=== PATIENT | female | born 1945 | race Caucasian/White ===

== ENCOUNTER 2018-04-30 13:30 | Outpatient (RCR) | payer MEDICARE, OTHER, SELFPAY ==
--- NOTE | 2018-04-14 14:01 | HP.PTEVAL ---
Patient's Visit Information JAZMINE ZHENG is a 72 year old F referred to Physical Therapy by MATT SHINE with a diagnosis of imbalance. Date of Evaluation: 04/14/18 Physical Therapist: Augustus Springer DPT, [place] - Visit Plan Frequency: 2x /Week Duration: 4-6 Weeks Plan: Neuro[employer] balance test then. 2x/week for 4 weeks for balance of VOR, foam and per results progressing to I HEP. Pt to consider full body ex instruction for overall health and if she would consider senior care I then we can teach her those also. - Subjective Subjective: Has Fibromyalgia. Was under control for 20 years. Got bad anxiety adn depression in 2013 and was hospitalized. Walking has been shuffling for 2 years or so, ruled out Parkinsons 18 months ago. Falls easily and falls out of bed. Has broken acetabulum in 2012. Leaning forward is a problem, causes her to fall. Saw ENT and ruled out vertigo. Spins sometimes, maybe due to medication. Bending over will make her spin and that will last 30 seconds. Turning too quick and lying in bed might also causes it. Is having PT now becasue the physican she saw noticed balance problems. Is not able to ex anymore, walking 2 houses down can be a challenge now. Feels like she has cement shoes. Not sure if has neuropathy, had needle test in legs and did not like it but that was a long time ago. She will not get another one becasue it hurt. Soemtimes gets tremors and jerking movements. Had neurologist in [place] but not since she moved here in 2013. Sleep is OK with Xanax. Not employed, can't stand long enough. Activities include cleaning the house, lives with , others have to shop for her. No regular ex. Spends day watching TV, reading, computer. Can't do yard work because of dizzyness with bending. - Pain legs Pain Intensity (Out of 10): 0 Pain Intensity Range: 0, 7 Comment: bending - Objective Walks slowly and hesitantly with neuropathic gait pattern lacking FW weoght shift. Sti to stadn without UE I. Steps are reciprocal with one rail. sensation LE WNL to gross light touch. Coordination inv/ev and reciprocal is poor in feet. strength in LE 4-/5, LE AROM WFL except DF at 0 degrees with knees straight showing tight gastroc. VOR is slow and poor. - B hallpike lesia. - Balance Scores Functional Gait Assessment Score: 19 % Disability: 36.6700 CATSIB Score (Max score 120 seconds): 85 - Goals Goal 1:: FGA to to diminish fall risk. Goal Time Frame: 4-6 Weeks Goal 2:: I ambulation with 50% improved subjective balance without AD Goal Time Frame: 4-6 Weeks Goal 3:: I approp HEP to minimize future problems Goal Time Frame: 4-6 Weeks Goal 4:: Do yard work without hesitation. Goal Time Frame: 4-6 Weeks - Rehabilitation Potential Physical Therapy Diagnosis: imbalance and gait. Rehabilitation Potential: Fair - Anticipated Interventions Patient/Client Instruction: Educate patient on: Condition, Plan of Care For the Purpose of:: To improve ability of physical actions for home/community/work/leisure, To improve balance, To improve safety Therapeutic Exercise to Include: Strength training, Balance training, Gait and locomotor training For the Purpose of:: To improve ability of physical actions for home/community/work/leisure, To improve gait and locomotor functions, To improve safety with gait Thank you for the opportunity to evaluate your patient. For Medicare and Medicare HMO plans, please review the plan of care and approve it. It will need to be FAXED BACK to us at [phone] for Medicare purposes. Please let me know if there are questions or concerns regarding this plan of care. Physician Signature: Date:
--- NOTE | 2018-04-20 13:16 | HP.PTCOM ---
PT Communication Note 04/20/[address] MATT SHINE , Sincerely, Augustus Springer, DPT, [place] Contact Information
--- NOTE | 2018-04-20 13:19 | HP.PTCOM_ITS ---
PT Communication Note 04/20/[address] MATT SHINE , Thank you for the referral of Roxana to [facility] for balance assessment. I have enclosed a copy of the results for your review. In summation, she scored well on the Limits of Stability Test. She score low on the left adn forward excursion on the Limits of Stability Test. She score low on the visual and vestibular portions of the Sensory Organization Test. With these results in mind, I plan to see her 2x/week for 4 weeks to work on these deficits and her strength and progress to an independent home program. Please contact me if you have questions. Thank you for this referral. Sincerely, Augustus Springer DPT, OC Contact Information
--- NOTE | 2018-05-11 12:32 | HP.PTDCNRP_ITS ---
HP - Discharge Summary (1) - Patient Information JAZMINE ZHENG was seen in my office for initial evaluation on 04/14/18. The following Plan of Care was established for this patient: Initial Frequency: 2x /Week Initial Duration: 4-6 Weeks - Anticipated Interventions Patient/Client Instruction: Educate patient on: Condition, Plan of Care For the Purpose of:: To improve ability of physical actions for home/community/ work/leisure, To improve balance, To improve safety Therapeutic Exercise to Include: Strength training, Balance training, Gait and locomotor training For the Purpose of:: To improve ability of physical actions for home/community/ work/leisure, To improve gait and locomotor functions, To improve safety with gait This patient was last seen in our office 04/30/18. Pertinent comments regarding their Physical therapy will appear below: Pt seen for 4 visits for balance testing and ex. Has called to cancel all visits at this time. Will discontinue her from my care at her request. At this point I will be discontinuing this patient from physical therapy. I would be happy to see this patient again in the future if found appropriate by the physician. Thank you! Augustus Springer, DPT, [place]
== END 2018-04-30 19:00 | disposition home or self-care (01) ==
LOC: PT 13:30
PROVIDERS: Family Provider Internal Medicine; PCP Internal Medicine
DX: R26.89 Other abnormalities of gait and mobility (principal)
CPT/HCPCS: 97110; 97162; 97750

== ENCOUNTER → 2018-07-16 11:52 | Outpatient (CLI) | payer MEDICARE, OTHER, SELFPAY | PROVIDERS: Family Provider Internal Medicine; PCP Internal Medicine; Referring Provider Nurse Practitioner Adult Health; Visit Provider Nurse Practitioner Adult Health | DX: R82.998 Other abnormal findings in urine (principal) | CPT/HCPCS: 87086; 87088; 87186 ==

== ENCOUNTER → 2018-08-26 11:51 | Outpatient (CLI) | payer MEDICARE, OTHER, SELFPAY ==
--- NOTE | 2018-08-26 11:56 | BI_ITS ---
MAMMOGRAPHY - BILATERAL SCREENING REASON FOR EXAM: Female, 73 years old. Routine annual screening examination. PERTINENT HISTORY: Non-contributory. TECHNIQUE: Digital bilateral breast gaby (3D mammographic acquisition) in the CC and MLO projections. 2-D mediolateral oblique (MLO) and craniocaudad (CC) views of both breasts were obtained. CAD: Full Field Digital Mammography with Computer Added Detection was performed. COMPARISON: Comparison is made with prior study dated April 17, 2017 and January 29, 2016. FINDINGS: Breast Composition: There are scattered areas of fibroglandular density. There are no dominant masses or suspicious calcifications. No other significant abnormalities are identified. There has been no significant change since the prior study. BI/SCREENING MAMM (CAD), BILAT IMPRESSION: Stable bilateral screening mammogram. Yearly follow-up mammogram recommended. (A) ASSESSMENT CATEGORY: BIRADS Category 1: Negative. A letter regarding these results will be sent to the patient by the facility within 30 days. Approximately 10% of breast cancers are not detected by mammography. A normal mammogram should not delay biopsy of a clinically suspicious abnormality. [id number] Electronically Signed: Junaid Casillas MD at 13:00 EST Tel [phone], Service support ,
--- OUTSIDE RECORDS SUMMARY | 2018-10-12 15:20 | XMS RPT_ITS | Continuity of Care Document ---
:1945 Author Organization [facility] Address [address] [place] [address] [address] [place] [address] Phone Care Team Providers Name Role Phone Rain Mccormick DO Unavailable Obie Almanza MD Unavailable Dr. Jeffrey Vasquez Unavailable Robbie White Unavailable BRUCE Ibanez Unavailable Unavailable JESIKA Huber Unavailable Unavailable Unavailable Unavailable Problems Name Dates Details Annual Medicare Phyiscal WITHOUT abnormal findings (Renamed from Encounter for general adult medical examination without abnormal findings) (Z00.00, V70.9) Status: Active Annual Medicare Phyiscal WITHOUT abnormal findings (Renamed from Encounter for general adult medical examination without abnormal findings) (Z00.00, V70.9) Status: Active Anxiety (F41.9, 300.00) Comments: ady galeana for axn adn counseling Status: Active BMI 30.0-30.9,adult (Z68.30, V85.30) Status: Active BMI 32.0-32.9,adult (Z68.32, V85.32) Status: Active Body mass index 31.0-31.9, adult (Z68.31, V85.31) Status: Active Cataract (H26.9, 366.9) Comments: pt doesnt know which eye Status: Active Current nonsmoker (Renamed from Current non-smoker) (Z78.9, V49.89) Status: Active Deliveries (Parity) Comments: 3 Status: Active Diabetes mellitus type II, controlled (E11.9, 250.00) Comments: much better than was. Status: Active Dizzy (R42, 780.4) Comments: improving with time at lower dose of medicaion that was weaning and started with decreasing gabapentin str -- Status: Active Dysthymic (F34.1, 300.4) Comments: stalbe Status: Active Elevated LFTs (Renamed from Elevated liver function tests) (R94.5, 790.6) Comments: stable Status: Active Elevated rheumatoid factor (R76.8, 795.79) Comments: olya- said RA -- went to [facility] for second opinion agreed with dx but no need for immunosuppressants Status: Active Encounter for screening for malignant neoplasm of colon (Renamed from Special screening for malignant neoplasms, colon) (Z12.11, V76.51) Status: Active Encounter for screening mammogram for breast cancer (Renamed from Encounter for screening mammogram for malignant neoplasm of breast) (Z12.31, V76.12) Status: Active Fibromyalgia (M79.7, 729.1) Comments: going to try otc non THC productson iveth pen didnt tolerate cymblata -- but tired on gabapentin Status: Active Fibromyalgia (Renamed from Diffuse myofascial pain syndrome) (M79.7, 729.1) Comments: stable Status: Active Hypercholesteremia (Renamed from Hypercholesterolemia) (E78.00, 272.0) Comments: stopped her statin bc didnt tolerate them -- couldnt even std up with wt on legs Status: Active Medication side effect (T88.7XXA, 995.20) Comments: weaning off gabapentin Status: Active Movement disorder (G25.9, 333.90) Status: Active 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 Harry both derm and opthal Status: Active Pneumococcal vaccination given (Z23, V06.6) Status: Active Postmenopausal (Renamed from Postmenopausal status) (Z78.0, V49.81) Status: Active Pregnancies () Comments: 3 Status: Active 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 without 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, unspecified retirement insulin use status (E11.65, 250.02) Comments: HAIC improved -- but still needs improvement-- will do more diet nad lifestyle chg befroe med change Status: Active Vitamin B 12 deficiency (E53.8, 266.2) Comments: weekly x2 and then monthly or take otc daily pill Status: Active Vitamin D deficiency (E55.9, 268.9) Status: Active Medications Name Dates Details ACCU-CHEK IRMA (Device) uad Device Device three times daily for 0 days Quantity: 1 {Each} Refills: 0 Ordered:25-Sep-2015 Anyi Hawthorne MD Start : 25-Sep-2015 Active Comments:E11.9 ACCU-CHEK SOFTCLIX LANCETS (Miscellaneous) 1 (one) Misc Misc bid for 0 days Quantity: 2 {Box} Refills: 5 Ordered:22-Sep-2015 Anyi Hawthorne MD Start : 22-Sep-2015 Active Comments:DX: E11.9 Alendronate Sodium 70 MG Oral Tablet 1 (one) Tablet once a week for 0 days Quantity: 4 {Tablet} Refills: 11 Ordered:03-Sep-2017 Kevin Mccormick DO, DO, Kathleen Start : 03-Sep-2017 Active Drisdol 26189 UNIT Oral Capsule 1 (one) Capsule Capsule qweek for 0 days Quantity: 4 {Capsule} Refills: 4 Ordered:28-Jan-2017 Valencia Ibanez LPN Start : 28-Jan-2017 Active Gabapentin 400 MG Oral Capsule 1 Capsule qid for 90 days Quantity: 120 {Capsule} Refills: 0 Ordered:25-Mar-2018 Kevin Mccormick DO, DO, Kathleen Start : 25-Mar-2018 Active Comments:1200 mg qd Januvia 100 MG Oral Tablet 1 (one) Tablet Tablet qd for 0 days Quantity: 30 {Tablet} Refills: 6 Ordered:13-Jan-2018 Kevin Mccormick DO, DO, Kathleen Start : 13-Jan-2018 Active Lexapro 10 MG Oral Tablet 1 Tablet qd for 0 days Quantity: 30 {Tablet} Refills: 6 Ordered:03-Sep-2017 Kevin Mccormick DO, DO, Kathleen Start : 03-Sep-2017 Active MetFORMIN HCl 1000 MG Oral Tablet 1 (one) Tablet bid for 0 days Quantity: 180 {Tablet} Refills: 3 Ordered:26-Feb-2018 Kevin Mccormick DO, DO, Kathleen Start : 26-Feb-2018 Active Metoprolol Succinate ER 25 MG Oral Tablet Extended Release 24 Hour 1 Tablet ER 24HR qd for 0 days Quantity: 90 {Tablet} Refills: 3 Ordered:03-Jun-2018 Kevin Mccormick DO, DO, Kathleen Start : 03-Jun-2018 Active Nystatin Powder apply Powder Powder under breast 3-5 times a day for 0 days Quantity: 1 {Bottle} Refills: 2 Ordered:08-May-2017 Valencia Ibanez LPN Start : 08-May-2017 Active Xanax XR 1 MG Oral Tablet Extended Release 24 Hour 1 Tablet ER 24HR qhs for 0 days Quantity: 30 {Tablet} Refills: 0 Ordered:01-May-2016 Kevin Mccormick DO, DO, Kathleen Start : 01-May-2016 Active Comments:thirty ATORVASTATIN CALCIUM, 10MG (Oral Tablet) 1/2 Tablet at night for 0 days Quantity: 30 {Tablet} Refills: 5 Ordered:26-Dec-2015 Anyi Hawthorne MD Start : 26-Dec-2015 End : 26-Dec-2015 Inactive Comments:myalgia DESONIDE, 0.05% (External Cream) apply sparingly Cream Cream bid for 5-7 days for 0 days Quantity: 15 {Gram} Refills: 0 Ordered:26-Dec-2015 JESIKA Huber Start : 21-Aug-2015 End : 26-Dec-2015 Inactive DIFLUCAN, 150MG (Oral Tablet) 1 (one) Tablet qd for 0 days Quantity: 1 {Tablet} Refills: 0 Ordered:22-Sep-2015 JESIKA Huber Start : 21-Aug-2015 End : 22-Sep-2015 Inactive DOXYCYCLINE HYCLATE, 50MG (Oral Capsule) 1 (one) Capsule bid for 0 days Quantity: 60 {Capsule} Refills: 0 Ordered:15-Mar-2016 Valencia Ibanez LPN Start : 26-Dec-2015 End : 15-Mar-2016 Inactive DOXYCYCLINE MONOHYDRATE, 100MG (Oral Capsule) 1 (one) Capsule bid for 7 days Quantity: 14 {Capsule} Refills: 0 Ordered:21-Aug-2015 Kevin Mccormick DO, DO, Kathleen Start : 21-Aug-2015 End : 28-Aug-2015 Inactive ERGOCALCIFEROL, 25143VQYZ (Oral Capsule) 1 (one) Capsule q weekly for 0 days Quantity: 12 {Capsule} Refills: 3 Ordered:15-Mar-2016 Valencia Ibanez LPN Start : 26-Dec-2015 End : 15-Mar-2016 Inactive Gabapentin 100 MG Oral Capsule 1 (one) Capsule qam for 90 days Quantity: 90 {Capsule} Refills: 0 Ordered:03-Sep-2017 Raisa Nova Start : 03-Sep-2017 End : 02-Dec-2017 Inactive KLONOPIN, 0.5MG (Oral Tablet) 1 Tablet bid for 0 days Quantity: 120 {Tablet} Refills: 5 Ordered:15-Mar-2016 Valencia Ibanez LPN Start : 26-Dec-2015 End : 15-Mar-2016 Inactive Comments:one hundred and twenty Onglyza 5 MG Oral Tablet 1 (one) Tablet qd for 30 days Quantity: 30 {Tablet} Refills: 3 Ordered:03-Sep-2017 Kevin Mccormick DO, DO, Kathleen Start : 08-May-2017 End : 03-Sep-2017 Inactive Pravachol 40 MG Oral Tablet 1 (one) Tablet qd for 0 days Quantity: 90 {Tablet} Refills: 3 Ordered:01-Aug-2017 Anyi Hawthorne MD Start : 01-Aug-2017 End : 01-Aug-2017 Inactive Comments:myalgia ACCU-CHEK SMARTVIEW (In Vitro Strip) 1 (one) Strip bid as directed for 0 days Quantity: 60 {Strip} Refills: 5 Ordered:06-Nov-2015 Kelli Oro Start : 22-Sep-2015 End : 06-Nov-2015 Discontinued Comments:DX: E11.9NPI: [id number] DULoxetine HCl 20 MG Oral Capsule Delayed Release Particles 1 (one) Capsule qam for 90 days Quantity: 90 {Capsule} Refills: 1 Ordered:25-Mar-2018 Kevin Mccormick DO, DO, Kathleen Start : 25-Mar-2018 End : 25-Mar-2018 Discontinued Comments:heart racing Plaquenil 200 MG Oral Tablet 1 (one) Tablet bid for 0 days Quantity: 60 {Tablet} Refills: 3 Ordered:19-Dec-2017 Kevin Mccormick DO, DO, Kathleen Start : 19-Dec-2017 End : 19-Dec-2017 Discontinued Comments:per valgabike TRAMADOL HCL, 50MG (Oral Tablet) 1 Tablet q 6-8 hours prn for 0 days Quantity: 120 {Tablet} Refills: 5 Ordered:03-Jul-2015 Jessica Cobos LPN Start : 29-Jun-2015 End : 03-Jul-2015 Discontinued Comments:one hundred and twenty Allergies and Adverse Reactions Name Dates Details No Known Allergies (Allergy) Onset: 06-Apr-2015 Status: Active Past Medical History Name Dates Details Encounter for Medicare annual wellness exam (Z00.00, V70.0) Status: Inactive as of 08-May-2015 Fracture of bone of left shoulder, sequela (S42.92XS, 905.2) Comments: surgery 03-29 ORIF plate/screws. update 09-22-15 patient is going back in for more surgery 10-04-15 for manipulation of the left shoulder again @ [facility] Status: Inactive as of 26-Dec-2015 History of candidiasis (Z86.19, V12.09) Status: Inactive as of 22-Sep-2015 Left arm swelling (M79.89, 729.81) Status: Inactive as of 26-Dec-2015 Rash of face (R21, 782.1) Comments: etiology ??-- doubt roscea based on distrib but it gets pustlues -- or lil contact ?-- Status: Inactive as of 22-Sep-2015 Yeast dermatitis (B37.2, 112.3) Status: Resolved as of 01-Aug-2017 Procedures Procedure Dates Details Appendectomy Completed Delivery Completed Comments: 3 Hysterectomy; Total Completed Left Shoulder repair Completed Comments: due to fracture March 2015 ORIF/plate/screws Tonsillectomy Completed Date Value Details 21-Apr-2018 PT Communication Result: Comments: See Note; NOTES: [facility] [place] [facility] [place] [address] Fax REHABILITATION SERVICES PROGRPAULETTE S NOTE MR#: [id number] Acct: [id number] Name: JAZMINE LOCO Rep #: [id number] : 1945 72 From: GERARDO Horner DPT, CSCS Referring Dr.: Status: REG RCR Insurance: MEDICARE PART A B [employer] [place] PT Communication Note 04/20/[address] MATT SHINE , Thank you for the referral of Jazmine to [facility] for balance assessment. I have enclosed a copy of the results for your review. In summation, she scored well on the Limits of Stability Test. She score low on the left adn forward excursion on the Limits of Stability Test. She score low on the visual and vestibular portio ns of the Sensory Organization Test. With these results in mind, I plan to see her 2x/week for 4 weeks to work on these deficits and her strength and progress to an independent home program. Please con tact me if you have questions. Thank you for this referral. Sincerely, Augustus Springer DPT, LEAH Contact Information 04/21/18 0914 <Electronically signed by Augustus Springer DPT, GERARDO, CSCS> Date GERARDO Horner DPT, CSCS Cosigner Signature (if applicable): Date CC: Rain Mccormick DO; OUT OF TOWN DOCTOR Signed For Medicare only, by signing this I certify the plan of care. Physicians Signature Date 15-Apr-2018 Inital Evaluation (1) - PT Result: Comments: See Note; NOTES: [facility] [address] [place] [address] Fax REHABILITATION SERVICES INITIAL EVALUATION MR#: [id number] Acct: [id number] Name: JAZMINE LOCO Rep #: [id number] : 1945 72 From: Augustus Springer DPT, OCS, CSCS Referring DrNoman: Status: REG RCR Insurance: MEDICARE PART A B [facility] Patient's Visit Information JAZMINE LOCO is a 72 year old F referred to Physical Therapy by MATT SHINE with a diagnosis of imbalance. Date of Evaluation: 04/14/18 Physical Thera pist: Augustus Springer DPT, OC - Visit Plan Frequency: 2x /Week Duration: 4-6 Weeks Plan: Neurocom balance test then. 2x/week for 4 weeks for balance of VOR, foam and per results progressing to I HEP. Pt to consider full body ex instruction for overall health and if she would consider oil heaterman I then we can teach her those also. - Subjective Subjective: Has Fibromyalgia. Was under control for 20 years . Got bad anxiety adn depression in 2013 and was hospitalized. Walking has been shuffling for 2 years or so, ruled out Parkinsons 18 months ago. Falls easily and falls out of bed. Has broken acetabulum in 2012. Leaning forward is a problem, causes her to fall. Saw ENT and ruled out vertigo. Spins sometimes, maybe due to medication. Bending over will make her spin and that will last 30 seconds. Turning too quick and lying in bed might also causes it. Is having PT now becasue the physican she saw noticed balance problems. Is not able to ex anymore, walking 2 houses down can be a challenge now. Feels l cathi she has cement shoes. Not sure if has neuropathy, had needle test in legs and did not like it but that was a long time ago. She will not get another one becasue it hurt. Soemtimes gets tremors and j erking movements. Had neurologist in [place] but not since she moved here in 2013. Sleep is OK with Xanax. Not employed, can't stand long enough. Activities include cleaning the house, lives with , others have to shop for her. No regular ex. Spends day watching TV, reading, computer. Can't do yard work because of dizzyness with bending. - Pain legs Pain Intensity (Out of 10): 0 Pain Intensit y Range: 0, 7 Comment: bending - Objective Walks slowly and hesitantly with neuropathic gait pattern lacking FW weoght shift. Sti to stadn without UE I. Steps are reciprocal with one rail. sensation LE WNL to gross light touch. Coordination inv/ev and reciprocal is poor in feet. strength in LE 4-/5, LE AROM WFL except DF at 0 degrees with knees straight showing tight gastroc. VOR is slow and poor. - B hallpike lesia. - Balance Scores Functional Gait Assessment Score: 19 % Disability: 36.6700 CATSIB Score (Max score 120 seconds): 85 - Goals Goal 1:: FGA to to diminish fall risk. Goal Time Fram e: 4-6 Weeks Goal 2:: I ambulation with 50% improved subjective balance without AD Goal Time Frame: 4-6 Weeks Goal 3:: I approp HEP to minimize future problems Goal Time Frame: 4-6 Weeks Goal 4:: Do alia d work without hesitation. Goal Time Frame: 4-6 Weeks - Rehabilitation Potential Physical Therapy Diagnosis: imbalance and gait. Rehabilitation Potential: Fair - Anticipated Interventions Patient/Clie nt Instruction: Educate patient on: Condition, Plan of Care For the Purpose of:: To improve ability of physical actions for home/community/work/leisure, To improve balance, To improve safety Therapeutic Exercise to Include: Strength training, Balance training, Gait and locomotor training For the Purpose of:: To improve ability of physical actions for home/community/work/leisure, To improve gait and lo comotor functions, To improve safety with gait Thank you for the opportunity to evaluate your patient. For Medicare and Medicare HMO plans, please review the plan of care and approve it. It will ne ed to be FAXED BACK to us at [phone] for Medicare purposes. Please let me know if there are questions or concerns regarding this plan of care. Physician Signature: Date: <Electronically signed by Augustus Springer DPT, OCS, CSCS> 04/15/18 0722 CC: Rain Mccormick DO; OUT OF TOWN DOCTOR EBG S igned For Medicare only, by signing this I certify the plan of care. Physicians Signature Date 17-Apr-2017 SCREENING MAMM (CAD), BILAT Result: Comments: See Note; NOTES: [facility] Imaging Services [address] [place] [address] SCREENING MAMM (CAD), BILAT MR#: [id number] Acct: [id number] Name: JAZMINE LOCO Rep #: [id number] : 1945 F 71 From: Junaid Casillas MD PCP: Rain Mccormick DO Status: [facility] Study: SCREENING MAMM (CAD), BILAT Date of Exam: 04/17/17 Exam# [id number] Ordering Dr: Rain Mccormick DO MAMMOGRAPHY - BILATERAL SCREENING REASON FOR EXAM: Female, 71 years old. Routine annual screening examination. PERTINENT HISTORY: Non-contributory. TECHNIQUE: Digital bilateral breast gaby (3D mammographic acquisition) in the CC and MLO projections. 2-D mediolateral oblique (MLO) and craniocaudad (CC) views of both breasts were obtained. CAD: Full Field Digital Mammography with Computer Added Detection was performed. COMPARISON: Comparison is made with prior study dated January 29, 2016 and November 18, 2011. FINDINGS: Breast Composition: The breasts are hetero geneously dense, which may obscure small masses. There are no dominant masses or suspicious calcifications. No other significant abnormalities are identified. There has been no significant change sinc e the prior study. HPBI/SCREENING MAMM (CAD), BILAT IMPRESSION: Stable bilateral screening mammogram. Yearly follow-up mammogram recommended. (A) ASSESSMENT CATEGORY: BIRADS Category 1: Negative. A letter regarding these results will be sent to the patient by the facility within 30 days. Approximately 10% o f breast cancers are not detected by mammography. A normal mammogram should not delay biopsy of a clinically suspicious abnormality. [id number] Electronically Signed: Junaid Casillas MD at 15:15 EDT Tel [phone], Service support , CC: Rain Mccormick DO Geological Manager: Signed 30-Jan-2017 Liver Result: Comments: See Note; NOTES: [facility] Imaging Services [address] [place] [address] Verdana 4d Liver MR#: [id number] Acct: [id number] Name: JAZMINE LOCO Rep #: [id number] DO B: 1945 F 71 From: Junaid Casillas MD PCP: Rain Mccormick DO Status: REG CLI Study: Liver Date of Exam: 01/30/17 Exam# [id number] Ordering Dr: Rain Mccormick DO STUDY: ABDOMINAL ULTRASOUND - RIGHT UPPER QUADRANT REASON FOR VISIT: Female, 71 years old. Elevated liver function tests. TECHNIQUE: Ultrasound evaluation of the right upper quadrant was performed with real-time and static trivedi -scale imaging. TECHNICAL QUALITY: Adequate. COMPARISON: None. FINDINGS: Liver: The liver measures 16.3 cm. There is increased echogenicity consistent with fatty infiltration. The bile ducts are within normal limits. There is hepatic color flow. The direction of portal flow is hepatopetal. There is no demonstrated mass lesion. Gallbladder: Normal distended gall bladder. The gallbladder wall measures 1.8 mm. There is a negative sonographic Barron's sign. There is no pericholecystic fluid. There are no gallstones. Common Bile Duct (C.B.D.): The common bile duct measures 5.0 mm. Pancreas: Normal size of the head, body and tail of the pancreas. There is normal echogenicity of the pancreas. There is no demonstrated pancreatic mass or cyst. Right Kidney: Normal size of the right kidney. The right kidney measures 10.8 cm x 4.0 cm x 4.6 cm. Normal renal cortex. The right cortex measures 1.5 cm. There is no demonstrated renal mass or cyst. There is no right hydr onephrosis. US/Liver IMPRESSION: Fatty infiltration of the liver. Electronically Signed: Junaid Casillas MD at 15:05 EDT Tel [phone], Service support , CC: Rain Mccormick DO Geological Manager: Signed 11-Apr-2016 Dexa Bone Density Study (HP) Result: Comments: See Note; NOTES: [facility] Imaging Services [address] [place] [address] Verdana 4d Dexa Bone Density Study (HP) MR#: [id number] Acct: [id number] Name : JAZMINE LOCO Rep #: [id number] : 1945 F 70 From: Junaid Casillas MD PCP: Rain Mccormick DO Status: REG CLI Study: Dexa Bone Density Study (HP) Date of Exam: 04/11/16 Exam# [id number] Ordering Dr: Rain Mccormick DO STUDY: DUAL ENERGY X-RAY ABSORPTIOMETRY / DXA REASON FOR EXAM: Female, 70 years old. The patient is postmenopausal. Loss of height. TECHNIQUE: Bone Mineral Den sity (BMD) measurements of lumbar spine and bilateral hips were obtained. COMPARISON: None. FINDINGS: Lumbar Spine (L1-L4): g/cm2 (1.354) / T-score (1.6) / Z- score (3.2) Findings are suggestive of normal bone density with a low fracture risk. Left Femur Total: g/cm2 (0.915) / T-score (-0.7) / Z-score (0.7) Left Femoral Neck: g/cm2 (0.806) / T-score (-1.7 ) / Z-score (0.0) Right Femur Total: g/cm2 (0.948) / T-score (-0.5) / Z-score (0.9) Right Femoral Neck: g/cm2 (0.778) / T-score (-1.9) / Z-score (-0.2) HPBD/Dexa Bone Density Study (HP) IMPRESSION: The patient is considered osteopenic at the level of the femoral neck as outlined below according to World Onel Organization (WHO) criteria with a moderate fracture risk. Reference Information: The T-score is the number of standard deviations above or below the standard which is normal for young ad ults at their peak bone mineral density. The World Health Organization (WHO) interprets the T-scores as follows: Above -1 Normal bone density Between -1 and -2.5 Osteopenia Equal to / or below -2. 5 Osteoporosis As a practical clinical guideline, osteopenia may be graded as follows: Mild -1 through -1.5 Moderate -1.6 through -2.0 Severe -2.1 through -2.4 The Z-score is the number of standa rd deviations above or below age-matched controls. A Z-score of less than -1.5 would be considered abnormal. References: 1. NIH Osteoporosis and Related Bone Diseases http://www.osteo.org 2. Tape Fastener Machine Operator [facility] Society for Clinical Densitometry http://www.iscd.org 3. National Osteoporosis Foundation http://www.nof.org Electronically Signed: Junaid Casillas MD at 11:29 EDT Tel [phone], Service support [phone], CC: Rain Mccormick DO Geological Manager: Signed 29-Jan-2016 Bilat Scrn Digital AND CAD Result: Comments: See Note; NOTES: [facility] Imaging Services [address] [place] [address] Verdana 4d Bilat Scrn Digital AND CAD MR#: [id number] Acct: [id number] Name: JAZMINE LOCO Rep #: [id number] : 1945 F 70 From: Junaid Casillas MD PCP: Anyi Hawthorne MD Status: REG CLI Study: Bilat Scrn Digital AND CAD Date of Exam: 01/29/16 Exam[facility] [id number] [facility] Anyi Hawthorne MD MAMMOGRAPHY - BILATERAL SCREENING REASON FOR EXAM: Female, 70 years old. Routine annual screening examination. PERTINENT HISTORY: Non-contributory. TECHNIQUE: Digital bilateral breast tomosynthesis (3-D mammographic acquisition) in the CC and MLO projections. Synthesized 2-D images (C-View reconstruction from tomosynthesis acquisition) providing bilateral breast C C and MLO views. Mediolateral oblique (MLO) and craniocaudad (CC) views of both breasts were obtained. CAD: Full Field Digital Mammography with Computer Added Detection was performed. COMPARISON: Co mparison is made with prior outside examinations dated November 18, 2011. FINDINGS: Breast Composition: The breasts are heterogeneously dense, which may obscure sma ll masses. There are no dominant masses or suspicious calcifications. No other significant abnormalities are identified. There has been no significant change since the prior study. IMPRESSION: Stable bilateral screening mammogram. Yearly follow-up mammogram recommended. (A) ASSESSMENT CATEGORY: BIRADS Category 1: Ne gative. A letter regarding these results will be sent to the patient by the facility within 30 days. Approximately 10% of breast cancers are not detected by mammography. A normal mammogram should no t delay biopsy of a clinically suspicious abnormality. [id number] Electronically Signed: Junaid Casillas MD at 12:42 EDT Tel [phone], Service support [phone], CC: Anyi Hawthorne MD Geological Manager: Signed 03-Oct-2015 12 Lead Electrocardiogram Result: Comments: See Note; NOTES: [facility] Cardiovascular Services [address] [place] [address] 12 Lead EKG 10/02/15 1623 MR#: [id number] Acct: [id number] Name: JAZMINE DUKES Rep #: [id number] : 1945 70 From: Rodolfo Roberto MD Attending Dr: Martín De León DO Status: REG CLI Ordering Dr: Martín De León DO Date: 10/02/15 Location: [facility] Sex: F C Admitted: Test Reason : PRE OP Blood Pressure : / mmHG Vent. Rate : 056 BPM Atrial Rate : 056 BPM P-R Int : 142 ms QRS Dur : 086 ms QT Int : 452 ms P-R-T Axes : 026 027 036 degrees QTc Int : 436 ms Sinus bradycardia Otherwise normal ECG Confirmed by RODOLFO ROBERTO MD ([id number]), acquisition editor MAIRA KEMP ([id number]) on 10/03/2015 8:43:11 AM Referred By: TAN Confirmed By:RODOLFO ROBERTO MD 10/03/15 084 3 Date Rodolfo Roberto MD CC: Anyi Hawthorne MD Date Dictated: 10/02/151622 Date Transcribed: 10/02/151622 Geological Manager: Signed Family History Unknown Family Member Name Dates Details Father Comments: Ty[e II diabetes, HTN Status: Active First Degree Relatives Comments: Paternal CVA and Type 2 Diabetes Maternal CVA Status: Active Mother Comments: high cholesterol, dementia Status: Active Social History Name Dates Details Alcohol Use Comments: rarely Status: Active Current Work/Study Status: Unemployed not looking for work. Status: Active Exercise History: Does not exercise. Status: Active Living Situation Comments: lives with spouse Status: Active No Caffeine Use Status: Active No Drug Use Status: Active Tobacco Use: Never smoker. Status: Active Smoking Status Name Dates Details Never smoker Vital Signs Date Test Result Details :07 Pulse 64 /min Comments: Pattern: Regular Respiration Rate 18 /min Comments: Pattern: Unlabored O2 SAT 97 % Comments: Room air BP Systolic 122 mm[Hg] Comments: Patient Position: Sitting; Cuff Location: Left Arm; Cuff Size: Large BP Diastolic 70 mm[Hg] Comments: Patient Position: Sitting; Cuff Location: Left Arm; Cuff Size: Large Weight 176.5 lb Height 63 in Body Mass Index Calculated 31.27 kg/m2 Body Surface Area Calculated 1.83 m2 :18 Pulse 59 /min Comments: Pattern: Regular Respiration Rate 18 /min Comments: Pattern: Unlabored O2 SAT 97 % Comments: Room air BP Systolic 118 mm[Hg] Comments: Patient Position: Sitting; Cuff Location: Left Arm; Cuff Size: Large BP Diastolic 60 mm[Hg] Comments: Patient Position: Sitting; Cuff Location: Left Arm; Cuff Size: Large Weight 176.375 lb Height 63 in Body Mass Index Calculated 31.24 kg/m2 Body Surface Area Calculated 1.83 m2 :43 Pulse 67 /min Comments: Pattern: Regular Respiration Rate 18 /min Comments: Pattern: Unlabored O2 SAT 98 % Comments: Room air BP Systolic 122 mm[Hg] Comments: Patient Position: Sitting; Cuff Location: Left Arm; Cuff Size: Large BP Diastolic 74 mm[Hg] Comments: Patient Position: Sitting; Cuff Location: Left Arm; Cuff Size: Large Weight 172.375 lb Height 63 in Body Mass Index Calculated 30.53 kg/m2 Body Surface Area Calculated 1.82 m2 :02 Pulse 63 /min Comments: Pattern: Regular Respiration Rate 18 /min Comments: Pattern: Unlabored O2 SAT 97 % Comments: Room air BP Systolic 100 mm[Hg] Comments: Patient Position: Sitting; Cuff Location: Left Arm; Cuff Size: Large BP Diastolic 60 mm[Hg] Comments: Patient Position: Sitting; Cuff Location: Left Arm; Cuff Size: Large Weight 177.25 lb Height 63 in Body Mass Index Calculated 31.4 kg/m2 Body Surface Area Calculated 1.84 m2 90-Qqx-[id number]:42 Comments: hearing wnlDrNoman Harry and had a glaucom test done Pulse 53 /min Comments: Pattern: Regular Respiration Rate 18 /min Comments: Pattern: Unlabored O2 SAT 97 % Comments: Room air BP Systolic 120 mm[Hg] Comments: Patient Position: Sitting; Cuff Location: Left Arm; Cuff Size: Standard BP Diastolic 78 mm[Hg] Comments: Patient Position: Sitting; Cuff Location: Left Arm; Cuff Size: Standard Weight 175.375 lb Height 63 in Body Mass Index Calculated 31.07 kg/m2 Body Surface Area Calculated 1.83 m2 26-Kbc-486115:02 Pulse 73 /min Comments: Pattern: Regular Respiration Rate 16 /min Comments: Pattern: Unlabored O2 SAT 96 % Comments: Room air BP Systolic 118 mm[Hg] Comments: Patient Position: Sitting; Cuff Location: Left Arm; Cuff Size: Large BP Diastolic 62 mm[Hg] Comments: Patient Position: Sitting; Cuff Location: Left Arm; Cuff Size: Large Weight 181 lb Height 63 in Body Mass Index Calculated 32.06 kg/m2 Body Surface Area Calculated 1.85 m2 86-Obv-175477:05 Pulse 67 /min Comments: Pattern: Regular Respiration Rate 18 /min Comments: Pattern: Unlabored O2 SAT 98 % Comments: Room air BP Systolic 128 mm[Hg] Comments: Patient Position: Sitting; Cuff Location: Left Arm; Cuff Size: Large BP Diastolic 80 mm[Hg] Comments: Patient Position: Sitting; Cuff Location: Left Arm; Cuff Size: Large Weight 177.25 lb Height 63 in Body Mass Index Calculated 31.4 kg/m2 Body Surface Area Calculated 1.84 m2 :52 Comments: hearing JnakirAbad and had a glaucoma test done Pulse 55 /min Comments: Pattern: Regular Respiration Rate 18 /min Comments: Pattern: Unlabored O2 SAT 97 % Comments: Room air BP Systolic 122 mm[Hg] Comments: Patient Position: Sitting; Cuff Location: Left Arm; Cuff Size: Large BP Diastolic 80 mm[Hg] Comments: Patient Position: Sitting; Cuff Location: Left Arm; Cuff Size: Large Weight 177.25 lb Height 63 in Body Mass Index Calculated 31.4 kg/m2 Body Surface Area Calculated 1.84 m2 :19 Pulse 59 /min Comments: Pattern: Regular Respiration Rate 18 /min Comments: Pattern: Unlabored O2 SAT 96 % Comments: Room air BP Systolic 122 mm[Hg] Comments: Patient Position: Sitting; Cuff Location: Left Arm; Cuff Size: Large BP Diastolic 64 mm[Hg] Comments: Patient Position: Sitting; Cuff Location: Left Arm; Cuff Size: Large Weight 178.25 lb Height 63 in Body Mass Index Calculated 31.58 kg/m2 Body Surface Area Calculated 1.84 m2 :14 Temperature 97.9 f Comments: Method: Temporal Pulse 74 /min Comments: Pattern: Regular Respiration Rate 20 /min Comments: Pattern: Unlabored O2 SAT 98 % Comments: Room air BP Systolic 120 mm[Hg] Comments: Patient Position: Sitting; Cuff Location: Left Arm; Cuff Size: Standard BP Diastolic 80 mm[Hg] Comments: Patient Position: Sitting; Cuff Location: Left Arm; Cuff Size: Standard Weight 178 lb Height 63 in Body Mass Index Calculated 31.53 kg/m2 Body Surface Area Calculated 1.84 m2 :56 Temperature 97.6 f Comments: Method: Temporal Pulse 74 /min Comments: Pattern: Regular Respiration Rate 20 /min Comments: Pattern: Unlabored O2 SAT 96 % Comments: Room air BP Systolic 122 mm[Hg] Comments: Patient Position: Sitting; Cuff Location: Left Arm; Cuff Size: Standard BP Diastolic 78 mm[Hg] Comments: Patient Position: Sitting; Cuff Location: Left Arm; Cuff Size: Standard Weight 183 lb Height 63 in Body Mass Index Calculated 32.42 kg/m2 Body Surface Area Calculated 1.86 m2 :17 Pulse 88 /min Comments: Pattern: Regular Respiration Rate 20 /min Comments: Pattern: Unlabored O2 SAT 98 % Comments: Room air BP Systolic 120 mm[Hg] Comments: Patient Position: Sitting; Cuff Location: Left Arm; Cuff Size: Large BP Diastolic 78 mm[Hg] Comments: Patient Position: Sitting; Cuff Location: Left Arm; Cuff Size: Large Weight 184 lb Height 63 in Body Mass Index Calculated 32.59 kg/m2 Body Surface Area Calculated 1.87 m2 :34 Temperature 97.6 f Comments: Method: Temporal Pulse 60 /min Comments: Pattern: Regular Respiration Rate 18 /min Comments: Pattern: Unlabored O2 SAT 98 % Comments: Room air BP Systolic 118 mm[Hg] Comments: Patient Position: Sitting; Cuff Location: Left Arm; Cuff Size: Standard BP Diastolic 68 mm[Hg] Comments: Patient Position: Sitting; Cuff Location: Left Arm; Cuff Size: Standard Weight 170 lb Height 63 in Body Mass Index Calculated 30.11 kg/m2 Body Surface Area Calculated 1.8 m2 :25 Temperature 97.6 f Comments: Method: Temporal Pulse 80 /min Comments: Pattern: Regular Respiration Rate 18 /min Comments: Pattern: Unlabored O2 SAT 95 % Comments: Room air BP Systolic 120 mm[Hg] Comments: Patient Position: Sitting; Cuff Location: Left Arm; Cuff Size: Standard BP Diastolic 62 mm[Hg] Comments: Patient Position: Sitting; Cuff Location: Left Arm; Cuff Size: Standard Weight 175.025 lb Height 63 in Body Mass Index Calculated 31 kg/m2 Body Surface Area Calculated 1.83 m2 Results Date Description Value Details :27 VITAMIN B-12 (CYANOCOBALAMIN) Comments: PATIENT NOT FASTINGPERFORMED BY: [facility]CoSt. [facility] HospitalIaxahq9495 [facility] [id number] (49075) Vitamin B12 368 pg/mL (Normal) Range: 232-1245 77-Xwn-778294:02 HgA1C , Office (88409) HgA1C , Office 6.8 % (Normal) Range: 4.6 - 7.1 89-Tvl-019851:02 Blood Glucose , Office (70139) Blood Glucose , Office 225 (Normal) 1-Eae-936472:09 METABOLIC PANEL, Comments: PATIENT WAS FASTINGPERFORMED BY: [employer] [id number] BY: LabLivestageSt. Joseph's Wayne HospitalRtlvlq2965 [facility] [id number] COMPREHENSIVE (66923) ALT (SGPT) 51 [iU]/L (Abnormal) Range: 0-32 AST (SGOT) 39 [iU]/L (Normal) Range: 0-40 Alkaline Phosphatase 54 [iU]/L (Normal) Range: 39-117 Bilirubin, Total 0.5 mg/dL (Normal) Range: 0.0-1.2 A/G Ratio 1.6 (Normal) Range: 1.2-2.2 Globulin, Total 2.7 g/dL (Normal) Range: 1.5-4.5 Albumin 4.4 g/dL (Normal) Range: 3.5-4.8 Protein, Total 7.1 g/dL (Normal) Range: 6.0-8.5 Calcium 9.9 mg/dL (Normal) Range: 8.7-10.3 Carbon Dioxide, Total 25 mmol/L (Normal) Range: 20-29 Comments: Please note reference interval change Chloride 103 mmol/L (Normal) Range: 96-106 Potassium 4.6 mmol/L (Normal) Range: 3.5-5.2 Sodium 142 mmol/L (Normal) Range: 134-144 BUN/Creatinine Ratio 16 (Normal) Range: 12-28 eGFR If Africn Am 54 mL/min/1.73 (Abnormal) eGFR If NonAfricn Am 47 mL/min/1.73 (Abnormal) Creatinine 1.18 mg/dL (Abnormal) Range: 0.57-1.00 BUN 19 mg/dL (Normal) Range: 8-27 Glucose 141 mg/dL (Abnormal) Range: 65-99 5-Jnp-285895:09 CBC W/AUTO DIFF WBC Comments: PATIENT WAS FASTINGPERFORMED BY: Nagual [employer] [id number] BY: LabLivestageSt. Joseph[facility] HospitalNwocys5951 [facility] [id number] (44715) Immature Grans (Abs) 0.0 {x10E3/uL} (Normal) Range: 0.0-0.1 Immature Granulocytes 0 % (Normal) Baso (Absolute) 0.0 {x10E3/uL} (Normal) Range: 0.0-0.2 Eos (Absolute) 0.3 {x10E3/uL} (Normal) Range: 0.0-0.4 Monocytes(Absolute) 0.3 {x10E3/uL} (Normal) Range: 0.1-0.9 Lymphs (Absolute) 2.1 {x10E3/uL} (Normal) Range: 0.7-3.1 Neutrophils (Absolute) 4.7 {x10E3/uL} (Normal) Range: 1.4-7.0 Basos 0 % (Normal) Eos 3 % (Normal) Monocytes 5 % (Normal) Lymphs 28 % (Normal) Neutrophils 64 % (Normal) Platelets 227 {x10E3/uL} (Normal) Range: 150-379 RDW 13.8 % (Normal) Range: 12.3-15.4 MCHC 33.0 g/dL (Normal) Range: 31.5-35.7 MCH 28.3 pg (Normal) Range: 26.6-33.0 MCV 86 fL (Normal) Range: 79-97 Hematocrit 44.2 % (Normal) Range: 34.0-46.6 Hemoglobin 14.6 g/dL (Normal) Range: 11.1-15.9 RBC 5.15 {x10E6/uL} (Normal) Range: 3.77-5.28 WBC 7.4 {x10E3/uL} (Normal) Range: 3.4-10.8 9-Atp-949858:09 CALCIFIDIOL (73606) VIT D Comments: PATIENT WAS FASTINGPERFORMED BY: BN [facility] Lgotknlxqc4671 [facility] [id number] BY: CB [facility] Zmaeed2414 [facility] [id number] 25 Vitamin D, 25-Hydroxy 20.1 ng/mL (Abnormal) Range: 30.0-100.0 Comments: Vitamin D deficiency has been defined by the [place] of[place] and an Endocrine Society practice guideline as alevel of serum 25-OH vitamin D less than 20 ng/mL (1,2).The Endocrine Society went on to further define vitamin Dinsufficiency as a level between 21 and 29 ng/mL (2).1. IOM ([place] of Medicine). 2010. Dietary reference intakes for calcium and D. [place]: The National Academies Press.2. Nola MF, Young BROOKS, Chrissie AVILA, et al. Evaluation, treatment, and prevention of vitamin D deficiency: an Endocrine Society clinical practice guideline. JCEM. 2010; 96(7):1911-30. 9-Ahl-712888:09 LIPOPROTEIN, BLD, BY NMR Comments: PATIENT WAS FASTINGPERFORMED BY: BN [facility] Cqdkrjcjdv1751 [facility] [id number] BY: CB [facility] Xiofyj6236 [facility] [id number] (87389) LP-IR Score 72 (Abnormal) Comments: INSULIN RESISTANCE MARKER <--Insulin Sensitive Insulin Resistant--> Percentile in Reference PopulationInsulin Resistance ScoreLP-IR Score Low 25th 50th 75th High <27 27 45 63 >63LP-IR Score is inaccurate if patient is non-fasting. .The LP-IR score is a laboratory developed i [facility] that has beenassociated with insulin resistance and diabetes risk and should beused as one component of a physician's clinical assessment. TheLP-IR score listed above has not been cleared by the [place] Food andDrug Administration. LDL Size 20.6 nm (Normal) Comments: INTERPRETATIVE INFORMATION PARTICLE CONCENTRATION AND SIZE <--Lower CVD Risk Highe r CVD Risk--> LDL AND HDL PARTICLES Percentile in Reference Population HDL-P (total) High 75th 50th 25th Low >34.9 34.9 30.5 26.7 <26.7 . Small LDL-P Low 25th 50th 75th High <117 117 527 839 >839 . LDL Size <-Large (Pattern A)-> <-Small (Pattern B)-> 23.0 20.6 20.5 19.0 Small LDL-P and LDL Size are associated with CVD risk, but not afterLDL-P is taken into account. .These assays were developed and their performance characteristicsdetermined by [employer]. These assays have not been cleared by [place] Food and Drug Administration. The clinical utility of theselaboratory values have not been fully established. Small LDL-P 1398 nmol/L (Abnormal) HDL-P (Total) 28.2 umol/L (Abnormal) Cholesterol, Total 260 mg/dL (Abnormal) Range: 100-199 Triglycerides 218 mg/dL (Abnormal) Range: 0-149 HDL-C 45 mg/dL (Normal) LDL-C 171 mg/dL (Abnormal) Range: 0-99 Comments: . Optimal < 100 Above optimal 100 - 129 Borderline 1 30 - 159 High 160 - 189 Very high > 189 .LDL-C is inaccurate if patient is non-fasting. LDL-P 2383 nmol/L (Abnormal) Comments: Low < 1000 Moderate 1000 - 1299 Borderline-High 1300 - 1599 High 1600 - 2000 Very High > 2000 :15 HgA1C , Office (83549) HgA1C , Office 6.7 % (Normal) Range: 4.6 - 7.1 :15 Blood Glucose , Office (63831) Blood Glucose , Office 180 (Normal) :46 HgA1C , Office (14125) HgA1C , Office 7.0 % (Normal) Range: 4.6 - 7.1 :46 Blood Glucose , Office (69846) Blood Glucose , Office 169 (Normal) :48 CBC W/Diff, Automated Comments: [facility] [address] [place], [address] Absolute Lymph 2.34 {X10_3/ul} (Normal) Range: 0.83-4.51 Absolute Neut 4.0 {X10_3/uL} (Normal) Range: 2.0-7.7 IM GRAN % 0.100 % (Normal) Range: 0.0-0.9 Comments: IG% - Immature Granulocytes (promyelocytes, myelocytes andmetamyelocytes) > 1% indicates that a LEFT SHIFT is Present. BASO% 0.4 % (Normal) Range: 0-1 EO% 2.1 % (Normal) Range: 0-5 MONO% 6.4 % (Normal) Range: 0-10 LY% 33.4 % (Normal) Range: 19-41 NEUT% 57.6 % (Normal) Range: 47-70 MPV 10.4 fL (Normal) Range: 6.2-12.0 PLT 235 K/mm3 (Normal) Range: 150-450 RDW SD 41.6 fL (Normal) Range: 35.1-43.9 RDW CV 13.2 % (Normal) Range: 11.6-14.6 MCHC 32.9 {g/gl} (Normal) Range: 32-36 MCH 28.6 pg (Normal) Range: 27.0-32.0 MCV 86.9 fL (Normal) Range: 81-99 HCT 43.1 % (Normal) Range: 37-47 HGB 14.2 g/dL (Normal) Range: 12.0-15.0 RBC 4.96 {M/mm3} (Normal) Range: 4.2-5.4 WBC 7.0 K/mm3 (Normal) Range: 4.4-11.0 :48 CCP IgG Antibodies Comments: [facility] (refer to report for specific site)refer to report for address and phone number ANTI-CCP [id number] 18 {units} (Normal) Range: 0-19 Comments: Negative <20 Weak positive 20 - 39 Moderate positive 40 - 59 Strong positive >59Performed at: - [facility] [id number] Director: Waqar Matamoros MD, Phone: [phone] :48 Comprehensive Metabolic Profil Comments: [facility] [address] [place], [place], [address] GAP 7 (Normal) Range: 5-15 CO2 27.0 mmol/L (Normal) Range: 21.0-32.0 CL 106 mmol/L (Normal) Range: 98-107 K 4.4 mmol/L (Normal) Range: 3.5-5.1 NA 140 mmol/L (Normal) Range: 136-145 T BILI 0.50 mg/dL (Normal) Range: 0.20-1.00 ALT 86 U/L (Abnormal) Range: 12-78 ALK P 63 U/L (Normal) Range: 45-117 AST 52 U/L (Abnormal) Range: 15-37 CA 9.1 mg/dL (Normal) Range: 8.5-10.1 A/G 1.2 {RATIO} (Normal) Range: 0.9-2.4 GLOB 3.3 g/dL (Normal) Range: 2.2-4.2 ALB 3.9 g/dL (Normal) Range: 3.4-5.0 Comments: Please note revised Albumin AND Globulin reference rangeeffective 2017. T PROT 7.2 g/dL (Normal) Range: 6.4-8.2 BUN/CRE 17.9 {RATIO} (Normal) Range: 10-20 EST GFR - AA 59 mL/min (Abnormal) Comments: GFR Calc EST GFR 49 mL/min (Abnormal) Comments: Non- GFR Calc CREAT,SERUM 1.17 mg/dL (Abnormal) Range: 0.55-1.02 Comments: The validity of the calculated GFR AND GFRAA in patients over70 years has not been determined. Clinical correlation isessential. BUN 21 mg/dL (Abnormal) Range: 7-18 GLU 164 mg/dL (Abnormal) Range: 70-110 Comments: Fasting Glucose result greater than or equal to 126 mg/dLsuggests DIABETES MELLITUS per A.D.A. criteria. :48 CRP Comments: [facility] [address] [place], [place], [id number] C-REACTIVE PROT < 2.90 mg/L (Normal) Range: 0.0-3.0 Comments: C-Reactive Protein (CRP) provides useful information for thediagnosis, therapy and monitoring of inflammatory processesand associated diseases. For the evaluation of Relative Riskfor Cardiovascular Dise ase, a High Sensitivity CRP (HSCRP)should be ordered. :48 Erythrocyte Sed Rate Comments: [facility] [address] [place], [place], [id number] SED RATE 8 mm/h (Normal) Range: 0-30 40-Lsc-085359:48 Rheumatoid Factor Comments: [facility] [address] [place], [id number] RHEUMATOID FAC 19.0 {IU/mL} (Abnormal) 54-Kqt-199568:48 Sjogren's Antibodies A/B Comments: [facility] (refer to report for specific site)refer to report for address and phone number Anti-SS-B < 0.2 {AI} (Normal) Range: 0.0-0.9 Comments: Performed at: [address] [id number] Director: Jeffrey Hancock PhD, Phone: [phone] Anti-SS-A < 0.2 {AI} (Normal) Range: 0.0-0.9 74-Njz-779812:11 TSH (19767) Comments: PATIENT WAS FASTINGPERFORMED BY: [address] [id number] TSH 1.920 {uIU/mL} (Normal) Range: 0.450-4.500 53-Kik-426586:11 METABOLIC PANEL, COMPREHENSIVE Comments: PATIENT WAS FASTINGPERFORMED BY: [address] [id number] (17891) ALT (SGPT) 33 [iU]/L (Abnormal) Range: 0-32 AST (SGOT) 32 [iU]/L (Normal) Range: 0-40 Alkaline Phosphatase, S 67 [iU]/L (Normal) Range: 39-117 Bilirubin, Total 0.4 mg/dL (Normal) Range: 0.0-1.2 A/G Ratio 1.6 (Normal) Range: 1.2-2.2 Globulin, Total 2.5 g/dL (Normal) Range: 1.5-4.5 Albumin, Serum 4.1 g/dL (Normal) Range: 3.5-4.8 Protein, Total, Serum 6.6 g/dL (Normal) Range: 6.0-8.5 Calcium, Serum 9.2 mg/dL (Normal) Range: 8.7-10.3 Carbon Dioxide, Total 24 mmol/L (Normal) Range: 18-29 Chloride, Serum 102 mmol/L (Normal) Range: 96-106 Potassium, Serum 4.5 mmol/L (Normal) Range: 3.5-5.2 Sodium, Serum 142 mmol/L (Normal) Range: 134-144 BUN/Creatinine Ratio 14 (Normal) Range: 12-28 eGFR If Africn Am 58 mL/min/1.73 (Abnormal) eGFR If NonAfricn Am 50 mL/min/1.73 (Abnormal) Creatinine, Serum 1.11 mg/dL (Abnormal) Range: 0.57-1.00 BUN 15 mg/dL (Normal) Range: 8-27 Glucose, Serum 160 mg/dL (Abnormal) Range: 65-99 74-Vst-812313:11 CBC W/AUTO DIFF WBC (35130) Comments: PATIENT WAS FASTINGPERFORMED BY: [facility]CoSt[facility] HospitalIxhbwu9699 [facility] [id number] Immature Grans (Abs) 0.0 {x10E3/uL} (Normal) Range: 0.0-0.1 Immature Granulocytes 0 % (Normal) Baso (Absolute) 0.0 {x10E3/uL} (Normal) Range: 0.0-0.2 Eos (Absolute) 0.1 {x10E3/uL} (Normal) Range: 0.0-0.4 Monocytes(Absolute) 0.4 {x10E3/uL} (Normal) Range: 0.1-0.9 Lymphs (Absolute) 1.9 {x10E3/uL} (Normal) Range: 0.7-3.1 Neutrophils (Absolute) 3.2 {x10E3/uL} (Normal) Range: 1.4-7.0 Basos 0 % (Normal) Eos 3 % (Normal) Monocytes 7 % (Normal) Lymphs 34 % (Normal) Neutrophils 56 % (Normal) Platelets 208 {x10E3/uL} (Normal) Range: 150-379 RDW 13.5 % (Normal) Range: 12.3-15.4 MCHC 33.2 g/dL (Normal) Range: 31.5-35.7 MCH 29.1 pg (Normal) Range: 26.6-33.0 MCV 88 fL (Normal) Range: 79-97 Hematocrit 41.6 % (Normal) Range: 34.0-46.6 Hemoglobin 13.8 g/dL (Normal) Range: 11.1-15.9 Comments: Please note reference interval change RBC 4.75 {x10E6/uL} (Normal) Range: 3.77-5.28 WBC 5.6 {x10E3/uL} (Normal) Range: 3.4-10.8 04-Jby-263884:11 CALCIFIDIOL (32937) VIT D 25 Comments: PATIENT WAS FASTINGPERFORMED BY: [facility] SoundsSt. Joseph's Wayne HospitalMapozd7382 [facility] [id number] Vitamin D, 25-Hydroxy 30.7 ng/mL (Normal) Range: 30.0-100.0 Comments: Vitamin D deficiency has been defined by the [place] ofOhio[facility], Cancer Centercine and an Endocrine Society practice guideline as alevel of serum 25-OH vitamin D less than 20 ng/mL (1,2).The Endocrine Society went on to further define vitamin Dinsufficiency as a level between 21 and 29 ng/mL (2).1. IOM ([place] of Medicine). 2010. Dietary reference intakes for calcium and D. [place]: The National Academies Press.2. Nola MF, Young [place], Chrissie AVILA, et al. Evaluation, treatment, and prevention of vitamin D deficiency: an Endocrine Society clinical practice guideline. JCEM. 2010; 96(7):1911-30. 35-Ynf-375569:11 LIPID PANEL (93256) Comments: PATIENT WAS FASTINGPERFORMED BY: [facility] SoundsSt. Joseph's Wayne HospitalOhdmnq9109 [facility] [id number] LDL/HDL Ratio 2.5 {ratio_units} (Normal) Range: 0.0-3.2 Comments: LDL/HDL Ratio Men Women 1/2 Avg.Risk 1.0 1.5 Av g.Risk 3.6 3.2 2X Avg.Risk 6.2 5.0 3X Avg.Risk 8.0 6.1 LDL Cholesterol Calc 108 mg/dL (Abnormal) Range: 0-99 VLDL Cholesterol James 44 mg/dL (Abnormal) Range: 5-40 HDL Cholesterol 43 mg/dL (Normal) Triglycerides 220 mg/dL (Abnormal) Range: 0-149 Cholesterol, Total 195 mg/dL (Normal) Range: 100-199 69-Gil-732555:02 HgA1C , Office (05345) HgA1C , Office 6.2 % (Normal) Range: 4.6 - 7.1 89-Vol-891630:02 Blood Glucose , Office (89606) Blood Glucose , Office 203 (Normal) AFP, Serum, Tumor Marker 2.3 ng/mL (Normal) Comments: PATIENT NOT FASTINGPERFORMED BY: [employer] Vxoavx8059 [facility] [id number] 6:06 Range: 0.0-8.3 Comments: [place] ECLIA methodology Written Authorization WAR (Normal) Comments: PATIENT NOT FASTINGPERFORMED BY: [employer] Ivbvfr2514 [facility] [id number] 6:06 Comments: Written Authorization Received.Authorization received from JESIKA HUBER LPN [id number] by Mala Apple 26-Qxf-717995:06 HEPATIC FUNCTION PANEL Comments: PATIENT NOT FASTINGPERFORMED BY: [employer] Mdnjph8853 [facility] [id number] (31422) ALT (SGPT) 100 [iU]/L (Abnormal) Range: 0-32 AST (SGOT) 64 [iU]/L (Abnormal) Range: 0-40 Alkaline Phosphatase, S 67 [iU]/L (Normal) Range: 39-117 Bilirubin, Direct 0.14 mg/dL (Normal) Range: 0.00-0.40 Bilirubin, Total 0.5 mg/dL (Normal) Range: 0.0-1.2 Albumin, Serum 4.3 g/dL (Normal) Range: 3.6-4.8 Protein, Total, Serum 6.8 g/dL (Normal) Range: 6.0-8.5 74-Wzh-983357:06 HEPATITIS PANEL (20659) Comments: PATIENT NOT FASTINGPERFORMED BY: [employer] Rgbfvh2284 [facility] [id number] Hep C Virus Ab <0.1 {s/co_ratio} (Normal) Range: 0.0-0.9 Comments: Negative: < 0.8 Indeterminate: 0.8 - 0.9 Positive: > 0.9 . The CDC recommends that a positive HCV antibody result be followed up with a HCV Nucleic Acid Amplification test (073062). Hep B Core Ab, IgM Negative (Normal) HBsAg Screen Negative (Normal) Hep A Ab, IgM Negative (Normal) 42-Wmg-124345:06 TRANSFERRIN (38818) Comments: PATIENT NOT FASTINGPERFORMED BY: [place] [id number] [facility] [id number] Transferrin 316 mg/dL (Normal) Range: 200-370 20-Kxx-735402:06 ANTIMITOCHONDRIAL ANTIBODY Comments: PATIENT NOT FASTINGPERFORMED BY: PatiencePhilip Ville 9051970 [facility] [id number] (86873) Mitochondrial (M2) Antibody <20.0 {Units} (Normal) Range: 0.0-20.0 Comments: Negative 0.0 - 20.0 Equivocal 20.1 - 24.9 Positive >24.9 . Mitochondrial (M2) Antibodies are found in 90-96% of patients with primary biliary cirrhosis. 20-Doy-169594:06 GGT (GAMMA GLUTAMYLTRANSFERASE) Comments: PATIENT NOT FASTINGPERFORMED BY: PatiencePhilip Ville [id number] [facility] [id number] (89685) GGT 14 [iU]/L (Normal) Range: 0-60 19-Ugq-544449:06 FERRITIN (87707) Comments: PATIENT NOT FASTINGPERFORMED BY: [facility]6370 [facility] [id number] Ferritin, Serum 110 ng/mL (Normal) Range: 15-150 91-Zqv-360859:06 CMV IGM ANTBDY (67905) Comments: PATIENT NOT FASTINGPERFORMED BY: Sonya V[place] [id number] [facility] [id number] Cytomegalovirus (CMV) Ab, IgM 40.9 AU/mL (Abnormal) Range: 0.0-29.9 Comments: Negative <30.0 Equivocal 30.0 - 34.9 Positive >34.9 A positive result is generally indicative of acute infection, reactivation or persistent IgM production. 77-Kpi-460963:06 CERULOPLASMIN (25401) Comments: PATIENT NOT FASTINGPERFORMED BY: [facility] Fzcrhk7702 [address] RoadDublin [place] [id number] Ceruloplasmin 28.9 mg/dL (Normal) Range: 19.0-39.0 58-Sox-290178:06 ASM (ANTI SMOOTH MUSCLE Comments: PATIENT NOT FASTINGPERFORMED BY: CB [facility] Vvxcjm8992 [address] RoadDublin [place] [id number] ANTIBODY) (02992) Actin (Smooth Muscle) Antibody 12 {Units} (Normal) Range: 0-19 Comments: Negative 0 - 19 Weak positive 20 - 30 Moderate to strong positive >30 . Actin Antibodies are found in 52-85% of patients with autoimmune hepatitis or chronic active hepatitis and in 22% of patients with primary biliary cirrhosis. 61-Qer-245587:06 ANTI-LIVER/KIDNEY MICROSOMAL Comments: PATIENT NOT FASTINGPERFORMED BY: CB [facility] Fmeeca8950 [address] RoadDublin [place] [id number] ANTIBODY (43797) Thyroid Peroxidase (TPO) Ab 27 {IU/mL} (Normal) Range: 0-34 18-Lfy-762703:06 CAROLYN (ANTINUCLEAR ANTIBODY) Comments: PATIENT NOT FASTINGPERFORMED BY: [facility] Mhlweu4268 [address] RoadDublin [place] [id number] (68141) CAROLYN Direct Negative (Normal) 5-Urw-091263:06 CALCIFEDIOL (53517) Comments: PATIENT WAS FASTINGPERFORMED BY: CB [facility] Obkhzy5535 [address] RoadDublin [place] [id number] Vitamin D, 25-Hydroxy 36.6 ng/mL (Normal) Range: 30.0-100.0 Comments: Vitamin D deficiency has been defined by the [place] of[place]icine and an Endocrine Society practice guideline as alevel of serum 25-OH vitamin D less than 20 ng/mL (1,2).The Endocrine Society went on to further define vitamin Dinsufficiency as a level between 21 and 29 ng/mL (2).1. IOM ([place] of Medicine). 2010. Dietary reference intakes for calcium and D. [place]: The National Academies Press.2. Nola MF, Young [place], Chrissie AVILA, et al. Evaluation, treatment, and prevention of vitamin D deficiency: an Endocrine Society clinical practice guideline. JCEM. 2010; 96(7):1911-30. :06 TSH (00632) Comments: PATIENT WAS FASTINGPERFORMED BY: [facility]6370 [facility] [id number] TSH 2.160 {uIU/mL} (Normal) Range: 0.450-4.500 :06 Lipid Panel (43825) Comments: PATIENT WAS FASTINGPERFORMED BY: [facility]6370 [facility] [id number] LDL/HDL Ratio 2.5 {ratio_units} (Normal) Range: 0.0-3.2 Comments: LDL/HDL Ratio Men Women 1/2 Avg.Risk 1.0 1.5 Av g.Risk 3.6 3.2 2X Avg.Risk 6.2 5.0 3X Avg.Risk 8.0 6.1 LDL Cholesterol Calc 119 mg/dL (Abnormal) Range: 0-99 VLDL Cholesterol James 50 mg/dL (Abnormal) Range: 5-40 HDL Cholesterol 47 mg/dL (Normal) Triglycerides 252 mg/dL (Abnormal) Range: 0-149 Cholesterol, Total 216 mg/dL (Abnormal) Range: 100-199 :06 CBC (Auto) (20889) Comments: PATIENT WAS FASTINGPERFORMED BY: [facility]6370 [facility] [id number] Platelets 246 {x10E3/uL} (Normal) Range: 150-379 RDW 13.6 % (Normal) Range: 12.3-15.4 MCHC 32.9 g/dL (Normal) Range: 31.5-35.7 MCH 28.7 pg (Normal) Range: 26.6-33.0 MCV 87 fL (Normal) Range: 79-97 Hematocrit 45.6 % (Normal) Range: 34.0-46.6 Hemoglobin 15.0 g/dL (Normal) Range: 11.1-15.9 RBC 5.23 {x10E6/uL} (Normal) Range: 3.77-5.28 WBC 6.4 {x10E3/uL} (Normal) Range: 3.4-10.8 0-Ptk-322365:06 Metabolic Panel, Comprehensive Comments: PATIENT WAS FASTINGPERFORMED BY: Nagual SoundsSt. Joseph's Wayne HospitalVrkemv3610 [facility] [id number] (55429) ALT (SGPT) 74 [iU]/L (Abnormal) Range: 0-32 AST (SGOT) 57 [iU]/L (Abnormal) Range: 0-40 Alkaline Phosphatase, S 64 [iU]/L (Normal) Range: 39-117 Bilirubin, Total 0.5 mg/dL (Normal) Range: 0.0-1.2 A/G Ratio 1.7 (Normal) Range: 1.2-2.2 Globulin, Total 2.6 g/dL (Normal) Range: 1.5-4.5 Albumin, Serum 4.5 g/dL (Normal) Range: 3.6-4.8 Protein, Total, Serum 7.1 g/dL (Normal) Range: 6.0-8.5 Calcium, Serum 9.6 mg/dL (Normal) Range: 8.7-10.3 Carbon Dioxide, Total 23 mmol/L (Normal) Range: 18-29 Chloride, Serum 101 mmol/L (Normal) Range: 96-106 Potassium, Serum 4.7 mmol/L (Normal) Range: 3.5-5.2 Sodium, Serum 142 mmol/L (Normal) Range: 134-144 BUN/Creatinine Ratio 13 (Normal) Range: 12-28 eGFR If Africn Am 55 mL/min/1.73 (Abnormal) eGFR If NonAfricn Am 48 mL/min/1.73 (Abnormal) Creatinine, Serum 1.17 mg/dL (Abnormal) Range: 0.57-1.00 BUN 15 mg/dL (Normal) Range: 8-27 Glucose, Serum 174 mg/dL (Abnormal) Range: 65-99 9-Hfd-887561:06 HGB A1C (19453) Comments: PATIENT WAS FASTINGPERFORMED BY: [facility]6370 [facility] [id number] Hemoglobin A1c 7.5 % (Abnormal) Range: 4.8-5.6 Comments: . Pre-diabetes: 5.7 - 6.4 Diabetes: >6.4 Glycemic control for adults with diabetes: <7.0 02-Pve-31789:29 Fecal Occult Blood , Office (61121) Fecal Occult Blood , Office (Inhouse) negative (Normal) :37 Microscopic Examination Comments: PATIENT NOT FASTINGPERFORMED BY: Nagual Sounds Wopspd1090 [facility] [id number] Bacteria Moderate (Abnormal) Mucus Threads Present (Normal) Epithelial Cells (non renal) 0-10 {/hpf} (Normal) Range: 0 - 10 RBC 3-10 {/hpf} (Abnormal) Range: 0 - 2 WBC >30 {/hpf} (Abnormal) Range: 0 - 5 :37 TSH (34414) Comments: PATIENT NOT FASTINGPERFORMED BY: [employer] Vdldve3835 [facility] [id number] TSH 2.250 {uIU/mL} (Normal) Range: 0.450-4.500 :37 URINALYSIS, W/ MICRO (68471) Comments: PATIENT NOT FASTINGPERFORMED BY: Nagual Sounds [employer] [facility] [id number] Microscopic Examination See below: (Normal) Comments: Microscopic was indicated and was performed. Nitrite, Urine Positive (Abnormal) Urobilinogen,Semi-Qn 0.2 mg/dL (Normal) Range: 0.2-1.0 Bilirubin Negative (Normal) Occult Blood Negative (Normal) Ketones Negative (Normal) Glucose Negative (Normal) Protein Negative (Normal) WBC Esterase 3+ (Abnormal) Appearance Clear (Normal) Urine-Color Yellow (Normal) pH 5.5 (Normal) Range: 5.0-7.5 Specific [place] 1.015 (Normal) Range: 1.005-1.030 :37 MICROALBUMIN: CREATININE RATIO Comments: PATIENT NOT FASTINGPERFORMED BY: [facility]Select [facility] Hospital6370 [facility] [id number] (89815) AND (28196) Microalb/Creat Ratio 18.5 {mg/g_creat} (Normal) Range: 0.0-30.0 Microalbumin, Urine 18.3 ug/mL (Normal) Creatinine, Urine 99.0 mg/dL (Normal) :37 METABOLIC PANEL, COMPREHENSIVE Comments: PATIENT NOT FASTINGPERFORMED BY: LabCoSt. Joseph's Wayne HospitalOjmifm6658 [facility] [id number] (94335) ALT (SGPT) 26 [iU]/L (Normal) Range: 0-32 AST (SGOT) 21 [iU]/L (Normal) Range: 0-40 Alkaline Phosphatase, S 66 [iU]/L (Normal) Range: 39-117 Bilirubin, Total 0.6 mg/dL (Normal) Range: 0.0-1.2 A/G Ratio 2.0 (Normal) Range: 1.1-2.5 Globulin, Total 2.2 g/dL (Normal) Range: 1.5-4.5 Albumin, Serum 4.3 g/dL (Normal) Range: 3.6-4.8 Protein, Total, Serum 6.5 g/dL (Normal) Range: 6.0-8.5 Calcium, Serum 9.5 mg/dL (Normal) Range: 8.7-10.3 Carbon Dioxide, Total 22 mmol/L (Normal) Range: 18-29 Chloride, Serum 102 mmol/L (Normal) Range: 97-108 Potassium, Serum 4.6 mmol/L (Normal) Range: 3.5-5.2 Sodium, Serum 142 mmol/L (Normal) Range: 134-144 BUN/Creatinine Ratio 15 (Normal) Range: 11-26 eGFR If Africn Am 65 mL/min/1.73 (Normal) eGFR If NonAfricn Am 56 mL/min/1.73 (Abnormal) Creatinine, Serum 1.03 mg/dL (Abnormal) Range: 0.57-1.00 BUN 15 mg/dL (Normal) Range: 8-27 Glucose, Serum 145 mg/dL (Abnormal) Range: 65-99 81-Qps-956942:37 LIPID PANEL (86481) Comments: PATIENT NOT FASTINGPERFORMED BY: LabCoSt. Joseph's Wayne HospitalKtqfpl3419 [facility] [id number] LDL/HDL Ratio 2.9 {ratio_units} (Normal) Range: 0.0-3.2 Comments: LDL/HDL Ratio Men Women 1/2 Avg.Risk 1.0 1.5 Av g.Risk 3.6 3.2 2X Avg.Risk 6.2 5.0 3X Avg.Risk 8.0 6.1 LDL Cholesterol Calc 129 mg/dL (Abnormal) Range: 0-99 VLDL Cholesterol James 30 mg/dL (Normal) Range: 5-40 HDL Cholesterol 45 mg/dL (Normal) Comments: According to ATP-III Guidelines, HDL-C >59 mg/dL is considered anegative risk factor for CHD. Triglycerides 150 mg/dL (Abnormal) Range: 0-149 Cholesterol, Total 204 mg/dL (Abnormal) Range: 100-199 84-Jab-800703:37 CBC W/AUTO DIFF WBC Comments: PATIENT NOT FASTINGPERFORMED BY: [facility] Ucceue1282 [facility] [id number] Information: [id number], [id number] (58926) Immature Grans (Abs) 0.0 {x10E3/uL} (Normal) Range: 0.0-0.1 Immature Granulocytes 0 % (Normal) Baso (Absolute) 0.0 {x10E3/uL} (Normal) Range: 0.0-0.2 Eos (Absolute) 0.2 {x10E3/uL} (Normal) Range: 0.0-0.4 Monocytes(Absolute) 0.4 {x10E3/uL} (Normal) Range: 0.1-0.9 Lymphs (Absolute) 2.3 {x10E3/uL} (Normal) Range: 0.7-3.1 Neutrophils (Absolute) 3.0 {x10E3/uL} (Normal) Range: 1.4-7.0 Basos 0 % (Normal) Eos 4 % (Normal) Monocytes 7 % (Normal) Lymphs 38 % (Normal) Neutrophils 51 % (Normal) Platelets 202 {x10E3/uL} (Normal) Range: 150-379 RDW 14.4 % (Normal) Range: 12.3-15.4 MCHC 33.0 g/dL (Normal) Range: 31.5-35.7 MCH 27.6 pg (Normal) Range: 26.6-33.0 MCV 84 fL (Normal) Range: 79-97 Hematocrit 41.2 % (Normal) Range: 34.0-46.6 Hemoglobin 13.6 g/dL (Normal) Range: 11.1-15.9 RBC 4.92 {x10E6/uL} (Normal) Range: 3.77-5.28 WBC 5.9 {x10E3/uL} (Normal) Range: 3.4-10.8 :37 CALCIFIDIOL (37549) VIT D 25 Comments: PATIENT NOT FASTINGPERFORMED BY: [facility] Hospital6370 [facility] [id number] Vitamin D, 25-Hydroxy 26.8 ng/mL (Abnormal) Range: 30.0-100.0 Comments: Vitamin D deficiency has been defined by the [place] ofOhiohealth Arthur G.H. Bing, Md, Cancer Centercine and an Endocrine Society practice guideline as alevel of serum 25-OH vitamin D less than 20 ng/mL (1,2).The Endocrine Society went on to further define vitamin Dinsufficiency as a level between 21 and 29 ng/mL (2).1. IOM ([place] of Medicine). 2010. Dietary reference intakes for calcium and D. [place]: The National Academies Press.2. Nola MF, Young BROOKS, Chrissie AVILA, et al. Evaluation, treatment, and prevention of vitamin D deficiency: an Endocrine Society clinical practice guideline. JCEM. 2010; 96(7):1911-30. 43-Nbe-088183:17 HgA1C , Office (90335) HgA1C , Office 6.3 % (Normal) Range: 4.6 - 7.1 :13 METABOLIC PANEL, Comments: PATIENT WAS FASTINGPERFORMED BY: PatiencePemiscot Memorial Health SystemsJufsyj7037 [facility] [id number] Information: [id number]; [address] COMPREHENSIVE (94159) ALT (SGPT) 33 [iU]/L (Abnormal) Range: 0-32 AST (SGOT) 25 [iU]/L (Normal) Range: 0-40 Alkaline Phosphatase, S 60 [iU]/L (Normal) Range: 39-117 Bilirubin, Total 0.5 mg/dL (Normal) Range: 0.0-1.2 A/G Ratio 1.8 (Normal) Range: 1.1-2.5 Globulin, Total 2.4 g/dL (Normal) Range: 1.5-4.5 Albumin, Serum 4.4 g/dL (Normal) Range: 3.6-4.8 Protein, Total, Serum 6.8 g/dL (Normal) Range: 6.0-8.5 Calcium, Serum 9.6 mg/dL (Normal) Range: 8.7-10.3 Carbon Dioxide, Total 22 mmol/L (Normal) Range: 18-29 Chloride, Serum 103 mmol/L (Normal) Range: 97-108 Potassium, Serum 4.5 mmol/L (Normal) Range: 3.5-5.2 Sodium, Serum 141 mmol/L (Normal) Range: 134-144 BUN/Creatinine Ratio 17 (Normal) Range: 11-26 eGFR If Africn Am 60 mL/min/1.73 (Normal) eGFR If NonAfricn Am 52 mL/min/1.73 (Abnormal) Creatinine, Serum 1.10 mg/dL (Abnormal) Range: 0.57-1.00 BUN 19 mg/dL (Normal) Range: 8-27 Glucose, Serum 139 mg/dL (Abnormal) Range: 65-99 26-Kbu-616476:13 LIPID PANEL (50096) Comments: PATIENT WAS FASTINGPERFORMED BY: LabCoSt. Joseph's Wayne HospitalFklwdy4633 [facility] [id number] LDL/HDL Ratio 3.4 {ratio_units} (Abnormal) Range: 0.0-3.2 Comments: LDL/HDL Ratio Men Women 1/2 Avg.Risk 1.0 1.5 Av g.Risk 3.6 3.2 2X Avg.Risk 6.2 5.0 3X Avg.Risk 8.0 6.1 LDL Cholesterol Calc 151 mg/dL (Abnormal) Range: 0-99 VLDL Cholesterol James 30 mg/dL (Normal) Range: 5-40 HDL Cholesterol 44 mg/dL (Normal) Comments: According to ATP-III Guidelines, HDL-C >59 mg/dL is considered anegative risk factor for CHD. Triglycerides 150 mg/dL (Abnormal) Range: 0-149 Cholesterol, Total 225 mg/dL (Abnormal) Range: 100-199 3-Ice-193639:58 HgA1C , Office (51435) HgA1C , Office 8.1 % (Abnormal) Range: 4.6 - 7.1 7-Mnn-746367:00 CBC W/Diff, Automated Comments: [facility] [address] [place], [address] Absolute Lymph 1.98 {X10_3/ul} (Normal) Range: 0.83-4.51 Absolute Neut 2.2 {X10_3/uL} (Normal) Range: 2.0-7.7 IM GRAN % 0.200 % (Normal) Range: 0.0-0.9 Comments: IG% - Immature Granulocytes (promyelocytes, myelocytes andmetamyelocytes) > 1% indicates that a LEFT SHIFT is Present. BASO% 0.4 % (Normal) Range: 0-1 EO% 3.4 % (Normal) Range: 0-5 MONO% 7.5 % (Normal) Range: 0-10 LY% 42.4 % (Abnormal) Range: 19-41 NEUT% 46.1 % (Abnormal) Range: 47-70 MPV 9.7 fL (Normal) Range: 6.2-12.0 PLT 228 K/mm3 (Normal) Range: 150-450 RDW SD 41.6 fL (Normal) Range: 35.1-43.9 RDW CV 13.2 % (Normal) Range: 11.6-14.6 MCHC 32.2 {g/gl} (Normal) Range: 32-36 MCH 27.9 pg (Normal) Range: 27.0-32.0 MCV 86.6 fL (Normal) Range: 81-99 HCT 39.4 % (Normal) Range: 37-47 HGB 12.7 g/dL (Normal) Range: 12.0-15.0 RBC 4.55 {M/mm3} (Normal) Range: 4.2-5.4 WBC 4.7 K/mm3 (Normal) Range: 4.4-11.0 0-Xqw-172681:00 Comprehensive Metabolic Profil Comments: [facility] [address] [place], [place], [address] GAP 9 (Normal) Range: 5-15 CO2 24.0 mmol/L (Normal) Range: 21.0-32.0 CL 105 mmol/L (Normal) Range: 98-107 K 4.2 mmol/L (Normal) Range: 3.5-5.1 NA 138 mmol/L (Normal) Range: 136-145 T BILI 0.40 mg/dL (Normal) Range: 0.20-1.00 ALT 32 U/L (Normal) Range: 12-78 ALK P 80 U/L (Normal) Range: 50-136 AST 16 U/L (Normal) Range: 15-37 CA 8.7 mg/dL (Normal) Range: 8.5-10.1 A/G 1.1 {RATIO} (Normal) Range: 0.9-2.4 GLOB 3.5 g/dL (Normal) Range: 2.3-3.5 ALB 3.8 g/dL (Normal) Range: 3.4-5.0 T PROT 7.3 g/dL (Normal) Range: 6.4-8.2 BUN/CRE 13.7 {RATIO} (Normal) Range: 10-20 EST GFR - AA 59 mL/min (Abnormal) Comments: GFR Calc EST GFR 49 mL/min (Abnormal) Comments: Non- GFR Calc CREAT,SERUM 1.17 mg/dL (Normal) Range: 0.55-1.20 Comments: The validity of the calculated GFR AND GFRAA in patients over70 years has not been determined. Clinical correlation isessential. BUN 16 mg/dL (Normal) Range: 7-18 GLU 219 mg/dL (Abnormal) Range: 70-110 Comments: Glucose result greater than or equal to 200 mg/dLsuggests DIABETES MELLITUS per A.D.A. criteria. 0-Gkq-960946:00 Vitamin D,25 Hydroxy Comments: [facility] [address] [place], [address] Vitamin D 25-OH 37.7 ng/mL (Normal) Comments: Vitamin D 25(OH) Status Range Deficiency <20 ng/mL (50nmol/L) Insuffciency 20 - 30 ng/mL (50 - 75 nmol/L) Sufficiency 30 - 100 ng/mL (75 - 250 nmol/L) Toxicity >100 ng/mL (>250 nmol/L) 16-Aug-20159:36 LIPID PANEL (99682) Comments: PATIENT WAS FASTINGPERFORMED BY: [facility] Lywtgo8277 [facility]Research [facility] [id number] Information: [id number]; ov 09-05-15 LDL/HDL Ratio 3.1 {ratio_units} (Normal) Range: 0.0-3.2 Comments: LDL/HDL Ratio Men Women 1/2 Avg.Risk 1.0 1.5 Av g.Risk 3.6 3.2 2X Avg.Risk 6.2 5.0 3X Avg.Risk 8.0 6.1 LDL Cholesterol Calc 157 mg/dL (Abnormal) Range: 0-99 VLDL Cholesterol James 52 mg/dL (Abnormal) Range: 5-40 HDL Cholesterol 51 mg/dL (Normal) Comments: According to ATP-III Guidelines, HDL-C >59 mg/dL is considered anegative risk factor for CHD. Triglycerides 261 mg/dL (Abnormal) Range: 0-149 Cholesterol, Total 260 mg/dL (Abnormal) Range: 100-199 :36 HEPATIC FUNCTION PANEL (10745) Comments: PATIENT WAS FASTINGPERFORMED BY: [facility] [id number] ALT (SGPT) 19 [iU]/L (Normal) Range: 0-32 AST (SGOT) 19 [iU]/L (Normal) Range: 0-40 Alkaline Phosphatase, S 72 [iU]/L (Normal) Range: 39-117 Bilirubin, Direct 0.09 mg/dL (Normal) Range: 0.00-0.40 Bilirubin, Total 0.3 mg/dL (Normal) Range: 0.0-1.2 Albumin, Serum 4.4 g/dL (Normal) Range: 3.6-4.8 Protein, Total, Serum 7.0 g/dL (Normal) Range: 6.0-8.5 :34 TSH (59809) Comments: PATIENT WAS FASTINGPERFORMED BY: [facility]EC[facility] [id number] TSH 1.550 {uIU/mL} (Normal) Range: 0.450-4.500 :34 CALCIFIDIOL (81911) VIT D 25 Comments: PATIENT WAS FASTINGPERFORMED BY: [facility]EC[facility] [id number] Vitamin D, 25-Hydroxy 14.2 ng/mL (Abnormal) Range: 30.0-100.0 Comments: Vitamin D deficiency has been defined by the [place] ofMedicine and an Endocrine Society practice guideline as alevel of serum 25-OH vitamin D less than 20 ng/mL (1,2).The Endocrine Society went on to further define vitamin Dinsufficiency as a level between 21 and 29 ng/mL (2).1. IOM ([place] of Medicine). 2010. Dietary reference intakes for calcium and D. [place]: The National Academies Press.2. Nola MF, Young BROOKS, Chrissie AVILA, et al. Evaluation, treatment, and prevention of vitamin D deficiency: an Endocrine Society clinical practice guideline. JCEM. 2010; 96(7):1911-30. 58-Rpo-43810:34 METABOLIC PANEL, Comments: PATIENT WAS FASTINGPERFORMED BY: LabCoSt. [facility] HospitalBdwmvp1773 [facility] [id number] Information: [id number], [id number] COMPREHENSIVE (49627) ALT (SGPT) 12 [iU]/L (Normal) Range: 0-32 AST (SGOT) 18 [iU]/L (Normal) Range: 0-40 Alkaline Phosphatase, S 76 [iU]/L (Normal) Range: 39-117 Bilirubin, Total 0.5 mg/dL (Normal) Range: 0.0-1.2 A/G Ratio 2.0 (Normal) Range: 1.1-2.5 Globulin, Total 2.3 g/dL (Normal) Range: 1.5-4.5 Albumin, Serum 4.6 g/dL (Normal) Range: 3.6-4.8 Protein, Total, Serum 6.9 g/dL (Normal) Range: 6.0-8.5 Calcium, Serum 9.7 mg/dL (Normal) Range: 8.7-10.3 Carbon Dioxide, Total 22 mmol/L (Normal) Range: 18-29 Chloride, Serum 102 mmol/L (Normal) Range: 97-108 Potassium, Serum 4.4 mmol/L (Normal) Range: 3.5-5.2 Sodium, Serum 144 mmol/L (Normal) Range: 134-144 BUN/Creatinine Ratio 16 (Normal) Range: 11-26 eGFR If Africn Am 76 mL/min/1.73 (Normal) eGFR If NonAfricn Am 65 mL/min/1.73 (Normal) Creatinine, Serum 0.91 mg/dL (Normal) Range: 0.57-1.00 BUN 15 mg/dL (Normal) Range: 8-27 Glucose, Serum 141 mg/dL (Abnormal) Range: 65-99 57-Jro-24784:34 LIPID PANEL (84340) Comments: PATIENT WAS FASTINGPERFORMED BY: [facility] Fjkofs[address] [place] [id number]; fu 8-24 will review then LDL/HDL Ratio 3.8 {ratio_units} (Abnormal) Range: 0.0-3.2 Comments: LDL/HDL Ratio Men Women 1/2 Avg.Risk 1.0 1.5 Av g.Risk 3.6 3.2 2X Avg.Risk 6.2 5.0 3X Avg.Risk 8.0 6.1 LDL Cholesterol Calc 156 mg/dL (Abnormal) Range: 0-99 VLDL Cholesterol James 65 mg/dL (Abnormal) Range: 5-40 HDL Cholesterol 41 mg/dL (Normal) Comments: According to ATP-III Guidelines, HDL-C >59 mg/dL is considered anegative risk factor for CHD. Triglycerides 323 mg/dL (Abnormal) Range: 0-149 Cholesterol, Total 262 mg/dL (Abnormal) Range: 100-199 10-Iim-329364:36 HgA1C , Office (62178) HgA1C , Office 6.3 % (Normal) Range: 4.6 - 7.1 84-Ibu-350324:36 Blood Glucose , Office (25179) Blood Glucose , Office 170 (Normal) Plan of Care Name Dates Details Instructions Paresthesia : Reviewed Lab Indication: Paresthesia 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 without 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, unspecified oil heaterman insulin use status : Reviewed Lab Indication: 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 without 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, unspecified retirement insulin use status Hypercholesteremia (Renamed from Hypercholesterolemia) : Cholesterol mgmt Indication: Hypercholesteremia (Renamed from Hypercholesterolemia) 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 without 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, unspecified oil heaterman insulin use status : *Diabetes Education Indication: 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 without 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, unspecified oil heaterman insulin use status 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 without 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, unspecified oil heaterman insulin use status : Follow up in 3 months Indication: 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 without 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, unspecified retirement insulin use status 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 without 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, unspecified oil heaterman insulin use status : Follow up in 3 months Indication: 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 without 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, unspecified retirement insulin use status Hypercholesteremia (Renamed from Hypercholesterolemia) : Cholesterol mgmt Indication: Hypercholesteremia (Renamed from Hypercholesterolemia) 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 without 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, unspecified oil heaterman insulin use status : Follow up in 3 months Indication: 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 without 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, unspecified retirement insulin use status Anxiety : Continue Current Prescription(s) Indication: Anxiety 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 without 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, unspecified oil heaterman insulin use status : *Diabetes Education Indication: 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 without 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, unspecified oil heaterman insulin use status Hypercholesteremia (Renamed from Hypercholesterolemia) : Cholesterol mgmt Indication: Hypercholesteremia (Renamed from Hypercholesterolemia) Diabetes mellitus type II, controlled : Follow up in 3 months Indication: Diabetes mellitus type II, controlled Diabetes mellitus type II, controlled : Diet, Exercise, and Wt loss Indication: Diabetes mellitus type II, controlled Diabetes mellitus type II, controlled : *Diabetes Education Indication: Diabetes mellitus type II, controlled Encounter for screening for malignant neoplasm of colon (Renamed from Special screening for malignant neoplasms, colon) : *Colon Cancer Screening Indication: Encounter for screening for malignant neoplasm of colon (Renamed from Special screening for malignant neoplasms, colon) Annual Medicare Phyiscal WITHOUT abnormal findings (Renamed from Encounter for general adult medical examination without abnormal findings) : fall reduction handout Indication: Annual Medicare Phyiscal WITHOUT abnormal findings (Renamed from Encounter for general adult medical examination without abnormal findings) Annual Medicare Phyiscal WITHOUT abnormal findings (Renamed from Encounter for general adult medical examination without abnormal findings) : elderly packet given Indication: Annual Medicare Phyiscal WITHOUT abnormal findings (Renamed from Encounter for general adult medical examination without abnormal findings) Annual Medicare Phyiscal WITHOUT abnormal findings (Renamed from Encounter for general adult medical examination without abnormal findings) : advance planning information Indication: Annual Medicare Phyiscal WITHOUT abnormal findings (Renamed from Encounter for general adult medical examination without abnormal findings) Annual Medicare Phyiscal WITHOUT abnormal findings (Renamed from Encounter for general adult medical examination without abnormal findings) : *Weight Loss Discussion Indication: Annual Medicare Phyiscal WITHOUT abnormal findings (Renamed from Encounter for general adult medical examination without abnormal findings) Annual Medicare Phyiscal WITHOUT abnormal findings (Renamed from Encounter for general adult medical examination without abnormal findings) : Self breast exam Indication: Annual Medicare Phyiscal WITHOUT abnormal findings (Renamed from Encounter for general adult medical examination without abnormal findings) 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 without 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, unspecified retirement insulin use status : Follow up in 3 months Indication: 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 without 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, unspecified oil heaterman insulin use status Hypercholesteremia (Renamed from Hypercholesterolemia) : Cholesterol mgmt Indication: Hypercholesteremia (Renamed from Hypercholesterolemia) 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 without 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, unspecified retirement insulin use status : Diet, Exercise, and Wt loss Indication: 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 without 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, unspecified retirement insulin use status 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 without 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, unspecified oil heaterman insulin use status : *Diabetes Education Indication: 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 without 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, unspecified oil heaterman insulin use status 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 without 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, unspecified oil heaterman insulin use status : Reviewed Lab Indication: 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 without 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, unspecified oil heaterman insulin use status Vitamin D deficiency : Reviewed Lab Indication: Vitamin D deficiency Osteopenia : Reviewed Diagnostic Tests Indication: Osteopenia Annual Medicare Phyiscal WITHOUT abnormal findings (Renamed from Encounter for general adult medical examination without abnormal findings) : fall reduction handout Indication: Annual Medicare Phyiscal WITHOUT abnormal findings (Renamed from Encounter for general adult medical examination without abnormal findings) Annual Medicare Phyiscal WITHOUT abnormal findings (Renamed from Encounter for general adult medical examination without abnormal findings) : elderly packet given Indication: Annual Medicare Phyiscal WITHOUT abnormal findings (Renamed from Encounter for general adult medical examination without abnormal findings) Annual Medicare Phyiscal WITHOUT abnormal findings (Renamed from Encounter for general adult medical examination without abnormal findings) : advance planning information Indication: Annual Medicare Phyiscal WITHOUT abnormal findings (Renamed from Encounter for general adult medical examination without abnormal findings) Annual Medicare Phyiscal WITHOUT abnormal findings (Renamed from Encounter for general adult medical examination without abnormal findings) : *Weight Loss Discussion Indication: Annual Medicare Phyiscal WITHOUT abnormal findings (Renamed from Encounter for general adult medical examination without abnormal findings) Encounter for screening for malignant neoplasm of colon (Renamed from Special screening for malignant neoplasms, colon) : *Colon Cancer Screening Indication: Encounter for screening for malignant neoplasm of colon (Renamed from Special screening for malignant neoplasms, colon) Diabetes mellitus type II, controlled : Follow up march 12trh for medicare physical and do hai Indication: Diabetes mellitus type II, controlled Diabetes mellitus type II, controlled : Follow up in 3 months-from march 29 to [facility] Indication: Diabetes mellitus type II, controlled Hypercholesteremia (Renamed from Hypercholesterolemia) : Cholesterol mgmt Indication: Hypercholesteremia (Renamed from Hypercholesterolemia) Dysthymic : Reviewed [employer] Letter- [facility] Indication: Dysthymic Diabetes mellitus type II, controlled : Eprescribed prescriptions (G8553) Indication: Diabetes mellitus type II, controlled Diabetes mellitus type II, controlled : Diabetes and Exercise: Preventing Low Blood Sugar: blood sugar Indication: Diabetes mellitus type II, controlled Planned Observations RHEUMATOID FACTOR-QUANT ([id number])Indication: Elevated rheumatoid factor On: 6-Ptb-372962:16 Request Vitamin B-12 (cyanocobalamin) ([id number])Indication: Vitamin B 12 deficiency On: :13 Request LIPOPROTEIN, BLD, BY NMR ([id number])Indication: Hypercholesteremia (Renamed from Hypercholesterolemia) On: :12 Request CBC WITH MANUAL DIFF ([id number])Indication: Diabetes mellitus type II, controlled On: 0-Hcq-369289:12 Request MICROALBUMIN: CREATININE RATIO ([id number]) AND ([id number])Indication: Diabetes mellitus type II, controlled On: 7-Gld-537787:12 Request URINALYSIS ([id number])Indication: Diabetes mellitus type II, controlled On: 1-Bej-684966:12 Request HGB A1C ([id number])Indication: Diabetes mellitus type II, controlled On: 5-Pdn-383477:12 Request Metabolic Panel, Comprehensive ([id number])Indication: Elevated LFTs (Renamed from Elevated liver function tests) On: 9-Uhy-393114:12 Request URINALYSIS, W/ MICRO ([id number])Indication: 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 without 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, unspecified retirement insulin use status On: 1-Bpz-151995:04 Request MICROALBUMIN: CREATININE RATIO ([id number]) AND ([id number])Indication: 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 without 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, unspecified retirement insulin use status On: 1-Bla-665509:04 Request LIPID PANEL ([id number])Indication: Hypercholesteremia (Renamed from Hypercholesterolemia) On: 9-Zhr-335271:03 Request URINALYSIS, W/ MICRO ([id number])Indication: Diabetes mellitus type II, controlled On: 36-Auj-766394:23 Request MICROALBUMIN: CREATININE RATIO ([id number]) AND ([id number])Indication: Diabetes mellitus type II, controlled On: 33-Nia-747597:23 Request MICROALBUMIN: CREATININE RATIO ([id number]) AND ([id number])Indication: Hypercholesteremia (Renamed from Hypercholesterolemia) On: 41-Wdw-332021:33 Request URINALYSIS ([id number])Indication: Hypercholesteremia (Renamed from Hypercholesterolemia) On: 76-Pzp-299022:33 Request CALCIFIDIOL ([id number]) VIT D 25Indication: Vitamin D deficiency On: 70-Lfl-45509:46 Request LIPID PANEL ([id number])Indication: Hypercholesteremia (Renamed from Hypercholesterolemia) On: 26-Ylt-867227:24 Request FECAL OCCULT- Tubes sent home ([id number])Indication: Encounter for screening for malignant neoplasm of colon (Renamed from Special screening for malignant neoplasms, colon) On: 23-Ani-028354:16 Request CALCIFIDIOL ([id number]) VIT D 25Indication: Fibromyalgia (Renamed from Diffuse myofascial pain syndrome) On: 7-Bjb-611061:33 Request Planned Encounters Medical; 3 Month FU - On: 01-Jul-2018 10:45 [facility] Rain Mccormick DO, DO, Kathleen Planned Procedures B 12 Injection, 1000 mcg On: 08-Apr-2018 Intent ([id number])By: Rain Mccormick DO Comments: [id number] CCLEFT DLTDIMASBRUCE DO, Kathleen B 12 Injection, 1000 mcg On: 30-Mar-2018 Intent ([id number])By: Tom Reddy Comments: Vitamin b12 1000mcg injection lot:[id number]:11/2018L DELT IMpt tolerated well MLMAN JUSTINN EMGBy: Rain Mccormick DO Anny On: 25-Mar-2018 Intent Rain MCQUEEN Nerve ConductionBy: Anny MCUQEEN, On: 25-Mar-2018 Intent Rain Daniels DO ELECTROCARDIOGRAM, COMPLETE (ECG) On: 19-Dec-2017 Intent ([id number])By: Rain Mccormick DO Comments: sinus altagracia no acute chg Rain Mccormick DO Flu Vaccine (Quadrivalent) On: 08-May-2017 Intent [id number]: Rain Mccormick DO Comments: Lot:[id number]:03/02/18Amt:0.5mlRoute:IMSite: L DltdGiven By: SUDARSHAN Disla signed Rain Mccormick DO SCREENING DIGITAL TOMOSYNTHESIS OF On: 01-Apr-2017 Intent BREAST ([id number])By: Rain Mccormick DO, DO, Rain [id number] BE[facility]IOR[facility] COUNSELING On: 01-Apr-2017 Intent FOR OBESITY, 15 MINUTES ([id number])By: Rain Mccormick DO, DO, Kathleen ELECTROCARDIOGRAM, COMPLETE (ECG) On: 28-Jan-2017 Intent ([id number])By: Rain Mccormick DO Comments: siinus altagracia no acute chg Rain Mccormick DO Ultrasound - LiverBy: Anny MCQUEEN, On: 28-Jan-2017 Intent Rainluis a Mccormick DO, Rain Flu Vaccine (Quadrivalent) On: 15-Jul-2016 Intent [id number]: Rain Mccormick DO Comments: Lot:[id number]:03/14/17Dose:0.5mLRoute:IMSite:L DltdGiven By:JUAN PABLO signed Rain Mccormick DO PNEUM VAC ADLT/IMUMNOSPR, On: 27-Mar-2016 Intent SBC/INTRM ([id number])By: Anny MCQUEEN, Comments: lot: [id number]: 06/26/17site/route: L del/IMamt: 0.5mLVIS signed when applicableChelsea, STAFF RADIOGRAPHER Rainbrayan Mccormick DO, Rain DEXA SCAN AXIAL SKELETON On: 27-Mar-2016 Intent ([id number])By: Rain Mccormick DO, DO, Rain MAMMOGRAM, SCREENING, BOTH BREAST On: 26-Dec-2015 Intent ([id number])By: Anyi Hawthorne MD Flu Vaccine (Quadrivalent) On: 28-Jun-2015 Intent [id number]: Anyi Hawthorne MD Comments: Lot:[id number]:03/14/16Dose:0.5mLRoute:IMSite:L DltdGiven By:JUAN PABLO signed DEXA SCAN AXIAL SKELETON On: 06-Apr-2015 Intent ([id number])By: Anyi Hawthorne MD Comments: postmenapausal Venous Doppler - UpperBy: Marine On: 06-Apr-2015 Intent Anyi KELLEY Comments: left arm MAMMOGRAM, SCREENING, BOTH BREAST On: 06-Apr-2015 Intent ([id number])By: Anyi Hawthorne MD Planned Medications Vitamin B-12 1000 MCG/ML Injection Solution Ordered: 30-Mar-2018 Pending Tom Reddy Vitamin B-12 1000 MCG/ML Injection Solution Ordered: 08-Apr-2018 Pending Rain Mccormick DO, DO, Kathleen Instructions Name Dates Details 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 without 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, unspecified retirement insulin use status : How to access health information online Indication: 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 without 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, unspecified retirement insulin use status 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 without 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, unspecified oil heaterman insulin use status : How to access health information online - Detail Indication: 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 without 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, unspecified retirement insulin use status 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 without 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, unspecified retirement insulin use status : Patient Instructions Indication: 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 without 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, unspecified retirement insulin use status 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 without 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, unspecified retirement insulin use status : How to access health information online Indication: 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 without 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, unspecified retirement insulin use status 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 without 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, unspecified retirement insulin use status : How to access health information online - Detail Indication: 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 without 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, unspecified oil heaterman insulin use status 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 without 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, unspecified oil heaterman insulin use status : Patient Instructions Indication: 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 without 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, unspecified oil heaterman insulin use status BMI 30.0-30.9,adult : How to access health information online Indication: BMI 30.0-30.9,adult BMI 30.0-30.9,adult : How to access health information online - Detail Indication: BMI 30.0-30.9,adult BMI 30.0-30.9,adult : Patient Instructions Indication: BMI 30.0-30.9,adult Current nonsmoker (Renamed from Current non-smoker) : How to access health information online Indication: Current nonsmoker (Renamed from Current non-smoker) Current nonsmoker (Renamed from Current non-smoker) : How to access health information online - Detail Indication: Current nonsmoker (Renamed from Current non-smoker) Current nonsmoker (Renamed from Current non-smoker) : Patient Instructions Indication: Current nonsmoker (Renamed from Current non-smoker) 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 without 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, unspecified oil heaterman insulin use status : obesity counseling Indication: 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 without 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, unspecified oil heaterman insulin use status Current nonsmoker (Renamed from Current non-smoker) : How to access health information online Indication: Current nonsmoker (Renamed from Current non-smoker) Current nonsmoker (Renamed from Current non-smoker) : How to access health information online - Detail Indication: Current nonsmoker (Renamed from Current non-smoker) Current nonsmoker (Renamed from Current non-smoker) : Patient Instructions Indication: Current nonsmoker (Renamed from Current non-smoker) BMI 32.0-32.9,adult : How to access health information online Indication: BMI 32.0-32.9,adult BMI 32.0-32.9,adult : How to access health information online - Detail Indication: BMI 32.0-32.9,adult BMI 32.0-32.9,adult : Patient Instructions Indication: BMI 32.0-32.9,adult Vitamin D deficiency : Patient Instructions Indication: Vitamin D deficiency Annual Medicare Phyiscal WITHOUT abnormal findings (Renamed from Encounter for general adult medical examination without abnormal findings) : Patient Instructions Indication: Annual Medicare Phyiscal WITHOUT abnormal findings (Renamed from Encounter for general adult medical examination without abnormal findings) Diabetes mellitus type II, controlled : How to access health information online Indication: Diabetes mellitus type II, controlled Diabetes mellitus type II, controlled : How to access health information online - Detail Indication: Diabetes mellitus type II, controlled Diabetes mellitus type II, controlled : Patient Instructions Indication: Diabetes mellitus type II, controlled Diabetes mellitus type II, controlled : How to access health information online Indication: Diabetes mellitus type II, controlled Diabetes mellitus type II, controlled : How to access health information online - Detail Indication: Diabetes mellitus type II, controlled Diabetes mellitus type II, controlled : Patient Instructions Indication: Diabetes mellitus type II, controlled Diabetes mellitus type II, controlled : How to access health information online Indication: Diabetes mellitus type II, controlled Diabetes mellitus type II, controlled : How to access health information online - Detail Indication: Diabetes mellitus type II, controlled Diabetes mellitus type II, controlled : Patient Instructions Indication: Diabetes mellitus type II, controlled Rash of face : Patient Instructions Indication: Rash of face Vitamin D deficiency : How to access health information online Indication: Vitamin D deficiency Vitamin D deficiency : How to access health information online - Detail Indication: Vitamin D deficiency Vitamin D deficiency : Patient Instructions Indication: Vitamin D deficiency Palpitation : How to access health information online - Detail Indication: Palpitation Palpitation : Patient Instructions Indication: Palpitation Encounters Lab Order On: 17-Jun-2018 14:10 Encounter Diagnosis: Elevated LFTs (Renamed from Elevated liver function tests), Diabetes mellitus type II, controlled, Hypercholesteremia (Renamed from Hypercholesterolemia), Vitamin B 12 deficiency, Elevated rheumatoid factor End: 17-Jun-2018 14:16 [facility] Office Visit On: 08-Apr-2018 11:52 Encounter Reason: Injections - The medication the patient is here to receive is vitamin B12 IM.Encounter Diagnosis: Vitamin B 12 deficiency End: 08-Apr-2018 12:14 [facility] Office Visit On: 30-Mar-2018 14:06 Encounter Reason: Injections - The medication the patient is here to receive is vitamin B12 IM.Encounter Diagnosis: Vitamin B 12 deficiency End: 30-Mar-2018 14:27 [facility] Office Visit On: 25-Mar-2018 11:01 Encounter Reason: Follow up tests - Date: (03/16/18 labs)., [ADDITIONAL REASON] Follow up for chronic medical issues - The patient does not feel well, has decre End: 25-Mar-2018 11:52 ased energy level and is sleeping well. Patient has been compliant with instructions. Current medication use: no side effects and compliant with dosing regimen. Patient sleeps 9 hours per night. Nutriti on: balanced diet and no supplemental vitamins & iron. The medical issues the patient is following up for include All identified problems below, blood sugar issues, high blood pressure and high cholesterol. Encounter Diagnosis: 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 without 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, unspecified retirement insulin use status, BMI 30.0-30.9,adult, Current nonsmoker (Renamed from Current non-smoker), Hypercholesteremia (Renamed from Hypercholesterolemia), Vitamin D deficiency, Fibromyalgia, Elevated LFTs (Renamed from Elevated liver function tests), Medication side effect, Anxiety, Paresthesia, Dizzy [facility] Office Visit On: 19-Dec-2017 9:13 Encounter Reason: Follow up for chronic medical issues - The patient does not feel well, has decreased energy level and is sleeping well. Patient has been compliant with instructions. Current medication use: no side effe End: 19-Dec-2017 12:58 cts and compliant with dosing regimen. Patient sleeps 7 hours per night. Nutrition: balanced diet and supplemental vitamins. The medical issues the patient is following up for include All identified pro blems below, blood sugar issues, depression, high blood pressure and high cholesterol.Encounter Diagnosis: Body mass index 31.0-31.9, adult, Fibromyalgia, Vitamin D deficiency, Hypercholesteremia (Renamed from Hypercholesterolemia), Anxiety, 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 without 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, unspecified retirement insulin use status, Elevated rheumatoid factor [facility] Office Visit On: 03-Sep-2017 10:35 Encounter Reason: Follow up tests - Date: (08/26/17 labs)., [ADDITIONAL REASON] Follow up for chronic medical issues - The patient feels well with minor complai End: 04-Sep-2017 15:19 nts, has decreased energy level and is sleeping well. Patient has been compliant with instructions. Current medication use: no side effects and compliant with dosing regimen. Patient sleeps 7 hours per night. Nutrition: balanced diet and no supplemental vitamins & iron. The medical issues the patient is following up for include All identified problems below, blood sugar issues, fibromyalgia, high blood pressure and high cholesterol. Encounter Diagnosis: Current nonsmoker (Renamed from Current non-smoker), BMI 30.0- 30.9,adult, Anxiety, Fibromyalgia, Hypercholesteremia (Renamed from Hypercholesterolemia), Vitamin D deficiency, 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 without 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, unspecified retirement insulin use status, Elevated rheumatoid factor, Osteopenia [facility] Office Visit On: 08-May-2017 11:58 Encounter Reason: Follow up for chronic medical issues - The patient does not feel well, has decreased energy level and is sleeping poorly. Patient has been compliant with instructions. Current medication use: no side ef End: 08-May-2017 16:12 fects and compliant with dosing regimen. Patient sleeps 6 hours per night. Nutrition: balanced diet and supplemental vitamins. The medical issues the patient is following up for include All identified p roblems below, blood sugar issues, depression, high blood pressure and high cholesterol.Encounter Diagnosis: Diabetes mellitus type II, controlled, Body mass index 31.0-31.9, adult, Current nonsmoker (Renamed from Current non-smoker), Vitamin D deficiency, Hypercholesteremia (Renamed from Hypercholesterolemia), Fibromyalgia, Anxiety, Myoclonus, Movement disorder, Yeast dermatitis, Need for prophylactic vaccination (Renamed from Need for immunization against influenza) [facility] Office Visit On: 01-Apr-2017 11:27 Encounter Reason: Annual Medicare Exam - The patient had reviewed and updated the family history, medication/s, past medical history and social history. Yes the patient did have a mini mental status exam done today. The End: 01-Apr-2017 14:14 activities of daily living the patient needs help with are none. The patient has driven in past 6 months, put area rugs through house and put handrails in bathroom, but the patient has not had fecal inc ontinence, had urinary incontinence, missed or ran out of medications to soon, fallen in the past 6 months, gotten lost or has a medalert necklace or bracelet. The patient has completed the following pr eventative measures: PAP smear (3 yrs and a hyster) and mammography (1 yr). The patient does have durable power of compliance attorney and living will. The patient has noticed staying at home rather than doing karin ething new or going out and lack of energy. Other providers contributing to the patient's care are other:.Encounter Diagnosis: Body mass index 31.0-31.9, adult, Current nonsmoker (Renamed from Current non-smoker), Annual Medicare Phyiscal WITHOUT abnormal findings (Renamed from Encounter for general adult medical examination without abnormal findings), 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 without 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, unspecified oil heaterman insulin use status, Encounter for screening for malignant neoplasm of colon (Renamed from Special screening for malignant neoplasms, colon), Encounter for screening mammogram for breast cancer (Renamed from Encounter for screening mammogram f or malignant neoplasm of breast) [facility] Office Visit On: 28-Jan-2017 11:01 Encounter Reason: Follow up tests - Date: (01/14/17 labs)., [ADDITIONAL REASON] Follow up for chronic medical issues - The patient feels well with minor complai End: 28-Jan-2017 13:57 nts, has decreased energy level and is sleeping well. Patient has been compliant with instructions. Current medication use: no side effects and compliant with dosing regimen. Patient sleeps 7 hours per night. Nutrition: balanced diet and supplemental vitamins. The medical issues the patient is following up for include All identified problems below, blood sugar issues, fibromyalgia, high blood pressure and high cholesterol. Encounter Diagnosis: Current nonsmoker (Renamed from Current non-smoker), BMI 32.0-32.9,adult, Vitamin D deficiency, Hypercholesteremia (Renamed from Hypercholesterolemia), Fibromyalgia, Dysthymic, Elevated LFTs (Renamed from Elevated liver function tests), 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 without 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, unspecified retirement insulin use status [facility] Phone Encounter On: 07-Jan-2017 12:30 Encounter Diagnosis: Diabetes mellitus type II, controlled, Hypercholesteremia (Renamed from Hypercholesterolemia), Vitamin D deficiency End: 07-Jan-2017 12:34 [facility] Office Visit On: 15-Jul-2016 13:01 Encounter Reason: Injections - The medication the patient is here to receive is other (flu).Encounter Diagnosis: Need for prophylactic vaccination (Renamed from Need for immunization against influenza) End: 15-Jul-2016 14:54 [facility] Office Visit On: 01-May-2016 11:50 Encounter Reason: Follow up tests - Date: (04/11/16 dexa scan).Encounter Diagnosis: Vitamin D deficiency, Current nonsmoker (Renamed from Current non-smoker), Osteopenia, Fibromyalgia, Anxiety End: 01-May-2016 12:42 [facility] Office Visit On: 05-Apr-2016 7:27 Encounter Diagnosis: Encounter for screening for malignant neoplasm of colon (Renamed from Special screening for malignant neoplasms, colon) End: 05-Apr-2016 7:30 [facility] Office Visit On: 03-Apr-2016 9:45 Encounter Diagnosis: Vitamin D deficiency End: 03-Apr-2016 9:47 [facility] Phone Encounter On: 02-Apr-2016 10:22 Encounter Diagnosis: Hypercholesteremia (Renamed from Hypercholesterolemia) End: 02-Apr-2016 10:25 [facility] Office Visit On: 27-Mar-2016 9:48 Encounter Reason: Annual Medicare Exam - The patient had reviewed and updated the family history, medication/s, past medical history and social history. Yes the patient did have a mini mental status exam done today. The End: 27-Mar-2016 10:46 activities of daily living the patient needs help with are dressing and housework. The patient has missed or ran out of medications to soon, driven in past 6 months, fallen in the past 6 months, put are a rugs through house and put handrails in bathroom, but the patient has not had fecal incontinence, had urinary incontinence, gotten lost or has a medalert necklace or bracelet. The patient has complete d the following preventative measures: PAP smear (2 yrs), mammography (2016) and colonoscopy (5 yrs). The patient does have durable power of compliance attorney and living will. The patient has noticed dropping ac tivities and interests, feeling something bad will happen, staying at home rather than doing something new or going out, having problems with memory than others, feeling worthless and feeling situation is hopeless. Other providers contributing to the patient's care are other:.Encounter Diagnosis: Annual Medicare Phyiscal WITHOUT abnormal findings (Renamed from Encounter for general adult medical examination without abnormal findings), Encounter for screening mammogram for breast cancer (Renamed from Encounter for screening mammogram for malignant neoplasm of breast), Postmenopausal (Renamed from Postmenopausal status), Encounter for screening for malignant neoplasm of colon (Renamed from Special screening for malignant neoplasms, colon), Current nonsmoker (Renamed from Current non- smoker), Body mass index 31.0-31.9, adult, Pneumococcal vaccination given [facility] Office Visit On: 15-Mar-2016 9:44 Encounter Reason: Follow up for chronic medical issues - The patient feels well with minor complaints, has decreased energy level and is sleeping well. Patient has been compliant with instructions. Current medication use End: 15-Mar-2016 10:45 : no side effects and compliant with dosing regimen. Patient sleeps 7 hours per night. Nutrition: balanced diet and no supplemental vitamins & iron. The medical issues the patient is following up fo r include All identified problems below, blood sugar issues, high blood pressure and high cholesterol.Encounter Diagnosis: Diabetes mellitus type II, controlled, Hypercholesteremia (Renamed from Hypercholesterolemia), Anxiety, Fibromyalgia (Renamed from Diffuse myofascial pain syndrome), Vitamin D deficiency, Dysthymic, Cataract, Periorificial dermatitis [facility] Office Visit On: 26-Dec-2015 11:14 Encounter Reason: Follow up for chronic medical issues - The patient feels well with minor complaints and has decreased energy level. Patient has been compliant with instructions. Current medication use: experiencing zachariah End: 26-Dec-2015 12:16 e effects (atorvastatin caused myalgia ). Patient sleeps 7 hours per night. Impact of disease: emotional impact-mild. Nutrition: balanced diet and supplemental vitamins. The medical issues the patient i s following up for include blood sugar issues, cardiac issues, depression, fibromyalgia, high cholesterol and other (vitamin d def. ).Encounter Diagnosis: Diabetes mellitus type II, controlled, Current nonsmoker (Renamed from Current non-smoker), Periorificial dermatitis, Dysthymic, Palpitation, Vitamin D deficiency, Fibromyalgia (Renamed from Diffuse myofascial pain syndrome), Elevated rheumatoid factor, Obesity (BMI 30-39.9), Hypercholesteremia (Renamed from Hypercholesterolemia), Anxiety, Myoclonus, Encounter for screening mammogram for breast cancer (Renamed from Encounter for screening mammogram for malignant neoplasm of breast) [facility] Historical Summary On: 25-Sep-2015 16:34 Encounter Diagnosis: Diabetes mellitus type II, controlled End: 25-Sep-2015 16:36 [facility] Refill Request On: 22-Sep-2015 15:28 Encounter Diagnosis: Diabetes mellitus type II, controlled End: 22-Sep-2015 15:32 [facility] Office Visit On: 22-Sep-2015 11:56 Encounter Reason: Follow up for chronic medical issues - The patient feels well with minor complaints and has decreased energy level. Patient has been compliant with instructions. Current medication use: no side effects, End: 22-Sep-2015 12:37 compliant with dosing regimen and considered effective by patient. Patient sleeps 7 hours per night. Impact of disease: emotional impact-moderate. Nutrition: balanced diet and supplemental vitamins. Th e medical issues the patient is following up for include blood sugar issues, cardiac issues, depression (major anxiety ), fibromyalgia, high blood pressure, high cholesterol and other (obesity, myoclonas ).Encounter Diagnosis: Diabetes mellitus type II, controlled, Current nonsmoker (Renamed from Current non- smoker), Palpitation, Left arm swelling, Obesity (BMI 30-39.9), Dysthymic, Myoclonus, Hypercholesteremia (Renamed from Hypercholesterolemia), Vitamin D deficiency, Fracture of bone of left shoulder, sequela, Elevated rheumatoid factor, Fibromyalgia (Renamed from Diffuse myofascial pain syndrome), Anxiety [facility] Office Visit On: 21-Aug-2015 13:07 Encounter Reason: Rash - The last clinic visit was 2 month(s) ago. No changes in management were made at the last visit. Symptoms include skin bumps, pain, pruritus and skin redness. There is no known event that preceded End: 21-Aug-2015 13:49 symptom onset. The symptoms occur constantly. The patient describes this as mild. Note for Rash: b/l eyes ans some down onto faceEncounter Diagnosis: Rash of face, History of candidiasis [facility] Office Visit On: 28-Jun-2015 15:35 Encounter Reason: Injections - The medication the patient is here to receive is other (flushot).Encounter Diagnosis: Need for prophylactic vaccination (Renamed from Need for immunization against influenza) End: 28-Jun-2015 18:05 [facility] Office Visit On: 08-May-2015 13:34 Encounter Reason: Follow up, Diagnostic Procedure Results - Diagnostic tests include other (labs ). Date: (04-26-15). Current symptoms include joint pains.Encounter Diagnosis: Vitamin D deficiency, Fracture of bone of left shoulder, sequela, End: 08-May-2015 14:09 Diabetes, Type II, controlled (250.00), Depression/Anxiety (300.4), Fibromyalgia (Renamed from Diffuse myofascial pain syndrome), Left arm swelling, Palpitation, Myoclonus, Elevated rheumatoid factor, Obesity (BMI 30-39.9), Hypercholesteremia (Renamed from Hypercholesterolemia) [facility] Office Visit On: 06-Apr-2015 12:25 Encounter Reason: Transition into care - The patient is transitioning into care from another physician and a summary of care was reviewed ., [ADDITIONAL REASON] new patient female physical - Last seen between 1-3 months ago. General health: End: 06-Apr-2015 13:48 feels well with minor complaints, has decreased energy level and is sleeping well (with xanax ). The patient's appetite is normal. Nutrition: normal/adequate. Exercises 0 days per week. Sleeps on averag e 7 hours per night. Normal bowel and bladder habits. Safety measures include appropriate use of safety belts and home smoke detectors. Current emotional problems include anxiety, depression and nervous ness. screening, colonoscopy (2006), screening, mammography (2013) and screening, Pap smear (Total hysterectomy ). 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
--- OUTSIDE RECORDS SUMMARY | 2018-10-12 15:21 | XMS RPT_ITS | Continuity of Care Document ---
:1945 Author Organization [facility] Address [address] [place] [address] [address] [place] [address] Phone Care Team Providers Name Role Phone Rain Mccormick DO Unavailable Obie Almanza MD Unavailable Dr. Jeffrey Vasquez Unavailable Robbie White Unavailable Davian Kaminski MD Unavailable BRUCE Ibanez Unavailable Unavailable Unavailable Unavailable Problems Name Dates Details Annual Medicare Phyiscal WITHOUT abnormal findings (Renamed from Encounter for general adult medical examination without abnormal findings) (Z00.00, V70.9) Status: Active Annual Medicare Phyiscal WITHOUT abnormal findings (Renamed from Encounter for general adult medical examination without abnormal findings) (Z00.00, V70.9) Status: Active Anxiety (F41.9, 300.00) Comments: francess kervin for axn adn counseling Status: Active BMI [...] Comments: olya- said RA -- went to [facility] for second opinion agreed with dx but no need for immunosuppressants--- she will go to [facility] or [facility] Status: Active Encounter for screening for malignant [...] Active 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 Harry both derm and opthal Status: Active Pneumococcal vaccination given (Z23, V06.6) Status: Active Postmenopausal (Renamed from Postmenopausal status) (Z78.0, V49.81) Status: Active Pregnancies () Comments: 3 Status: Active 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 without 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, unspecified longterm insulin use status (E11.65, 250.02) Comments: [facility] up -- but still needs improvement-- will do more diet nad lifestyle chg befroe med change- take her metfomrin compliantly and try harder with diet -- she refused more meds Status: Active Unsteady gait (R26.81, 781.2) Comments: h/o of balsnce testing adn did physical tehreapy but never finished sessions -- refused to use can recommended-- and doesnt want to return -- i offered to send her back with order Status: Active Urinary incontinence in female (R32, 788.30) Status: Active Vitamin B 12 deficiency (E53.8, 266.2) Comments: weekly x2 and then monthly or take otc daily pilllast level 10-18 normal Status: Active Vitamin D deficiency (E55.9, 268.9) [...] DO, Kathleen Start : 03-Sep-2017 Active Drisdol 79689 UNIT Oral Capsule 1 (one) Capsule Capsule qweek for 0 days Quantity: 4 {Capsule} Refills: 4 Ordered:28-Jan-2017 Valencia Ibanez LPN Start : 28-Jan-2017 Active Januvia 100 MG Oral Tablet 1 (one) [...] : 21-Aug-2015 End : 28-Aug-2015 Inactive ERGOCALCIFEROL, [id number] (Oral Capsule) 1 (one) Capsule q weekly for 0 days Quantity: 12 {Capsule} Refills: 3 Ordered:15-Mar-2016 Valencia Ibanez LPN Start : 26-Dec-2015 End : 15-Mar-2016 Inactive Gabapentin 100 MG Oral Capsule 1 (one) Capsule qam for 90 days Quantity: 90 {Capsule} Refills: 0 Ordered:03-Sep-2017 Raisa Nova Start : 03-Sep-2017 End : 02-Dec-2017 Inactive Gabapentin 400 MG Oral Capsule 1 Capsule qid for 90 days Quantity: 120 {Capsule} Refills: 0 Ordered:25-Mar-2018 Kevin Mccormick DO, DO, Kathleen Start : 25-Mar-2018 End : 23-Jun-2018 Inactive Comments:1200 mg qd KLONOPIN, 0.5MG (Oral Tablet) 1 Tablet bid [...] 22-Sep-2015 End : 06-Nov-2015 Discontinued Comments:DX: E11.9NPI: [id number] DULoxetine HCl 20 MG Oral Capsule Delayed [...] : 19-Dec-2017 End : 19-Dec-2017 Discontinued Comments:per vallenke TRAMADOL HCL, 50MG (Oral Tablet) 1 Tablet [...] manipulation of the left shoulder again @ [facility] Status: Inactive as of 26-Dec-2015 History [...] PT Communication Result: Comments: See Note; NOTES: [facility] Physical Therapy [facility] [facility] [place] [address] Fax REHABILITATION SERVICES SUZE [employer] NOTE MR#: [id number] Acct: [id number] Name: JAZMINE LOCO Rep #: [id number] : 1945 72 From: Augustus Springer DPT, OCS, CSCS Referring : Status: REG RCR Insurance: MEDICARE PART A B [employer] [place] PT Communication Note 04/20/[address] MATT SHINE , Thank you for the referral of Jazmine to [facility] for balance assessment. I have enclosed a [...] for this referral. Sincerely, Augustus Springer DPT, OC Contact Information 04/21/18 0914 <Electronically signed by Augustus Springer DPT, OCS, CSCS> Date Augustus Springer DPT, OCS, CSCS Cosigner Signature (if applicable): Date CC: Rain Mccormick DO; OUT OF TOWN DOCTOR Signed For Medicare only, by signing this I certify the plan of care. Physicians Signature Date 15-Apr-2018 Inital Evaluation (1) - PT Result: Comments: See Note; NOTES: [facility] Physical Therapy [facility] [address] [place] [address]. [address] [place] [address] Fax REHABILITATION SERVICES INITIAL EVALUATION MR#: [id number] Acct: [id number] Name: JAZMINE LOCO Rep #: [id number] : 1945 72 From: Augustus Springer DPT, GERARDO, CSCS Referring DrNoman: Status: REG RCR Insurance: MEDICARE PART A B [facility] Patient's Visit Information JAZMINE LOCO is a [...] overall health and if she would consider longterm I then we can teach her those [...] and j erking movements. Had neurologist in [place] but not since she moved here in [...] to be FAXED BACK to us at [phone] for Medicare purposes. Please let me know [...] (CAD), BILAT Result: Comments: See Note; NOTES: [facility] Imaging Services [address] [place] [address] SCREENING MAMM (CAD), BILAT MR#: [id number] Acct: [id number] Name: JAZMINE LOCO Rep #: [id number] : 1945 F 71 From: Junaid Casillas MD PCP: Rain Mccormick DO Status: REG CLI Study: SCREENING MAMM (CAD), BILAT Date of Exam: 04/17/17 Exam# [id number] Ordering Dr: Rain Mccormick DO MAMMOGRAPHY - [...] delay biopsy of a clinically suspicious abnormality. [id number] Electronically Signed: Junaid Casillas MD at 15:15 EDT Tel [phone], Service support , CC: Rain Mccormick DO Ehs Engineer: Signed 30-Jan-2017 Liver Result: Comments: See Note; NOTES: [facility] Imaging Services [address] [place] [address] Ivy 4d Liver MR#: [id number] Acct: [id number] Name: JAZMINE LOCO Rep #: [id number] DO B: 1945 F 71 From: Junaid Casillas MD PCP: Rain Mccormick DO Status: REG CLI Study: Liver Date of Exam: 01/30/17 Exam# [id number] Ordering Dr: Rain Mccormick DO STUDY: ABDOMINAL [...] Junaid Casillas MD at 15:05 EDT Tel [phone], Service support , CC: Rain Mccormick DO Ehs Engineer: Signed 11-Apr-2016 Dexa Bone Density Study (HP) Result: Comments: See Note; NOTES: [facility] Imaging Services [address] [place] [address] Verdana 4d Dexa Bone Density Study (HP) MR#: [id number] Acct: [id number] Name : JAZMINE LOCO Rep #: [id number] : 1945 F 70 From: Junaid Casillas MD PCP: Rain Mccormick DO Status: REG CLI Study: Dexa Bone Density Study (HP) Date of Exam: 04/11/16 Exam# [id number] Ordering Dr: Rain Mccormick DO STUDY: DUAL [...] Osteoporosis and Related Bone Diseases http://www.osteo.org 2. Mandarin Speaking Nanny ional Society for Clinical Densitometry http://www.iscd.org 3. National Osteoporosis Foundation http://www.nof.org Electronically Signed: Junaid Casillas MD at 11:29 EDT Tel [phone], Service support [phone], CC: Rain Mccormick DO Ehs Engineer: Signed 29-Jan-2016 Bilat Scrn Digital AND CAD Result: Comments: See Note; NOTES: [facility] Imaging Services [address] [place] [address] Verdana 4d Bilat Scrn Digital AND CAD MR#: [id number] Acct: [id number] Name: JAZMINE LOCO Rep #: [id number] : 1945 F 70 From: Junaid Casillas MD PCP: Anyi Hawthorne MD Status: REG CLI Study: Bilat Scrn Digital AND CAD Date of Exam: 01/29/16 Exam# [id number] Swathi ann Dr: Anyi Hawthorne MD MAMMOGRAPHY - BILATERAL [...] delay biopsy of a clinically suspicious abnormality. [id number] Electronically Signed: Junaid Casillas MD at 12:42 EDT Tel [phone], Service support [phone], CC: Anyi Hawthorne MD Ehs Engineer: Signed 03-Oct-2015 12 Lead Electrocardiogram Result: Comments: See Note; NOTES: [facility] Cardiovascular Services [address] [place] [address] 12 Lead EKG 10/02/15 1623 MR#: [id number] Acct: [id number] Name: JAZMINE DUKES Rep #: [id number] : 1945 70 From: Rodolfo Roberto MD Attending Dr: Martín De León DO Status: REG CLI Ordering Dr: Martín De León DO Date: 10/02/15 Location: [facility] Sex: F C Admitted: Test Reason : PRE OP Blood Pressure : / mmHG Vent. Rate : 056 BPM Atrial Rate : 056 BPM P-R Int : 142 ms QRS Dur : 086 ms QT Int : 452 ms P-R-T Axes : 026 027 036 degrees QTc Int : 436 ms Sinus bradycardia Otherwise normal ECG Confirmed by MIKKI KELLEY, RODOLFO ([id number]), multimedia editor MAIRA KEMP ([id number]) on 10/03/2015 8:43:11 AM Referred By: TAN Confirmed By:RODOLFO ROBERTO MD 10/03/15 084 3 Date Rodolfo Roberto MD CC: Anyi Hawthorne MD Date Dictated: 10/02/151622 Date Transcribed: 10/02/151622 Ehs Engineer: Signed Family History Unknown Family Member Name [...] smoker Vital Signs Date Test Result Details 99-Tww-873588:44 Temperature 98.4 f Comments: Method: Temporal Pulse 57 /min Comments: Pattern: Regular Respiration Rate 18 /min Comments: Pattern: Unlabored O2 SAT 96 % Comments: Room air BP Systolic 132 mm[Hg] Comments: Patient Position: Sitting; Cuff Location: Left Arm; Cuff Size: Standard BP Diastolic 80 mm[Hg] Comments: Patient Position: Sitting; Cuff Location: Left Arm; Cuff Size: Standard Weight 176.5 lb Height 63 in Body Mass Index Calculated 31.27 kg/m2 Body Surface Area Calculated 1.83 m2 :07 Pulse 64 /min Comments: Pattern: Regular [...] kg/m2 Body Surface Area Calculated 1.84 m2 30-Nyd-641568:42 Comments: hearing wnlDr. Harry and had a glaucom test done [...] kg/m2 Body Surface Area Calculated 1.83 m2 40-Wso-257460:02 Pulse 73 /min Comments: Pattern: Regular Respiration [...] kg/m2 Body Surface Area Calculated 1.85 m2 05-Ick-996081:05 Pulse 67 /min Comments: Pattern: Regular Respiration [...] Area Calculated 1.84 m2 :52 Comments: hearing Geo and had a glaucoma test done Pulse [...] kg/m2 Body Surface Area Calculated 1.8 m2 79-Dqd-419037:25 Temperature 97.6 f Comments: Method: Temporal Pulse [...] 1.83 m2 Results Date Description Value Details 7-Fvo-328711:11 Microscopic Examination Comments: PATIENT WAS FASTINGPERFORMED BY: [employer] [id number] BY: CPO [facility] [id number] Bacteria Many (Abnormal) Mucus Threads Present (Normal) Cast Type Hyaline casts (Normal) Casts Present {/lpf} (Abnormal) Epithelial Cells (non renal) 0-10 {/hpf} (Normal) Range: 0 - 10 RBC 0-2 {/hpf} (Normal) Range: 0 - 2 WBC >30 {/hpf} (Abnormal) Range: 0 - 5 Comments: Clumps of leukocytes present. 8-Hyq-095887:11 RHEUMATOID FACTOR-QUANT Comments: PATIENT WAS FASTINGPERFORMED BY: [employer] [address] [id number] BY: Mor.sl Vzkvvw9345 [facility] [id number] (53374) RA Latex Turbid. 23.9 {IU/mL} (Abnormal) Range: 0.0-13.9 7-Bhx-616727:11 Vitamin B-12 (cyanocobalamin) Comments: PATIENT WAS FASTINGPERFORMED BY: [employer] [id number] BY: Mor[employer]sl [employer] [facility] [id number] (36987) Vitamin B12 553 pg/mL (Normal) Range: 232-1245 0-Pqm-366750:11 LIPOPROTEIN, BLD, BY NMR Comments: PATIENT WAS FASTINGPERFORMED BY: BN [facility] Idjphsaarn0140 [facility] [id number] BY: CB [facility] Zjdpdf4922 [place] [id number] (42764) LP-IR Score 74 (Abnormal) Comments: INSULIN RESISTANCE MARKER <--Insulin Sensitive Insulin Resistant--> Percentile in Reference PopulationInsulin Resistance ScoreLP-IR Score Low 25th 50th 75th High <27 27 45 63 >63LP-IR Score is inaccurate if patient is non-fasting. .The LP-IR score is a laboratory developed i [facility] that has beenassociated with insulin resistance and diabetes risk and should beused as one component of a physician's clinical assessment. TheLP-IR score listed above has not been cleared by the US Food andDrug Administration. LDL Size 20.8 nm (Normal) Comments: INTERPRETATIVE INFORMATION PARTICLE CONCENTRATION [...] were developed and their performance characteristicsdetermined by [employer]. These assays have not been cleared by [place] Food and Drug Administration. The clinical utility of theselaboratory values have not been fully established. Small LDL-P 885 nmol/L (Abnormal) HDL-P (Total) 26.9 umol/L (Abnormal) Cholesterol, Total 247 mg/dL (Abnormal) Range: 100-199 Triglycerides 172 mg/dL (Abnormal) Range: 0-149 HDL-C 44 mg/dL (Normal) LDL-C 169 mg/dL (Abnormal) Range: 0-99 Comments: . Optimal < 100 Above optimal 100 - 129 Borderline 1 30 - 159 High 160 - 189 Very high > 189 .LDL-C is inaccurate if patient is non-fasting. LDL-P 2168 nmol/L (Abnormal) Comments: Low < 1000 Moderate 1000 - 1299 Borderline-High 1300 - 1599 High 1600 - 2000 Very High > 2000 0-Wyc-824504:11 CBC WITH MANUAL DIFF Comments: PATIENT WAS FASTINGPERFORMED BY: BN [facility] Kmsrplnjab4728 [facility] [id number] BY: CB [facility] Zzzkhj6577 [facility] [id number] (55018) Immature Grans (Abs) 0.0 {x10E3/uL} (Normal) Range: 0.0-0.1 Immature Granulocytes 0 % (Normal) Baso (Absolute) 0.0 {x10E3/uL} (Normal) Range: 0.0-0.2 Eos (Absolute) 0.2 {x10E3/uL} (Normal) Range: 0.0-0.4 Monocytes(Absolute) 0.5 {x10E3/uL} (Normal) Range: 0.1-0.9 Lymphs (Absolute) 2.6 {x10E3/uL} (Normal) Range: 0.7-3.1 Neutrophils (Absolute) 3.6 {x10E3/uL} (Normal) Range: 1.4-7.0 Basos 0 % (Normal) Eos 4 % (Normal) Monocytes 7 % (Normal) Lymphs 38 % (Normal) Neutrophils 51 % (Normal) Platelets 213 {x10E3/uL} (Normal) Range: 150-379 RDW 14.1 % (Normal) Range: 12.3-15.4 MCHC 33.9 g/dL (Normal) Range: 31.5-35.7 MCH 29.4 pg (Normal) Range: 26.6-33.0 MCV 87 fL (Normal) Range: 79-97 Hematocrit 42.5 % (Normal) Range: 34.0-46.6 Hemoglobin 14.4 g/dL (Normal) Range: 11.1-15.9 RBC 4.90 {x10E6/uL} (Normal) Range: 3.77-5.28 WBC 6.9 {x10E3/uL} (Normal) Range: 3.4-10.8 8-Nqe-724089:11 MICROALBUMIN: CREATININE Comments: PATIENT WAS FASTINGPERFORMED BY: [employer] [id number] BY: Mor.sl[address] [id number] RATIO (86357) AND (52784) Alb/Creat Ratio 20.8 {mg/g_creat} (Normal) Range: 0.0-30.0 Comments: Normal: 0.0 - 30.0 Albuminuria: 31.0 - 300.0 Clinical albuminuria: >300.0 Albumin, Urine 26.0 ug/mL (Normal) Creatinine, Urine 125.2 mg/dL (Normal) 8-Jwg-314887:11 URINALYSIS (75113) Comments: PATIENT WAS FASTINGPERFORMED BY: [employer] [id number] BY: [facility] HospitalCashBet[address] [id number] Microscopic Examination See below: (Normal) Comments: Microscopic was indicated and was performed. Nitrite, Urine Positive (Abnormal) Urobilinogen,Semi-Qn 0.2 mg/dL (Normal) Range: 0.2-1.0 Bilirubin Negative (Normal) Occult Blood Trace (Abnormal) Ketones Negative (Normal) Glucose 1+ (Abnormal) Protein Negative (Normal) WBC Esterase 3+ (Abnormal) Appearance Cloudy (Abnormal) Urine-Color Yellow (Normal) pH 5.5 (Normal) Range: 5.0-7.5 Specific [place] 1.020 (Normal) Range: 1.005-1.030 7-Lrv-916153:11 HGB A1C (87521) Comments: PATIENT WAS FASTINGPERFORMED BY: [place]In[place] 877537 [facility] [id number] BY: GlobeInVirtua [facility]. [facility])Yyybvt0743 [facility] [id number] Hemoglobin A1c 7.3 % (Abnormal) Range: 4.8-5.6 Comments: . Prediabetes: 5.7 - 6.4 Diabetes: >6.4 Glycemic control for adults with diabetes: <7.0 6-Wqh-557103:11 Metabolic Panel, Comments: PATIENT WAS FASTINGPERFORMED BY: [facility] Imhyztiobi7427 [facility] [id number] BY: GlobeInVirtua Mt[facility] ([facility])Cpusxr2550 [facility] [id number] Comprehensive (80213) ALT (SGPT) 47 [iU]/L (Abnormal) Range: 0-32 AST (SGOT) 27 [iU]/L (Normal) Range: 0-40 Alkaline Phosphatase 60 [iU]/L (Normal) Range: 39-117 Bilirubin, Total 0.5 mg/dL (Normal) Range: 0.0-1.2 A/G Ratio 1.7 (Normal) Range: 1.2-2.2 Globulin, Total 2.5 g/dL (Normal) Range: 1.5-4.5 Albumin 4.2 g/dL (Normal) Range: 3.5-4.8 Protein, Total 6.7 g/dL (Normal) Range: 6.0-8.5 Calcium 9.6 mg/dL (Normal) Range: 8.7-10.3 Carbon Dioxide, Total 23 mmol/L (Normal) Range: 20-29 Chloride 103 mmol/L (Normal) Range: 96-106 Potassium 4.5 mmol/L (Normal) Range: 3.5-5.2 Sodium 142 mmol/L (Normal) Range: 134-144 BUN/Creatinine Ratio 12 (Normal) Range: 12-28 eGFR If Africn Am 55 mL/min/1.73 (Abnormal) eGFR If NonAfricn Am 48 mL/min/1.73 (Abnormal) Creatinine 1.16 mg/dL (Abnormal) Range: 0.57-1.00 BUN 14 mg/dL (Normal) Range: 8-27 Glucose 206 mg/dL (Abnormal) Range: 65-99 95-Gyi-696909:27 VITAMIN B-12 (CYANOCOBALAMIN) Comments: PATIENT NOT FASTINGPERFORMED BY: GlobeInK[place] 8126170 [facility] [id number] (20568) Vitamin B12 368 pg/mL (Normal) Range: 232-1245 64-Gzr-336277:02 HgA1C , Office (69743) HgA1C , Office 6.8 % (Normal) Range: 4.6 - 7.1 76-Ipa-959078:02 Blood Glucose , Office (33232) Blood Glucose , Office 225 (Normal) :09 METABOLIC PANEL, Comments: PATIENT WAS FASTINGPERFORMED BY: [address] [id number] BY: [facility] HospitalCashBetVirtua Mt. [facility] ([facility])Wmsolq5910 [facility] [id number] COMPREHENSIVE (79962) ALT (SGPT) 51 [iU]/L (Abnormal) Range: 0-32 [...] 8-27 Glucose 141 mg/dL (Abnormal) Range: 65-99 :09 CBC W/AUTO DIFF WBC Comments: PATIENT WAS FASTINGPERFORMED BY: BN [facility] Vqavxjjkon2155 [facility] [id number] BY: CB [facility] Dhfwzf8317 [facility] [id number] (42693) Immature Grans (Abs) 0.0 {x10E3/uL} (Normal) Range: [...] 3.77-5.28 WBC 7.4 {x10E3/uL} (Normal) Range: 3.4-10.8 2-Xns-069695:09 CALCIFIDIOL (19411) VIT D Comments: PATIENT WAS FASTINGPERFORMED BY: [employer] [id number] BY: [facility]6370 [facility] [id number] 25 Vitamin D, 25-Hydroxy 20.1 ng/mL (Abnormal) Range: 30.0-100.0 Comments: Vitamin D deficiency has been defined by the [place] ofMedicine and an Endocrine Society practice guideline as alevel of serum 25-OH vitamin D less than 20 ng/mL (1,2).The Endocrine Society went on to further define vitamin Dinsufficiency as a level between 21 and 29 ng/mL (2).1. IOM ([place] of Medicine). 2010. Dietary reference intakes for calcium and D. [place]: The National Academies Press.2. Nola MF, Young BROOKS, Chrissie AVILA, et al. Evaluation, treatment, and prevention of vitamin D deficiency: an Endocrine Society clinical practice guideline. JCEM. 2010; 96(7):1911-30. 3-Ogi-630538:09 LIPOPROTEIN, BLD, BY NMR Comments: PATIENT WAS FASTINGPERFORMED BY: [employer] [id number] BY: [facility]6370 [facility] [id number] (12668) LP-IR Score 72 (Abnormal) Comments: INSULIN RESISTANCE MARKER <--Insulin Sensitive Insulin Resistant--> Percentile in Reference PopulationInsulin Resistance ScoreLP-IR Score Low 25th 50th 75th High <27 27 45 63 >63LP-IR Score is inaccurate if patient is non-fasting. .The LP-IR score is a laboratory developed i [facility] that has beenassociated with insulin resistance and [...] were developed and their performance characteristicsdetermined by [employer]. These assays have not been cleared by [...] High > 2000 :15 HgA1C , Office (45992) HgA1C , Office 6.7 % (Normal) Range: 4.6 - 7.1 :15 Blood Glucose , Office (99743) Blood Glucose , Office 180 (Normal) :46 HgA1C , Office (49538) HgA1C , Office 7.0 % (Normal) Range: 4.6 - 7.1 :46 Blood Glucose , Office (30241) Blood Glucose , Office 169 (Normal) :48 CBC W/Diff, Automated Comments: [facility] [address] [place], [address] Absolute Lymph 2.34 {X10_3/ul} (Normal) Range: 0.83-4.51 [...] report for address and phone number ANTI-CCP 179286 18 {units} (Normal) Range: 0-19 Comments: Negative <20 Weak positive 20 - 39 Moderate positive 40 - 59 Strong positive >59Performed at: - [facility] Cihruouqsw8507 [place], [place] [address]Zdz Director: Waqar Matamoros MD, Phone: [phone] 74-Icf-473815:48 Comprehensive Metabolic Profil Comments: [facility] [address]fed[address] [place], [address] GAP 7 (Normal) Range: 5-15 CO2 27.0 [...] MELLITUS per A.D.A. criteria. :48 CRP Comments: [facility] [address] [place], [place], [id number] C-REACTIVE PROT < 2.90 mg/L (Normal) Range: 0.0-3.0 Comments: C-Reactive Protein (CRP) provides useful information for thediagnosis, therapy and monitoring of inflammatory processesand associated diseases. For the evaluation of Relative Riskfor Cardiovascular Dise ase, a High Sensitivity CRP (HSCRP)should be ordered. :48 Erythrocyte Sed Rate Comments: [facility] [address] [place], [place], [id number] SED RATE 8 mm/h (Normal) Range: 0-30 :48 Rheumatoid Factor Comments: [facility] [address] [place], [place], [id number] RHEUMATOID FAC 19.0 {IU/mL} (Abnormal) :48 Sjogren's Antibodies A/B Comments: [facility] (refer to report for specific site)refer to report for address and phone number Anti-SS-B < 0.2 {AI} (Normal) Range: 0.0-0.9 Comments: Performed at: [address] [id number] Director: Jeffrey Hancock PhD, Phone: [phone] Anti-SS-A < 0.2 {AI} (Normal) Range: 0.0-0.9 91-Vtl-213480:11 TSH (64340) Comments: PATIENT WAS FASTINGPERFORMED BY: [address] [id number] TSH 1.920 {uIU/mL} (Normal) Range: 0.450-4.500 56-San-980256:11 METABOLIC PANEL, COMPREHENSIVE Comments: PATIENT WAS FASTINGPERFORMED BY: [address] [id number] (08711) ALT (SGPT) 33 [iU]/L (Abnormal) Range: 0-32 [...] Glucose, Serum 160 mg/dL (Abnormal) Range: 65-99 33-Rdr-453044:11 CBC W/AUTO DIFF WBC (62859) Comments: PATIENT WAS FASTINGPERFORMED BY: [facility] HospitalCoVirtua [facility])Gojlcp9475 [facility] [id number] Immature Grans (Abs) 0.0 {x10E3/uL} (Normal) Range: [...] 3.77-5.28 WBC 5.6 {x10E3/uL} (Normal) Range: 3.4-10.8 57-Bvr-734000:11 CALCIFIDIOL (12952) VIT D 25 Comments: PATIENT WAS FASTINGPERFORMED BY: [employer] [place] [id number] Vitamin D, 25-Hydroxy 30.7 ng/mL (Normal) Range: 30.0-100.0 Comments: Vitamin D deficiency has been defined by the [place] of[place]icine and an Endocrine Society practice guideline as alevel of serum 25-OH vitamin D less than 20 ng/mL (1,2).The Endocrine Society went on to further define vitamin Dinsufficiency as a level between 21 and 29 ng/mL (2).1. IOM ([place] of Medicine). 2010. Dietary reference intakes for calcium and D. [place]: The National Academies Press.2. Nola MF, Young [place], Chrissie AVILA, et al. Evaluation, treatment, and prevention of vitamin D deficiency: an Endocrine Society clinical practice guideline. JCEM. 2010; 96(7):1911-30. 69-Ccf-628894:11 LIPID PANEL (64639) Comments: PATIENT WAS FASTINGPERFORMED BY: [facility] [id number] LDL/HDL Ratio 2.5 {ratio_units} (Normal) Range: 0.0-3.2 Comments: LDL/HDL Ratio Men Women 1/2 Avg.Risk 1.0 1.5 Av g.Risk 3.6 3.2 2X Avg.Risk 6.2 5.0 3X Avg.Risk 8.0 6.1 LDL Cholesterol Calc 108 mg/dL (Abnormal) Range: 0-99 VLDL Cholesterol James 44 mg/dL (Abnormal) Range: 5-40 HDL Cholesterol 43 mg/dL (Normal) Triglycerides 220 mg/dL (Abnormal) Range: 0-149 Cholesterol, Total 195 mg/dL (Normal) Range: 100-199 91-Pdn-458112:02 HgA1C , Office (87553) HgA1C , Office 6.2 % (Normal) Range: 4.6 - 7.1 15-Jha-419267:02 Blood Glucose , Office (50279) Blood Glucose , Office 203 (Normal) AFP, Serum, Tumor Marker 2.3 ng/mL (Normal) Comments: PATIENT NOT FASTINGPERFORMED BY: [facility]Bevzlc5026 [facility] [id number] 6:06 Range: 0.0-8.3 Comments: Delonte ECLIA methodology Written Authorization WAR (Normal) Comments: PATIENT NOT FASTINGPERFORMED BY: [employer] Ismefl7268 [facility] [id number] 6:06 Comments: Written Authorization Received.Authorization received from JESIKA HUBER LPN [id number] by Mala Apple 81-Lid-124931:06 HEPATIC FUNCTION PANEL Comments: PATIENT NOT FASTINGPERFORMED BY: [facility]Jgkdpr3646 [facility] [id number] (67934) ALT (SGPT) 100 [iU]/L (Abnormal) Range: 0-32 AST (SGOT) 64 [iU]/L (Abnormal) Range: 0-40 Alkaline Phosphatase, S 67 [iU]/L (Normal) Range: 39-117 Bilirubin, Direct 0.14 mg/dL (Normal) Range: 0.00-0.40 Bilirubin, Total 0.5 mg/dL (Normal) Range: 0.0-1.2 Albumin, Serum 4.3 g/dL (Normal) Range: 3.6-4.8 Protein, Total, Serum 6.8 g/dL (Normal) Range: 6.0-8.5 81-Qpg-828426:06 HEPATITIS PANEL (49189) Comments: PATIENT NOT FASTINGPERFORMED BY: [employer] Qihpnl1692 [facility] [id number] Hep C Virus Ab <0.1 {s/co_ratio} (Normal) Range: 0.0-0.9 Comments: Negative: < 0.8 Indeterminate: 0.8 - 0.9 Positive: > 0.9 . The CDC recommends that a positive HCV antibody result be followed up with a HCV Nucleic Acid Amplification test (657219). Hep B Core Ab, IgM Negative (Normal) HBsAg Screen Negative (Normal) Hep A Ab, IgM Negative (Normal) 88-Dtm-705839:06 TRANSFERRIN (12610) Comments: PATIENT NOT FASTINGPERFORMED BY: [employer] Zlyvqz1897 [facility] [id number] Transferrin 316 mg/dL (Normal) Range: 200-370 94-Gfz-054868:06 ANTIMITOCHONDRIAL ANTIBODY Comments: PATIENT NOT FASTINGPERFORMED BY: [employer] Bcwlub9823 [facility] [id number] (21940) Mitochondrial (M2) Antibody <20.0 {Units} (Normal) Range: 0.0-20.0 Comments: Negative 0.0 - 20.0 Equivocal 20.1 - 24.9 Positive >24.9 . Mitochondrial (M2) Antibodies are found in 90-96% of patients with primary biliary cirrhosis. 83-Ubs-408023:06 GGT (GAMMA GLUTAMYLTRANSFERASE) Comments: PATIENT NOT FASTINGPERFORMED BY: [employer] Mfijib6333 [facility] [id number] (00449) GGT 14 [iU]/L (Normal) Range: 0-60 80-Lfl-430814:06 FERRITIN (12278) Comments: PATIENT NOT FASTINGPERFORMED BY: [facility]Dsldso7689 [facility] [id number] Ferritin, Serum 110 ng/mL (Normal) Range: 15-150 05-Yio-719040:06 CMV IGM ANTBDY (01985) Comments: PATIENT NOT FASTINGPERFORMED BY: [employer] Vtmdif5197 [facility]Former[facility] [id number] Cytomegalovirus (CMV) Ab, IgM 40.9 AU/mL (Abnormal) Range: 0.0-29.9 Comments: Negative <30.0 Equivocal 30.0 - 34.9 Positive >34.9 A positive result is generally indicative of acute infection, reactivation or persistent IgM production. 86-Efr-725425:06 CERULOPLASMIN (04150) Comments: PATIENT NOT FASTINGPERFORMED BY: [employer] Fvkrdq3705 [facility]Nov[facility] [id number] Ceruloplasmin 28.9 mg/dL (Normal) Range: 19.0-39.0 29-Rcf-478936:06 ASM (ANTI SMOOTH MUSCLE Comments: PATIENT NOT FASTINGPERFORMED BY: [employer] [facility]Former[facility] [id number] ANTIBODY) (18626) Actin (Smooth Muscle) Antibody 12 {Units} (Normal) Range: 0-19 Comments: Negative 0 - 19 Weak positive 20 - 30 Moderate to strong positive >30 . Actin Antibodies are found in 52-85% of patients with autoimmune hepatitis or chronic active hepatitis and in 22% of patients with primary biliary cirrhosis. 61-Bfh-530348:06 ANTI-LIVER/KIDNEY MICROSOMAL Comments: PATIENT NOT FASTINGPERFORMED BY: [employer] Plqkxp9116 [facility]ClearMomentumNov[facility] [id number] ANTIBODY (67341) Thyroid Peroxidase (TPO) Ab 27 {IU/mL} (Normal) Range: 0-34 42-Orb-449480:06 CAROLYN (ANTINUCLEAR ANTIBODY) Comments: PATIENT NOT FASTINGPERFORMED BY: [employer] Nysxiu6760 [facility] [id number] (13312) CAROLYN Direct Negative (Normal) 7-Poj-256946:06 CALCIFEDIOL (76447) Comments: PATIENT WAS FASTINGPERFORMED BY: Mor.sl Wlgdns9394 [facility] [id number] Vitamin D, 25-Hydroxy 36.6 ng/mL (Normal) Range: 30.0-100.0 Comments: Vitamin D deficiency has been defined by the [place] of[place]icine and an Endocrine Society practice guideline as alevel of serum 25-OH vitamin D less than 20 ng/mL (1,2).The Endocrine Society went on to further define vitamin Dinsufficiency as a level between 21 and 29 ng/mL (2).1. IOM ([place] of Medicine). 2010. Dietary reference intakes for calcium and D. [place]: The National Academies Press.2. Nola MF, Young BROOKS, Chrissie AVILA, et al. Evaluation, treatment, and prevention of vitamin D deficiency: an Endocrine Society clinical practice guideline. JCEM. 2010; 96(7):1911-30. 7-Kjb-628201:06 TSH (24050) Comments: PATIENT WAS FASTINGPERFORMED BY: [facility]uttleNov[facility] [id number] TSH 2.160 {uIU/mL} (Normal) Range: 0.450-4.500 8-Fwu-073593:06 Lipid Panel (24675) Comments: PATIENT WAS FASTINGPERFORMED BY: [employer]70 [facility].comNov[facility] [id number] LDL/HDL Ratio 2.5 {ratio_units} (Normal) Range: 0.0-3.2 Comments: LDL/HDL Ratio Men Women 1/2 Avg.Risk 1.0 1.5 Av g.Risk 3.6 3.2 2X Avg.Risk 6.2 5.0 3X Avg.Risk 8.0 6.1 LDL Cholesterol Calc 119 mg/dL (Abnormal) Range: 0-99 VLDL Cholesterol James 50 mg/dL (Abnormal) Range: 5-40 HDL Cholesterol 47 mg/dL (Normal) Triglycerides 252 mg/dL (Abnormal) Range: 0-149 Cholesterol, Total 216 mg/dL (Abnormal) Range: 100-199 1-Gih-729642:06 CBC (Auto) (60421) Comments: PATIENT WAS FASTINGPERFORMED BY: [employer]70 [facility]in [facility] [id number] Platelets 246 {x10E3/uL} (Normal) Range: 150-379 RDW 13.6 % (Normal) Range: 12.3-15.4 MCHC 32.9 g/dL (Normal) Range: 31.5-35.7 MCH 28.7 pg (Normal) Range: 26.6-33.0 MCV 87 fL (Normal) Range: 79-97 Hematocrit 45.6 % (Normal) Range: 34.0-46.6 Hemoglobin 15.0 g/dL (Normal) Range: 11.1-15.9 RBC 5.23 {x10E6/uL} (Normal) Range: 3.77-5.28 WBC 6.4 {x10E3/uL} (Normal) Range: 3.4-10.8 1-Dzu-455620:06 Metabolic Panel, Comprehensive Comments: PATIENT WAS FASTINGPERFORMED BY: LabCoVirtua [facility] ([facility])Lthqed2185 [facility] [id number] (40826) ALT (SGPT) 74 [iU]/L (Abnormal) Range: 0-32 [...] Glucose, Serum 174 mg/dL (Abnormal) Range: 65-99 5-Nng-838744:06 HGB A1C (41014) Comments: PATIENT WAS FASTINGPERFORMED BY: [facility]6370 [facility] [id number] Hemoglobin A1c 7.5 % (Abnormal) Range: 4.8-5.6 Comments: . Pre-diabetes: 5.7 - 6.4 Diabetes: >6.4 Glycemic control for adults with diabetes: <7.0 :29 Fecal Occult Blood , Office (09350) Fecal Occult Blood , Office (Inhouse) negative (Normal) 47-Cww-146148:37 Microscopic Examination Comments: PATIENT NOT FASTINGPERFORMED BY: [facility]6370 [facility] [id number] Bacteria Moderate (Abnormal) Mucus Threads Present (Normal) Epithelial Cells (non renal) 0-10 {/hpf} (Normal) Range: 0 - 10 RBC 3-10 {/hpf} (Abnormal) Range: 0 - 2 WBC >30 {/hpf} (Abnormal) Range: 0 - 5 :37 TSH (50568) Comments: PATIENT NOT FASTINGPERFORMED BY: [facility]6370 [facility] [id number] TSH 2.250 {uIU/mL} (Normal) Range: 0.450-4.500 :37 URINALYSIS, W/ MICRO (58803) Comments: PATIENT NOT FASTINGPERFORMED BY: [facility] [place] [address] [id number] Microscopic Examination See below: (Normal) Comments: Microscopic was indicated and was performed. Nitrite, Urine Positive (Abnormal) Urobilinogen,Semi-Qn 0.2 mg/dL (Normal) Range: 0.2-1.0 Bilirubin Negative (Normal) Occult Blood Negative (Normal) Ketones Negative (Normal) Glucose Negative (Normal) Protein Negative (Normal) WBC Esterase 3+ (Abnormal) Appearance Clear (Normal) Urine-Color Yellow (Normal) pH 5.5 (Normal) Range: 5.0-7.5 Specific [place] 1.015 (Normal) Range: 1.005-1.030 94-Ffc-099511:37 MICROALBUMIN: CREATININE RATIO Comments: PATIENT NOT FASTINGPERFORMED BY: [facility]6370 [facility] [id number] (19519) AND (14966) Microalb/Creat Ratio 18.5 {mg/g_creat} (Normal) Range: 0.0-30.0 Microalbumin, Urine 18.3 ug/mL (Normal) Creatinine, Urine 99.0 mg/dL (Normal) :37 METABOLIC PANEL, COMPREHENSIVE Comments: PATIENT NOT FASTINGPERFORMED BY: [facility]6370 [facility] [id number] (93928) ALT (SGPT) 26 [iU]/L (Normal) Range: 0-32 [...] Glucose, Serum 145 mg/dL (Abnormal) Range: 65-99 69-Tmu-738949:37 LIPID PANEL (33941) Comments: PATIENT NOT FASTINGPERFORMED BY: [facility]6370 [facility] [id number] LDL/HDL Ratio 2.9 {ratio_units} (Normal) Range: 0.0-3.2 [...] Cholesterol, Total 204 mg/dL (Abnormal) Range: 100-199 :37 CBC W/AUTO DIFF WBC Comments: PATIENT NOT FASTINGPERFORMED BY: [facility])Yybtcw1964 [facility] [id number] Information: [id number] (56857) Immature Grans (Abs) 0.0 {x10E3/uL} (Normal) Range: [...] 5.9 {x10E3/uL} (Normal) Range: 3.4-10.8 :37 CALCIFIDIOL (51419) VIT D 25 Comments: PATIENT NOT FASTINGPERFORMED BY: [facility] Kzuyft3597 [facility] [id number] Vitamin D, 25-Hydroxy 26.8 ng/mL (Abnormal) Range: 30.0-100.0 Comments: Vitamin D deficiency has been defined by the [place] of[place]icine and an Endocrine Society practice guideline as alevel of serum 25-OH vitamin D less than 20 ng/mL (1,2).The Endocrine Society went on to further define vitamin Dinsufficiency as a level between 21 and 29 ng/mL (2).1. IOM ([place] of [place]). 2010. Dietary reference intakes for calcium and D. [place]: The National Academies Press.2. Nola MF, Young [place], Chrissie AVILA, et al. Evaluation, treatment, and prevention of vitamin D deficiency: an Endocrine Society clinical practice guideline. JCEM. 2010; 96(7):1911-30. 30-Bmf-409955:17 HgA1C , Office (15343) HgA1C , Office 6.3 % (Normal) Range: 4.6 - 7.1 21-Fyk-444636:13 METABOLIC PANEL, Comments: PATIENT WAS FASTINGPERFORMED BY: [facility] Oufgim6083 [facility] [id number] Information: [id number]; apt. 4-12 COMPREHENSIVE (01202) ALT (SGPT) 33 [iU]/L (Abnormal) Range: 0-32 [...] Glucose, Serum 139 mg/dL (Abnormal) Range: 65-99 58-Hzu-751489:13 LIPID PANEL (46984) Comments: PATIENT WAS FASTINGPERFORMED BY: [facility]6370 [facility] [id number] LDL/HDL Ratio 3.4 {ratio_units} (Abnormal) Range: 0.0-3.2 [...] Cholesterol, Total 225 mg/dL (Abnormal) Range: 100-199 4-Dvj-169749:58 HgA1C , Office (30414) HgA1C , Office 8.1 % (Abnormal) Range: 4.6 - 7.1 2-Nzw-031191:00 CBC W/Diff, Automated Comments: [facility] Athrlbgedu[address] [place], [place], [id number] Absolute Lymph 1.98 {X10_3/ul} (Normal) Range: 0.83-4.51 [...] 4.2-5.4 WBC 4.7 K/mm3 (Normal) Range: 4.4-11.0 8-Hau-214969:00 Comprehensive Metabolic Profil Comments: [facility] [address] [place], [id number] GAP 9 (Normal) Range: 5-15 CO2 24.0 [...] 200 mg/dLsuggests DIABETES MELLITUS per A.D.A. criteria. 7-Otn-560399:00 Vitamin D,25 Hydroxy Comments: [facility] [address] [place], [id number] Vitamin D 25-OH 37.7 ng/mL (Normal) Comments: Vitamin D 25(OH) Status Range Deficiency <20 ng/mL (50nmol/L) Insuffciency 20 - 30 ng/mL (50 - 75 nmol/L) Sufficiency 30 - 100 ng/mL (75 - 250 nmol/L) Toxicity >100 ng/mL (>250 nmol/L) :36 LIPID PANEL (69357) Comments: PATIENT WAS FASTINGPERFORMED BY: [employer]70 [facility] [id number] Information: [id number]; ov 09-05-15 LDL/HDL Ratio 3.1 {ratio_units} (Normal) [...] (Abnormal) Range: 100-199 :36 HEPATIC FUNCTION PANEL (15285) Comments: PATIENT WAS FASTINGPERFORMED BY: [employer]6370 [facility] [id number] ALT (SGPT) 19 [iU]/L (Normal) Range: 0-32 AST (SGOT) 19 [iU]/L (Normal) Range: 0-40 Alkaline Phosphatase, S 72 [iU]/L (Normal) Range: 39-117 Bilirubin, Direct 0.09 mg/dL (Normal) Range: 0.00-0.40 Bilirubin, Total 0.3 mg/dL (Normal) Range: 0.0-1.2 Albumin, Serum 4.4 g/dL (Normal) Range: 3.6-4.8 Protein, Total, Serum 7.0 g/dL (Normal) Range: 6.0-8.5 :34 TSH (93708) Comments: PATIENT WAS FASTINGPERFORMED BY: [employer]70 [facility] [id number] TSH 1.550 {uIU/mL} (Normal) Range: 0.450-4.500 :34 CALCIFIDIOL (92772) VIT D 25 Comments: PATIENT WAS FASTINGPERFORMED BY: [facility] Nlkhto6344 [facility] [id number] Vitamin D, 25-Hydroxy 14.2 ng/mL (Abnormal) Range: 30.0-100.0 Comments: Vitamin D deficiency has been defined by the [place] of[place] and an Endocrine Society practice guideline as alevel of serum 25-OH vitamin D less than 20 ng/mL (1,2).The Endocrine Society went on to further define vitamin Dinsufficiency as a level between 21 and 29 ng/mL (2).1. IOM ([place] of [place]). 2010. Dietary reference intakes for calcium and D. [place]: The National Academies Press.2. Nola MF, Young [place], Chrissie AVILA, et al. Evaluation, treatment, and prevention of vitamin D deficiency: an Endocrine Society clinical practice guideline. JCEM. 2010; 96(7):1911-30. :34 METABOLIC PANEL, Comments: PATIENT WAS FASTINGPERFORMED BY: [facility]Liwcwu5534 [facility] [id number] Information: [id number] COMPREHENSIVE (36144) ALT (SGPT) 12 [iU]/L (Normal) Range: 0-32 [...] Glucose, Serum 141 mg/dL (Abnormal) Range: 65-99 :34 LIPID PANEL (12684) Comments: PATIENT WAS FASTINGPERFORMED BY: [facility] Uvlwmy4547 [facility] [id number]; fu 8-24 will review then LDL/HDL Ratio [...] Cholesterol, Total 262 mg/dL (Abnormal) Range: 100-199 28-Lje-036999:36 HgA1C , Office (13140) HgA1C , Office 6.3 % (Normal) Range: 4.6 - 7.1 :36 Blood Glucose , Office (55329) Blood Glucose , Office 170 (Normal) Plan of Care Name Dates Details Instructions 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 without 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, unspecified longterm insulin use status : Follow up in 3 months Indication: 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 without 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, unspecified longterm insulin use status 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 without 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, unspecified longterm insulin use status : Continue Current Prescription(s) Indication: 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 without 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, 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 without 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, 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 : Diet, Exercise, and Wt loss Indication: 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 without 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, unspecified longterm insulin use status 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 without 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, unspecified longterm insulin use status : *Diabetes Education Indication: 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 without 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, 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 Paresthesia : Reviewed Lab Indication: Paresthesia Paresthesia : Reviewed Lab Indication: Paresthesia 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 without 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, 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 : Reviewed Lab Indication: 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 without 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, 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 Hypercholesteremia (Renamed from Hypercholesterolemia) : Cholesterol mgmt Indication: Hypercholesteremia (Renamed from Hypercholesterolemia) 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 without 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, 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 : *Diabetes Education Indication: 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 without 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, 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 without 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, 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 : Follow up in 3 months Indication: 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 without 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, 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 without 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, unspecified longterm insulin use status : Follow up in 3 months Indication: 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 without 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, 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 Hypercholesteremia (Renamed from Hypercholesterolemia) : Cholesterol mgmt Indication: Hypercholesteremia (Renamed from Hypercholesterolemia) 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 without 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, unspecified longterm insulin use status : Follow up in 3 months Indication: 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 without 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, 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 Anxiety : Continue Current Prescription(s) Indication: Anxiety 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 without 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, 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 : *Diabetes Education Indication: 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 without 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, 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 Hypercholesteremia (Renamed from Hypercholesterolemia) [...] 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 without 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, 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 : Follow up in 3 months Indication: 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 without 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, unspecified longterm insulin use status Hypercholesteremia (Renamed from Hypercholesterolemia) : Cholesterol mgmt Indication: Hypercholesteremia (Renamed from Hypercholesterolemia) 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 without 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, unspecified longterm insulin use status : Diet, Exercise, and Wt loss Indication: 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 without 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, unspecified longterm insulin use status 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 without 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, 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 : *Diabetes Education Indication: 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 without 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, 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 without 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, 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 : Reviewed Lab Indication: 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 without 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, unspecified longterm insulin use status Vitamin D deficiency : [...] march 12trh for medicare physical and do haic Indication: Diabetes mellitus type II, controlled Diabetes mellitus type II, controlled : Follow up in 3 months-from march 29 to 3months for [facility] Indication: Diabetes mellitus type II, controlled Hypercholesteremia (Renamed from Hypercholesterolemia) : Cholesterol mgmt Indication: Hypercholesteremia (Renamed from Hypercholesterolemia) Dysthymic : Reviewed 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 Indication: Dysthymic Diabetes mellitus type II, controlled : Eprescribed prescriptions (G8553) Indication: Diabetes mellitus type II, controlled Diabetes mellitus type II, controlled : Diabetes and Exercise: Preventing Low Blood Sugar: blood sugar Indication: Diabetes mellitus type II, controlled Planned Observations CCP ANTIBODY (34356)Indication: Elevated rheumatoid factor On: 38-Bex-356409:15 Request URINALYSIS, W/ MICRO (03713)Indication: 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 without 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, unspecified longterm insulin use status On: 0-Nmz-855494:04 Request MICROALBUMIN: CREATININE RATIO (11471) AND (22967)Indication: 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 without 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, unspecified longterm insulin use status On: 7-Lsn-580523:04 Request LIPID PANEL (52194)Indication: Hypercholesteremia (Renamed from Hypercholesterolemia) On: 4-Gyb-886990:03 Request URINALYSIS, W/ MICRO (86332)Indication: Diabetes mellitus type II, controlled On: 18-Gkm-192514:23 Request MICROALBUMIN: CREATININE RATIO (56312) AND (19587)Indication: Diabetes mellitus type II, controlled On: 51-Hvl-866232:23 Request MICROALBUMIN: CREATININE RATIO (97788) AND (45733)Indication: Hypercholesteremia (Renamed from Hypercholesterolemia) On: 19-Nuf-968295:33 Request URINALYSIS (23240)Indication: Hypercholesteremia (Renamed from Hypercholesterolemia) On: 10-Qyf-183323:33 Request CALCIFIDIOL (52213) VIT D 25Indication: Vitamin D deficiency On: 16-Igd-78170:46 Request LIPID PANEL (95700)Indication: Hypercholesteremia (Renamed from Hypercholesterolemia) On: 52-Joj-044101:24 Request FECAL OCCULT- Tubes sent home (47494)Indication: Encounter for screening for malignant neoplasm of colon (Renamed from Special screening for malignant neoplasms, colon) On: 88-Bge-131049:16 Request CALCIFIDIOL (39887) VIT D 25Indication: Fibromyalgia (Renamed from Diffuse myofascial pain syndrome) On: 4-Aiw-582171:33 Request Planned Encounters Medical; 3 Month FU - On: 07-Oct-2018 10:45 [facility] Rain Mccormick DO, DO, Kathleen Planned Procedures EMGBy: Rain Mccormick DO On: 01-Jul-2018 Intent Rain MCQUEEN Comments: lower extremities Nerve ConductionBy: Anny MCQUEEN, On: 01-Jul-2018 Intent Rain Daniels DO Comments: lower extremities B 12 Injection, 1000 mcg On: 08-Apr-2018 Intent (J3420)By: Rain Mccormick DO Comments: [id number] CCLOSBALDOT BRUCE DOMINGUEZ DO, Kathleen B 12 Injection, 1000 mcg On: 30-Mar-2018 Intent (J3420)By: Tom Reddy Comments: Vitamin b12 1000mcg injection lot:[id number]:11/2018L DELT IMpt tolerated well MERCYONG,HEADING PINNER EMGBy: Anny DO, Rain Anny On: 25-Mar-2018 Intent DORain Nerve ConductionBy: Anny DO, On: 25-Mar-2018 Intent Rain Anny DO, Rain ELECTROCARDIOGRAM, COMPLETE (ECG) On: 19-Dec-2017 Intent (67303)By: Rain Mccormick DO Comments: sinus altagracia no acute chg Anny DO, Rain Flu Vaccine (Quadrivalent) On: 08-May-2017 Intent 21673Qd: Anny DO, Rain Comments: Lot:[id number]:03/02/18Amt:0.5mlRoute:IMSite: L DltdGiven By: SUDARSHAN Disla signed Anny DO, Rain SCREENING DIGITAL TOMOSYNTHESIS OF On: 01-Apr-2017 Intent BREAST (07727)By: Anny DO, Rain Anny DO, Rain NGBH-KG-PGDO BEHAVIORAL COUNSELING On: 01-Apr-2017 Intent FOR OBESITY, 15 MINUTES (G0447)By: Anny MCQUEEN, Rain Anny DO, Rain ELECTROCARDIOGRAM, COMPLETE (ECG) On: 28-Jan-2017 Intent (37880)By: Rain Mccormick DO Comments: siinus altagracia no acute chg Anny DO, Rain Ultrasound - LiverBy: Anny DO, On: 28-Jan-2017 Intent Rain Anny DO, Rain Flu Vaccine (Quadrivalent) On: 15-Jul-2016 Intent 95754Yi: Anny DO Rain Comments: Lot:[id number]:03/14/17Dose:0.5mLRoute:IMSite:L DltdGiven By:JUAN PABLO signed Anny DO, Rain PNEUM VAC ADLT/IMUMNOSPR, On: 27-Mar-2016 Intent SBC/INTRM (97107)By: Anny MCQUEEN, Comments: lot: [id number]: 06/26/17site/route: L del/IMamt: 0.5mLVIS signed when applicableChelsea, OUTSIDE SALES CONSULTANT Rain Anny DO, Rain DEXA SCAN AXIAL SKELETON On: 27-Mar-2016 Intent (11173)By: Rain Mccormick DO, DO, Kathleen MAMMOGRAM, SCREENING, BOTH BREAST On: 26-Dec-2015 Intent (70211)By: Anyi Hawthorne MD Flu Vaccine (Quadrivalent) On: 28-Jun-2015 Intent 43304Od: Anyi Hawthorne MD Comments: Lot:[id number]:03/14/16Dose:0.5mLRoute:IMSite:L DltdGiven By:JUAN PABLO signed DEXA SCAN AXIAL SKELETON On: 06-Apr-2015 Intent (35372)By: Anyi Hawthorne MD Comments: postmenapausal Venous Doppler - UpperBy: Marine On: 06-Apr-2015 Intent Anyi KELLEY Comments: left arm MAMMOGRAM, SCREENING, BOTH [facility] On: 06-Apr-2015 Intent ([id number])By: Anyi Hawthorne MD Planned Medications Vitamin B-12 1000 MCG/ML Injection Solution Ordered: 30-Mar-2018 Pending Tom Reddy Vitamin B-12 1000 MCG/ML Injection Solution Ordered: 08-Apr-2018 Pending Rain Mccormick DO, DO, Kathleen Instructions Name Dates Details 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 without 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, 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 : How to access health information online Indication: 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 without 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, 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 without 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, 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 : How to access health information online - Detail Indication: 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 without 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, unspecified longterm insulin use status 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 without 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, 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 : Patient Instructions Indication: 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 without 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, unspecified longterm insulin use status 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 without 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, 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 : How to access health information online Indication: 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 without 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, unspecified longterm insulin use status 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 without 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, unspecified longterm insulin use status : How to access health information online - Detail Indication: 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 without 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, unspecified longterm insulin use status 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 without 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, 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 : Patient Instructions Indication: 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 without 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, unspecified longterm insulin use status BMI 30.0-30.9,adult : How [...] 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 without 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, unspecified longterm insulin use status : obesity counseling Indication: 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 without 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 Patient has been compliant with instructions. Current medication use: experiencing side effects (dizzy daily). Patient sleeps 6 hours per night. Impact of disease: emotional impac t-severe. Nutrition: balanced diet. The medical issues the patient is following up for include blood sugar issues, fibromyalgia, high blood pressure, high cholesterol and other (anxiety).Encounter Diagnosis: Elevated rheumatoid factor, Vitamin B 12 deficiency, 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 without 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, unspecified longterm insulin use status, Paresthesia, Vitamin D deficiency, Fibromyalgia, Noncompliance, Urinary incontinence in female, Unsteady gait [facility] Lab Order On: 17-Jun-2018 14:10 Encounter Diagnosis: [...] 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 without 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, unspecified longterm insulin use status, BMI 30.0-30.9,adult, Current nonsmoker [...] 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 without 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, 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 The patient has noticed [...] 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 without 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, unspecified longterm insulin use status, Encounter for screening for [...] 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 without 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, unspecified longterm insulin use status [facility] Phone [...] The patient does have durable power of attorney general and living will. The patient has noticed [...]
--- OUTSIDE RECORDS SUMMARY | 2018-10-12 15:21 | XMS RPT_ITS | Continuity of Care Document ---
:1945 Author Organization [facility] Address [address] [place] [address] [address] [place] [address] Phone Care Team Providers Name Role Phone Rain Mccormick DO Unavailable Cami KELLEY, Obie Centeno Unavailable Dr. 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[facility].-- but accroding to [facility] she doesnt Status: Active Need for prophylactic [...] Active Pregnancies () Comments: 3 Status: Active Rheumatoid arthritis (M06.9, 714.0) Status: Active 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 without 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, 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 (E11.65, 250.02) Comments: [facility] up -- but still needs improvement-- will [...] DO, Kathleen Start : 03-Sep-2017 Active Drisdol 02196 UNIT Oral Capsule 1 (one) Capsule Capsule [...] : 21-Aug-2015 End : 28-Aug-2015 Inactive ERGOCALCIFEROL, [id number] (Oral Capsule) 1 (one) Capsule q weekly [...] 22-Sep-2015 End : 06-Nov-2015 Discontinued Comments:DX: E11.9NPI: [id number] DULoxetine HCl 20 MG Oral Capsule Delayed [...] : 19-Dec-2017 End : 19-Dec-2017 Discontinued Comments:per valnestor TRAMADOL HCL, 50MG (Oral Tablet) 1 Tablet [...] manipulation of the left shoulder again @ [place] [facility] Status: Inactive as of 26-Dec-2015 History [...] PT Communication Result: Comments: See Note; NOTES: [facility] [address] [place] [address]. [address] [place], [place] [id number] Fax REHABILITATION SERVICES PROGRES S NOTE MR#: [id number] Acct: [id number] Name: JAZMINE LOCO Rep #: [id number] : 1945 72 From: Augustus Springer DPT, OCS, CSCS Referring DrNoman: Status: REG RCR Insurance: MEDICARE PART A B [facility] PT Communication Note 04/20/[address] MATT SHINE , Thank you for the referral of Jazmine to [facility] for balance assessment. I have enclosed a [...] by Augustus Springer DPT, GERARDO, CSCS> Date Augustus Springer DPT, GERARDO, CSCS Cosigner Signature (if applicable): Date CC: Rain Mccormick DO; OUT OF TOWN DOCTOR Signed For Medicare only, by signing this I certify the plan of care. Physicians Signature Date 15-Apr-2018 Inital Evaluation (1) - PT Result: Comments: See Note; NOTES: [facility] [address] [place] [address] Fax REHABILITATION SERVICES INITIAL EVALUATION MR#: [id number] Acct: [id number] Name: JAZMINE LOCO Rep #: [id number] : 1945 72 From: Augustus Springer DPT, GERARDO, CSCS Referring : Status: REG RCR Insurance: MEDICARE PART A B [facility] Patient's Visit Information JAZMINE LOOC is a 72 year old F referred to Physical Therapy by MATT SHINE with a diagnosis of imbalance. Date of Evaluation: 04/14/18 Physical Thera pist: Augustus Springer, DPT, OC - Visit Plan Frequency: 2x /Week Duration: 4-6 Weeks Plan: Neurocom balance test then. 2x/week for 4 weeks for balance of VOR, foam and per results progressing to I HEP. Pt to consider full body ex instruction for overall health and if she would consider halfway I then we can teach her those also. - Subjective Subjective: Has Fibromyalgia. Was under control for 20 years . Got bad anxiety adn depression in 2013 and was hospitalized. Walking has been shuffling for 2 years or so, ruled out Parkinsons 18 months ago. Falls easily and falls out of bed. Has broken acetabulum in 2013. Leaning forward is a problem, causes her [...] and j erking movements. Had neurologist in [place] but not since she moved here in [...] to be FAXED BACK to us at [phone] for Medicare purposes. Please let me know [...] (CAD), BILAT Result: Comments: See Note; NOTES: [facility] Imaging Services [address] [place] [address] SCREENING MAMM (CAD), BILAT MR#: [id number] Acct: [id number] Name: JAZMINE LOCO Rep #: [id number] : 1945 F 71 From: Junaid Casillas MD PCP: Rain Mccormick DO Status: REG CLI Study: SCREENING MAMM (CAD), BILAT Date of Exam: 04/17/17 Exam# [id number] Ordering Dr: Rain Mccormick DO MAMMOGRAPHY - [...] delay biopsy of a clinically suspicious abnormality. [id number] Electronically Signed: Junaid Casillas MD at 15:15 EDT Tel [phone], Service support , CC: Rain Mccormick DO Warehouse Laborer: Signed 30-Jan-2017 Liver Result: Comments: See Note; NOTES: [facility] Imaging Services [address] [place] [address] Verdana 4d Liver MR#: [id number] Acct: [id number] Name: JAZMINE LOCO Rep #: [id number] DO B: 1945 F 71 From: Junaid Casillas MD PCP: Rain Mccormick DO Status: REG CLI Study: Liver Date of Exam: 01/30/17 Exam# [id number] Ordering Dr: Rain Mccormick DO STUDY: ABDOMINAL [...] Junaid Casillas MD at 15:05 EDT Tel [phone], Service support , CC: Rain Mccormick DO Warehouse Laborer: Signed 11-Apr-2016 Dexa Bone Density Study (HP) Result: Comments: See Note; NOTES: [facility] Imaging Services [address] [place] [address] Verdana 4d Dexa Bone Density Study (HP) MR#: [id number] Acct: [id number] Name : JAZMINE LOCO Rep #: [id number] : 1945 F 70 From: Junaid Casillas MD PCP: Rain Mccormick DO Status: REG CLI Study: Dexa Bone Density Study (HP) Date of Exam: 04/11/16 Exam# [id number] Ordering Dr: Rain Mccormick DO STUDY: DUAL [...] Osteoporosis and Related Bone Diseases http://www.osteo.org 2. Entry Specialists ational Society for Clinical Densitometry http://www.iscd.org 3. National Osteoporosis Foundation http://www.nof.org Electronically Signed: Junaid Casillas MD at 11:29 EDT Tel [phone], Service support [phone], CC: Rain Mccormick DO Warehouse Laborer: Signed 29-Jan-2016 Bilat Scrn Digital AND CAD Result: Comments: See Note; NOTES: [facility] Imaging Services [address] [place] [address] Verdana 4d Bilat Scrn Digital AND CAD MR#: [id number] Acct: [id number] Name: JAZMINE LOCO Rep #: [id number] : 1945 F 70 From: Junaid Casillas MD PCP: Anyi Hawthorne MD Status: REG CLI Study: Jairon Villatoro Digital AND CAD Date of Exam: 01/29/16 Exam# [id number] Swathi ng Dr: Anyi Hawthorne MD MAMMOGRAPHY - BILATERAL [...] delay biopsy of a clinically suspicious abnormality. [id number] Electronically Signed: Junaid Casillas MD at 12:42 EDT Tel [phone], Service support [phone], CC: Anyi Hawthorne MD Warehouse Laborer: Signed 03-Oct-2015 12 Lead Electrocardiogram Result: Comments: See Note; NOTES: [facility] Cardiovascular Services [address] [place] [address] 12 Lead EKG 10/02/15 1623 MR#: [id number] Acct: [id number] Name: JAZMINE DUKES Rep #: [id number] : 1945 70 From: Rodolfo Roberto MD Attending Dr: Martín De León DO Status: REG CLI Ordering Dr: Martín De León DO Date: 10/02/15 Location: [facility] Sex: F C Admitted: Test Reason : PRE OP Blood Pressure : / mmHG Vent. Rate : 056 BPM Atrial Rate : 056 BPM P-R Int : 142 ms QRS Dur : 086 ms QT Int : 452 ms P-R-T Axes : 026 027 036 degrees QTc Int : 436 ms Sinus bradycardia Otherwise normal ECG Confirmed by MIKKI KELLEY, RODOLFO ([id number]), newspaper or periodical editor MAIRA KEMP ([id number]) on 10/03/2015 8:43:11 AM Referred By: TAN Confirmed By:RODOLFO ROBERTO MD 10/03/15 084 3 Date Rodolfo Roberto MD CC: Anyi Hawthorne MD Date Dictated: 10/02/151622 Date Transcribed: 10/02/15 162 Warehouse Laborer: Signed Family History Unknown Family Member Name [...] smoker Vital Signs Date Test Result Details 18-Zrg-944000:44 Temperature 98.4 f Comments: Method: Temporal Pulse [...] kg/m2 Body Surface Area Calculated 1.84 m2 68-Fzt-728137:42 Comments: hearing wnlDr. Harry and had a [...] kg/m2 Body Surface Area Calculated 1.83 m2 :02 Pulse 73 /min Comments: Pattern: Regular Respiration [...] kg/m2 Body Surface Area Calculated 1.85 m2 68-Iqg-779795:05 Pulse 67 /min Comments: Pattern: Regular Respiration [...] kg/m2 Body Surface Area Calculated 1.8 m2 53-Qmn-657879:25 Temperature 97.6 f Comments: Method: Temporal Pulse [...] 1.83 m2 Results Date Description Value Details 57-Tmb-544899:12 CCP ANTIBODY (75812) Comments: PATIENT NOT FASTINGPERFORMED BY: [employer] [id number] CCP Antibodies IgG/IgA 25 {units} (Abnormal) Range: 0-19 Comments: Negative <20 Weak positive 20 - 39 Moderate positive 40 - 59 Strong positive >59 3-Vum-501368:11 Microscopic Examination Comments: PATIENT WAS FASTINGPERFORMED BY: [employer] [id number] BY: [employer]70 [facility] [id number] Bacteria Many (Abnormal) Mucus Threads Present (Normal) Cast Type Hyaline casts (Normal) Casts Present {/lpf} (Abnormal) Epithelial Cells (non renal) 0-10 {/hpf} (Normal) Range: 0 - 10 RBC 0-2 {/hpf} (Normal) Range: 0 - 2 WBC >30 {/hpf} (Abnormal) Range: 0 - 5 Comments: Clumps of leukocytes present. 8-Esr-162484:11 RHEUMATOID FACTOR-QUANT Comments: PATIENT WAS FASTINGPERFORMED BY: [employer] [id number] BY: Skopeo.frEcu Health North Hospitalin [place] [id number] (20768) RA Latex Turbid. 23.9 {IU/mL} (Abnormal) Range: 0.0-13.9 6-Ysr-452270:11 Vitamin B-12 (cyanocobalamin) Comments: PATIENT WAS FASTINGPERFORMED BY: LabCoAngela [place] [address] [facility] [id number] BY: [facility] Sxrwdi7159 [facility] [id number] (53158) Vitamin B12 553 pg/mL (Normal) Range: 232-1245 2-Wld-519942:11 LIPOPROTEIN, BLD, BY NMR Comments: PATIENT WAS FASTINGPERFORMED BY: [facility] Ftiesvuvbh0942 [facility] [id number] BY: LabCambridge Positioning Systems Whrars0734 [facility] [id number] (50028) LP-IR Score 74 (Abnormal) Comments: INSULIN RESISTANCE MARKER <--Insulin Sensitive Insulin Resistant--> Percentile in Reference PopulationInsulin Resistance ScoreLP-IR Score Low 25th 50th 75th High <27 27 45 63 >63LP-IR Score is inaccurate if patient is non-fasting. .The LP-IR score is a laboratory developed i [facility] that has beenassociated with insulin resistance and [...] were developed and their performance characteristicsdetermined by [employer]. These assays have not been cleared by [...] 1600 - 2000 Very High > 2000 6-Nig-126819:11 CBC WITH MANUAL DIFF Comments: PATIENT WAS FASTINGPERFORMED BY: BN [facility] Stascnilvt4354 [facility] [id number] BY: CB [facility] Yvgndv1362 [facility] [id number] (57025) Immature Grans (Abs) 0.0 {x10E3/uL} (Normal) Range: [...] 3.77-5.28 WBC 6.9 {x10E3/uL} (Normal) Range: 3.4-10.8 9-Kao-730253:11 MICROALBUMIN: CREATININE Comments: PATIENT WAS FASTINGPERFORMED BY: [employer] [address] [id number] BY: [employer] CenterLhomho0866 [facility] [id number] RATIO (57051) AND (35642) Alb/Creat Ratio 20.8 {mg/g_creat} (Normal) Range: 0.0-30.0 Comments: Normal: 0.0 - 30.0 Albuminuria: 31.0 - 300.0 Clinical albuminuria: >300.0 Albumin, Urine 26.0 ug/mL (Normal) Creatinine, Urine 125.2 mg/dL (Normal) 2-Wlq-613550:11 URINALYSIS (82798) Comments: PATIENT WAS FASTINGPERFORMED BY: [employer] [id number] BY: [employer] CenterRxbxzt4522 [facility] [id number] Microscopic Examination See below: (Normal) Comments: Microscopic was indicated and was performed. Nitrite, Urine Positive (Abnormal) Urobilinogen,Semi-Qn 0.2 mg/dL (Normal) Range: 0.2-1.0 Bilirubin Negative (Normal) Occult Blood Trace (Abnormal) Ketones Negative (Normal) Glucose 1+ (Abnormal) Protein Negative (Normal) WBC Esterase 3+ (Abnormal) Appearance Cloudy (Abnormal) Urine-Color Yellow (Normal) pH 5.5 (Normal) Range: 5.0-7.5 Specific Abie 1.020 (Normal) Range: 1.005-1.030 8-Hel-076778:11 HGB A1C (70018) Comments: PATIENT WAS FASTINGPERFORMED BY: [employer] Dopxbaugdj9751 [facility] [id number] BY: [employer] Cymozu9012 [facility] [id number] Hemoglobin A1c 7.3 % (Abnormal) Range: 4.8-5.6 Comments: . Prediabetes: 5.7 - 6.4 Diabetes: >6.4 Glycemic control for adults with diabetes: <7.0 3-Ofo-297278:11 Metabolic Panel, Comments: PATIENT WAS FASTINGPERFORMED BY: [employer] Fjjsbzyalt4520 [facility] [id number] BY: [employer] Bczzig8436 [facility] [id number] Comprehensive (11571) ALT (SGPT) 47 [iU]/L (Abnormal) Range: 0-32 [...] 8-27 Glucose 206 mg/dL (Abnormal) Range: 65-99 12-Dyz-882547:27 VITAMIN B-12 (CYANOCOBALAMIN) Comments: PATIENT NOT FASTINGPERFORMED BY: [employer] [id number] (48941) Vitamin B12 368 pg/mL (Normal) Range: 232-1245 44-Aqw-800687:02 HgA1C , Office (15606) HgA1C , Office 6.8 % (Normal) Range: 4.6 - 7.1 91-Clo-015865:02 Blood Glucose , Office (01088) Blood Glucose , Office 225 (Normal) 3-Ctw-910122:09 METABOLIC PANEL, Comments: PATIENT WAS FASTINGPERFORMED BY: [address] [id number] BY: [facility]6370 [facility] [id number] COMPREHENSIVE (77699) ALT (SGPT) 51 [iU]/L (Abnormal) Range: 0-32 [...] 8-27 Glucose 141 mg/dL (Abnormal) Range: 65-99 9-Oae-620361:09 CBC W/AUTO DIFF WBC Comments: PATIENT WAS FASTINGPERFORMED BY: BN [facility] Zltajngnga4667 [facility] [id number] BY: CB [facility] Jfauzh9722 [facility] [id number] (21332) Immature Grans (Abs) 0.0 {x10E3/uL} (Normal) Range: [...] 3.77-5.28 WBC 7.4 {x10E3/uL} (Normal) Range: 3.4-10.8 3-Zhy-711219:09 CALCIFIDIOL (66409) VIT D Comments: PATIENT WAS FASTINGPERFORMED BY: [employer] [id number] BY: [employer] [facility] [id number] 25 Vitamin D, 25-Hydroxy 20.1 ng/mL (Abnormal) Range: 30.0-100.0 Comments: Vitamin D deficiency has been defined by the [place] ofMedicine and an Endocrine Society practice guideline as alevel of serum 25-OH vitamin D less than 20 ng/mL (1,2).The Endocrine Society went on to further define vitamin Dinsufficiency as a level between 21 and 29 ng/mL (2).1. IOM ([place] of Medicine). 2010. Dietary reference intakes for calcium and D. [place]: The National Academies Press.2. Nola MF, Young NC, Chrissie AVILA, et al. Evaluation, treatment, and prevention of vitamin D deficiency: an Endocrine Society clinical practice guideline. JCEM. 2010; 96(7):1911-30. 1-Lll-206905:09 LIPOPROTEIN, BLD, BY NMR Comments: PATIENT WAS FASTINGPERFORMED BY: [employer] [id number] BY: J[facility] Healthcare GroupNew Bridge Medical CenterVovjny4177 [facility] [id number] (80393) LP-IR Score 72 (Abnormal) Comments: INSULIN RESISTANCE MARKER <--Insulin Sensitive Insulin Resistant--> Percentile in Reference PopulationInsulin Resistance ScoreLP-IR Score Low 25th 50th 75th High <27 27 45 63 >63LP-IR Score is inaccurate if patient is non-fasting. .The LP-IR score is a laboratory developed i [facility] that has beenassociated with insulin resistance and [...] were developed and their performance characteristicsdetermined by [employer]. These assays have not been cleared by [...] High > 2000 :15 HgA1C , Office (71983) HgA1C , Office 6.7 % (Normal) Range: 4.6 - 7.1 :15 Blood Glucose , Office (33764) Blood Glucose , Office 180 (Normal) :46 HgA1C , Office (30257) HgA1C , Office 7.0 % (Normal) Range: 4.6 - 7.1 :46 Blood Glucose , Office (30790) Blood Glucose , Office 169 (Normal) :48 CBC W/Diff, Automated Comments: [facility] [address] [place], [address] Absolute Lymph 2.34 {X10_3/ul} (Normal) Range: 0.83-4.51 [...] report for address and phone number ANTI-CCP 575401 18 {units} (Normal) Range: 0-19 Comments: Negative <20 Weak positive 20 - 39 Moderate positive 40 - 59 Strong positive >59Performed at: - [facility] [id number] Director: Waqar Matamoros MD, Phone: [phone] 56-Gkc-025568:48 Comprehensive Metabolic Profil Comments: [facility] [address] [place], [place], [address] GAP 7 (Normal) Range: 5-15 CO2 27.0 [...] 126 mg/dLsuggests DIABETES MELLITUS per A.D.A. criteria. 22-Paa-748080:48 CRP Comments: [facility] Xqw[address] [place], [place], [address] C-REACTIVE PROT < 2.90 mg/L (Normal) Range: 0.0-3.0 Comments: C-Reactive Protein (CRP) provides useful information for thediagnosis, therapy and monitoring of inflammatory processesand associated diseases. For the evaluation of Relative Riskfor Cardiovascular Dise ase, a High Sensitivity CRP (HSCRP)should be ordered. :48 Erythrocyte Sed Rate Comments: [facility] [address] [place], [place], [address] SED RATE 8 mm/h (Normal) Range: 0-30 :48 Rheumatoid Factor Comments: [facility] Ezwiysvhuv01[address] [place], [place], [address] RHEUMATOID FAC 19.0 {IU/mL} (Abnormal) :48 Sjogren's Antibodies A/B Comments: [facility] (refer to report for specific site)refer to report for address and phone number Anti-SS-B < 0.2 {AI} (Normal) Range: 0.0-0.9 Comments: Performed at: [facility] [employer] [id number] Director: Jeffrey Hancock PhD, Phone: [phone] Anti-SS-A < 0.2 {AI} (Normal) Range: 0.0-0.9 25-Irl-583834:11 TSH (24113) Comments: PATIENT WAS FASTINGPERFORMED BY: [facility] [id number] TSH 1.920 {uIU/mL} (Normal) Range: 0.450-4.500 26-Rko-212256:11 METABOLIC PANEL, COMPREHENSIVE Comments: PATIENT WAS FASTINGPERFORMED BY: [facility] Fndrdy3457 [facility] [id number] (35580) ALT (SGPT) 33 [iU]/L (Abnormal) Range: 0-32 [...] Glucose, Serum 160 mg/dL (Abnormal) Range: 65-99 04-Bek-022165:11 CBC W/AUTO DIFF WBC (13915) Comments: PATIENT WAS FASTINGPERFORMED BY: [facility] Yxcvbj9367 [facility] [id number] Immature Grans (Abs) 0.0 {x10E3/uL} (Normal) Range: [...] 3.77-5.28 WBC 5.6 {x10E3/uL} (Normal) Range: 3.4-10.8 15-Jck-660531:11 CALCIFIDIOL (90404) VIT D 25 Comments: PATIENT WAS FASTINGPERFORMED BY: LabCoNew Bridge Medical CenterCjvtty3820 [facility] [id number] Vitamin D, 25-Hydroxy 30.7 ng/mL (Normal) Range: 30.0-100.0 Comments: Vitamin D deficiency has been defined by the [place] ofMedicine and an Endocrine Society practice guideline as alevel of serum 25-OH vitamin D less than 20 ng/mL (1,2).The Endocrine Society went on to further define vitamin Dinsufficiency as a level between 21 and 29 ng/mL (2).1. IOM ([place] of Medicine). 2010. Dietary reference intakes for calcium and D. [place]: The National Academies Press.2. Nola MF, Young [place], Chrissie AVILA, et al. Evaluation, treatment, and prevention of vitamin D deficiency: an Endocrine Society clinical practice guideline. JCEM. 2010; 96(7):1911-30. 90-Imr-290226:11 LIPID PANEL (50974) Comments: PATIENT WAS FASTINGPERFORMED BY: [facility] Jkgwvm3842 [facility] [id number] LDL/HDL Ratio 2.5 {ratio_units} (Normal) Range: 0.0-3.2 Comments: LDL/HDL Ratio Men Women 1/2 Avg.Risk 1.0 1.5 Av g.Risk 3.6 3.2 2X Avg.Risk 6.2 5.0 3X Avg.Risk 8.0 6.1 LDL Cholesterol Calc 108 mg/dL (Abnormal) Range: 0-99 VLDL Cholesterol James 44 mg/dL (Abnormal) Range: 5-40 HDL Cholesterol 43 mg/dL (Normal) Triglycerides 220 mg/dL (Abnormal) Range: 0-149 Cholesterol, Total 195 mg/dL (Normal) Range: 100-199 35-Gxj-456791:02 HgA1C , Office (20704) HgA1C , Office 6.2 % (Normal) Range: 4.6 - 7.1 68-Urp-483682:02 Blood Glucose , Office (16655) Blood Glucose , Office 203 (Normal) AFP, Serum, Tumor Marker 2.3 ng/mL (Normal) Comments: PATIENT NOT FASTINGPERFORMED BY: [facility] Ggtnix1120 [facility] [id number] 6:06 Range: 0.0-8.3 Comments: Delonte ECLIA methodology Written Authorization WAR (Normal) Comments: PATIENT NOT FASTINGPERFORMED BY: [facility] UnlimitedSsm Re[facility] Bdbntb9520 [facility] [id number] 6:06 Comments: Written Authorization Received.Authorization received from JESIKA HUBER LPN [id number] by Mala Apple 94-Aiy-415975:06 HEPATIC FUNCTION PANEL Comments: PATIENT NOT FASTINGPERFORMED BY: [facility]6370 [facility] [id number] (41730) ALT (SGPT) 100 [iU]/L (Abnormal) Range: 0-32 AST (SGOT) 64 [iU]/L (Abnormal) Range: 0-40 Alkaline Phosphatase, S 67 [iU]/L (Normal) Range: 39-117 Bilirubin, Direct 0.14 mg/dL (Normal) Range: 0.00-0.40 Bilirubin, Total 0.5 mg/dL (Normal) Range: 0.0-1.2 Albumin, Serum 4.3 g/dL (Normal) Range: 3.6-4.8 Protein, Total, Serum 6.8 g/dL (Normal) Range: 6.0-8.5 16-Hks-275484:06 HEPATITIS PANEL (00726) Comments: PATIENT NOT FASTINGPERFORMED BY: [facility]6370 [facility] [id number] Hep C Virus Ab <0.1 {s/co_ratio} (Normal) Range: 0.0-0.9 Comments: Negative: < 0.8 Indeterminate: 0.8 - 0.9 Positive: > 0.9 . The CDC recommends that a positive HCV antibody result be followed up with a HCV Nucleic Acid Amplification test (087700). Hep B Core Ab, IgM Negative (Normal) HBsAg Screen Negative (Normal) Hep A Ab, IgM Negative (Normal) 66-Abk-451952:06 TRANSFERRIN (00496) Comments: PATIENT NOT FASTINGPERFORMED BY: [facility]6370 [facility] [id number] Transferrin 316 mg/dL (Normal) Range: 200-370 49-Bjx-596718:06 ANTIMITOCHONDRIAL ANTIBODY Comments: PATIENT NOT FASTINGPERFORMED BY: [facility]6370 [facility] [id number] (95353) Mitochondrial (M2) Antibody <20.0 {Units} (Normal) Range: 0.0-20.0 Comments: Negative 0.0 - 20.0 Equivocal 20.1 - 24.9 Positive >24.9 . Mitochondrial (M2) Antibodies are found in 90-96% of patients with primary biliary cirrhosis. 68-Uyc-471353:06 GGT (GAMMA GLUTAMYLTRANSFERASE) Comments: PATIENT NOT FASTINGPERFORMED BY: [facility]limitedM[facility]6370 [facility] [id number] (70042) GGT 14 [iU]/L (Normal) Range: 0-60 67-Ckg-900785:06 FERRITIN (21589) Comments: PATIENT NOT FASTINGPERFORMED BY: [facility] UnlimitedThomas [place] 7658570 [facility] [id number] Ferritin, Serum 110 ng/mL (Normal) Range: 15-150 31-Vmb-413569:06 CMV IGM ANTBDY (39326) Comments: PATIENT NOT FASTINGPERFORMED BY: [employer] UnlimitedThomas [place] 7658570 [facility] [id number] Cytomegalovirus (CMV) Ab, IgM 40.9 AU/mL (Abnormal) Range: 0.0-29.9 Comments: Negative <30.0 Equivocal 30.0 - 34.9 Positive >34.9 A positive result is generally indicative of acute infection, reactivation or persistent IgM production. 10-Byz-252933:06 CERULOPLASMIN (50567) Comments: PATIENT NOT FASTINGPERFORMED BY: [employer] Unlimited[place] 7658570 [facility] [id number] Ceruloplasmin 28.9 mg/dL (Normal) Range: 19.0-39.0 :06 ASM (ANTI SMOOTH MUSCLE Comments: PATIENT NOT FASTINGPERFORMED BY: [employer] [id number] ANTIBODY) (13791) Actin (Smooth Muscle) Antibody 12 {Units} (Normal) Range: 0-19 Comments: Negative 0 - 19 Weak positive 20 - 30 Moderate to strong positive >30 . Actin Antibodies are found in 52-85% of patients with autoimmune hepatitis or chronic active hepatitis and in 22% of patients with primary biliary cirrhosis. 79-Ogd-855594:06 ANTI-LIVER/KIDNEY MICROSOMAL Comments: PATIENT NOT FASTINGPERFORMED BY: [facility] GroupNew Bridge Medical CenterAajidz7559 [facility] [facility] [id number] ANTIBODY (47925) Thyroid Peroxidase (TPO) Ab 27 {IU/mL} (Normal) Range: 0-34 53-Kzb-102507:06 CAROLYN (ANTINUCLEAR ANTIBODY) Comments: PATIENT NOT FASTINGPERFORMED BY: [facility] Srkcso6711 [facility] [place] [id number] ([id number]) CAROLYN Direct Negative (Normal) 5-Kmk-990499:06 CALCIFEDIOL (35742) Comments: PATIENT WAS FASTINGPERFORMED BY: [facility] Ivglde6527 [facility] [id number] Vitamin D, 25-Hydroxy 36.6 ng/mL (Normal) Range: 30.0-100.0 Comments: Vitamin D deficiency has been defined by the [place] ofMedicine and an Endocrine Society practice guideline as alevel of serum 25-OH vitamin D less than 20 ng/mL (1,2).The Endocrine Society went on to further define vitamin Dinsufficiency as a level between 21 and 29 ng/mL (2).1. IOM ([place] of Medicine). 2010. Dietary reference intakes for calcium and D. [place]: The National Academies Press.2. Nola MF, Young BROOKS, Chrissie AVILA, et al. Evaluation, treatment, and prevention of vitamin D deficiency: an Endocrine Society clinical practice guideline. JCEM. 2010; 96(7):1911-30. 6-Xhu-157889:06 TSH (55789) Comments: PATIENT WAS FASTINGPERFORMED BY: [facility] Bfgshc6521 [facility] [id number] TSH 2.160 {uIU/mL} (Normal) Range: 0.450-4.500 4-Umg-329929:06 Lipid Panel (72363) Comments: PATIENT WAS FASTINGPERFORMED BY: [facility] Ldlnkk4842 [facility] [id number] LDL/HDL Ratio 2.5 {ratio_units} (Normal) Range: 0.0-3.2 Comments: LDL/HDL Ratio Men Women 1/2 Avg.Risk 1.0 1.5 Av g.Risk 3.6 3.2 2X Avg.Risk 6.2 5.0 3X Avg.Risk 8.0 6.1 LDL Cholesterol Calc 119 mg/dL (Abnormal) Range: 0-99 VLDL Cholesterol James 50 mg/dL (Abnormal) Range: 5-40 HDL Cholesterol 47 mg/dL (Normal) Triglycerides 252 mg/dL (Abnormal) Range: 0-149 Cholesterol, Total 216 mg/dL (Abnormal) Range: 100-199 0-Ilh-069038:06 CBC (Auto) (14911) Comments: PATIENT WAS FASTINGPERFORMED BY: [facility]6370 [facility] [id number] Platelets 246 {x10E3/uL} (Normal) Range: 150-379 RDW 13.6 % (Normal) Range: 12.3-15.4 MCHC 32.9 g/dL (Normal) Range: 31.5-35.7 MCH 28.7 pg (Normal) Range: 26.6-33.0 MCV 87 fL (Normal) Range: 79-97 Hematocrit 45.6 % (Normal) Range: 34.0-46.6 Hemoglobin 15.0 g/dL (Normal) Range: 11.1-15.9 RBC 5.23 {x10E6/uL} (Normal) Range: 3.77-5.28 WBC 6.4 {x10E3/uL} (Normal) Range: 3.4-10.8 7-Diw-889945:06 Metabolic Panel, Comprehensive Comments: PATIENT WAS FASTINGPERFORMED BY: [facility]6370 [facility] [id number] (94567) ALT (SGPT) 74 [iU]/L (Abnormal) Range: 0-32 [...] Glucose, Serum 174 mg/dL (Abnormal) Range: 65-99 7-Axi-201054:06 HGB A1C (76329) Comments: PATIENT WAS FASTINGPERFORMED BY: [facility] [employer] [facility] [id number] Hemoglobin A1c 7.5 % (Abnormal) Range: 4.8-5.6 Comments: . Pre-diabetes: 5.7 - 6.4 Diabetes: >6.4 Glycemic control for adults with diabetes: <7.0 30-Cwx-96024:29 Fecal Occult Blood , Office (68089) Fecal Occult Blood , Office (Inhouse) negative (Normal) 13-Rve-883200:37 Microscopic Examination Comments: PATIENT NOT FASTINGPERFORMED BY: [facility] Qxfqfo3224 [facility] [id number] Bacteria Moderate (Abnormal) Mucus Threads Present (Normal) Epithelial Cells (non renal) 0-10 {/hpf} (Normal) Range: 0 - 10 RBC 3-10 {/hpf} (Abnormal) Range: 0 - 2 WBC >30 {/hpf} (Abnormal) Range: 0 - 5 22-Yzb-659099:37 TSH (78812) Comments: PATIENT NOT FASTINGPERFORMED BY: [facility] Tcsybt8744 [facility] [id number] TSH 2.250 {uIU/mL} (Normal) Range: 0.450-4.500 85-Cww-230266:37 URINALYSIS, W/ MICRO (17947) Comments: PATIENT NOT FASTINGPERFORMED BY: [facility] GroupNew [facility] Medical CenterNbmlan1979 [facility] [id number] Microscopic Examination See below: (Normal) Comments: Microscopic was indicated and was performed. Nitrite, Urine Positive (Abnormal) Urobilinogen,Semi-Qn 0.2 mg/dL (Normal) Range: 0.2-1.0 Bilirubin Negative (Normal) Occult Blood Negative (Normal) Ketones Negative (Normal) Glucose Negative (Normal) Protein Negative (Normal) WBC Esterase 3+ (Abnormal) Appearance Clear (Normal) Urine-Color Yellow (Normal) pH 5.5 (Normal) Range: 5.0-7.5 Specific Abie 1.015 (Normal) Range: 1.005-1.030 :37 MICROALBUMIN: CREATININE RATIO Comments: PATIENT NOT FASTINGPERFORMED BY: [employer] CenterEamvhm3635 [facility] [id number] (11262) AND (22686) Microalb/Creat Ratio 18.5 {mg/g_creat} (Normal) Range: 0.0-30.0 Microalbumin, Urine 18.3 ug/mL (Normal) Creatinine, Urine 99.0 mg/dL (Normal) :37 METABOLIC PANEL, COMPREHENSIVE Comments: PATIENT NOT FASTINGPERFORMED BY: [facility] GroupMimbres Memorial HospitalTkilyz2679 24SymbolsECU [facility] [id number] (72292) ALT (SGPT) 26 [iU]/L (Normal) Range: 0-32 [...] Glucose, Serum 145 mg/dL (Abnormal) Range: 65-99 79-Qri-944500:37 LIPID PANEL (55991) Comments: PATIENT NOT FASTINGPERFORMED BY: [employer] Ojwsxw9838 [facility] [id number] LDL/HDL Ratio 2.9 {ratio_units} (Normal) Range: 0.0-3.2 [...] Cholesterol, Total 204 mg/dL (Abnormal) Range: 100-199 41-Gvn-109837:37 CBC W/AUTO DIFF WBC Comments: PATIENT NOT FASTINGPERFORMED BY: [employer] CenterTwvgin0124 [facility] [id number] Information: [id number], [id number] (67482) Immature Grans (Abs) 0.0 {x10E3/uL} (Normal) Range: [...] 3.77-5.28 WBC 5.9 {x10E3/uL} (Normal) Range: 3.4-10.8 36-Xjg-615170:37 CALCIFIDIOL (37949) VIT D 25 Comments: PATIENT NOT FASTINGPERFORMED BY: LabCoNew Bridge Medical CenterOoqpay6092 [facility] [id number] Vitamin D, 25-Hydroxy 26.8 ng/mL (Abnormal) Range: 30.0-100.0 Comments: Vitamin D deficiency has been defined by the [place] ofMedicine and an Endocrine Society practice guideline as alevel of serum 25-OH vitamin D less than 20 ng/mL (1,2).The Endocrine Society went on to further define vitamin Dinsufficiency as a level between 21 and 29 ng/mL (2).1. IOM ([place] of Medicine). 2010. Dietary reference intakes for calcium and D. [place]: The National Academies Press.2. Nola MF, Young BROOKS, Chrissie AVILA, et al. Evaluation, treatment, and prevention of vitamin D deficiency: an Endocrine Society clinical practice guideline. JCEM. 2010; 96(7):1911-30. 83-Afg-282396:17 HgA1C , Office (44322) HgA1C , Office 6.3 % (Normal) Range: 4.6 - 7.1 02-Uct-120605:13 METABOLIC PANEL, Comments: PATIENT WAS FASTINGPERFORMED BY: SHAHLA LabCoIntellectSpaceWmqbul1144 [facility] [id number] Information: [id number]; [address] COMPREHENSIVE (58288) ALT (SGPT) 33 [iU]/L (Abnormal) Range: 0-32 [...] Glucose, Serum 139 mg/dL (Abnormal) Range: 65-99 87-Bwu-349756:13 LIPID PANEL (18045) Comments: PATIENT WAS FASTINGPERFORMED BY: LabCoTello70 [facility] [id number] LDL/HDL Ratio 3.4 {ratio_units} (Abnormal) Range: 0.0-3.2 [...] Cholesterol, Total 225 mg/dL (Abnormal) Range: 100-199 :58 HgA1C , Office (72079) HgA1C , Office 8.1 % (Abnormal) Range: 4.6 - 7.1 :00 CBC W/Diff, Automated Comments: [facility] [address] [place], [place], [address] Absolute Lymph 1.98 {X10_3/ul} (Normal) Range: 0.83-4.51 [...] 4.2-5.4 WBC 4.7 K/mm3 (Normal) Range: 4.4-11.0 8-Skk-122952:00 Comprehensive Metabolic Profil Comments: [facility] [address] [place], [address] GAP 9 (Normal) Range: 5-15 CO2 24.0 [...] 200 mg/dLsuggests DIABETES MELLITUS per A.D.A. criteria. 8-Npd-583092:00 Vitamin D,25 Hydroxy Comments: [facility] Motvnkahvg0290 LINDA Garcia, [address] Vitamin D 25-OH 37.7 ng/mL (Normal) Comments: Vitamin D 25(OH) Status Range Deficiency <20 ng/mL (50nmol/L) Insuffciency 20 - 30 ng/mL (50 - 75 nmol/L) Sufficiency 30 - 100 ng/mL (75 - 250 nmol/L) Toxicity >100 ng/mL (>250 nmol/L) :36 LIPID PANEL (08837) Comments: PATIENT WAS FASTINGPERFORMED BY: myLINGOECU [facility] Center [id number] Information: [id number]; ov 09-05-15 LDL/HDL Ratio 3.1 {ratio_units} (Normal) [...] (Abnormal) Range: 100-199 :36 HEPATIC FUNCTION PANEL (71246) Comments: PATIENT WAS FASTINGPERFORMED BY: [employer] [facility] [id number] ALT (SGPT) 19 [iU]/L (Normal) Range: 0-32 AST (SGOT) 19 [iU]/L (Normal) Range: 0-40 Alkaline Phosphatase, S 72 [iU]/L (Normal) Range: 39-117 Bilirubin, Direct 0.09 mg/dL (Normal) Range: 0.00-0.40 Bilirubin, Total 0.3 mg/dL (Normal) Range: 0.0-1.2 Albumin, Serum 4.4 g/dL (Normal) Range: 3.6-4.8 Protein, Total, Serum 7.0 g/dL (Normal) Range: 6.0-8.5 :34 TSH (21118) Comments: PATIENT WAS FASTINGPERFORMED BY: [facility] Tcodje2526 [facility] [id number] TSH 1.550 {uIU/mL} (Normal) Range: 0.450-4.500 :34 CALCIFIDIOL (94365) VIT D 25 Comments: PATIENT WAS FASTINGPERFORMED BY: [employer] UnlimitedMcl[facility] Hospital6370 [facility] [id number] Vitamin D, 25-Hydroxy 14.2 ng/mL (Abnormal) Range: 30.0-100.0 Comments: Vitamin D deficiency has been defined by the [place] ofMedicine and an Endocrine Society practice guideline as alevel of serum 25-OH vitamin D less than 20 ng/mL (1,2).The Endocrine Society went on to further define vitamin Dinsufficiency as a level between 21 and 29 ng/mL (2).1. IOM ([place] of Medicine). 2010. Dietary reference intakes for calcium and D. [place]: The National Academies Press.2. Nola MF, Young [place], Chrissie AVILA, et al. Evaluation, treatment, and prevention of vitamin D deficiency: an Endocrine Society clinical practice guideline. JCEM. 2010; 96(7):1911-30. :34 METABOLIC PANEL, Comments: PATIENT WAS FASTINGPERFORMED BY: [facility]6370 [facility] [id number] Information: [id number], [id number] COMPREHENSIVE (89595) ALT (SGPT) 12 [iU]/L (Normal) Range: 0-32 [...] Glucose, Serum 141 mg/dL (Abnormal) Range: 65-99 23-Ako-27415:34 LIPID PANEL (28452) Comments: PATIENT WAS FASTINGPERFORMED BY: LabCoNew Bridge Medical CenterKzecuu6800 [facility] [id number]; fu 8- will review then LDL/HDL Ratio 3.8 {ratio_units} [...] Cholesterol, Total 262 mg/dL (Abnormal) Range: 100-199 81-Vdr-870329:36 HgA1C , Office (98088) HgA1C , Office 6.3 % (Normal) Range: 4.6 - 7.1 00-Jsk-108033:36 Blood Glucose , Office (07861) Blood Glucose , Office 170 (Normal) Plan of Care Name Dates Details Instructions 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 without 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, unspecified halfway insulin use status : Follow up in 3 months Indication: 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 without 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, 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 without 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, unspecified halfway insulin use status : Continue Current Prescription(s) Indication: 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 without 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, unspecified halfway insulin use status 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 without 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, unspecified halfway insulin use status : Diet, Exercise, and Wt loss Indication: 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 without 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, 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 without 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, 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 : *Diabetes Education Indication: 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 without 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, unspecified halfway insulin use status Paresthesia : Reviewed Lab Indication: Paresthesia Paresthesia : Reviewed Lab Indication: Paresthesia 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 without 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, unspecified halfway insulin use status : Reviewed Lab Indication: 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 without 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, unspecified halfway insulin use status Hypercholesteremia (Renamed from Hypercholesterolemia) : Cholesterol mgmt Indication: Hypercholesteremia (Renamed from Hypercholesterolemia) 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 without 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, unspecified halfway insulin use status : *Diabetes Education Indication: 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 without 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, 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 without 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, 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 : Follow up in 3 months Indication: 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 without 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, unspecified halfway insulin use status 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 without 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, unspecified halfway insulin use status : Follow up in 3 months Indication: 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 without 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, unspecified halfway insulin use status Hypercholesteremia (Renamed from Hypercholesterolemia) : Cholesterol mgmt Indication: Hypercholesteremia (Renamed from Hypercholesterolemia) 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 without 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, unspecified halfway insulin use status : Follow up in 3 months Indication: 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 without 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, 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 Anxiety : Continue Current Prescription(s) Indication: Anxiety 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 without 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, unspecified halfway insulin use status : *Diabetes Education Indication: 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 without 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, unspecified halfway insulin use status Hypercholesteremia (Renamed from Hypercholesterolemia) [...] 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 without 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, unspecified halfway insulin use status : Follow up in 3 months Indication: 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 without 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, 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 Hypercholesteremia (Renamed from Hypercholesterolemia) : Cholesterol mgmt Indication: Hypercholesteremia (Renamed from Hypercholesterolemia) 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 without 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, 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 : Diet, Exercise, and Wt loss Indication: 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 without 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, 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 without 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, unspecified halfway insulin use status : *Diabetes Education Indication: 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 without 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, unspecified halfway insulin use status 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 without 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, 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 : Reviewed Lab Indication: 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 without 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, unspecified halfway insulin use status Vitamin D deficiency : [...] 3 months-from march 29 to 3months for [facility] Indication: Diabetes mellitus type II, controlled Hypercholesteremia (Renamed from Hypercholesterolemia) : Cholesterol mgmt Indication: Hypercholesteremia (Renamed from Hypercholesterolemia) Dysthymic : Reviewed Deputy Chief Executive Letter- ccf Indication: Dysthymic Diabetes mellitus type II, controlled : Eprescribed prescriptions (G8553) Indication: Diabetes mellitus type II, controlled Diabetes mellitus type II, controlled : Diabetes and Exercise: Preventing Low Blood Sugar: blood sugar Indication: Diabetes mellitus type II, controlled Planned Observations URINALYSIS, W/ MICRO (46211)Indication: 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 without 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, unspecified halfway insulin use status On: 9-Fjc-372944:04 Request MICROALBUMIN: CREATININE RATIO (21884) AND (90952)Indication: 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 without 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, 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 On: 0-Ala-127391:04 Request LIPID PANEL (54226)Indication: Hypercholesteremia (Renamed from Hypercholesterolemia) On: 7-Mvm-201914:03 Request URINALYSIS, W/ MICRO (51176)Indication: Diabetes mellitus type II, controlled On: 55-Viy-007552:23 Request MICROALBUMIN: CREATININE RATIO (30506) AND (36018)Indication: Diabetes mellitus type II, controlled On: 96-Tkz-654381:23 Request MICROALBUMIN: CREATININE RATIO (20129) AND (00834)Indication: Hypercholesteremia (Renamed from Hypercholesterolemia) On: 44-Pmr-274069:33 Request URINALYSIS (27683)Indication: Hypercholesteremia (Renamed from Hypercholesterolemia) On: 79-Tcq-115493:33 Request CALCIFIDIOL (48962) VIT D 25Indication: Vitamin D deficiency On: 87-Faa-82571:46 Request LIPID PANEL (01760)Indication: Hypercholesteremia (Renamed from Hypercholesterolemia) On: 18-Qjv-481303:24 Request FECAL OCCULT- Tubes sent home (34955)Indication: Encounter for screening for malignant neoplasm of colon (Renamed from Special screening for malignant neoplasms, colon) On: 33-Uzy-399156:16 Request CALCIFIDIOL (02042) VIT D 25Indication: Fibromyalgia (Renamed from Diffuse myofascial pain syndrome) On: 2-Ppj-182917:33 Request Planned Encounters Medical; 3 Month FU - On: 07-Oct-2018 10:45 [facility] Rain Mccormick DO, DO, Kathleen Planned Procedures EMGBy: Rain Mccormick DO On: 01-Jul-2018 Intent Rain MCQUEEN Comments: lower extremities Nerve ConductionBy: Anny MCQUEEN, On: 01-Jul-2018 Intent Rain Daniels DO Comments: lower extremities B 12 Injection, 1000 mcg On: 08-Apr-2018 Intent (J3420)By: Rain Mccormick DO Comments: [id number] CCLEFT DLTDIMABRUCE Kraft Anny DO, Rain B 12 Injection, 1000 mcg On: 30-Mar-2018 Intent (J3420)By: Tom Reddy Comments: Vitamin b12 1000mcg injection lot:[id number]:11/2018L DELT IMpt tolerated well MLONG,GLASS CYLINDER FLANGER EMGBy: Anny Rain MCQUEEN Anny On: 25-Mar-2018 Intent Rain MCQUEEN Nerve ConductionBy: Anny DO, On: 25-Mar-2018 Intent Rain Daniels DO ELECTROCARDIOGRAM, COMPLETE (ECG) On: 19-Dec-2017 Intent (34184)By: Rain Mccormick DO Comments: sinus altagracia no acute chg Rain Mccormick DO Flu Vaccine (Quadrivalent) On: 08-May-2017 Intent 00181Li: Rain Mccormick DO Comments: Lot:[id number]:03/02/18Amt:0.5mlRoute:IMSite: L DltdGiven By: SUDARSHAN Disla signed Rain Mccormick DO SCREENING DIGITAL TOMOSYNTHESIS OF On: 01-Apr-2017 Intent BREAST (17174)By: Rain Mccormick DO, DO, Kathleen PSJH-QG-RQPT BEHAVIORAL COUNSELING On: 01-Apr-2017 Intent FOR OBESITY, 15 MINUTES (G0447)By: Rain Mccormick DO, DO, Kathleen ELECTROCARDIOGRAM, COMPLETE (ECG) On: 28-Jan-2017 Intent (92760)By: Rain Mccormick DO Comments: siinus altagracia no acute chg Rain Mccormick DO Ultrasound - LiverBy: Anny MCQUEEN, On: 28-Jan-2017 Intent Rain Mccormick DORain Flu Vaccine (Quadrivalent) On: 15-Jul-2016 Intent 38782Sa: Rain Mccormick DO Comments: Lot:[id number]:03/14/17Dose:0.5mLRoute:IMSite:L DltdGiven By:JUAN PABLO signed Rain Mccormick DO PNEUM VAC ADLT/IMUMNOSPR, On: 27-Mar-2016 Intent SBC/INTRM (53312)By: Anny MCQUEEN, Comments: lot: [id number]: 06/26/17site/route: L del/IMamt: 0.5mLVIS signed when applicableChelsea, PIN CLEANER Rain Daniels DO DEXA SCAN AXIAL SKELETON On: 27-Mar-2016 Intent (74319)By: Rain Mccormick DO, DO, Kathleen MAMMOGRAM, SCREENING, BOTH BREAST On: 26-Dec-2015 Intent (87659)By: Anyi Hawthorne MD Flu Vaccine (Quadrivalent) On: 28-Jun-2015 Intent 11203Ab: Anyi Hawthorne MD Comments: Lot:[id number]:03/14/16Dose:0.5mLRoute:IMSite:L DltdGiven By:JUAN PABLO signed DEXA SCAN AXIAL SKELETON On: 06-Apr-2015 Intent (55250)By: Anyi Hawthorne MD Comments: postmenapausal Venous Doppler - UpperBy: Marine On: 06-Apr-2015 Intent Anyi KELLEY Comments: left arm MAMMOGRAM, SCREENING, BOTH BREAST On: 06-Apr-2015 Intent (51341)By: Anyi Hawthorne MD Planned Medications Vitamin B-12 1000 MCG/ML Injection Solution Ordered: 30-Mar-2018 Pending Tom Reddy Vitamin B-12 1000 MCG/ML Injection Solution Ordered: 08-Apr-2018 Pending Rain Mccormick DO, DO, Kathleen Instructions Name Dates Details 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 without 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, unspecified halfway insulin use status : How to access health information online Indication: 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 without 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, unspecified halfway insulin use status 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 without 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, 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 : How to access health information online - Detail Indication: 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 without 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, unspecified halfway insulin use status 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 without 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, 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 : Patient Instructions Indication: 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 without 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, unspecified halfway insulin use status 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 without 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, unspecified halfway insulin use status : How to access health information online Indication: 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 without 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, unspecified halfway insulin use status 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 without 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, 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 : How to access health information online - Detail Indication: 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 without 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, unspecified halfway insulin use status 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 without 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, 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 : Patient Instructions Indication: 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 without 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, 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 BMI 30.0-30.9,adult : How [...] 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 without 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, 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 : obesity counseling Indication: 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 without 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, 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 Current nonsmoker (Renamed from [...] Palpitation : Patient Instructions Indication: Palpitation Encounters Phone Encounter On: 03-Jul-2018 13:35 Encounter Diagnosis: Rheumatoid arthritis End: 03-Jul-2018 13:48 [facility] Office Visit On: 01-Jul-2018 11:28 Encounter Reason: [...] 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 without 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, unspecified halfway insulin use status, Paresthesia, Vitamin D deficiency, [...] 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 without 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, unspecified halfway insulin use status, BMI 30.0-30.9,adult, Current nonsmoker [...] 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 without 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, 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 The patient has [...] 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 without 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, unspecified halfway insulin use status, Encounter for screening for [...] 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 without 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, unspecified halfway insulin use status [facility] Phone [...] The patient does have durable power of trial attorney and living will. The patient has [...]
--- OUTSIDE RECORDS SUMMARY | 2018-10-12 15:22 | XMS RPT_ITS ---
:1945 Author Organization OHIP Care Team Providers Name Role Phone MATT SHINE Attending Unavailable FÁTIMAMATT Attending Unavailable FÁTIMAMATT Attending Unavailable FÁTIMA MATT Attending Unavailable Anny DO, Rain Attending Unavailable Anyi Hawthorne MD Referring Unavailable Anny DO, Rain Consulting Unavailable Hal Beyer Attending Unavailable Anny, Rain Primary Care Unavailable Kelly Campos Attending Unavailable Kelly Campos Referring Unavailable Anny, Rain Primary Care Unavailable BOBO SAL Attending Unavailable BOBO SAL Referring Unavailable Anny, Rain Primary Care Unavailable BOBO SAL Consulting Unavailable Kelly Campos Attending Unavailable Kelly Campos Referring Unavailable Anny, Rain Primary Care Unavailable Hadley Cutler Attending Unavailable Hadley Cutler Referring Unavailable Anny, Rain Primary Care Unavailable PROBLEMS PROBLEMS DATE TYPE CONDITION / CODE ATTENDING STATUS SOURCE 08/31/2018 Active Unknown / FÁTIMA Active [facility] UNK(Unknown) M[facility] Repository 07/16/2018 Unknown R82.998 - Other Kelly Campos Active [place] abnormal findings [facility] in urine / Hospital R82.998(ICD-10) Repository 05/12/2018 Unknown R26.89 - Other BOBO SAL Active [place] abnormalities of Community gait and mobility / Hospital R26.89(ICD-10) Repository PROCEDURES PROCEDURES No Procedure Records FoundRESULTS RESULTS Observed: 09/22/2018 Status: F Source: [place] CULTURE, URINE 1:50 PM [facility] REPOSITORY Urine Culture ORGANISM 1: Staphylococcus epidermidis [place] Count 80,000-100,000 ORGANISM 2: Staphylococcus simulans [place] Count 11,000-25,000 Staphylococcus epidermidis: REACTION Benzylpenicillin NF >=0.5 R Cefoxitin *NF - Inducable Clindamycin Resistan - Gentamicin $ <=0.5 S Levofloxacin $ >=8 R Linezolid $$$$ 1 S Nitrofurantoin $ <=16 S Oxacillin NF <=0.25 S Rifampin $$ <=0.5 S Tetracycline NF <=1 S Vancomycin $ 1 S (NF) indicates non-formulary drug at [facility]. Approval by Infectious Disease Specialist required before non-formulary drugs may be ordered and/or dispensed. * CLSI guidelines does not recommend testing of cephalosporins. This interpretation is deduced from Beta-lactam/penicillin results. Staphylococcus simulans: REACTION Benzylpenicillin NF >=0.5 R Cefoxitin *NF + Inducable Clindamycin Resistan + Gentamicin $ <=0.5 S Levofloxacin $ >=8 R Nitrofurantoin $ <=16 S Oxacillin NF 2 R Rifampin $$ <=0.5 S Tetracycline NF <=1 S Vancomycin $ <=0.5 S (NF) indicates non-formulary drug at [facility]. Approval by Infectious Disease Specialist required before non-formulary drugs may be ordered and/or dispensed. * CLSI guidelines does not recommend testing of cephalosporins. This interpretation is deduced from Beta-lactam/penicillin results. Performed By: #### M100.0650 #### [facility] [place], [address] Observed: 09/17/2018 Status: F Source: [place] CULTURE, URINE 10:48 AM [facility] REPOSITORY Urine Culture ORGANISM 1: Presumptive E. coli [place] Count >100,000 Presumptive E. coli: REACTION Amoxacillin/Clavulanic Acid $ 8 S Ampicillin $ >=32 R Ampicillin/Sulbactam $ 16 I Cefazolin $ <=4 S Cefepime $ <=1 S Ceftriaxone $ <=1 S Ciprofloxacin $ <=0.25 S ESBL - Ertapenim $$$ <=0.5 S Gentamicin $ >=16 R Imipenem *NF <=0.25 S Levofloxacin $ <=0.12 S Nitrofurantoin $ <=16 S Piperacillin/Tazobactam $$ <=4 S Tobramycin $ 2 S Trimethoprim/Sulfametho $ >=320 R (NF) indicates non-formulary drug at [facility]. Approval by Infectious Disease Specialist required before non-formulary drugs may be ordered and/or dispensed. Performed By: #### M100.0650 #### [facility] [address] [place], [address] PROGRESS Observed: 08/31/2018 Status: COMPLETED Source: [place] 1:30 PM [facility] REPOSITORY HNO ID: [id number] Author: Matt Shine Service: (none) Author Type: Physician Type: Progress Notes Filed: 08/31/2018 3:08 PM Note Text: PSYCHIATRIC PROGRESS NOTE CC: 'Not so great recently present HPI: Has been falling more says Recent memory is fair Daughter is recovering from her third back surgery Children think they aren't fun to be around as pt constantly interrupts conversations Hasn't seen Neuro in 3 years Meds, OARRs reviewed Risks and benefits of the medication, including any black box warnings, were discussed with the patient. No past medical history on file. No past surgical history on file. ROS: VITAL SIGNS: 08/31/18 1321 BP: 97/55 BP Site: Left Arm BP Position: Sitting BP Cuff Size: Large Adult Pulse: 72 Resp: 16 SpO2: 94% Weight: 79.5 kg (175 lb 3.2 oz) Height: 160 cm (5' 3) Interval Progress: Same SINGLE ORGAN PSYCH EXAM: CONSTITUTIONAL: Well groomed MUSCULOSKELETAL: Gait: Normal PAIN: 3 PSYCHIATRIC: Speech: Clear AND distinct Language: Normal Associations: Intact Thought Process: Logical, Coherent and Rational Progression: There was no evidence of disturbance in thought perception or progression. Fund of Knowledge: Appropriate and Adequate MENTAL STATUS EXAM: ORIENTATION: Person, Place, Time and Situation MEMORY: Remote intact, Immediate intact, Recent impaired CONCENTRATION: Scattered MOOD: anxious AFFECT: Full and appropriate to topic SUICIDE: None HOMICIDE: None PFSH: See above DATA REVIEWED: Electronic medical record TREATMENT PLAN: Neuro opinion at [facility] MEDICATION CHANGES: Decrease hs Neurontin to [address] Neurontin [address] Lexapro and Xanax ER 1 mg qhs PSYCHIATRY APPOINTMENT: E/M Visit-Pharmacological Management DIAGNOSIS: 1. PRIMARY: F33 GAF/CGAS:70 Follow Up: 3 months Medication/allergies reconciled, 25 minutes spent [id number]-hb-[id number] counseling; this time excludes time spent with E/M. SIGNATURE: Matt Shine MD PATIENT NAME: Jazmine Loco DATE: August 31, 2018 TIME: 1:30 PM PAGER/CONTACT #: SCREENING MAMM (CAD), Observed: 08/26/2018 Status: F Source: [facility] 11:57 AM [facility] REPOSITORY [facility] Imaging Services [address] [place] [id number] SCREENING MAMM (CAD), BILAT MR#: [id number] Acct: [id number] Name: JAZMINE LOCO Rep #: [id number] : 1945 F 73 From: Junaid Casillas MD PCP: Rain Mccormick DO Status: REG CLI Study: SCREENING MAMM (CAD), BILAT Date of Exam: 08/26/18 Exam# [id number] Ordering Dr: Hal Beyer MD MAMMOGRAPHY - BILATERAL SCREENING REASON FOR EXAM: Female, 73 years old. Routine annual screening examination. PERTINENT HISTORY: Non-contributory. TECHNIQUE: Digital bilateral breast gaby (3D mammographic acquisition) in the CC and MLO projections. 2-D mediolateral oblique (MLO) and craniocaudad (CC) views of both breasts were obtained. CAD: Full Field Digital Mammography with Computer Added Detection was performed. COMPARISON: Comparison is made with prior study dated April 17, 2017 and January 29, 2016. FINDINGS: Breast Composition: There are scattered areas of fibroglandular density. There are no dominant masses or suspicious calcifications. No other significant abnormalities are identified. There has been no significant change since the prior study. BI/SCREENING MAMM (CAD), BILAT IMPRESSION: Stable bilateral screening mammogram. Yearly follow-up mammogram recommended. (A) ASSESSMENT CATEGORY: BIRADS Category 1: Negative. A letter regarding these results will be sent to the patient by the facility within 30 days. Approximately 10% of breast cancers are not detected by mammography. A normal mammogram should not delay biopsy of a clinically suspicious abnormality. [id number] Electronically Signed: Junaid Casillas MD at 13:00 EST Tel [phone], Service support , CC: Hal Beyer MD; Rain Mccormick DO Boat Joiner: Signed Observed: 07/16/2018 Status: F Source: [place] CULTURE, URINE 12:19 PM [facility] REPOSITORY Urine Culture ORGANISM 1: Presumptive E. coli [place] Count >100,000 Presumptive E. coli: REACTION Amoxacillin/Clavulanic Acid $ 4 S Ampicillin $ >=32 R Ampicillin/Sulbactam $ 16 I Cefazolin $ <=4 S Cefepime $ <=1 S Ceftriaxone $ <=1 S Ciprofloxacin $ <=0.25 S ESBL - Ertapenim $$$ <=0.5 S Gentamicin $ >=16 R Imipenem *NF <=0.25 S Levofloxacin $ <=0.12 S Nitrofurantoin $ <=16 S Piperacillin/Tazobactam $$ <=4 S Tobramycin $ 2 S Trimethoprim/Sulfametho $ >=320 R (NF) indicates non-formulary drug at [facility]. Approval by Infectious Disease Specialist required before non-formulary drugs may be ordered and/or dispensed. Performed By: #### M100.0650 #### [facility] [place], [address] PROGRESS Observed: 07/07/2018 Status: COMPLETED Source: [place] 11:10 AM [facility] REPOSITORY HNO ID: [id number] Author: Matt Shine Service: (none) Author Type: Physician Type: Progress Notes Filed: 07/07/2018 2:56 PM Note Text: PSYCHIATRIC PROGRESS NOTE CC: Here with [place] HPI: Things are about the same Stopped PT after 3 sessions because of FM flare Daughter is having her third back surgery stated that marriage is OK, not great. He thinks she is more debilitated Perseveres through things therefore stays in the marriage Encouraged her to focus on healthy behavior not sxs Somatic for years per Meds, OARRS reviewed Risks and benefits of the medication, including any black box warnings, were discussed with the patient. No past medical history on file. No past surgical history on file. ROS: VITAL SIGNS: 07/07/18 1104 BP: 140/72 BP Site: Left Arm BP Position: Sitting BP Cuff Size: Large Adult Pulse: 69 Resp: 16 SpO2: 97% Weight: 82.1 kg (181 lb) Height: 160 cm (5' 3) Interval Progress: Slightly improved SINGLE ORGAN PSYCH EXAM: CONSTITUTIONAL: Well groomed MUSCULOSKELETAL: Gait: Normal PAIN: 0 PSYCHIATRIC: Speech: Clear AND distinct Language: Normal Associations: Intact Thought Process: Logical, Coherent and Rational Progression: There was no evidence of disturbance in thought perception or progression. Fund of Knowledge: Appropriate and Adequate MENTAL STATUS EXAM: ORIENTATION: Person, Place, Time and Situation MEMORY: Recent intact, Remote intact, Immediate intact CONCENTRATION: Normal MOOD: anxious AFFECT: Full and appropriate to topic SUICIDE: None HOMICIDE: None PFSH: See above DATA REVIEWED: Electronic medical record TREATMENT PLAN: See Dr Liliya Trent Marital therapy MEDICATION CHANGES: Current medication regimen unchanged. PSYCHIATRY APPOINTMENT: E/M Visit-Pharmacological Management DIAGNOSIS: 1. PRIMARY: SHANTEL GAF/CGAS:70 Follow Up: 2 months Medication/allergies reconciled, 35 minutes spent with the patient doing therapy; this time excludes time spent with E/M. SIGNATURE: Matt Shine MD PATIENT NAME: Jazmine Loco DATE: July 07, 2018 TIME: 11:10 AM PAGER/CONTACT #: PT COMMUNICATION Observed: 04/21/2018 Status: F Source: [place] 9:14 AM [facility] REPOSITORY [facility] [address] [place] [address] Fax REHABILITATION SERVICES PROGRESS NOTE MR#: [id number] Acct: [id number] Name: JAZMINE LOCO Rep #: [id number] : 1945 72 From: Augustus Springer DPT, OCS, CSCS Referring Dr.: Status: REG RCR Insurance: MEDICARE PART A B [facility] PT Communication Note 04/20/[address] MATT SHINE , Thank you for the referral of Jazmine to [facility] for balance assessment. I have enclosed a copy of the results for your review. In summation, she scored well on the Limits of Stability Test. She score low on the left adn forward excursion on the Limits of Stability Test. She score low on the visual and vestibular portions of the Sensory Organization Test. With these results in mind, I plan to see her 2x/week for 4 weeks to work on these deficits and her strength and progress to an independent home program. Please contact me if you have questions. Thank you for this referral. Sincerely, Augustus Springer DPT, OC Contact Information 04/21/18 0914 <Electronically signed by Augustus Springer DPT, OCS, CSCS> Date Augustus Springer DPT, OCS, CSCS Cosigner Signature (if applicable): Date CC: Rain Mccormick DO; OUT OF TOWN DOCTOR Signed For Medicare only, by signing this I certify the plan of care. Physicians Signature Date INITAL EVALUATION (1) Observed: 04/15/2018 Status: F Source: [place] - PT 7:22 AM [facility] REPOSITORY [facility] [address] [place], [place] [address] Fax REHABILITATION SERVICES INITIAL EVALUATION MR#: [id number] Acct: [id number] Name: JAZMINE LOCO Rep #: [id number] : 1945 72 From: Augustus Springer DPT, OCS, CSCS Referring DrNoman: Status: REG RCR Insurance: MEDICARE PART A B [facility] Patient's Visit Information JAZMINE LOCO is a 72 year old F referred to Physical Therapy by MATT SHINE with a diagnosis of imbalance. Date of Evaluation: 04/14/18 Physical Therapist: Augustus Springer DPT, OC - Visit Plan Frequency: 2x /Week Duration: 4-6 Weeks Plan: Neurocom balance test then. 2x/week for 4 weeks for balance of VOR, foam and per results progressing to I HEP. Pt to consider full body ex instruction for overall health and if she would consider correction I then we can teach her those also. - Subjective Subjective: Has Fibromyalgia. Was under control for 20 years. Got bad anxiety adn depression in 2013 [...] down can be a challenge now. Feels like she has cement shoes. Not sure if has neuropathy, had needle test in legs and did not like it but that was a long time ago. She will not get another one becasue it hurt. Soemtimes gets tremors and jerking movements. Had neurologist in [place] but not since she moved here in 2013. Sleep is OK with Xanax. Not employed, can't stand long enough. Activities include cleaning the house, lives with , others have to shop for her. No regular ex. Spends day watching TV, reading, computer. Can't do yard work because of dizzyness with bending. - Pain legs Pain Intensity (Out of 10): 0 Pain Intensity Range: 0, 7 Comment: bending - Objective [...] to to diminish fall risk. Goal Time Frame: 4-6 Weeks Goal 2:: I ambulation with 50% improved subjective balance without AD Goal Time Frame: 4-6 Weeks Goal 3:: I approp HEP to minimize future problems Goal Time Frame: 4-6 Weeks Goal 4:: Do yard work without hesitation. Goal Time Frame: 4-6 Weeks - Rehabilitation Potential Physical Therapy Diagnosis: imbalance and gait. Rehabilitation Potential: Fair - Anticipated Interventions Patient/Client Instruction: Educate patient on: Condition, Plan of Care For the Purpose of:: To improve ability of physical actions for home/community/work/leisure, To improve balance, To improve safety Therapeutic Exercise to Include: Strength training, Balance training, Gait and locomotor training For the Purpose of:: To improve ability of physical actions for home/community/work/leisure, To improve gait and locomotor functions, To improve safety with gait Thank you for the opportunity to evaluate your patient. For Medicare and Medicare HMO plans, please review the plan of care and approve it. It will need to be FAXED BACK to us at [phone] for Medicare purposes. Please let me know if there are questions or concerns regarding this plan of care. Physician Signature: Date: <Electronically signed by Augustus Springer DPT, OCS, CSCS> 04/15/18 0722 CC: Rain Mccormick DO; OUT OF TOWN DOCTOR EBG Signed For Medicare only, by signing this I certify the plan of care. Physicians Signature Date PROGRESS Observed: 04/07/2018 Status: COMPLETED Source: [place] 2:22 PM [facility] REPOSITORY O ID: [id number] Author: Matt Shine Service: (none) Author Type: Physician Type: Progress Notes Filed: 04/07/2018 3:47 PM Note Text: PSYCHIATRIC PROGRESS NOTE CC: Here with daughter an hour before appointment HPI: Says she walks like she has lead in her feet Inactive at home, feels dizzy at times Reviewed labs, Vit D level 20 (sub therapeutic) Getting weekly B 12 shots Jerky movements are less Mood is stable Meds, OARRS reviewed Risks and benefits of the medication, including any black box warnings, were discussed with the patient. No past medical history on file. No past surgical history on file. ROS: VITAL SIGNS: There were no vitals filed for this visit. Interval Progress: Improved SINGLE ORGAN PSYCH EXAM: CONSTITUTIONAL: Well groomed MUSCULOSKELETAL: Gait: Normal PAIN: 0 PSYCHIATRIC: Speech: Clear AND distinct Language: Normal Associations: Intact Thought Process: Logical, Coherent and Rational Progression: There was no evidence of disturbance in thought perception or progression. Fund of Knowledge: Appropriate and Adequate MENTAL STATUS EXAM: ORIENTATION: Person, Place, Time and Situation MEMORY: Recent intact, Remote intact, Immediate intact CONCENTRATION: Normal MOOD: euthymic AFFECT: Full and appropriate to topic SUICIDE: None HOMICIDE: None PFSH: See above DATA REVIEWED: Electronic medical record TREATMENT PLAN: PT Psychotherapy locally ? Neuro opinion Sees PCP q 3 months MEDICATION CHANGES: D/C Metoprolol to minimize dizziness Ct Neurontin, Lexapro and Xanax at hs PSYCHIATRY APPOINTMENT: E/M Visit-Pharmacological Management DIAGNOSIS: 1. PRIMARY: F33 GAF/CGAS:70 Follow Up: 3-4 months Medication/allergies reconciled SIGNATURE: Matt Shine MD PATIENT NAME: Jazmine Loco DATE: April 07, 2018 TIME: 2:23 PM PAGER/CONTACT #: PROGRESS Observed: 11/17/2017 Status: COMPLETED Source: [place] 11:00 AM [facility] REPOSITORY HNO ID: [id number] Author: Matt Shine Service: (none) Author Type: Physician Type: Progress Notes Filed: 11/17/2017 2:42 PM Note Text: PSYCHIATRIC PROGRESS NOTE CC: Here with daughter HPI: Pretty much the same Not taking statins as she has muscle pain, takes Cymbalta 4 days a week asit makes her heart race Fell Nov 06, daughter says she hasn't been taking meds regularly, is 'beyond frustrated with mother Seeing a psychologist locally every other week which is helpful Says marriage is better Meds, OARRS reviewed Risks and benefits of the medication, including any black box warnings, were discussed with the patient. No past medical history on file. No past surgical history on file. ROS: VITAL SIGNS: There were no vitals filed for this visit. Interval Progress: Slightly improved SINGLE ORGAN PSYCH EXAM: CONSTITUTIONAL: Well groomed, has make up on MUSCULOSKELETAL: Gait: mildly shuffling PAIN: 0 PSYCHIATRIC: Speech: Clear AND distinct Language: Normal Associations: Intact Thought Process: Logical, Coherent and Rational Progression: There was no evidence of disturbance in thought perception or progression. Fund of Knowledge: Appropriate and Adequate MENTAL STATUS EXAM: ORIENTATION: Person, Place, Time and Situation MEMORY: Recent intact, Remote intact, Immediate intact CONCENTRATION: Scattered MOOD: euthymic AFFECT: Full and appropriate to topic SUICIDE: None HOMICIDE: None PFSH: See above DATA REVIEWED: Electronic medical record TREATMENT PLAN: Psychotherapy MEDICATION CHANGES: Take Cymbalta 20 mg MWF Cut back noon dose of Gabapentin to 300 mg PSYCHIATRY APPOINTMENT: E/M Visit-Pharmacological Management DIAGNOSIS: 1. PRIMARY: SHANTEL GAF/CGAS:75 Follow Up: 3 months Medication/allergies reconciled SIGNATURE: Matt Shine MD PATIENT NAME: Jazmine Loco DATE: November 17, 2017 TIME: 11:00 AM PAGER/CONTACT #: ALLERGIES ALLERGIES DATE TYPE / CODE NAME / CODE REACTION SEVERITY SOURCE Drug NO KNOWN [facility] Class/89832 ALLERGIES Main [place] 1003(SNOMED Repository CT) ENCOUNTERS ENCOUNTERS ADMIT/DISCHARGE ACCOUNT ADMITTING ENCOUNTER LOCATION SOURCE NUMBER CLASS 09/22/2018 [id number] [facility] ing:LABSPEC Repository 09/17/2018 [id number] [facility] ing:LAB Repository 08/31/2018/08/31/20 [id number] Ambulatory [address] Repository 08/26/2018 [id number] [facility] ing:OPBI Repository 07/23/2018 [id number] Ambulatory Building:[facility] Practices Repository 07/16/2018 [id number] [facility] ing:LAB Repository 07/07/2018/07/11/20 [id number] Ambulatory [address] Repository 04/30/2018/04/30/[id number] ing:PT Repository 04/07/2018/04/07/20 [id number] Ambulatory [address] Repository 11/17/2017/11/19/19 [id number] Ambulatory [address] Repository PAYERS PAYERS ENCOUNTER GUARANTOR PAYER SUBSCRIBER SOURCE 09/22/2018 JAZMINE [place] Primary JAZMINE K [place] [id number] Insurance:MEDICARE BLOCHDOB: [facility] A [facility] [id number] Number: Repository [id number]: [phone] [id number] [phone] () Date:2018-09-22 09/22/2018 Secondary JAZMINE K [place] Insurance:MUTUAL OF BLOCOB: formerly [facility] Number: [id number] Hospital [id number] Repository Date:6487-92-97WEKQLT OF [place] [address]RG: 09/22/2018 Tertiary NOT GIVENUNK [place] Insurance:SELF PAY [facility] Number: Effective Repository Date:2018-09-22 09/17/2018 JAZMINE K Primary JAZMINE K [place] [id number] Insurance:MEDICARE BLOCHDOB: [facility] [id number] Number: Repository [id number]: [phone] [id number] [phone] (HP) Date:2018-09-17 09/17/2018 Secondary JAZMINE K [place] Insurance:MUTUAL OF BLOCHDOB: formerly [facility] Number: [id number] Hospital [id number] Repository Date:7808-83-76[place]MEHZ[place], [place] [address]TV: 09/17/2018 Tertiary NOT GIVENUNK [place] Insurance:SELF PAY [facility] Number: Effective Repository Date:2018-09-17 08/26/2018 Jazmine K Primary Jazmine K [place] [id number] Insurance:MEDICARE BlochDOB: [facility] [id number] Number: Repository [address]Phj: [phone] [id number] [phone] () Date:2018-08-24 08/26/2018 Secondary Jazmine K [place] Insurance:MUTUAL OF BlochDOB: formerly [facility] Number: [id number] Hospital [id number] Repository Date:4199-20-21[place]ARS[place]IP[place], [place] [address]AD: 08/26/2018 Tertiary NOT GIVENUNK [place] Insurance:SELF PAY [facility] Number: Effective Repository Date:2018-08-24 07/23/2018 Jazmine K Primary Jazmine K OHIP Practices BlochDOB: Insurance:MedicarePol BlochDOB: Repository icy Number: [id number] [id number] 2 [place], [place] Date:9848-87-80Nrlk [place], [place] [address]Ljj: 201) Name:CPO [place] [id number]: (HP) [id number], [place] [id number] () [id number]: 07/23/2018 Secondary Jazmine K OHIP Practices Insurance:[place] of BlochDOB: Repository [facility] Number: [id number] 2 [place] Date:8982-13-84Jcaq [place], [place] Name:FMutual [facility] [address]Fcz: (459) [place], [place] [phone] () [address]LM: 07/16/2018 Jazmine K Primary Jazmine K [place] [id number] Insurance:MEDICARE BlochDOB: [facility] [id number] Number: Repository [id number]: [phone] [id number] [phone] () Date:2018-07-16 07/16/2018 Secondary Jazmine K [place] Insurance:MUTUAL OF BlochDOB: formerly [facility] Number: [id number] Hospital [id number] Repository Date:6943-45-55QDZTVV [facility] [place] [address]CK: 07/16/2018 Tertiary NOT GIVENUNK [place] Insurance:SELF PAY [facility] Number: Effective Repository Date:2018-07-16 04/30/2018 Jazmine K Primary Jazmine K [place] [id number] Insurance:MEDICARE BlochDOB: [facility] [id number] Number: Repository [id number]: [phone] [id number] [phone] () Date:2012-07-16 04/30/2018 Secondary Jazmine K [place] Insurance:MUTUAL OF BlochDOB: formerly [facility] Number: [id number] Hospital [id number] Repository Date:1760-16-57TEHPHV OF [place]W [place] [address]YT: 04/30/2018 Tertiary NOT GIVENUNK [place] Insurance:SELF PAY [facility] Number: Effective Repository Date:2018-04-08
--- OUTSIDE RECORDS SUMMARY | 2018-10-12 15:22 | XMS RPT_ITS | Continuity of Care Document ---
:1945 Author Organization [facility] Address [address] [place] [address] 2 [place] [address] Phone Care Team Providers Name Role Phone Rain Mccormick DO Unavailable Obie Almanza MD Unavailable Dr. 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[place].-- but accroding to [facility] she doesnt Status: Active Need for prophylactic vaccination (Renamed from Need for immunization against influenza) (Z23, V04.81) Status: Active Need for prophylactic vaccination and inoculation against influenza (Renamed from Need for immunization against influenza) [...] 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 without 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, 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 insulin use status (E11.65, 250.02) Comments: HAIC up -- but still needs improvement-- will [...] DO, Kathleen Start : 03-Sep-2017 Active Drisdol 18983 UNIT Oral Capsule 1 (one) Capsule Capsule [...] : 21-Aug-2015 End : 28-Aug-2015 Inactive ERGOCALCIFEROL, 54218CORE (Oral Capsule) 1 (one) Capsule q weekly [...] 22-Sep-2015 End : 06-Nov-2015 Discontinued Comments:DX: E11.9NPI: [id number] DULoxetine HCl 20 MG Oral Capsule Delayed [...] manipulation of the left shoulder again @ [facility] Status: Inactive as of 26-Dec-2015 History [...] PT Communication Result: Comments: See Note; NOTES: [facility] [address] [place] [address]. [address] [place] [address] Fax REHABILITATION SERVICES PROGRES S NOTE MR#: [id number] Acct: [id number] Name: JAZMINE LOCO Rep #: [id number] : 1945 72 From: Augustus Springer DPT, OCS, CSCS Referring : Status: REG RCR Insurance: MEDICARE PART A B MUTUAL [place] PT Communication Note 04/20/[address] MATT SHINE , Thank you for the referral of Jazmine to [facility] for balance assessment. I have enclosed [...] Sincerely, Augustus Springer DPT, LEAH Contact Information 04/21/18913 <Electronically signed by Augustus Springer DPT, GERARDO, CSCS> Date Augustus Springer DPT, GERARDO, CSCS Cosigner Signature (if applicable): Date CC: Rain Mccormick DO; OUT OF TOWN DOCTOR Signed For Medicare only, by signing this I certify the plan of care. Physicians Signature Date 15-Apr-2018 Inital Evaluation (1) - PT Result: Comments: See Note; NOTES: [facility]. [address] [place] [address] Fax REHABILITATION SERVICES INITIAL EVALUATION MR#: [id number] Acct: [id number] Name: JAZMINE LOCO Rep #: [id number] : 1945 72 From: Augustus Springer DPT, GERARDO, CSCS Referring : Status: REG RCR Insurance: MEDICARE PART A B MUT [place] OF [place] Patient's Visit Information JAZMINE LOCO is a [...] overall health and if she would consider custodial I then we can teach her those [...] and j erking movements. Had neurologist in [place] but not since she moved here in [...] to be FAXED BACK to us at [phone] for Medicare purposes. Please let me know if there are questions or concerns regarding this plan of care. Physician Signature: Date: <Electronically signed by Augustus Springer DPT, OCS, CSCS> 04/15/18 0722 CC: Rain Mccormick DO; OUT OF TOWN DOCTOR EBNeeraj S igned For Medicare only, by signing this I certify the plan of care. Physicians Signature Date 17-Apr-2017 SCREENING MAMM (CAD), BILAT Result: Comments: See Note; NOTES: [facility] Imaging Services [address] [place] [address] SCREENING MAMM (CAD), BILAT MR#: [id number] Acct: [id number] Name: JAZMINE LOCO Rep #: [id number] : 1945 F 71 From: Junaid [place] MD PCP: Rain Mccormick DO Status: REG CLI Study: SCREENING MAMM (CAD), BILAT Date of Exam: 04/17/17 Exam# [id number] Ordering Dr: Rain Mccormick DO MAMMOGRAPHY - [...] delay biopsy of a clinically suspicious abnormality. SC1205 Electronically Signed: Junaid Casillas MD at 15:15 EDT Tel [phone], Service support , CC: Rain Mccormick DO Wedding Planner: Signed 30-Jan-2017 Liver Result: Comments: See Note; NOTES: [facility] Imaging Services [address] [place] [address] Verdana 4d Liver MR#: [id number] Acct: [id number] Name: JAZMINE LOCO Rep #: [id number] DO B: 1945 F 71 From: Junaid [place] MD PCP: Rain Mccormick DO Status: REG CLI Study: Liver Date of Exam: 01/30/17 Exam# [id number] Ordering Dr: Rain Mccormick DO STUDY: ABDOMINAL [...] Junaid Casillas MD at 15:05 EDT Tel [phone], Service support , CC: Rain Mccormick DO Wedding Planner: Signed 11-Apr-2016 Dexa Bone Density Study (HP) Result: Comments: See Note; NOTES: [facility] Imaging Services [address] [place] [address] Verdana 4d Dexa Bone Density Study (HP) MR#: [id number] Acct: [id number] Name : MARCEJAZMINE Mark Anthony Rep #: [id number] : 1945 F 70 From: Junaid [place] MD PCP: Rain Mccormick DO Status: [facility] Study: Dexa Bone Density Study (HP) Date of Exam: 04/11/16 Exam# [id number] Ordering Dr: Rain Mccormick DO STUDY: DUAL [...] Osteoporosis and Related Bone Diseases http://www.osteo.org 2. Emr Implementation Specialist [facility] Society for Clinical Densitometry http://www.iscd.org 3. National Osteoporosis Foundation http://www.nof.org Electronically Signed: Junaid Casillas MD at 11:29 EDT Tel [phone], Service support [phone], CC: Rain Mccormick DO Wedding Planner: Signed 29-Jan-2016 Bilat Scrn Digital AND CAD Result: Comments: See Note; NOTES: [facility] Imaging Services [address] [place] [address] [place] [address] Verdana 4d Bilat Scrn Digital AND CAD MR#: [id number] Acct: [id number] Name: JAZMINE LOCO Rep #: [id number] : 1945 F 70 From: Junaid [place] MD PCP: Anyi Hawthorne MD Status: REG CLI Study: Bilat Scrn Digital AND CAD Date of Exam: 01/29/16 Exam# [id number] [facility] Dr: Anyi Hawthorne MD MAMMOGRAPHY - BILATERAL [...] delay biopsy of a clinically suspicious abnormality. [id number] Electronically Signed: Junaid [place] MD at 12:42 EDT Tel [phone], Service support [phone], CC: Anyi Hawthorne MD Wedding Planner: Signed 03-Oct-2015 12 Lead Electrocardiogram Result: Comments: See Note; NOTES: [facility] Cardiovascular Services [address] [place] [address] 12 Lead EKG 10/02/15 1623 MR#: [id number] Acct: [id number] Name: JAZMINE DUKES Rep #: [id number] : 1945 70 From: Rodolfo Roberto MD Attending Dr: Martín De León DO Status: REG CLI Ordering Dr: Martín De León DO Date: 10/02/15 Location: [facility] Sex: F C Admitted: Test Reason : PRE OP Blood Pressure : / mmHG Vent. Rate : 056 BPM Atrial Rate : 056 BPM P-R Int : 142 ms QRS Dur : 086 ms QT Int : 452 ms P-R-T Axes : 026 027 036 degrees QTc Int : 436 ms Sinus bradycardia Otherwise normal ECG Confirmed by RODOLFO ROBERTO MD ([id number]), design editor MAIRA KEMP ([id number]) on 10/03/2015 8:43:11 AM Referred By: TAN Confirmed By:RODOLFO ROBERTO MD 10/03/15 084 3 Date Rodolfo Roberto MD CC: Anyi Hawthorne MD Date Dictated: 10/02/151622 Date Transcribed: 10/02/15 162 Wedding Planner: Signed Family History Unknown Family Member Name [...] smoker Vital Signs Date Test Result Details :44 Temperature 98.4 f Comments: Method: Temporal Pulse [...] kg/m2 Body Surface Area Calculated 1.84 m2 08-Rvv-791037:42 Comments: hearing wnlDr. Harry and had a [...] kg/m2 Body Surface Area Calculated 1.85 m2 :05 Pulse 67 /min Comments: Pattern: Regular Respiration [...] kg/m2 Body Surface Area Calculated 1.8 m2 75-Drx-956500:25 Temperature 97.6 f Comments: Method: Temporal Pulse [...] 1.83 m2 Results Date Description Value Details :19 Culture, Urine Comments: [facility] [address] [place], [place], [address] CUUR See Note (Normal) Comments: Urine CultureORGANISM 1: Presumptive E. coliColony Count >100,000 Presumptive E. coli: REACTION Amoxacillin/Clavulanic Acid $ 4 S Am picillin $ >=32 R Ampicillin/Sulbactam $ 16 I Cefazolin $ <=4 S Cefepime $ <=1 S Ceftriaxone $ <=1 S Ciprofloxacin $ <=0.25 S ESBL - Ertapenim $$$ <=0.5 S Gentamicin $ >=16 R Imipenem *NF <=0.25 S Levofloxacin $ <=0.12 S Nitrofura ntoin $ <=16 S Piperacillin/Tazobactam $$ <=4 S Tobramycin $ 2 S Trimethoprim/Sulfametho $ >=320 R(NF) indicates non-formulary drug at [facility]. Approval by Infectious Disease Specialist required before non-formulary drugs may be ordered and/or dispensed. 69-Rpp-878121:12 CCP ANTIBODY (89511) Comments: PATIENT NOT FASTINGPERFORMED BY: [address] [id number] CCP Antibodies IgG/IgA 25 {units} (Abnormal) Range: 0-19 Comments: Negative <20 Weak positive 20 - 39 Moderate positive 40 - 59 Strong positive >59 7-Mos-298100:11 Microscopic Examination Comments: PATIENT WAS FASTINGPERFORMED BY: [address] [id number] BY: Buddha SoftwareJohn [place] 3168670 [facility] [id number] Bacteria Many (Abnormal) Mucus Threads Present (Normal) Cast Type Hyaline casts (Normal) Casts Present {/lpf} (Abnormal) Epithelial Cells (non renal) 0-10 {/hpf} (Normal) Range: 0 - 10 RBC 0-2 {/hpf} (Normal) Range: 0 - 2 WBC >30 {/hpf} (Abnormal) Range: 0 - 5 Comments: Clumps of leukocytes present. 6-Vtd-452150:11 RHEUMATOID FACTOR-QUANT Comments: PATIENT WAS FASTINGPERFORMED BY: [address] [id number] BY: Buddha SoftwareJohn [place] 3168670 [facility] [id number] (86890) RA Latex Turbid. 23.9 {IU/mL} (Abnormal) Range: 0.0-13.9 1-Ivw-851167:11 Vitamin B-12 (cyanocobalamin) Comments: PATIENT WAS FASTINGPERFORMED BY: [address] [id number] BY: [place] 3975070 [facility] [id number] (40030) Vitamin B12 553 pg/mL (Normal) Range: 232-1245 8-Diu-806610:11 LIPOPROTEIN, BLD, BY NMR Comments: PATIENT WAS FASTINGPERFORMED BY: [address] [id number] BY: [facility]6370 [facility] [facility] Hospitalin [place] [id number] (17924) LP-IR Score 74 (Abnormal) Comments: INSULIN RESISTANCE MARKER <--Insulin Sensitive Insulin Resistant--> Percentile in Reference PopulationInsulin Resistance ScoreLP-IR Score Low 25th 50th 75th High <27 27 45 63 >63LP-IR Score is inaccurate if patient is non-fasting. .The LP-IR score is a laboratory developed i [facility] that has beenassociated with insulin resistance and [...] were developed and their performance characteristicsdetermined by [employer]Crowd[employer]lik. These assays have not been cleared by [...] 1600 - 2000 Very High > 2000 9-Zex-083911:11 CBC WITH MANUAL DIFF Comments: PATIENT WAS FASTINGPERFORMED BY: BN [facility] Jzltnqrhid9672 [facility] [id number] BY: CB [facility] Kgkpwp4700 [facility] [id number] (28425) Immature Grans (Abs) 0.0 {x10E3/uL} (Normal) Range: [...] 3.77-5.28 WBC 6.9 {x10E3/uL} (Normal) Range: 3.4-10.8 2-Zxp-851564:11 MICROALBUMIN: CREATININE Comments: PATIENT WAS FASTINGPERFORMED BY: [employer] [id number] BY: Asclepius FarmsAcoma-Canoncito-Laguna Service UnitZamrry0633 [facility] [id number] RATIO (81648) AND (50764) Alb/Creat Ratio 20.8 {mg/g_creat} (Normal) Range: 0.0-30.0 Comments: Normal: 0.0 - 30.0 Albuminuria: 31.0 - 300.0 Clinical albuminuria: >300.0 Albumin, Urine 26.0 ug/mL (Normal) Creatinine, Urine 125.2 mg/dL (Normal) :11 URINALYSIS (71172) Comments: PATIENT WAS FASTINGPERFORMED BY: [employer] [id number] BY: Jirafelin6370 [facility] [id number] Microscopic Examination See below: (Normal) Comments: Microscopic was indicated and was performed. Nitrite, Urine Positive (Abnormal) Urobilinogen,Semi-Qn 0.2 mg/dL (Normal) Range: 0.2-1.0 Bilirubin Negative (Normal) Occult Blood Trace (Abnormal) Ketones Negative (Normal) Glucose 1+ (Abnormal) Protein Negative (Normal) WBC Esterase 3+ (Abnormal) Appearance Cloudy (Abnormal) Urine-Color Yellow (Normal) pH 5.5 (Normal) Range: 5.0-7.5 Specific Fisher 1.020 (Normal) Range: 1.005-1.030 7-Kwc-284920:11 HGB A1C (55325) Comments: PATIENT WAS FASTINGPERFORMED BY: [employer] [id number] BY: [facility]Xpqedy5695 [facility] [id number] Hemoglobin A1c 7.3 % (Abnormal) Range: 4.8-5.6 Comments: . Prediabetes: 5.7 - 6.4 Diabetes: >6.4 Glycemic control for adults with diabetes: <7.0 7-Din-201977:11 Metabolic Panel, Comments: PATIENT WAS FASTINGPERFORMED BY: LabErin [place] 809247 [facility] [id number] BY: [facility])Fhcqzo1739 [facility] [id number] Comprehensive (76395) ALT (SGPT) 47 [iU]/L (Abnormal) Range: 0-32 [...] 8-27 Glucose 206 mg/dL (Abnormal) Range: 65-99 60-Fqt-531460:27 VITAMIN B-12 (CYANOCOBALAMIN) Comments: PATIENT NOT FASTINGPERFORMED BY: [facility])Niuepr5187 [facility] [id number] (70073) Vitamin B12 368 pg/mL (Normal) Range: 232-1245 99-Zug-827862:02 HgA1C , Office (36516) HgA1C , Office 6.8 % (Normal) Range: 4.6 - 7.1 81-Odc-013992:02 Blood Glucose , Office (15029) Blood Glucose , Office 225 (Normal) 5-Tzn-675266:09 METABOLIC PANEL, Comments: PATIENT WAS FASTINGPERFORMED BY: LabCoJohn [place] 342847 [facility] [id number] BY: [facility])Jzgghh5621 [facility] [id number] [facility] (33658) ALT (SGPT) 51 [iU]/L (Abnormal) Range: 0-32 [...] 8-27 Glucose 141 mg/dL (Abnormal) Range: 65-99 4-Lej-738088:09 CBC W/AUTO DIFF WBC Comments: PATIENT WAS FASTINGPERFORMED BY: [place]Co[place] 342847 [facility] [id number] BY: [facility]Ouaecl0403 [facility] [id number] (84028) Immature Grans (Abs) 0.0 {x10E3/uL} (Normal) Range: [...] 3.77-5.28 WBC 7.4 {x10E3/uL} (Normal) Range: 3.4-10.8 9-Eti-693972:09 CALCIFIDIOL (95075) VIT D Comments: PATIENT WAS FASTINGPERFORMED BY: [facility] [id number] BY: [facility])Nhykjd2632 [facility] [id number] 25 Vitamin D, 25-Hydroxy 20.1 ng/mL (Abnormal) Range: 30.0-100.0 Comments: Vitamin D deficiency has been defined by the [place] ofMedicine and an Endocrine Society practice guideline as alevel of serum 25-OH vitamin D less than 20 ng/mL (1,2).The Endocrine Society went on to further define vitamin Dinsufficiency as a level between 21 and 29 ng/mL (2).1. IOM ([place] of Medicine). 2010. Dietary reference intakes for calcium and D. [place]: The National Academies Press.2. Nola MF, Young BROOKS, Chrissie AVILA, et al. Evaluation, treatment, and prevention of vitamin D deficiency: an Endocrine Society clinical practice guideline. JCEM. 2010; 96(7):1911-30. 5-Phe-606942:09 LIPOPROTEIN, ZAHIDAD, BY NMR Comments: PATIENT WAS FASTINGPERFORMED BY: BN [facility] Crwuzotrmu6293 [facility] [id number] BY: CB [facility] Tjzndh5034 [facility] [id number] (90831) LP-IR Score 72 (Abnormal) Comments: INSULIN RESISTANCE MARKER <--Insulin Sensitive Insulin Resistant--> Percentile in Reference PopulationInsulin Resistance ScoreLP-IR Score Low 25th 50th 75th High <27 27 45 63 >63LP-IR Score is inaccurate if patient is non-fasting. .The LP-IR score is a laboratory developed i [facility] that has beenassociated with insulin resistance and [...] were developed and their performance characteristicsdetermined by [employer]. These assays have not been cleared by [...] High > 2000 :15 HgA1C , Office (90852) HgA1C , Office 6.7 % (Normal) Range: 4.6 - 7.1 :15 Blood Glucose , Office (79255) Blood Glucose , Office 180 (Normal) :46 HgA1C , Office (94468) HgA1C , Office 7.0 % (Normal) Range: 4.6 - 7.1 :46 Blood Glucose , Office (47141) Blood Glucose , Office 169 (Normal) :48 CBC W/Diff, Automated Comments: [facility] [address] [place], [place], [address] Absolute Lymph 2.34 {X10_3/ul} (Normal) Range: 0.83-4.51 [...] report for address and phone number ANTI-CCP 074519 18 {units} (Normal) Range: 0-19 Comments: Negative <20 Weak positive 20 - 39 Moderate positive 40 - 59 Strong positive >59Performed at: [facility] Lab[address] [id number] Director: Waqar Matamoros MD, Phone: [phone] 94-Zgu-975678:48 Comprehensive Metabolic Profil Comments: [facility] [address] [place], [address] GAP 7 (Normal) Range: 5-15 CO2 27.0 [...] 126 mg/dLsuggests DIABETES MELLITUS per A.D.A. criteria. 28-Tep-062220:48 CRP Comments: [facility] [address] [place], [place], [address] C-REACTIVE PROT < 2.90 mg/L (Normal) Range: 0.0-3.0 Comments: C-Reactive Protein (CRP) provides useful information for thediagnosis, therapy and monitoring of inflammatory processesand associated diseases. For the evaluation of Relative Riskfor Cardiovascular Dise ase, a High Sensitivity CRP (HSCRP)should be ordered. :48 Erythrocyte Sed Rate Comments: [facility] [address] [place], [address] SED RATE 8 mm/h (Normal) Range: 0-30 :48 Rheumatoid Factor Comments: [facility] [address] [place], [address] RHEUMATOID FAC 19.0 {IU/mL} (Abnormal) :48 Sjogren's Antibodies A/B Comments: [facility] (refer to report for specific site)refer to report for address and phone number Anti-SS-B < 0.2 {AI} (Normal) Range: 0.0-0.9 Comments: Performed at: [address] [id number] Director: Jeffrey Hancock PhD, Phone: [phone] Anti-SS-A < 0.2 {AI} (Normal) Range: 0.0-0.9 :11 TSH (63151) Comments: PATIENT WAS FASTINGPERFORMED BY: [address] [id number] TSH 1.920 {uIU/mL} (Normal) Range: 0.450-4.500 79-Fsr-676988:11 METABOLIC PANEL, COMPREHENSIVE Comments: PATIENT WAS FASTINGPERFORMED BY: [address] [id number] (59110) ALT (SGPT) 33 [iU]/L (Abnormal) Range: 0-32 [...] Glucose, Serum 160 mg/dL (Abnormal) Range: 65-99 76-Ogm-098605:11 CBC W/AUTO DIFF WBC (92372) Comments: PATIENT WAS FASTINGPERFORMED BY: [facility] Roozse1998 [facility] [id number] Immature Grans (Abs) 0.0 {x10E3/uL} (Normal) Range: [...] 3.77-5.28 WBC 5.6 {x10E3/uL} (Normal) Range: 3.4-10.8 96-Xyc-803738:11 CALCIFIDIOL (47089) VIT D 25 Comments: PATIENT WAS FASTINGPERFORMED BY: [employer] Lowlmy3371 [facility] [id number] Vitamin D, 25-Hydroxy 30.7 ng/mL (Normal) Range: 30.0-100.0 Comments: Vitamin D deficiency has been defined by the [place] ofSelect [facility]cine and an Endocrine Society practice guideline as alevel of serum 25-OH vitamin D less than 20 ng/mL (1,2).The Endocrine Society went on to further define vitamin Dinsufficiency as a level between 21 and 29 ng/mL (2).1. IOM ([place] of Medicine). 2010. Dietary reference intakes for calcium and D. [place]: The National Academies Press.2. Nola MF, Young BROOKS, Chrissie AVILA, et al. Evaluation, treatment, and prevention of vitamin D deficiency: an Endocrine Society clinical practice guideline. JCEM. 2010; 96(7):1911-30. 22-Svp-160854:11 LIPID PANEL (20721) Comments: PATIENT WAS FASTINGPERFORMED BY: [employer] Szjmra1716 [facility] [id number] LDL/HDL Ratio 2.5 {ratio_units} (Normal) Range: 0.0-3.2 Comments: LDL/HDL Ratio Men Women 1/2 Avg.Risk 1.0 1.5 Av g.Risk 3.6 3.2 2X Avg.Risk 6.2 5.0 3X Avg.Risk 8.0 6.1 LDL Cholesterol Calc 108 mg/dL (Abnormal) Range: 0-99 VLDL Cholesterol James 44 mg/dL (Abnormal) Range: 5-40 HDL Cholesterol 43 mg/dL (Normal) Triglycerides 220 mg/dL (Abnormal) Range: 0-149 Cholesterol, Total 195 mg/dL (Normal) Range: 100-199 49-Pfw-365130:02 HgA1C , Office (90296) HgA1C , Office 6.2 % (Normal) Range: 4.6 - 7.1 59-Cuk-441610:02 Blood Glucose , Office (66902) Blood Glucose , Office 203 (Normal) AFP, Serum, Tumor Marker 2.3 ng/mL (Normal) Comments: PATIENT NOT FASTINGPERFORMED BY: [employer]70 [facility] TechnologiesAmerican [facility] Systems [id number] 6:06 Range: 0.0-8.3 Comments: Delonte ECLIA methodology Written Authorization WAR (Normal) Comments: PATIENT NOT FASTINGPERFORMED BY: Burst[employer]it6370 [facility]American [facility] Systems [id number] 6:06 Comments: Written Authorization Received.Authorization received from JESIKA HUBER LPN [id number] by Mala Apple 51-Ufq-086317:06 HEPATIC FUNCTION PANEL Comments: PATIENT NOT FASTINGPERFORMED BY: BufferBoxAmerican Healthcare Systems [id number] (93670) ALT (SGPT) 100 [iU]/L (Abnormal) Range: 0-32 AST (SGOT) 64 [iU]/L (Abnormal) Range: 0-40 Alkaline Phosphatase, S 67 [iU]/L (Normal) Range: 39-117 Bilirubin, Direct 0.14 mg/dL (Normal) Range: 0.00-0.40 Bilirubin, Total 0.5 mg/dL (Normal) Range: 0.0-1.2 Albumin, Serum 4.3 g/dL (Normal) Range: 3.6-4.8 Protein, Total, Serum 6.8 g/dL (Normal) Range: 6.0-8.5 78-Bee-024090:06 HEPATITIS PANEL (54558) Comments: PATIENT NOT FASTINGPERFORMED BY: Bur[employer].it6370 [facility] [id number] Hep C Virus Ab <0.1 {s/co_ratio} (Normal) Range: 0.0-0.9 Comments: Negative: < 0.8 Indeterminate: 0.8 - 0.9 Positive: > 0.9 . The CDC recommends that a positive HCV antibody result be followed up with a HCV Nucleic Acid Amplification test (161455). Hep B Core Ab, IgM Negative (Normal) HBsAg Screen Negative (Normal) Hep A Ab, IgM Negative (Normal) 16-Gza-510825:06 TRANSFERRIN (78588) Comments: PATIENT NOT FASTINGPERFORMED BY: [employer] [id number] Transferrin 316 mg/dL (Normal) Range: 200-370 98-Jwp-907430:06 ANTIMITOCHONDRIAL ANTIBODY Comments: PATIENT NOT FASTINGPERFORMED BY: [address] [id number] (19625) Mitochondrial (M2) Antibody <20.0 {Units} (Normal) Range: 0.0-20.0 Comments: Negative 0.0 - 20.0 Equivocal 20.1 - 24.9 Positive >24.9 . Mitochondrial (M2) Antibodies are found in 90-96% of patients with primary biliary cirrhosis. 34-Dko-789456:06 GGT (GAMMA GLUTAMYLTRANSFERASE) Comments: PATIENT NOT FASTINGPERFORMED BY: [employer] [id number] (68944) GGT 14 [iU]/L (Normal) Range: 0-60 63-Odp-223429:06 FERRITIN (98497) Comments: PATIENT NOT FASTINGPERFORMED BY: [employer] [id number] Ferritin, Serum 110 ng/mL (Normal) Range: 15-150 18-Tne-036172:06 CMV IGM ANTBDY (17959) Comments: PATIENT NOT FASTINGPERFORMED BY: [address] [id number] Cytomegalovirus (CMV) Ab, IgM 40.9 AU/mL (Abnormal) Range: 0.0-29.9 Comments: Negative <30.0 Equivocal 30.0 - 34.9 Positive >34.9 A positive result is generally indicative of acute infection, reactivation or persistent IgM production. 30-Tkm-926921:06 CERULOPLASMIN (41665) Comments: PATIENT NOT FASTINGPERFORMED BY: SHAHLA Buddha SoftwareDalton CostaVeaprp8248 ValentinMaritime BroadbandAmerican Healthcare Systems [id number] Ceruloplasmin 28.9 mg/dL (Normal) Range: 19.0-39.0 77-Tvk-412505:06 ASM (ANTI SMOOTH MUSCLE Comments: PATIENT NOT FASTINGPERFORMED BY: SHAHLA [employer] Xsnyxt5957 [facility] [id number] ANTIBODY) (01417) Actin (Smooth Muscle) Antibody 12 {Units} (Normal) Range: 0-19 Comments: Negative 0 - 19 Weak positive 20 - 30 Moderate to strong positive >30 . Actin Antibodies are found in 52-85% of patients with autoimmune hepatitis or chronic active hepatitis and in 22% of patients with primary biliary cirrhosis. 91-Zjd-202972:06 ANTI-LIVER/KIDNEY MICROSOMAL Comments: PATIENT NOT FASTINGPERFORMED BY: [employer] Cwmbdj9876 [facility] [id number] ANTIBODY (01626) Thyroid Peroxidase (TPO) Ab 27 {IU/mL} (Normal) Range: 0-34 14-Bav-110916:06 CAROLYN (ANTINUCLEAR ANTIBODY) Comments: PATIENT NOT FASTINGPERFORMED BY: SHAHLA [employer] Xqigbl6757 [facility] [id number] (30001) CAROLYN Direct Negative (Normal) 9-Nbp-420113:06 CALCIFEDIOL (49790) Comments: PATIENT WAS FASTINGPERFORMED BY: [employer] Ncioti7525 [facility] [id number] Vitamin D, 25-Hydroxy 36.6 ng/mL (Normal) Range: 30.0-100.0 Comments: Vitamin D deficiency has been defined by the [place] of[place]icine and an Endocrine Society practice guideline as alevel of serum 25-OH vitamin D less than 20 ng/mL (1,2).The Endocrine Society went on to further define vitamin Dinsufficiency as a level between 21 and 29 ng/mL (2).1. IOM ([place] of [employer]). 2010. Dietary reference intakes for calcium and D. [place]: The National Academies Press.2. Nola MF, Young BROOKS, Chrissie AVILA, et al. Evaluation, treatment, and prevention of vitamin D deficiency: an Endocrine Society clinical practice guideline. JCEM. 2010; 96(7):1911-30. 5-Gxu-040916:06 TSH (68349) Comments: PATIENT WAS FASTINGPERFORMED BY: [facility] Chznwi8885 Valentin [facility] [place] [id number] TSH 2.160 {uIU/mL} (Normal) Range: 0.450-4.500 9-Gsb-790821:06 Lipid Panel (32659) Comments: PATIENT WAS FASTINGPERFORMED BY: [facility] Ilgcpz6104 [facility] [id number] LDL/HDL Ratio 2.5 {ratio_units} (Normal) Range: 0.0-3.2 Comments: LDL/HDL Ratio Men Women 1/2 Avg.Risk 1.0 1.5 Av g.Risk 3.6 3.2 2X Avg.Risk 6.2 5.0 3X Avg.Risk 8.0 6.1 LDL Cholesterol Calc 119 mg/dL (Abnormal) Range: 0-99 VLDL Cholesterol James 50 mg/dL (Abnormal) Range: 5-40 HDL Cholesterol 47 mg/dL (Normal) Triglycerides 252 mg/dL (Abnormal) Range: 0-149 Cholesterol, Total 216 mg/dL (Abnormal) Range: 100-199 0-Sjg-773969:06 CBC (Auto) (15839) Comments: PATIENT WAS FASTINGPERFORMED BY: [facility] Rokxpw5864 [facility] [id number] Platelets 246 {x10E3/uL} (Normal) Range: 150-379 RDW 13.6 % (Normal) Range: 12.3-15.4 MCHC 32.9 g/dL (Normal) Range: 31.5-35.7 MCH 28.7 pg (Normal) Range: 26.6-33.0 MCV 87 fL (Normal) Range: 79-97 Hematocrit 45.6 % (Normal) Range: 34.0-46.6 Hemoglobin 15.0 g/dL (Normal) Range: 11.1-15.9 RBC 5.23 {x10E6/uL} (Normal) Range: 3.77-5.28 WBC 6.4 {x10E3/uL} (Normal) Range: 3.4-10.8 7-Mzl-470003:06 Metabolic Panel, Comprehensive Comments: PATIENT WAS FASTINGPERFORMED BY: [employer] Cyuqti9068 [facility] [id number] (59537) ALT (SGPT) 74 [iU]/L (Abnormal) Range: 0-32 [...] Glucose, Serum 174 mg/dL (Abnormal) Range: 65-99 8-Uqw-993278:06 HGB A1C (33266) Comments: PATIENT WAS FASTINGPERFORMED BY: [employer] Riirju4240 [facility] [id number] Hemoglobin A1c 7.5 % (Abnormal) Range: 4.8-5.6 Comments: . Pre-diabetes: 5.7 - 6.4 Diabetes: >6.4 Glycemic control for adults with diabetes: <7.0 :29 Fecal Occult Blood , Office (78080) Fecal Occult Blood , Office (Inhouse) negative (Normal) :37 Microscopic Examination Comments: PATIENT NOT FASTINGPERFORMED BY: [facility] FarmsAcoma-Canoncito-Laguna Service UnitMjkcqe1628 [facility] [id number] Bacteria Moderate (Abnormal) Mucus Threads Present (Normal) Epithelial Cells (non renal) 0-10 {/hpf} (Normal) Range: 0 - 10 RBC 3-10 {/hpf} (Abnormal) Range: 0 - 2 WBC >30 {/hpf} (Abnormal) Range: 0 - 5 :37 TSH (22430) Comments: PATIENT NOT FASTINGPERFORMED BY: [employer] Dqmfpd8321 [facility] [id number] TSH 2.250 {uIU/mL} (Normal) Range: 0.450-4.500 :37 URINALYSIS, W/ MICRO (58955) Comments: PATIENT NOT FASTINGPERFORMED BY: [employer] Znodyg2425 [facility] [id number] Microscopic Examination See below: (Normal) Comments: Microscopic was indicated and was performed. Nitrite, Urine Positive (Abnormal) Urobilinogen,Semi-Qn 0.2 mg/dL (Normal) Range: 0.2-1.0 Bilirubin Negative (Normal) Occult Blood Negative (Normal) Ketones Negative (Normal) Glucose Negative (Normal) Protein Negative (Normal) WBC Esterase 3+ (Abnormal) Appearance Clear (Normal) Urine-Color Yellow (Normal) pH 5.5 (Normal) Range: 5.0-7.5 Specific Fisher 1.015 (Normal) Range: 1.005-1.030 :37 MICROALBUMIN: CREATININE RATIO Comments: PATIENT NOT FASTINGPERFORMED BY: [facility] SoftwareSt. [facility] Yhcape3352 [facility] [id number] (88743) AND (82669) Microalb/Creat Ratio 18.5 {mg/g_creat} (Normal) Range: 0.0-30.0 Microalbumin, Urine 18.3 ug/mL (Normal) Creatinine, Urine 99.0 mg/dL (Normal) :37 METABOLIC PANEL, COMPREHENSIVE Comments: PATIENT NOT FASTINGPERFORMED BY: SHAHLA [employer] Vzixld5023 [facility] [id number] (93641) ALT (SGPT) 26 [iU]/L (Normal) Range: 0-32 [...] Glucose, Serum 145 mg/dL (Abnormal) Range: 65-99 37-Plf-230798:37 LIPID PANEL (56490) Comments: PATIENT NOT FASTINGPERFORMED BY: [facility]msAcoma-Canonc[facility]-Laguna Service UnitLwenjf2359 [facility] [id number] LDL/HDL Ratio 2.9 {ratio_units} (Normal) Range: 0.0-3.2 [...] Cholesterol, Total 204 mg/dL (Abnormal) Range: 100-199 39-Djy-962630:37 CBC W/AUTO DIFF WBC Comments: PATIENT NOT FASTINGPERFORMED BY: [facility]Ahldlo1291 [facility] [id number] Information: [id number], [id number] (98426) Immature Grans (Abs) 0.0 {x10E3/uL} (Normal) Range: [...] 5.9 {x10E3/uL} (Normal) Range: 3.4-10.8 :37 CALCIFIDIOL (52843) VIT D 25 Comments: PATIENT NOT FASTINGPERFORMED BY: [facility] Wqqheh2799 [facility] [id number] Vitamin D, 25-Hydroxy 26.8 ng/mL (Abnormal) Range: 30.0-100.0 Comments: Vitamin D deficiency has been defined by the [place] of[place]icine and an Endocrine Society practice guideline as alevel of serum 25-OH vitamin D less than 20 ng/mL (1,2).The Endocrine Society went on to further define vitamin Dinsufficiency as a level between 21 and 29 ng/mL (2).1. IOM ([place]). 2010. Dietary reference intakes for calcium and D. [place]: The National Academies Press.2. Nola MF, Young [place], Chrissie AVILA, et al. Evaluation, treatment, and prevention of vitamin D deficiency: an Endocrine Society clinical practice guideline. JCEM. 2010; 96(7):1911-30. :17 HgA1C , Office (06469) HgA1C , Office 6.3 % (Normal) Range: 4.6 - 7.1 :13 METABOLIC PANEL, Comments: PATIENT WAS FASTINGPERFORMED BY: [facility]Ggpfnz2316 [facility] [id number] Information: [id number]; [address] COMPREHENSIVE (44232) ALT (SGPT) 33 [iU]/L (Abnormal) Range: 0-32 [...] Glucose, Serum 139 mg/dL (Abnormal) Range: 65-99 18-Hqh-160096:13 LIPID PANEL (18148) Comments: PATIENT WAS FASTINGPERFORMED BY: [facility]Snfhbu2392 [facility] [id number] LDL/HDL Ratio 3.4 {ratio_units} (Abnormal) Range: 0.0-3.2 [...] Cholesterol, Total 225 mg/dL (Abnormal) Range: 100-199 3-Nyt-086877:58 HgA1C , Office (10360) HgA1C , Office 8.1 % (Abnormal) Range: 4.6 - 7.1 1-Cci-130594:00 CBC W/Diff, Automated Comments: [facility] [address] [place], [place], [id number] Absolute Lymph 1.98 {X10_3/ul} (Normal) Range: 0.83-4.51 [...] 4.2-5.4 WBC 4.7 K/mm3 (Normal) Range: 4.4-11.0 5-Pqf-272037:00 Comprehensive Metabolic Profil Comments: [facility] [address] [place], [place], [id number] GAP 9 (Normal) Range: 5-15 CO2 24.0 [...] 200 mg/dLsuggests DIABETES MELLITUS per A.D.A. criteria. 5-Lef-771045:00 Vitamin D,25 Hydroxy Comments: [facility] Xwrtiwcfht9295 [place], [place], [address] Vitamin D 25-OH 37.7 ng/mL (Normal) Comments: Vitamin D 25(OH) Status Range Deficiency <20 ng/mL (50nmol/L) Insuffciency 20 - 30 ng/mL (50 - 75 nmol/L) Sufficiency 30 - 100 ng/mL (75 - 250 nmol/L) Toxicity >100 ng/mL (>250 nmol/L) 16-Aug-20159:36 LIPID PANEL (59036) Comments: PATIENT WAS FASTINGPERFORMED BY: [facility] Rlhdup8323 [facility] [id number] Information: [id number]; ov 09-05-15 LDL/HDL Ratio 3.1 {ratio_units} (Normal) [...] (Abnormal) Range: 100-199 :36 HEPATIC FUNCTION PANEL (93457) Comments: PATIENT WAS FASTINGPERFORMED BY: [facility] [id number] ALT (SGPT) 19 [iU]/L (Normal) Range: 0-32 AST (SGOT) 19 [iU]/L (Normal) Range: 0-40 Alkaline Phosphatase, S 72 [iU]/L (Normal) Range: 39-117 Bilirubin, Direct 0.09 mg/dL (Normal) Range: 0.00-0.40 Bilirubin, Total 0.3 mg/dL (Normal) Range: 0.0-1.2 Albumin, Serum 4.4 g/dL (Normal) Range: 3.6-4.8 Protein, Total, Serum 7.0 g/dL (Normal) Range: 6.0-8.5 :34 TSH (84199) Comments: PATIENT WAS FASTINGPERFORMED BY: [employer] [facility] [id number] TSH 1.550 {uIU/mL} (Normal) Range: 0.450-4.500 :34 CALCIFIDIOL (47600) VIT D 25 Comments: PATIENT WAS FASTINGPERFORMED BY: [facility] [id number] Vitamin D, 25-Hydroxy 14.2 ng/mL (Abnormal) Range: 30.0-100.0 Comments: Vitamin D deficiency has been defined by the [place] of[place]icine and an Endocrine Society practice guideline as alevel of serum 25-OH vitamin D less than 20 ng/mL (1,2).The Endocrine Society went on to further define vitamin Dinsufficiency as a level between 21 and 29 ng/mL (2).1. IOM ([place]). 2010. Dietary reference intakes for calcium and D. [place]: The National Academies Press.2. Nola MF, Young BROOKS, Chrissie AVILA, et al. Evaluation, treatment, and prevention of vitamin D deficiency: an Endocrine Society clinical practice guideline. JCEM. 2010; 96(7):1911-30. 88-Efd-81964:34 METABOLIC PANEL, Comments: PATIENT WAS FASTINGPERFORMED BY: [facility]Yonnjn3223 [facility] [id number] Information: [id number] COMPREHENSIVE (18764) ALT (SGPT) 12 [iU]/L (Normal) Range: 0-32 [...] Glucose, Serum 141 mg/dL (Abnormal) Range: 65-99 22-Veg-04691:34 LIPID PANEL (91701) Comments: PATIENT WAS FASTINGPERFORMED BY: [facility]Ncxwvz0091 [facility] [id number]; fu 05-08 will review then LDL/HDL Ratio 3.8 {ratio_units} [...] Cholesterol, Total 262 mg/dL (Abnormal) Range: 100-199 66-Bhd-413480:36 HgA1C , Office (57191) HgA1C , Office 6.3 % (Normal) Range: 4.6 - 7.1 :36 Blood Glucose , Office (30447) Blood Glucose , Office 170 (Normal) Plan of Care Name Dates Details Instructions 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 without 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, 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 insulin use status : Follow up in 3 months Indication: 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 without 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, 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 insulin use status 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 without 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, unspecified custodial insulin use status : Continue Current Prescription(s) Indication: 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 without 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, unspecified custodial insulin use status 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 without 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, 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 insulin use status : Diet, Exercise, and Wt loss Indication: 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 without 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, 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 insulin use status 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 without 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, unspecified custodial insulin use status : *Diabetes Education Indication: 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 without 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, 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 insulin use status Paresthesia : Reviewed Lab Indication: Paresthesia Paresthesia : Reviewed Lab Indication: Paresthesia 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 without 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, unspecified custodial insulin use status : Reviewed Lab Indication: 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 without 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, 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 insulin use status Hypercholesteremia (Renamed from Hypercholesterolemia) : Cholesterol mgmt Indication: Hypercholesteremia (Renamed from Hypercholesterolemia) 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 without 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, 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 insulin use status : *Diabetes Education Indication: 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 without 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, 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 insulin use status 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 without 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, unspecified custodial insulin use status : Follow up in 3 months Indication: 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 without 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, 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 insulin use status 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 without 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, unspecified custodial insulin use status : Follow up in 3 months Indication: 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 without 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, 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 insulin use status Hypercholesteremia (Renamed from Hypercholesterolemia) : Cholesterol mgmt Indication: Hypercholesteremia (Renamed from Hypercholesterolemia) 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 without 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, unspecified custodial insulin use status : Follow up in 3 months Indication: 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 without 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, unspecified custodial insulin use status Anxiety : Continue Current Prescription(s) Indication: Anxiety 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 without 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, unspecified custodial insulin use status : *Diabetes Education Indication: 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 without 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, 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 insulin use status Hypercholesteremia (Renamed from Hypercholesterolemia) [...] 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 without 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, unspecified custodial insulin use status : Follow up in 3 months Indication: 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 without 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, unspecified custodial insulin use status Hypercholesteremia (Renamed from Hypercholesterolemia) : Cholesterol mgmt Indication: Hypercholesteremia (Renamed from Hypercholesterolemia) 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 without 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, 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 insulin use status : Diet, Exercise, and Wt loss Indication: 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 without 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, 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 insulin use status 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 without 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, 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 insulin use status : *Diabetes Education Indication: 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 without 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, 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 insulin use status 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 without 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, unspecified custodial insulin use status : Reviewed Lab Indication: 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 without 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, unspecified custodial insulin use status Vitamin D deficiency : [...] 3 months-from march 29 to 3months for [facility] Indication: Diabetes mellitus type II, controlled Hypercholesteremia (Renamed from Hypercholesterolemia) : Cholesterol mgmt Indication: Hypercholesteremia (Renamed from Hypercholesterolemia) Dysthymic : Reviewed 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 Indication: Dysthymic Diabetes mellitus type II, controlled : Eprescribed prescriptions (G8553) Indication: Diabetes mellitus type II, controlled Diabetes mellitus type II, controlled : Diabetes and Exercise: Preventing Low Blood Sugar: blood sugar Indication: Diabetes mellitus type II, controlled Planned Observations URINALYSIS, W/ MICRO (12004)Indication: 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 without 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, 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 insulin use status On: 8-Ntx-394336:04 Request MICROALBUMIN: CREATININE RATIO (58652) AND (00880)Indication: 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 without 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, 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 insulin use status On: 5-Yxt-905180:04 Request LIPID PANEL (29021)Indication: Hypercholesteremia (Renamed from Hypercholesterolemia) On: 1-Dng-815713:03 Request URINALYSIS, W/ MICRO (82427)Indication: Diabetes mellitus type II, controlled On: 25-Kji-978575:23 Request MICROALBUMIN: CREATININE RATIO (45387) AND (60740)Indication: Diabetes mellitus type II, controlled On: 36-Pbj-979895:23 Request MICROALBUMIN: CREATININE RATIO (07909) AND (64608)Indication: Hypercholesteremia (Renamed from Hypercholesterolemia) On: 67-Obe-312162:33 Request URINALYSIS (72894)Indication: Hypercholesteremia (Renamed from Hypercholesterolemia) On: 29-Qix-561070:33 Request CALCIFIDIOL (39306) VIT D 25Indication: Vitamin D deficiency On: 80-Zqu-94154:46 Request LIPID PANEL (67868)Indication: Hypercholesteremia (Renamed from Hypercholesterolemia) On: 59-Gcc-088031:24 Request FECAL OCCULT- Tubes sent home (86219)Indication: Encounter for screening for malignant neoplasm of colon (Renamed from Special screening for malignant neoplasms, colon) On: 37-Nsq-731253:16 Request CALCIFIDIOL (33334) VIT D 25Indication: Fibromyalgia (Renamed from Diffuse myofascial pain syndrome) On: 3-Vri-498204:33 Request Planned Encounters Medical; 3 Month FU - On: 07-Oct-2018 10:45 [facility] Rain Mccormick DO, DO, Kathleen Planned Procedures Flu Vaccine (Quadrivalent) On: 23-Jul-2018 Intent 93632Vy: Rain Mccormick DO Comments: Lot #[id number]-R dltd, IMDose prefilled syringegiven by: SUDARSHAN Gillis reviewed and ABN signed Rain Mccormick DO EMGBy: Rain Mccormick DO On: 01-Jul-2018 Intent Rain Mccormick DO Comments: lower extremities Nerve ConductionBy: Anny MCQUEEN, On: 01-Jul-2018 Intent Rain Daniels DO Comments: lower extremities B 12 Injection, 1000 mcg On: 08-Apr-2018 Intent (J3420)By: Rain Mccormick DO Comments: [id number] CCLEFT BRUCE DOMINGUEZ DO, Kathleen B 12 Injection, 1000 mcg On: 30-Mar-2018 Intent (J3420)By: Tom Reddy Comments: Vitamin b12 1000mcg injection lot:[id number]:11/2018L DELT IMpt tolerated well BRUCE COREAS EMGBy: Rain Mccormick DO On: 25-Mar-2018 Intent Anny DO, Rain Nerve ConductionBy: Anny DO, On: 25-Mar-2018 Intent Rain Anny DO, Rain ELECTROCARDIOGRAM, COMPLETE On: 19-Dec-2017 Intent (ECG) (29209)By: Anny MCQUEEN, Comments: sinus altagracia no acute chg Rain Anny DO, Rain Flu Vaccine (Quadrivalent) On: 08-May-2017 Intent 48782Rj: Anny DO, Rain Comments: Lot:[id number]:03/02/18Amt:0.5mlRoute:IMSite: L DltdGiven By: SUDARSHAN Disla signed Anny DO, Rain SCREENING DIGITAL On: 01-Apr-2017 Intent TOMOSYNTHESIS OF BREAST (49057)By: Anny MCQUEEN, Rain Anny DO, Rain VPNK-XT-PDYY BEHAVIORAL On: 01-Apr-2017 Intent COUNSELING FOR OBESITY, 15 MINUTES (G0447)By: Anny DO, Rain Anny DO, Rain ELECTROCARDIOGRAM, COMPLETE On: 28-Jan-2017 Intent (ECG) (56377)By: Anny MCQUEEN, Comments: siinus altagracia no acute chg Rain Anny DO, Rain Ultrasound - LiverBy: Anny On: 28-Jan-2017 Intent DO, Rain Anny DO, Rain Flu Vaccine (Quadrivalent) On: 15-Jul-2016 Intent 64453Ml: Anny DO, Rain Comments: Lot:[id number]:03/14/17Dose:0.5mLRoute:IMSite:L DltdGiven By:JUAN PABLO signed Anny DO, Rain PNEUM VAC ADLT/IMUMNOSPR, On: 27-Mar-2016 Intent SBC/INTRM (96297)By: Anny Comments: lot: [id number]: 06/26/17site/route: L del/IMamt: 0.5mLVIS signed when applicableChelsea, HIGH WORKER DO, Rain Anny DO, Rain DEXA SCAN AXIAL SKELETON On: 27-Mar-2016 Intent (56770)By: Anny DO, Rain Anny DO, Rain MAMMOGRAM, SCREENING, BOTH On: 26-Dec-2015 Intent BREAST (81334)By: Anyi Hawthorne MD Flu Vaccine (Quadrivalent) On: 28-Jun-2015 Intent 50409Ka: Anyi Hawthorne MD Comments: Lot:[id number]:03/14/16Dose:0.5mLRoute:IMSite:L DltdGiven By:JUAN PABLO signed DEXA SCAN AXIAL SKELETON On: 06-Apr-2015 Intent (20039)By: Anyi Hawthorne MD Comments: postmenapausal Venous Doppler - UpperBy: On: 06-Apr-2015 Intent Anyi Hawthorne MD Comments: left arm MAMMOGRAM, SCREENING, BOTH On: 06-Apr-2015 Intent BREAST (26418)By: Anyi Hawthorne MD Planned Medications Vitamin B-12 1000 MCG/ML Injection Solution Ordered: 30-Mar-2018 Pending Tom Reddy Vitamin B-12 1000 MCG/ML Injection Solution Ordered: 08-Apr-2018 Pending Rain Mccormick DO, DO, Kathleen Instructions Name Dates Details 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 without 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, 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 insulin use status : How to access health information online Indication: 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 without 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, unspecified custodial insulin use status 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 without 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, unspecified custodial insulin use status : How to access health information online - Detail Indication: 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 without 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, 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 insulin use status 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 without 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, 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 insulin use status : Patient Instructions Indication: 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 without 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, unspecified custodial insulin use status 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 without 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, 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 insulin use status : How to access health information online Indication: 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 without 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, 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 insulin use status 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 without 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, 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 insulin use status : How to access health information online - Detail Indication: 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 without 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, 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 insulin use status 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 without 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, 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 insulin use status : Patient Instructions Indication: 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 without 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, unspecified custodial insulin use status BMI 30.0-30.9,adult : How [...] 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 without 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, 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 insulin use status : obesity counseling Indication: 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 without 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, unspecified custodial insulin use status Current nonsmoker (Renamed from [...] Instructions Indication: Palpitation Encounters Office Visit On: 23-Jul-2018 9:28 Encounter Reason: Injections - The medication the patient is here to receive is other (flu vaccine).Encounter Diagnosis: Need for prophylactic vaccination and inoculation against influenza (Renamed from Need for immunization against influenza) End: 23-Jul-2018 9:38 [facility] Phone Encounter On: 03-Jul-2018 13:35 Encounter Diagnosis: [...] 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 without 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, unspecified custodial insulin use status, Paresthesia, Vitamin D deficiency, [...] 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 without 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, 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 insulin use status, BMI 30.0-30.9,adult, Current nonsmoker [...] 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 without 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, 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 insulin use status, Elevated rheumatoid factor Comprehensive [...] 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 without 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, 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 insulin use status, Elevated rheumatoid factor, Osteopenia [...] The patient does have durable power of commercial real estate attorney and living will. The patient has [...] 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 without 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, unspecified custodial insulin use status, Encounter for screening for [...] 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 without 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, unspecified custodial insulin use status [facility] Phone [...] The patient does have durable power of commercial real estate attorney and living will. The patient has [...]
== END ==
PROVIDERS: Family Provider Internal Medicine; PCP Internal Medicine; Visit Provider Obstetrics & Gynecology
DX: Z12.31 Encounter for screening mammogram for malignant neoplasm of breast (principal)
CPT/HCPCS: 77063; 77067

== ENCOUNTER → 2018-09-17 10:38 | Outpatient (CLI) | payer MEDICARE, OTHER, SELFPAY | PROVIDERS: Family Provider Internal Medicine; PCP Internal Medicine; Referring Provider Nurse Practitioner Adult Health; Visit Provider Nurse Practitioner Adult Health | DX: N39.0 Urinary tract infection, site not specified (principal) | CPT/HCPCS: 87086; 87088; 87186 ==

== ENCOUNTER → 2018-09-22 17:12 | Outpatient (CLI) | payer MEDICARE, OTHER, SELFPAY | PROVIDERS: Family Provider Internal Medicine; PCP Internal Medicine; Referring Provider Urology; Visit Provider Urology | DX: R30.0 Dysuria (principal) | CPT/HCPCS: 87077; 87086; 87088; 87186 ==

== ENCOUNTER 2018-12-18 11:50 | Outpatient (RCR) | payer MEDICARE, OTHER, SELFPAY ==
--- NOTE | 2018-12-18 13:01 | HP.PTEVAL_ITS ---
Patient's Visit Information JAZMINE ZHENG is a 73 year old F referred to Physical Therapy by MATT SHINE with a diagnosis of frequent falls. Date of Evaluation: 12/18/18 Physical Therapist: JOVANNY Pierson - Visit Plan Frequency: 2x /Week Duration: 6 Weeks Plan: 2X/ week for 4-6 weeks for gait mechaincis, balance activities, functional strength and functional activities with HEP - Subjective Findings: Pt reports taht she has had balance problems for at least a year. 4 years ago she fell at her sons house and she fell down the stairs and broke her acetabulum and did PT for 7 months. She can lift her L arm to about 90 degrees. She fell on a curb at [facility] and hit her head last fall. SHe has Fibro, and RA. The Fibro usually rules the day. The pt reports that she is a little bit dizzy. She feels shaky and feels like somethings are moving at times. She can not get in and out of a car. She reports that she is very slow at doing things. She is trying to get off of Gabapetin. She has jerky movments and unsolicitied movments and is subsiding. Pt reports that the Dr told her that she is not allowed to drive. She has gone to the [facility] and done the spin test and that was fine. She gets tangle in sheet but not dizzy. If she sits up in bed she will get dizzy but not oo bad. Pt takes med to sleep. Pt holds onto the railing when going up and down the stairs. - Pain L shoulder Pain Intensity (Out of 10): 1 Comment: Pain is always there - Objective Gait: Walks with some veering, walks with toes first ( no heel to toe) with weight shifted fw. No arm swing. Slight resting tremor head. FGA: 07/14. LE flexability: Tight B gastroc and HS. LE strength: B hip flex 4/5, B knee ext 4/5, B knee flex 4/5, B hip abd 4/5, 3/4 normal ROM bridge. Sit to stand transfers: able to get up without using her UE's. Stairs: able to go up and down the stairs with 2 rails with slight hesitency and decrease step length going down the stairs and recip ascending the stairs recip with 2 rails - Balance Scores Functional Gait Assessment Score: 10 % Disability: 66.6700 - Goals Goal 1:: I HEP Goal Time Frame: 4-6 Weeks Goal 2:: Be able to walk back to treatment rooms from the front desk coordinator walking heel to toe gait pattern to decrease fall risk Goal Time Frame: 4-6 Weeks Goal 3:: Increase FGA by 5 points to decrease fall risk Goal Time Frame: 4-6 Weeks Goal 4:: Be able to go up and down a curb step with SBA X 6 attempts without LOB Goal Time Frame: 4-6 Weeks - Rehabilitation Potential Rehabilitation Potential: Good - Anticipated Interventions Patient/Client Instruction: Educate patient on: Condition, Plan of Care For the Purpose of:: To improve muscle performance and motor function, To improve ability to perform ADL's, To increase tolerance to activity/condition/position, To improve performance and independence with ADL's, To improve ability of physical actions for home/community/work/leisure, To improve gait and locomotor functions, To increase flexibility/ROM, To improve balance, To improve safety with gait Therapeutic Exercise to Include: Strength training, Balance training, Flexibilty training, Gait and locomotor training, Neuromotor development, Passive ROM, Active ROM For the Purpose of:: To improve muscle performance and motor function, To increase tolerance to activity/condition/position, To improve performance and independence with ADL's, To improve ability of physical actions for home/community/work/leisure, To improve gait and locomotor functions, To increase flexibility/ROM, To improve balance, To improve safety with gait Functional Training to Include: Gait training For the Purpose of:: To improve gait and locomotor functions, To improve safety with gait Thank you for the opportunity to evaluate your patient. For Medicare and Medicare HMO plans, please review the plan of care and approve it. It will need to be FAXED BACK to us at [phone] for Medicare purposes. For Medicare only, by signing this I certify the plan of care. Please let me know if there are questions or concerns regarding this plan of care. Physician Signature: Date:
--- NOTE | 2019-04-16 08:18 | HP.PTDCNRP_ITS ---
HP - Discharge Summary (1) - Patient Information JAZMINE ZHENG was seen in my office for initial evaluation on 12/18/18. The following Plan of Care was established for this patient: Initial Frequency: 2x /Week Initial Duration: 6 Weeks - Anticipated Interventions Patient/Client Instruction: Educate patient on: Condition, Plan of Care For the Purpose of:: To improve muscle performance and motor function, To impro ve ability to perform ADL's, To increase tolerance to activity/condition/position, To improve performance and independence with ADL's, To improve ability of physical actions for home/community/work/leisure, To improve gait and locomotor functions, To increase flexibility/ROM, To improve balance, To improve safety with gait Therapeutic Exercise to Include: Strength training, Balance training, Flexibilty training, Gait and locomotor training, Neuromotor development, Passive ROM, Active ROM For the Purpose of:: To improve muscle performance and motor function, To increase tolerance to activity/condition/position, To improve performance and independence with ADL's, To improve ability of physical actions for home/community/work/leisure, To improve gait and locomotor functions, To increase flexibility/ROM, To improve balance, To improve safety with gait Functional Training to Include: Gait training For the Purpose of:: To improve gait and locomotor functions, To improve safety with gait This patient was last seen in our office 12/18/18. Pertinent comments regarding their Physical therapy will appear below: [facility] PT At this point I will be discontinuing this patient from physical therapy. I would be happy to see this patient again in the future if found appropriate by the physician. Thank you! Rachell Claros, MPT
== END 2018-12-18 19:00 | disposition home or self-care (01) ==
LOC: PT 11:50
PROVIDERS: Family Provider Internal Medicine; PCP Internal Medicine
DX: R29.6 Repeated falls (principal)
CPT/HCPCS: 97162

== ENCOUNTER 2018-12-21 12:16 | Emergency (ER) | payer MEDICARE, OTHER, SELFPAY ==
[2018-12-21 12:17] VITALS: BP 126/64; PULSE 77; RESP 18; TEMP 36.6; O2SAT 97; BMI 29.2
--- NOTE | 2018-12-21 12:38 | CT_ITS ---
STUDY: CT BRAIN WITHOUT CONTRAST REASON FOR EXAM: Female, 73 years old. Suicidal ideation. RADIATION DOSAGE (If Supplied By Facility): CTDIvol = ( 60.81 ) mGy, DLP = ( 1381.58 ) mGycm TECHNIQUE: Transaxial CT imaging of the brain was performed without administration of intravenous contrast material. Individualized dose optimization techniques were used for this CT. COMPARISON: No relevant priors. FINDINGS: Normal soft tissue structures. Normal calvarium. There is mild cerebral atrophy with widening of the extra-axial spaces and ventricular dilatation. There are areas of decreased attenuation within the white matter tracts of the supratentorial brain, consistent with microvascular disease changes. There are small punctate calcifications of the basal ganglia which are seen in the aging brain as a normal variant. Normal brainstem. There is mild cerebellar atrophy. There is no intracranial hemorrhage. There are no findings of an acute ischemic infarction. Normal visualized paranasal sinuses. CT/Brain/Head without Contrast IMPRESSION: Chronic involutional changes of the brain. Electronically Signed: Junaid Casillas, at 14:35 EDT , Service support ,
--- NOTE | 2018-12-21 12:39 | CM.ED ---
SOCIAL WORK NOTE REVIEWED CHART AND DISCUSSED WITH PHYSICIAN. AT THIS TIME PHYSICIAN IS CONSULTING CRISIS D/T PT VERBALIZING SHE HAS ACCESS TO GUNS IN THE HOME AND 'SOMEONE SHOULD JUST PUT ME OUT OF MY MISERY.' SW TO CONTINUE TO FOLLOW AND ASSIST NEEDED. Halima Barrios, SEAMER PANTY HOSE, DIANA
--- NOTE | 2018-12-21 12:56 | ED.VISSUMM ---
- ER Visit Summary Date of Service: 12/21/18 Chief Complaint: Suicidal thoughts History of Present Illness: The patient is a 73 F presents to the emergency department with suicidal thoughts. She the patient has a history of anxiety and depression. She is active with a counselor at the [facility]. She has been increasingly agitated over the past month. She was recently changed from Xanax to Klonopin. Apparently, she would get into arguments with her daughter. Today, she did make a statement that you know where my guns are and I just wish someone would shoot me and put me out of my misery. 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 She does have history of prior psychiatric admission. She denies any drug abuse. Physical Examination: Vital signs reviewed General: Well-nourished, well-developed Head: Normocephalic, atraumatic Eyes: Pupils equal and reactive, extraocular muscles intact Neck, supple, no lymphadenopathy Heart: Regular rate and rhythm Respiratory: No distress, clear bilaterally Abdomen: Soft, nontender, nondistended, no peritoneal signs Back: Nontender Extremities: Nontender, no edema, no cords Skin: Normal color no rash Neuro: Alert and oriented, no focal or lateralizing deficits Test Results: [] Emergency Department Course and Treatment: Metabolic workup was pursued. EKG was obtained was unremarkable. Head CT also shows chronic change without acute abnormalities. Screening labs are unremarkable. Given the patient's symptoms, the patient will undergo crisis evaluation due to threats of self-harm. She has not definitively giving a plan, but she does appear to be obviously dismayed by this. Disposition is pending. Treatment Plan: [] Disposition: Pending Impression: Suicidal ideation This note was generated with [employer] dictation software. It may contain incorrect words, spelling, and punctuation that were not noted in review of the chart prior to signing ED Disposition - Plan for ED Patient: Referrals: Rain Mccormick DO [Primary Care Provider] -
[2018-12-21 13:37] LABS: Absolute Lymphocyte Count 1.61 X10^3/ul (0.83-4.51); Absolute Neutrophil Count 3.5 X10^3/uL (2.0-7.7); Basophil# 0.02 X10^3/uL; Basophil% 0.4 % (0-1); Eosinophil# 0.12 X10^3/uL; Eosinophils% 2.1 % (0-5); Hematocrit 42.3 % (37-47); Hemoglobin 14.6 g/dl (12.0-15.0); Lymphocyte # 1.61 X10^3/ul (4.0); Lymphocyte % 28.6 % (19-41); Mean Corp Hgb Conc 34.5 g/gl (32-36); Mean Corpuscular Hgb 28.7 pg (27.0-32.0); Mean Corpuscular Volume 83.1 fL (81-99); Mean Platelet Vol. 10.4 fl (6.2-12.0); Monocyte# 0.38 X10^3/uL; Monocyte% 6.8 % (0-10); Neutrophil # 3.49 X10^3/uL (2.7-7.7); Neutrophil % 62.1 % (47-70); Platelet Count 216 K/mm3 (150-450); RBC Distribution Width SD 38.8 fl (35.1-43.9); Red Blood Count 5.09 M/mm3 (4.2-5.4); White Blood Count 5.6 K/mm3 (4.4-11.0)
[2018-12-21 13:38] LABS: POSITIVE COUNT NO; POSITIVE DIFFERENTIAL NO; POSITIVE MORPHOLOGY NO
[2018-12-21 13:46] LABS: Anion Gap 4 (5-15); BUN 14 mg/dL (7-18); BUN/Creat Ratio 11.5 RATIO (10-20); Calcium,Total 9.5 mg/dL (8.5-10.1); Chloride 108 mmol/L (98-107); Creatinine, Serum 1.22 mg/dL (0.55-1.02); EST Glomerular Filtration Rate 46 mL/min (>60); Est Glom Filt Rate - Afr Amer 56 mL/min (>60); Estimated Creatinine Clearance 36.52 ml/min; Glucose 154 mg/dL (74-106); Potassium 3.8 mmol/L (3.5-5.1); Sodium Level 139 mmol/L (136-145)
[2018-12-21 13:59] LABS: Mucous, Urine 0 SEEN /hpf (<or=2+)
[2018-12-21 14:04] LABS: Color, Urine Yellow (Yellow); Glucose, Dipstick Normal (Normal); Ketone-Dipstick Negative (Negative); Leukocyte Esterase-Dipstick 25 /ul (Negative); Nitrite-Dipstick Positive (Negative); Occult Blood-Urine 10 /ul (Negative); Protein-Dipstick Negative (Negative); Specific Gravity, Urine 1.025 (1.002-1.030); Urine Bilirubin Dipstick Negative (Negative); Urine Clarity Sl. Cloudy (Clear); Urine Urobilinogen Normal (Normal)
[2018-12-21 14:18] LABS: Bacteria 3+ /hpf (None Seen); Red Blood Cells-Urine 0-5 SEEN /hpf (0-5); Squamous Epithelial Cells - UA 10-25 SEEN /hpf (5-10); White Blood Cells 0-5 SEEN /hpf (0-5)
[2018-12-21 14:24] LABS: Alcohol, Blood (Medical)-Serum < 3.0 mg/dL
[2018-12-21 14:30] LABS: Amphetamine Urine VISTA NEGATIVE (<1000 ng/mL); Barbiturate Urine VISTA NEGATIVE (< 200 ng/mL); Benzodiazepine Urine VISTA POSITIVE (< 200 ng/mL); Cocaine Urine VISTA NEGATIVE (< 300 ng/mL); Ecstacy Urine VISTA NEGATIVE (< 500 ng/mL); Methadone Urine VISTA NEGATIVE (< 300 ng/mL); PCP Urine VISTA NEGATIVE (< 25 ng/mL); THC Urine VISTA NEGATIVE (< 50 ng/mL); Vista UDS pH Range 6
--- NOTE | 2018-12-21 14:47 | NURSING ---
called crisis. talked to debra. she'll be over.
--- NOTE | 2018-12-21 15:05 | NURSING ---
PATRICIA, CRISIS, HERE
[2018-12-21 18:11] VITALS: RESP 18
--- NOTE | 2018-12-21 20:13 | ED.RN ---
[facility] CONTACTE
[2018-12-21 20:33] VITALS: BP 158/76; PULSE 67; RESP 22; O2SAT 99
--- NOTE | 2018-12-21 20:41 | ED.RN ---
ATTEMPTED TO CALL REPORT TO [facility]. TOLD THEY ALREADY HAVE REPORT. NOTHING FURTHER NEEDED
== END 2018-12-21 20:39 ==
LOC: ED 13:05
PROVIDERS: Emergency Provider Emergency Medicine; Family Provider Internal Medicine; PCP Internal Medicine
DX: R45.851 Suicidal ideations (principal); F32.9 Major depressive disorder, single episode, unspecified; F41.9 Anxiety disorder, unspecified; Z79.899 Other long term (current) drug therapy
CPT/HCPCS: 70450; 80048; 80307; 80320; 81001; 85025; 99283; A4216; G0480

== ENCOUNTER → 2019-01-11 09:47 | Outpatient (CLI) | payer MEDICARE, OTHER, SELFPAY ==
[2018-12-21 12:17] VITALS: BMI 29.2
[2019-01-11 10:11] LABS: Mucous, Urine 0 SEEN /hpf (<or=2+); Red Blood Cells-Urine 0 SEEN /hpf (0-5); White Blood Cells 0 SEEN /hpf (0-5)
[2019-01-11 10:56] LABS: Color, Urine Yellow (Yellow); Glucose, Dipstick Normal (Normal); Ketone-Dipstick Negative (Negative); Leukocyte Esterase-Dipstick Negative /ul (Negative); Nitrite-Dipstick Negative (Negative); Occult Blood-Urine Negative /ul (Negative); Protein-Dipstick Negative (Negative); Specific Gravity, Urine 1.015 (1.002-1.030); Urine Bilirubin Dipstick Negative (Negative); Urine Clarity Sl. Cloudy (Clear); Urine Urobilinogen Normal (Normal)
[2019-01-11 11:12] LABS: Bacteria RARE /hpf (None Seen); Squamous Epithelial Cells - UA 5-10 SEEN /hpf (5-10)
== END ==
PROVIDERS: Family Provider Internal Medicine; PCP Internal Medicine; Referring Provider Obstetrics & Gynecology; Visit Provider Obstetrics & Gynecology
DX: R31.9 Hematuria, unspecified (principal)
CPT/HCPCS: 81001; 87086; 87088

== ENCOUNTER 2019-02-18 08:04 | Day surgery (SDC) | payer MEDICARE, OTHER, SELFPAY ==
[2019-02-18] VITALS (7 sets, daily range): BP systolic 110–171; BP diastolic 43–85; PULSE 66–76; RESP 16–18; TEMP 36.2–36.6; O2SAT 96–99; BMI 26.0
[2019-02-18 08:45] LABS: Bedside Glucose 116 mg/dL (70-110)
[2019-02-18] MEDS: Phenazopyridine 95 MG Tablet 190 MG PO (08:48)
[2019-02-18] MEDS: Celecoxib 200 MG Capsule 400 MG PO (08:49)
[2019-02-18] MEDS: Acetaminophen 500 MG Tablet 1000 MG PO (08:50)
[2019-02-18] MEDS: Gabapentin 600 MG Tablet PO (08:50)
[2019-02-18] MEDS: Cefazolin 2 GM in 0.9% Normal Saline 100 ML IV (10:26)
[2019-02-18] MEDS: Lubricating Jelly 60 GM Tube 30 GM TOPICAL (10:46)
[2019-02-18] MEDS: Bupivacaine Mpf 0.5% 30 ML VIAL (10:46)
[2019-02-18] MEDS: Dibucaine 30 GM Tube 1 APPLIC (10:56)
--- NOTE | 2019-02-18 10:59 | PCM.DC.VHY ---
Discharge Diet: No Restrictions Discharge Activity: Return to Normal Activity May shower in (days): 1 May resume sexual activity in: No Restrictions Additional Activity Instructions:: Use dibucaine ointment at least twice per day. Leave gauze folded between labia to keep labia . Call your doctor if your incision/area has: Continuous Slow Oozing, Sudden Increased Bleeding, Increased Pain/ Swelling, Increased Redness, Foul Smelling Discharge Call your doctor if you observe: Fever of 101 or Higher, Inability to urinate, Inability to have a bowel movement, Using more than one pad per hour Allergies/Adverse Reactions: Allergies latex Allergy (Verified 02/18/19 08:20) Itching ITCHING AND REDNESS Medications to take at Discharge Alendronate Sodium 70 mg PO QWEEK 12/21/18 Clonazepam 0.25 mg PO 4X/DAY 12/21/18 Escitalopram Oxalate [Lexapro] 10 mg PO DAILY 12/21/18 Estrogen Cream 1 applic VAGINAL DAILY 12/21/18 Metformin HCl 1,000 mg PO BID 12/21/18 Metoprolol(XL)Succ [Toprol Xl (Beta Joe)] 25 mg PO DAILY 12/21/18 Oxybutynin [Ditropan] 5 mg PO BID 12/21/18 Pioglitazone HCl 15 mg DAILY 12/21/18 RX: Lancets 1 each DAILY 12/21/18 Primary Care Physician: Rain Mccormick DO [Primary Care Provider] - Test Results: Test results from this visit will be discussed in further detail at your follow-up appointment, if applicable. Please Follow Up With: Lala Ford MD When: 4 weeks Proposed Discharge Date: 02/18/19
--- NOTE | 2019-02-18 11:02 | DCINST_ITS ---
Discharge Diet: No Restrictions Discharge Activity: Return to Normal Activity May shower in (days): 1 May resume sexual activity in: No Restrictions Additional Activity Instructions:: Use dibucaine ointment at least twice per day. Leave gauze folded between labia to keep labia . Call your doctor if your incision/area has: Continuous Slow Oozing, Sudden Increased Bleeding, Increased Pain/ Swelling, Increased Redness, Foul Smelling Discharge Call your doctor if you observe: Fever of 101 or Higher, Inability to urinate, Inability to have a bowel movement, Using more than one pad per hour Allergies/Adverse Reactions: Allergies latex Allergy (Verified 02/18/19 08:20) Itching ITCHING AND REDNESS Medications to take at Discharge Alendronate Sodium 70 mg PO QWEEK 12/21/18 Clonazepam 0.25 mg PO 4X/DAY 12/21/18 Escitalopram Oxalate [Lexapro] 10 mg PO DAILY 12/21/18 Estrogen Cream 1 applic VAGINAL DAILY 12/21/18 Metformin HCl 1,000 mg PO BID 12/21/18 Metoprolol(XL)Succ [Toprol Xl (Beta Joe)] 25 mg PO DAILY 12/21/18 Oxybutynin [Ditropan] 5 mg PO BID 12/21/18 Pioglitazone HCl 15 mg DAILY 12/21/18 RX: Lancets 1 each DAILY 12/21/18 Primary Care Physician: Rain Mccormick DO [Primary Care Provider] - Test Results: Test results from this visit will be discussed in further detail at your follow- up appointment, if applicable. Please Follow Up With: Lala Ford MD When: 4 weeks Proposed Discharge Date: 02/18/19
--- NOTE | 2019-02-18 11:03 | PCM.OPRPT ---
Problem List (1) Labia minora agglutination Status: Acute (2) Overactive bladder Status: Acute Report of Operation Date of Procedure: 02/18/19 Pre-Operative Diagnosis: Labial agglutination. Overactive bladder Post-Operative Diagnosis: Same Surgery/Procedure Performed:: Lysis of labial adhesions. Intravesical injection of Botox with cystoscopy Description of Surgical Findings:: Severely agglutinated labia minora. Bladder noted to have minor trabeculations but otherwise normal. bilateral reflux of urine from the ureteral orifices was noted. water treatment plant mechanic: Haydee Gilliam Type of Anesthesia:: General Special Medications: 0.5% Marcaine, Dibucaine ointment 1% Specimen's removed: None Drains: None Estimated Blood Loss (mL): None Fluids Replaced: 800 LR Description of Procedure: Patient was taken to the operating room where general LMA was initiated. The patient was placed in dorsolithotomy position and prepped and draped in sterile fashion. The agglutinated labia minora were injected with 0.5% Marcaine. A 15 blade scalpel was used to separate the labia minora in the midline. A pelvic exam was performed and noted to be within normal limits. Cystoscopy was performed and the patient was noted to have a normal-appearing bladder with mild trabeculations. 100 units of Botox was diluted in 10 cc of preservative-free saline and was injected into the bladder in 0.5 cc aliquots followed by a 1 cc flush of preservative-free saline for a total of 21 injection sites. Dibucaine ointment was applied to the raw surfaces of the labia minora and a small 4 x 4 gauze was placed between the labia. Anesthesia was discontinued and the patient was taken the recovery room in stable condition. - Complications None - Admit VTE Documentation VTE Present on Admission: Yes VTE Mechan Device Prophylaxis: SCD's VTE Pharm Prophylaxis ordered?: No Reason prophylaxis not ordered:: Treatment Not Indicated
[2019-02-18 12:10] LABS: Bedside Glucose 106 mg/dL (70-110)
== END 2019-02-18 13:17 | disposition home or self-care (01) ==
LOC: SDC 08:05 → AC 08:06
PROVIDERS: Family Provider Internal Medicine; PCP Internal Medicine; Referring Provider Obstetrics & Gynecology; Visit Provider Obstetrics & Gynecology
PROC: 0TJB8ZZ Inspection of Bladder, Via Natural or Artificial Opening Endoscopic (ICD-10-PCS; CPT 57120; principal; 2019-02-18 09:15)
DX: N32.81 Overactive bladder (principal); E11.9 Type 2 diabetes mellitus without 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; N39.0 Urinary tract infection, site not specified; Q52.5 Fusion of labia; F32.9 Major depressive disorder, single episode, unspecified; F41.9 Anxiety disorder, unspecified
CPT/HCPCS: 51715; 82962; J7120; J1940; J2405; J3490

== ENCOUNTER 2019-03-10 15:39 | Emergency (ER) | payer MEDICARE, OTHER, SELFPAY ==
[2019-02-18 08:26] VITALS: BMI 26.0
[2019-03-10] VITALS (7 sets, daily range): BP systolic 102–166; BP diastolic 53–81; PULSE 58–86; RESP 16–18; TEMP 36.5; O2SAT 96–99; BMI 27.3
--- NOTE | 2019-03-10 16:04 | EKG12_ITS ---
Test Reason : DIZZINESS Blood Pressure : / mmHG Vent. Rate : 064 BPM Atrial Rate : 064 BPM P-R Int : 128 ms QRS Dur : 074 ms QT Int : 438 ms P-R-T Axes : 037 -05 018 degrees QTc Int : 451 ms Normal sinus rhythm Normal ECG Confirmed by WONG KELLEY, EUGENIA ([id number]), videotape editor JAY MAY ([id number]) on 03/12/2019 10:50:21 AM Referred By: MANDA Confirmed By:SHANA BACK MD
--- NOTE | 2019-03-10 16:04 | CT_ITS ---
STUDY: CT BRAIN WITHOUT CONTRAST REASON FOR EXAM: Female, 73 years old. Weakness. Tremors beginning this morning. Fall today. RADIATION DOSAGE (If Supplied By Facility): CTDIvol = ( 44.99 ) mGy, DLP = ( 745.49 ) mGycm TECHNIQUE: Transaxial CT imaging of the brain was performed without administration of intravenous contrast material. Individualized dose optimization techniques were used for this CT. COMPARISON: CT of the head, December 21, 2018. FINDINGS: Normal soft tissue structures. Normal calvarium. There is mild cerebral atrophy with widening of the extra-axial spaces and ventricular dilatation. There are areas of decreased attenuation within the white matter tracts of the supratentorial brain, consistent with microvascular disease changes. There are small punctate calcifications of the basal ganglia which are seen in the aging brain as a normal variant. Normal brainstem. Normal cerebellum. There is no intracranial hemorrhage. There are no findings of an acute ischemic infarction. Normal visualized paranasal sinuses. CT/Brain/Head without Contrast IMPRESSION: Chronic involutional changes without evidence of acute intracranial or calvarial abnormality. There is no major interval change. Electronically Signed: Kris Mcneil DO at 17:02 EDT Tel [phone], Service support ,
--- NOTE | 2019-03-10 16:15 | RAD_ITS ---
STUDY: X-RAY CHEST REASON FOR EXAM: Female, 73 years old. Weakness. TECHNIQUE: Single AP portable view of the chest. COMPARISON: None. FINDINGS: The lungs are clear and expanded. There is no demonstrated pleural abnormality. Normal size heart. Normal mediastinum and caesar. Normal visualized pulmonary arteries. Normal visualized aortic arch and descending thoracic aorta. There are diffuse degenerative changes of the visualized thoracic spine. There is metallic plate and screws along the lateral aspect of the left humeral head and neck with associated healed fracture. There is no demonstrated abnormality of the visualized soft tissue structures of the upper abdomen. RAD/Chest 1 View (Portable) IMPRESSION: No acute cardiopulmonary disease. Electronically Signed: Kris Mcneil DO at 16:26 EDT Tel [phone], Service support ,
[2019-03-10 16:30] LABS: Absolute Lymphocyte Count 1.32 X10^3/ul (0.83-4.51); Absolute Neutrophil Count 3.8 X10^3/uL (2.0-7.7); Basophil# 0.01 X10^3/uL; Basophil% 0.2 % (0-1); Eosinophil# 0.03 X10^3/uL; Eosinophils% 0.5 % (0-5); Hematocrit 40.2 % (37-47); Lymphocyte # 1.32 X10^3/ul (4.0); Lymphocyte % 23.8 % (19-41); Mean Corp Hgb Conc 34.8 g/gl (32-36); Mean Corpuscular Hgb 29.5 pg (27.0-32.0); Mean Corpuscular Volume 84.8 fL (81-99); Mean Platelet Vol. 9.5 fl (6.2-12.0); Monocyte# 0.33 X10^3/uL; Neutrophil # 3.84 X10^3/uL (2.7-7.7); Neutrophil % 69.3 % (47-70); POSITIVE COUNT NO; POSITIVE DIFFERENTIAL NO; POSITIVE MORPHOLOGY NO; Platelet Count 244 K/mm3 (150-450); RBC Distribution Width CV 14.7 % (11.6-14.6); Red Blood Count 4.74 M/mm3 (4.2-5.4); White Blood Count 5.5 K/mm3 (4.4-11.0)
[2019-03-10 16:51] LABS: Anion Gap 7 (5-15); BUN 22 mg/dL (7-18); BUN/Creat Ratio 18.2 RATIO (10-20); Calcium,Total 8.8 mg/dL (8.5-10.1); Chloride 108 mmol/L (98-107); Creatinine, Serum 1.21 mg/dL (0.55-1.02); EST Glomerular Filtration Rate 47 mL/min (>60); Est Glom Filt Rate - Afr Amer 56 mL/min (>60); Estimated Creatinine Clearance 36.82 ml/min; Glucose 85 mg/dL (74-106); Potassium 3.9 mmol/L (3.5-5.1); Sodium Level 139 mmol/L (136-145); Thyroid Stim Hormone (TSH) 0.26 uIU/mL (0.358-3.74)
[2019-03-10 17:02] LABS: Mucous, Urine 0 SEEN /hpf (<or=2+); Red Blood Cells-Urine 0 SEEN /hpf (0-5); Squamous Epithelial Cells - UA 0 SEEN /hpf (5-10)
[2019-03-10 17:40] LABS: Color, Urine Yellow (Yellow); Glucose, Dipstick Normal (Normal); Ketone-Dipstick 5 mg/dl (Negative); Leukocyte Esterase-Dipstick 25 /ul (Negative); Nitrite-Dipstick Positive (Negative); Occult Blood-Urine Negative /ul (Negative); Protein-Dipstick Negative (Negative); Specific Gravity, Urine 1.015 (1.002-1.030); Urine Bilirubin Dipstick Negative (Negative); Urine Clarity Cloudy (Clear); Urine Urobilinogen Normal (Normal)
[2019-03-10 17:43] LABS: Amorphous Sediment 1+; Bacteria 4+ /hpf (None Seen); White Blood Cells 0-5 SEEN /hpf (0-5)
[2019-03-10] MEDS: Ceftriaxone 1 GM/50 ML BAG IV (18:38)
--- NOTE | 2019-03-10 18:40 | CM.ED ---
SOCIAL WORK INFORMANT: DR. HOLMAN REASON FOR REFERRAL: D/C PLANNING/RESOURCES PER DR. HOLMAN, PATIENT NOT MEETING CRITERIA FOR ADMISSION. DISCUSSED CASE WITH HOSPITALIST AND THEY ARE RECOMMENDING OUTPATIENT NEURO FOLLOW UP. MET WITH PATIENT AND PATIENT'S IN ROOM. INTRODUCED ROLE AND REASON FOR REFERRAL. PATIENT STATES FELT WORSE TODAY AND DECIDED TO COME TO THE EMERGENCY DEPARTMENT. PATIENT REPORTS WAS REFERRED BY THERAPIST FOR NEURO CONSULT. PATIENT STATES I WAS HOPING TO KILL TWO BIRDS WITH ONE STONE, BE ADMITTED AND SEE NEURO WHILE IN THE HOSPITAL. DISCUSSED THIS WORKER'S CONVERSATION WITH DR. HOLMAN. BOTH PATIENT AND VERBALIZE UNDERSTANDING AND STATE WILL CALL NEURO TOMORROW TO SET UP APPOINTMENT. DISCUSSED RESOURCES AVAILABLE. INQUIRING ABOUT PRIVATE DUTY HOME CARE. LIST OF HOME CARE AGENCIES PROVIDED ALONG WITH THIS WORKER'S CONTACT INFORMATION FOR ANY FURTHER NEEDS OR QUESTIONS. DR. HOLMAN UPDATED ON THE ABOVE. PLAN: D/C HOME WITH BEFORE AND NEURO FOLLOW UP.
--- NOTE | 2019-03-10 18:47 | ED.VISSUMM ---
- ER Visit Summary Date of Service: 03/10/19 Chief Complaint: Weakness History of Present Illness: The patient is a 73 F who presents with weakness and dizziness. Symptoms have been going on for about a month. Worse over the last few days. Patient has difficulty getting out of a chair. She has a tremor and feels weak. She also reports a history of stress incontinence. Also reports anxiety, depression, diabetes, hypertension, and fibromyalgia. Denies any changes in her medication. Denies any history of movement disorder, Parkinson's disease. Denies focal weakness, numbness, facial droop, speech changes, or vision changes. Physical Examination: Afebrile and vital signs unremarkable. Patient has a resting tremor. Cogwheel rigidity, mild. Patient was able to ambulate with minimal assistance. Shuffling gait. Depressed mood. No focal or lateralizing neurologic abnormalities. Heart regular. Lungs clear. Skin appears normal. Test Results: EKG showed sinus rhythm rate 64. Chest x-ray unremarkable. CT brain showed chronic changes. CBC, BMP, troponin, unremarkable. TSH slightly low. Urinalysis showed slightly leukocyte esterase, white cells, 4+ bacteria. Urine culture pending. Emergency Department Course and Treatment: Patient's work-up was fairly unremarkable. I do not believe her TSH or urinalysis explain her symptoms or exam findings. I believe she has undiagnosed Parkinson's disease or some other movement disorder. This is typically an outpatient evaluation. Patient did not feel unsafe going home and declined observation. We will refer her to neurology. She declined physical therapy. innovation manager saw the patient as well to help with resources. Patient treated with Keflex and will follow-up with her PCP for UTI. Treatment Plan: As above Disposition: Discharge Impression: 1. Generalized weakness 2. UTI This note was generated with [employer] dictation software. It may contain incorrect words, spelling, and punctuation that were not noted in review of the chart prior to signing ED Disposition - Plan for ED Patient: Referrals: Rain Mccormick DO [Primary Care Provider] -
--- NOTE | 2019-03-10 18:51 | DCINST.ED_ITS ---
ED Disposition - Plan for ED Patient: Instructions: WEAKNESS, Unk Cause Prescriptions: Cephalexin [Keflex] 500 mg PO Q6 #28 cap Prescription Printed Referrals: Rain Mccormick DO [Primary Care Provider] - Additional Instructions: Call for [facility] follow up for movement disorders [phone]
== END 2019-03-10 19:31 | disposition home or self-care (01) ==
LOC: ED 16:48
PROVIDERS: Emergency Provider Emergency Medicine; Family Provider Internal Medicine; PCP Internal Medicine
DX: R53.1 Weakness (principal); N39.0 Urinary tract infection, site not specified; E11.9 Type 2 diabetes mellitus without 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; I10 Essential (primary) hypertension; M79.7 Fibromyalgia; F32.9 Major depressive disorder, single episode, unspecified; F41.9 Anxiety disorder, unspecified; N39.3 Stress incontinence (female) (male); R25.1 Tremor, unspecified
CPT/HCPCS: 70450; 71045; 80048; 81001; 84443; 84484; 85025; 87077; 87086; 87088; 87186; 93005; 96361; 96365; 99284; J7040; P9612; A4216

== ENCOUNTER 2019-04-07 10:10 | Emergency (ER) | payer MEDICARE, OTHER, SELFPAY ==
[2019-03-10 15:40] VITALS: BMI 27.3
[2019-04-07 10:11] VITALS: BP 115/64; PULSE 61; RESP 18; TEMP 36.1; O2SAT 99; BMI 24.9
--- NOTE | 2019-04-07 10:38 | ED.VISSUMM ---
- ER Visit Summary Date of Service: 04/07/19 Chief Complaint: Unable to urinate History of Present Illness: The patient is a 73 F who presents to the emergency department with the inability to urinate since 0100 hrs. Patient states that she sees a uro-web communications specialist. About 2 months ago she had Botox injection for overactive bladder. She states that she has been straining to urinate ever since that injection. In February she was diagnosed with urinary tract infection. She states that she has had to have straight cath before but has not had to have a Alcantar catheter to go home with. Physical Examination: Afebrile vital signs stable Gen: Well-nourished well-developed Head: Normocephalic atraumatic Eyes: Perrl EOMI ENT: TMs clear no rhinorrhea moist mucous membranes Neck: Supple no lymphadenopathy no JVD nontender CVS: Regular rate rhythm no murmurs normal S1-S2 Respiratory: No distress clear to auscultation bilaterally chest nontender Abdomen: Soft palpation suprapubic region nondistended normal bowel sounds no masses Back: Nontender Extremity: Nontender no edema Skin: Normal color no rash Neuro: alert orientated ?3 CN II-XII intact normal strength sensation Psych: Normal affect normal mood Test Results: Urinalysis showed 10-25 white blood cells 2+ bacteria positive nitrates and leukocyte esterase Emergency Department Course and Treatment: Alcantar catheter was placed but the patient only had approximately 250 cc out. It was fairly concentrated. Patient tells me that she goes to the bathroom since 1:00 and strains but nothing was coming out. I would hypothesize that the patient needs to drink more fluids. That she was probably feeling the urge to urinate due to the infection but did not actually have urinary retention. I do not believe she needs to keep Alcantar in. Patient will be placed on Keflex and Pyridium Impression: 1. Urinary tract infection This note was generated with [employer] dictation software. It may contain incorrect words, spelling, and punctuation that were not noted in review of the chart prior to signing ED Disposition - Plan for ED Patient: Disposition: Home or Assisted Living Instructions: Bladder Infection, Female (Adult) Prescriptions: Cephalexin [Keflex] 500 mg PO Q12 #14 cap Prescription Printed Phenazopyridine HCl [Pyridium] 200 mg PO TID #6 tab Prescription Printed Referrals: Anny,Rain, DO [Primary Care Provider] - As Needed
[2019-04-07 10:50] LABS: Mucous, Urine 0 SEEN /hpf (<or=2+)
[2019-04-07 11:00] LABS: Color, Urine Yellow (Yellow); Glucose, Dipstick Normal (Normal); Ketone-Dipstick 5 mg/dl (Negative); Leukocyte Esterase-Dipstick 100 /ul (Negative); Nitrite-Dipstick Positive (Negative); Occult Blood-Urine 10 /ul (Negative); Protein-Dipstick 30 mg/dl (Negative); Urine Bilirubin Dipstick Negative (Negative); Urine Clarity Sl. Cloudy (Clear); Urine Urobilinogen Normal (Normal)
[2019-04-07 11:01] LABS: Bacteria 2+ /hpf (None Seen); Red Blood Cells-Urine 0-5 SEEN /hpf (0-5); Squamous Epithelial Cells - UA 0-5 SEEN /hpf (5-10); White Blood Cells 10-25 SEEN /hpf (0-5)
== END 2019-04-07 11:39 | disposition home or self-care (01) ==
PROVIDERS: Emergency Provider Emergency Medicine; Family Provider Internal Medicine; PCP Internal Medicine
DX: N39.0 Urinary tract infection, site not specified (principal); E11.9 Type 2 diabetes mellitus without 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; I10 Essential (primary) hypertension; E78.00 Pure hypercholesterolemia, unspecified; F32.9 Major depressive disorder, single episode, unspecified; F41.9 Anxiety disorder, unspecified
CPT/HCPCS: 51702; 81001; 87077; 87086; 87088; 87186; 99283

== ENCOUNTER 2019-05-02 08:25 | Emergency (ER) | payer MEDICARE, OTHER, SELFPAY ==
[2019-05-02 08:26] VITALS: BP 119/64; PULSE 60; RESP 17; TEMP 36.4; O2SAT 100; BMI 24.0
--- NOTE | 2019-05-02 08:48 | CT_ITS ---
STUDY: CT LUMBAR SPINE WITHOUT CONTRAST REASON FOR EXAM: Female, 73 years old. INCREASED LOWER BACK PAIN -- PT STATES THAT SHE FELL LAST NIGHT, DENIES ANY OTHER INJURY RADIATION DOSAGE (If Supplied By Facility): CTDIvol = ( 10.46 ) mGy, DLP = ( 304.03 ) mGycm TECHNIQUE: The patient was scanned in a multi detector CT scanner. High resolution transaxial imaging was performed. Images were obtained from to . Sagittal and coronal images were reconstructed. Individualized dose optimization techniques were used for this CT. COMPARISON: None FINDINGS: Normal lumbar lordosis. There is no demonstrated fracture. There is multilevel endplate spondylosis of the lumbar vertebrae. There is multi-level degenerative disc disease with multi-level disc space narrowing. Normal visualized paraspinous soft tissue structures. CT/Spine Lumbar without Contrast IMPRESSION: No demonstrated fractures. Multilevel degenerative changes. Electronically Signed: Bianca Willoughby MD at 9:31 EDT Tel , Service support ,
--- NOTE | 2019-05-02 08:48 | CT_ITS ---
STUDY: CT PELVIS WITHOUT CONTRAST REASON FOR EXAM: Female, 73 years old. INCREASED LOWER BACK PAIN -- PT STATES THAT SHE FELL LAST NIGHT, DENIES ANY OTHER INJURY. RADIATION DOSAGE (If Supplied By Facility): CTDIvol = ( 12.06 ) mGy, DLP = ( 334.22 ) mGycm TECHNIQUE: Transaxial imaging of the pelvis was performed with oral contrast, and without intravenous administration of contrast material. Individualized dose optimization techniques were used for this CT. COMPARISON: None. FINDINGS: There is a non-specific bowel gas pattern. There is narrowing with cortical sclerosis and osteophyte formation of the sacroiliac joint consistent with degenerative osteoarthritic changes. Normal visualized bilateral superior and inferior pubic rami. There are degenerative changes of the pubic symphysis with articular narrowing and sclerosis. Normal visualized right femoral head. Normal right hip joint. Normal visualized left femoral head. Normal left hip joint. CT/Pelvis without IV Contrast IMPRESSION: No demonstrated fractures. Electronically Signed: Bianca Willoughby MD at 9:29 EDT Tel , Service support ,
[2019-05-02] MEDS: HYDROcodone Bitartrate/Apap 5/325 Tablet PO (09:04)
--- NOTE | 2019-05-02 10:32 | ED.VISSUMM ---
- ER Visit Summary Date of Service: 05/02/19 Chief Complaint: Back injury History of Present Illness: The patient is a 73 F who states that last night she went to her daughter's for dessert. She went to lean against the wall and fortunately there is no wall there. States she fell landing on her right side and buttock. She hit her head but did not have any loss of consciousness. She has no headache. She notes all of her pain seems to be in the low back and the buttock region. She denies any leg symptoms. No bowel or bladder dysfunction (out of the ordinary as she has chronic bladder issues). No loss of sensation. Physical Examination: Afebrile vital signs are stable Gen: Well-nourished well-developed Head: Normocephalic atraumatic Eyes: Perrl EOMI ENT: TMs clear no rhinorrhea moist mucous membranes Neck: Supple no lymphadenopathy no JVD nontender CVS: Regular rate rhythm no murmurs normal S1-S2 Respiratory: No distress clear to auscultation bilaterally chest nontender Abdomen: Soft nontender nondistended normal bowel sounds no masses Back: Tender to palpation in the midline of the lumbar spine as well as the sacral region. Extremity: Nontender no edema Skin: Normal color no rash Neuro: alert orientated ?3 CN II-XII intact normal strength sensation reflexes (patellar/Achilles) patient has a slow antalgic gait Psych: Normal affect normal mood Test Results: CT of the lumbar spine and pelvis were negative for acute fractures. Degenerative changes were noted. Emergency Department Course and Treatment: Patient received a [place]. She is able to lie on her back. Patient be discharged home with a short course of oxycodone to take in addition to her Tylenol. She was advised that she will be very sore but should start to heal and become less sore as time goes on. Follow-up with primary care if not improving return if worsening Impression: 1. Acute sacral and lumbar contusion This note was generated with [employer] dictation software. It may contain incorrect words, spelling, and punctuation that were not noted in review of the chart prior to signing ED Disposition - Plan for ED Patient: Disposition: Home or Assisted Living Instructions: CONTUSION, Back Prescriptions: Oxycodone [Oxyir] 5 mg PO Q6H PRN PRN 3 Days #12 tab PRN Reason: Pain Prescription Printed Referrals: Rain Mccormick DO [Primary Care Provider] - 3-5 Days
[2019-05-02 10:55] VITALS: BP 159/68; PULSE 53; RESP 12; O2SAT 99
== END 2019-05-02 10:56 | disposition home or self-care (01) ==
PROVIDERS: Emergency Provider Emergency Medicine; Family Provider Internal Medicine; PCP Internal Medicine
DX: S30.0XXA Contusion of lower back and pelvis, initial encounter (principal); W18.30XA Fall on same level, unspecified, initial encounter; Y93.9 Activity, unspecified; Y92.9 Unspecified place or not applicable; Y99.9 Unspecified external cause status; E11.9 Type 2 diabetes mellitus without 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; I10 Essential (primary) hypertension
CPT/HCPCS: 72131; 72192; 99283; J7030

== ENCOUNTER 2019-07-06 16:36 | Emergency (ER) | payer MEDICARE, OTHER, SELFPAY ==
[2019-07-06 16:37] VITALS: BP 146/81; PULSE 59; RESP 15; TEMP 36.8; O2SAT 100; BMI 24.9
--- NOTE | 2019-07-06 16:55 | ED.VIS.GEN ---
History of Present Illness Chief Complaint: Complaint Detail of Chief Complaint: Urinary frequency Informant: Patient Onset: Days - 4 days Current Severity: Moderate Maximum Severity: Moderate Narrative: Patient presents with urinary frequency of the last for 5 days. She has pressure over her bladder. When she is able to get urine out she has burning sensation afterwards. She does have a history of frequent UTIs, most recently in March. She has also had problems with urinary retention in the past requiring catheter placement. She denies fever. She denies back pain. Past Medical History - Allergies and Home Meds Allergies/Adverse Reactions: Allergies latex Allergy (Verified 07/06/19 16:36) Itching ITCHING AND REDNESS Primary Care Physician: Rain Mccormick DO [Primary Care Provider] - Prior records reviewed: Yes Past Medical History: - - Reviewed Lives: Spouse/ Significant Other Smoking Status: Never smoker Review of Systems General: Denies: Chills, Fever Eyes: Denies: Visual changes - bilaterally ENT: Denies: Bilateral ear pain Cardiovascular: Denies: Chest pain Respiratory: Denies: Dyspnea Gastrointestinal: Reports: Abdominal pain. Denies: Nausea, Vomiting Genitourinary: Reports: Dysuria, Frequency. Denies: Hematuria Musculoskeletal: Denies: Back pain Skin: Denies: Rash Neurological: Denies: Headache Hematologic: Denies: Easy bruising Allergy: Denies: Uticaria Physical Exam Vital Signs/Narrative: Vital Signs Temp Pulse Resp BP Pulse Ox 07/06/19 16:37 98.2 F 59 L 15 146/81 H 100 Inital Vital Signs reviewed: Yes General: Well nourished, Well developed ENT: Moist mucous membranes Neck: Supple Cardiovascular: Regular rate, Regular rhythm Respiratory: No distress, CTA bilaterally Abdomen: Soft, Tender - Mild supra pubic tenderness., Hypoactive bowel sounds. Negative for: Guarding, Rebound tenderness Extremities: Nontender Skin: Normal color, No rash Neurological: Alert, Oriented x3 Psychological: Normal affect Diagnostic/Tx/Re-eval Laboratory Results 07/06/19 17:20 Urine Color Yellow Urine Clarity Cloudy Urine pH 5.0 Ur Specific [place] 1.020 Urine Protein Negative Urine Glucose (UA) Normal Urine Ketones Negative Urine Occult Blood Negative Urine Nitrite Negative Urine Bilirubin Negative Urine Urobilinogen Normal Ur Leukocyte Esterase 100 H Urine RBC 0 SEEN Urine WBC 5-10 SEEN Ur Squamous Epith Cells 0-5 SEEN Ur Transition Epith Cell 0-5 SEEN Urine Bacteria RARE Urine Mucus 0 SEEN - Medical Decision Making Patient was given Azo shortly after initial exam. Postvoid residual bladder was checked x2. She is holding just over 200 cc. Alcantar catheter was placed. When I went back for her re-eval exam she is 500 cc of urine in the bag. She is now having spasms from the catheter. She will be given a B&O suppository. Although her urine does not show significant infection, with now having an indwelling catheter she will be covered with Keflex. She will follow-up with Dr. Cutler who she has seen in the past. ED Disposition - Plan for ED Patient: Disposition: Home or Assisted Living Diagnosis: Urinary retention Instructions: URINARY RETENTION, Female Prescriptions: Opium/Belladonna Alkaloids [Belladonna-Opium 16.2-60 Supp] 1 each RC 4X/DAY PRN PRN #7 supp.rect PRN Reason: Spasms Cephalexin [Keflex] 500 mg PO Q12 #14 capsule Phenazopyridine HCl [Pyridium] 200 mg PO BID PRN PRN #10 tablet PRN Reason: Pain Referrals: Hadley Cutler MD [STAFF PHYSICIAN] - 2 Days
[2019-07-06] MEDS: Phenazopyridine 95 MG Tablet 190 MG PO (17:07)
[2019-07-06 17:25] LABS: Mucous, Urine 0 SEEN /hpf (<or=2+); Red Blood Cells-Urine 0 SEEN /hpf (0-5)
[2019-07-06 17:35] LABS: Color, Urine Yellow (Yellow); Glucose, Dipstick Normal (Normal); Ketone-Dipstick Negative (Negative); Leukocyte Esterase-Dipstick 100 /ul (Negative); Nitrite-Dipstick Negative (Negative); Occult Blood-Urine Negative /ul (Negative); Protein-Dipstick Negative (Negative); Urine Bilirubin Dipstick Negative (Negative); Urine Clarity Cloudy (Clear); Urine Urobilinogen Normal (Normal)
[2019-07-06 18:26] LABS: Squamous Epithelial Cells - UA 0-5 SEEN /hpf (5-10)
[2019-07-06 18:27] LABS: Bacteria RARE /hpf (None Seen); Transitional Epithelial - Ur 0-5 SEEN /hpf (0-5); White Blood Cells 5-10 SEEN /hpf (0-5)
[2019-07-06] MEDS: Cephalexin 250 MG Capsule 500 MG PO (18:57)
[2019-07-06 19:13] VITALS: BP 188/70; PULSE 64; RESP 17; O2SAT 100
[2019-07-06 20:08] VITALS: BP 164/71; PULSE 68; RESP 18; O2SAT 99
== END 2019-07-06 20:00 | disposition home or self-care (01) ==
PROVIDERS: Emergency Provider Emergency Medicine; Family Provider Internal Medicine; PCP Internal Medicine
DX: R33.9 Retention of urine, unspecified (principal); R35.0 Frequency of micturition; R10.9 Unspecified abdominal pain; R30.0 Dysuria; Z87.440 Personal history of urinary (tract) infections
CPT/HCPCS: 51702; 81001; 87086; 87088; 99284

== ENCOUNTER 2019-07-07 05:23 | Emergency (ER) | payer MEDICARE, OTHER, SELFPAY ==
[2019-07-06 16:37] VITALS: BMI 24.9
[2019-07-07 05:24] VITALS: BP 145/74; PULSE 51; RESP 16; TEMP 36.6; O2SAT 99; BMI 24.7
--- NOTE | 2019-07-07 05:26 | ED.VISSUMM ---
- ER Visit Summary Date of Service: 07/07/19 Chief Complaint: Bladder spasms History of Present Illness: The patient is a 73 F who was continued to have bladder spasms. She was seen yesterday and diagnosed with a UTI. A Alcantar catheter was placed due to urinary retention and then she had bladder spasms. She was given a B&O suppository which helped. She was discharged with Keflex, Pyridium and the suppositories. She is unable to fill it because they left after the pharmacy closed. She continued to have the spasms throughout the night. Denies any other new symptoms. Physical Examination: Vital signs reviewed. HEENT exam unremarkable. Heart is regular rate and rhythm without murmurs. Lungs are clear to auscultation. Abdomen is soft with some suprapubic tenderness to palpation. Catheter still in place. Extremities reveal no edema. Skin exam normal. Neurologic exam normal. Test Results: None performed Emergency Department Course and Treatment: Patient will be given a B&O suppository here. She already has prescriptions for antibiotics and the BNO suppositories at home. She will need to fill it from the pharmacy opens up this morning. I do not feel she requires any other further testing at this time Treatment Plan: [] Disposition: Discharge Impression: Bladder spasms This note was generated with [employer] dictation software. It may contain incorrect words, spelling, and punctuation that were not noted in review of the chart prior to signing ED Disposition - Plan for ED Patient: Referrals: Rain Mccormick DO [Primary Care Provider] -
--- NOTE | 2019-07-07 05:28 | ED.DEP ---
ED Disposition - Plan for ED Patient: Disposition: Home or Assisted Living Instructions: Bladder Infection, Female (Adult) Referrals: Rain Mccormick DO [Primary Care Provider] -
[2019-07-07 05:51] VITALS: BP 140/72; PULSE 58; RESP 16; O2SAT 98
--- NOTE | 2019-07-07 05:53 | ED.RN ---
YU REMOVED THAT THE PT CAME IN WITH, NEW LATEX FREE YU CATH 16F INSERTED AND B&O SUPPOSITORY GIVEN.
--- NOTE | 2019-07-07 05:55 | ED.RN ---
pt arrived with 16 [place] catheter placed on prior ed visit. catheter was replaced due to discomfort with a 16 [place] latex free catheter for urinary retention.10 cc of water removed from balloon, balloon intact.
== END 2019-07-07 05:56 | disposition home or self-care (01) ==
LOC: ED 05:36
PROVIDERS: Emergency Provider Emergency Medicine; Family Provider Internal Medicine; PCP Internal Medicine
DX: N32.89 Other specified disorders of bladder (principal); N39.0 Urinary tract infection, site not specified; Z91.040 Latex allergy status; E11.9 Type 2 diabetes mellitus without 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; F32.9 Major depressive disorder, single episode, unspecified
CPT/HCPCS: 51702; 99284

== ENCOUNTER → 2019-08-11 09:58 | Outpatient (CLI) | payer MEDICARE, OTHER, SELFPAY ==
--- NOTE | 2019-08-11 10:03 | US_ITS ---
STUDY: SUPERFICIAL ULTRASOUND - STERNUM REASON FOR EXAM: Female, 74 years old. Mass TECHNIQUE: A superficial ultrasound was performed with real-time and static trivedi-scale imaging. COMPARISON: None. FINDINGS: Target sonographic evaluation of the area in question demonstrates no focal mass lesion or other focal sonographic abnormality. Normal soft tissues are identified. US/Chest IMPRESSION: No focal lesion identified. Electronically Signed: Fei Albarran, at 12:10 EST Tel , Service support ,
== END ==
PROVIDERS: Family Provider Internal Medicine; PCP Internal Medicine; Referring Provider Internal Medicine; Visit Provider Internal Medicine
DX: R22.2 Localized swelling, mass and lump, trunk (principal)
CPT/HCPCS: 76604

== ENCOUNTER 2019-08-17 09:37 | Emergency (ER) | payer MEDICARE, OTHER, SELFPAY ==
[2019-08-17 09:38] VITALS: BP 129/73; PULSE 66; RESP 16; TEMP 36.4; O2SAT 98; BMI 23.6
--- NOTE | 2019-08-17 10:11 | ED.VIS.GEN ---
History of Present Illness Chief Complaint: Complaint Informant: Patient Onset: Days Context: Gradual Onset Timing: Continuous Current Severity: Moderate Maximum Severity: Moderate Narrative: The patient presents to the emergency department with UTI symptoms. Patient has a history of recurrent urinary tract infection. She states over the weekend, she had some increasing urinary frequency. She states that yesterday, she began to have some mild left-sided back pain. She denies any fevers or chills. She denies any nausea or vomiting. She has been on antibiotics multiple times this year for recurrent urinary tract infection. She is a diabetic, but is not on insulin. She states she is also currently being worked up for Parkinson's and that gives her some difficulty with her urination. Prior similar symptoms: Yes Recent Illness/Hospitalization: No Past Medical History - Allergies and Home Meds Allergies/Adverse Reactions: Allergies latex Allergy (Verified 08/17/19 10:26) Itching ITCHING AND REDNESS Primary Care Physician: Rain Mccormick DO [Primary Care Provider] - Prior records reviewed: Yes Past Medical History: - - Parkinson's, diabetes Surgical History: noncontributory Smoking Status: Never smoker Review of Systems General: Denies: Chills, Fever, Sweats Eyes: Denies: Visual changes - bilaterally, Diplopia ENT: Denies: Rhinorrhea, Sore throat Cardiovascular: Denies: Chest pain, Palpitations Respiratory: Denies: Dyspnea, Cough, Dyspnea on exertion Gastrointestinal: Denies: Abdominal pain, Nausea, Vomiting, Diarrhea, Melena, Hematochezia Genitourinary: Reports: Dysuria, Frequency. Denies: Hematuria Musculoskeletal: Denies: Back pain, Extremity Pain Skin: Denies: Rash, Wounds Neurological: Denies: Headache, Weakness, Numbness Physical Exam Vital Signs/Narrative: Vital Signs Temp Pulse Resp BP Pulse Ox 08/17/19 09:38 97.6 F L 66 16 129/73 H 98 Inital Vital Signs reviewed: Yes General: Well nourished, Well developed, No Acute Distress Head: Normocephalic, Atraumatic Eyes: Perrl, EOMI ENT: Moist mucous membranes, No rhinorrhea Neck: Supple, Nontender Cardiovascular: Regular rate, Regular rhythm, No murmurs Respiratory: No distress, CTA bilaterally, Chest nontender Abdomen: Soft, Nontender, Nondistended, Normal bowel sounds Back: Nontender, Normal Inspection Extremities: Nontender, No edema Skin: Normal color, No rash Neurological: Alert, Oriented x3, Cranial nerves II-XII grossly intact, Normal Strength, Normal Sensation Psychological: Normal affect, Normal Mood Diagnostic/Tx/Re-eval Abnormal Lab Results 08/17/19 08/17/19 08/17/19 09:45 10:00 10:00 WBC 5.2 RBC 4.94 Hgb 14.5 Hct 42.8 MCV 86.6 MCH 29.4 MCHC 33.9 RDW Std Deviation 36.9 RDW Coeff of Jeff 11.6 Plt Count 220 MPV 9.9 Immature Gran % (Auto) 0.200 Neut % (Auto) 56.2 Lymph % (Auto) 34.2 [place] % (Auto) 7.3 Eos % (Auto) 1.5 Baso % (Auto) 0.6 Absolute Neuts (auto) 2.9 Absolute Lymphs (auto) 1.79 Nucleated RBC % 0 Sodium 139 Potassium 3.8 Chloride 105 Carbon Dioxide 28.0 Anion Gap 6 BUN 22 H Creatinine 1.06 H Estim Creat Clear Calc 41.43 Est GFR (MDRD) Af Amer 66 Est GFR (MDRD) Non-Af 54 L BUN/Creatinine Ratio 20.8 H Glucose 95 Calcium 9.2 Urine Color Yellow Urine Clarity Clear Urine pH 6.0 Ur Specific [place] 1.015 Urine Protein Negative Urine Glucose (UA) Normal Urine Ketones Negative Urine Occult Blood 10 H Urine Nitrite Negative Urine Bilirubin Negative Urine Urobilinogen Normal Ur Leukocyte Esterase 100 H Urine RBC 0 SEEN Urine WBC 0-5 SEEN Ur Squamous Epith Cells 5-10 SEEN Urine Bacteria 0 SEEN Urine Mucus 0 SEEN - Medical Decision Making The patient presents with dysuria, frequency, and urgency. She has a history of recurrent urinary tract infection. Screening labs are obtained and are unremarkable. Patient was given fluids and antiemetics. She is feeling improved. Her urine does not show overwhelming infectious process, but her cultures have all been positive. With that her symptoms, I do feel is most prudent to treat her. She is given a dose of IV Rocephin. She will be continued on Bactrim at home. She was counseled on concerning symptoms and reasons to return. She will be discharged. Impression 1. Acute cystitis ED Disposition - Plan for ED Patient: Instructions: Bladder Infection, Female (Adult) Prescriptions: Smz/Tmp Ds [Bactrim Ds] 1 tab PO BID #14 tab Prescription Printed Referrals: Rain Mccormick DO [Primary Care Provider] -
[2019-08-17 10:15] LABS: Absolute Lymphocyte Count 1.79 X10^3/uL (0.83-4.51); Absolute Neutrophil Count 2.9 X10^3/uL (2.0-7.7); Basophil# 0.03 X10^3/uL; Basophil% 0.6 % (0-1); Eosinophil# 0.08 X10^3/uL; Eosinophils% 1.5 % (0-5); Hematocrit 42.8 % (37-47); Hemoglobin 14.5 g/dL (12.0-15.0); Lymphocyte # 1.79 X10^3/ul (4.0); Lymphocyte % 34.2 % (19-41); Mean Corp Hgb Conc 33.9 g/dL (32-36); Mean Corpuscular Hgb 29.4 pg (27.0-32.0); Mean Corpuscular Volume 86.6 fL (81-99); Mean Platelet Vol. 9.9 fl (6.2-12.0); Monocyte# 0.38 X10^3/uL; Monocyte% 7.3 % (0-10); NRBC Flagged by Analyzer 0 % (0-5); Neutrophil # 2.94 X10^3/uL (2.7-7.7); Neutrophil % 56.2 % (47-70); Platelet Count 220 K/mm3 (150-450); RBC Distribution Width CV 11.6 % (11.6-14.6); RBC Distribution Width SD 36.9 fl (35.1-43.9); Red Blood Count 4.94 M/mm3 (4.2-5.4); White Blood Count 5.2 K/mm3 (4.4-11.0)
[2019-08-17 10:29] LABS: Bacteria 0 SEEN /hpf (None Seen); Mucous, Urine 0 SEEN /hpf (<or=2+); Red Blood Cells-Urine 0 SEEN /hpf (0-5)
[2019-08-17 10:32] LABS: Color, Urine Yellow (Yellow); Glucose, Dipstick Normal (Normal); Ketone-Dipstick Negative (Negative); Leukocyte Esterase-Dipstick 100 /ul (Negative); Nitrite-Dipstick Negative (Negative); Occult Blood-Urine 10 /ul (Negative); Protein-Dipstick Negative (Negative); Specific Gravity, Urine 1.015 (1.002-1.030); Urine Bilirubin Dipstick Negative (Negative); Urine Clarity Clear (Clear); Urine Urobilinogen Normal (Normal)
[2019-08-17 10:34] LABS: Anion Gap 6 (5-15); BUN 22 mg/dL (7-18); BUN/Creat Ratio 20.8 RATIO (10-20); Calcium,Total 9.2 mg/dL (8.5-10.1); Chloride 105 mmol/L (98-107); Creatinine, Serum 1.06 mg/dL (0.55-1.02); EST Glomerular Filtration Rate 54 mL/min (>60); Est Glom Filt Rate - Afr Amer 66 mL/min (>60); Estimated Creatinine Clearance 41.43 ml/min; Glucose 95 mg/dL (74-106); Potassium 3.8 mmol/L (3.5-5.1); Sodium Level 139 mmol/L (136-145)
[2019-08-17 10:40] LABS: Squamous Epithelial Cells - UA 5-10 SEEN /hpf (5-10)
[2019-08-17 10:41] LABS: White Blood Cells 0-5 SEEN /hpf (0-5)
[2019-08-17] MEDS: Ondansetron 4 MG/2 ML Vial IV (10:45)
[2019-08-17] MEDS: Ceftriaxone 1 GM/50 ML BAG IV (11:13)
[2019-08-17 11:47] VITALS: PULSE 60; RESP 16; O2SAT 100
--- NOTE | 2019-08-17 11:48 | ED.RN ---
IV DC'ED, CATHETER INTACT, SMALL GAUZE DRESSING PLACED. DISCHARGE INSTRUCTIONS GIVEN TO AND REVIEWED WITH PATIENT, PATIENT DENIES QUESTIONS OR CONCERNS AND VOICES UNDERSTANDING OF DISCHARGE INSTRUCTIONS. PT TO PRIVATE VEHICLE VIA WHEELCHAIR.
== END 2019-08-17 11:49 | disposition home or self-care (01) ==
PROVIDERS: Emergency Provider Emergency Medicine; Family Provider Internal Medicine; PCP Internal Medicine
DX: N30.00 Acute cystitis without hematuria (principal); G20 Parkinson's disease; E11.9 Type 2 diabetes mellitus without 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; Z87.440 Personal history of urinary (tract) infections; Z79.84 Long term (current) use of oral hypoglycemic drugs; Z79.899 Other long term (current) drug therapy
CPT/HCPCS: 80048; 81001; 85025; 96365; 96374; 99283; J7040; A4216; J2405

== ENCOUNTER 2019-10-16 12:49 | Emergency (ER) | payer MEDICARE, OTHER, SELFPAY ==
[2019-10-16 12:50] VITALS: BP 143/85; PULSE 71; RESP 17; TEMP 36.4; O2SAT 100; BMI 22.8
--- NOTE | 2019-10-16 13:04 | ED.VIS.GEN ---
History of Present Illness Chief Complaint: Complaint Informant: Patient, Significant Other Onset: Yesterday Context: Gradual Onset Timing: Continuous Quality: Burning Location: suprapubic Current Severity: Moderate Maximum Severity: Moderate Worsened by: urination Relieved by: nothing Associated Symptoms: Nausea Narrative: 74-year-old female with a past medical history of Parkinson's as well as frequent urinary tract infections presents to the emergency department 24 hours of dysuria, burning with urination as well as urinary frequency and urgency. She has had nausea. No vomiting. No abdominal pain. No difficulty urinating. No fevers. Last urinary tract infection was 2 months ago. Otherwise at home has been able to eat and drink normally. She is not lightheaded or dizzy. She denies any other review of systems at this time. Prior similar symptoms: Yes Recent Illness/Hospitalization: No Past Medical History - Allergies and Home Meds Allergies/Adverse Reactions: Allergies latex Allergy (Verified 10/16/19 12:50) Itching ITCHING AND REDNESS Primary Care Physician: Rain Mccormick DO [Primary Care Provider] - Prior records reviewed: Yes Past Medical History: - - Parkinson's Surgical History: hysterectomy, - - Lives: With Family Smoking Status: Never smoker Review of Systems All systems negative except as indicated General: Reports: Chills. Denies: Fever, Malaise, Sweats Eyes: Denies: Visual changes - bilaterally, Blurred Vision - bilaterally, Diplopia ENT: Denies: Rhinorrhea, Sore throat Cardiovascular: Denies: Chest pain, Palpitations, Heart racing Respiratory: Denies: Dyspnea, Cough, Sputum Gastrointestinal: Reports: Nausea. Denies: Abdominal pain, Vomiting, Diarrhea, Constipation, Melena, Hematochezia Genitourinary: Reports: Dysuria, Frequency. Denies: Hematuria Musculoskeletal: Denies: Back pain, Swelling, Extremity Pain Skin: Denies: Rash, Abscess, Abrasions, Wounds Neurological: Denies: Parasthesia, Numbness Physical Exam Vital Signs/Narrative: Vital Signs Temp Pulse Resp BP Pulse Ox 10/16/19 12:50 97.6 F L 71 17 143/85 H 100 Inital Vital Signs reviewed: Yes General: Well nourished, Well developed, No Acute Distress Head: Normocephalic, Atraumatic Eyes: Perrl, EOMI ENT: Moist mucous membranes Neck: Supple, Nontender Cardiovascular: Regular rate, Regular rhythm, No murmurs Respiratory: No distress, CTA bilaterally, Chest nontender Abdomen: Soft, Nontender, Nondistended, Normal bowel sounds Back: Nontender, Normal Inspection. Negative for: CVA tenderness Extremities: Nontender, No edema. Negative for: Tenderness, Edema, Calf Tenderness Skin: Normal color, No rash, No Trauma Neurological: Alert, Oriented x3, Normal Strength, Normal Sensation Psychological: Normal affect Diagnostic/Tx/Re-eval - Medical Decision Making Patient was treated with fluids and Zofran. CBC, BMP unremarkable. Urinalysis is consistent with a urinary tract infection. Patient was developing right flank pain. She was given a dose of oxycodone. We did obtain a CT abdomen and pelvis. This demonstrated bilateral hydronephrosis but no definitive kidney stones or other acute abnormality. Recommended correlation with the patient's urinalysis. Repeat exam patient is not having any pain. Vital signs are stable. She is able to tolerate by mouth. We will give her a dose of Rocephin and then discharge her home with a prescription for Keflex. Urine culture was sent. Patient were agreeable with plan. They will follow-up in the next several days with her primary care or return here to the emergency department for worsening symptoms which we discussed. ED Disposition - Plan for ED Patient: Disposition: Home or Assisted Living Diagnosis: UTI (urinary tract infection), Acute flank pain Instructions: Bladder Infection, Female (Adult) Prescriptions: Cephalexin [Keflex] 500 mg PO Q12 #14 cap Prescription Printed Referrals: Rain Mccormick DO [Primary Care Provider] -
[2019-10-16] MEDS: 0.9% Normal Saline 1,000 ML 1000 ML IV (13:31)
[2019-10-16 13:48] LABS: Absolute Lymphocyte Count 2.14 X10^3/uL (0.83-4.51); Absolute Neutrophil Count 3.7 X10^3/uL (2.0-7.7); Basophil# 0.03 X10^3/uL; Basophil% 0.5 % (0-1); Eosinophil# 0.04 X10^3/uL; Eosinophils% 0.6 % (0-5); Hematocrit 42.9 % (37-47); Hemoglobin 14.9 g/dL (12.0-15.0); Lymphocyte # 2.14 X10^3/ul (4.0); Lymphocyte % 33.9 % (19-41); Mean Corp Hgb Conc 34.7 g/dL (32-36); Mean Corpuscular Hgb 28.5 pg (27.0-32.0); Mean Platelet Vol. 9.6 fl (6.2-12.0); Monocyte# 0.42 X10^3/uL; Monocyte% 6.7 % (0-10); NRBC Flagged by Analyzer 0 % (0-5); Neutrophil # 3.66 X10^3/uL (2.7-7.7); Platelet Count 254 K/mm3 (150-450); RBC Distribution Width CV 12.5 % (11.6-14.6); RBC Distribution Width SD 36.9 fl (35.1-43.9); Red Blood Count 5.23 M/mm3 (4.2-5.4); White Blood Count 6.3 K/mm3 (4.4-11.0)
[2019-10-16 13:52] LABS: Anion Gap 7 (5-15); BUN 25 mg/dL (7-18); BUN/Creat Ratio 21.6 RATIO (10-20); Chloride 107 mmol/L (98-107); Creatinine, Serum 1.16 mg/dL (0.55-1.02); EST Glomerular Filtration Rate 49 mL/min (>60); Est Glom Filt Rate - Afr Amer 59 mL/min (>60); Estimated Creatinine Clearance 37.86 ml/min; Glucose 90 mg/dL (74-106); Potassium 3.9 mmol/L (3.5-5.1); Sodium Level 139 mmol/L (136-145)
--- NOTE | 2019-10-16 13:56 | CT_ITS ---
STUDY: CT ABDOMEN AND PELVIS WITHOUT CONTRAST REASON FOR EXAM: Female, 74 years old. GROIN PAIN, URINARY URGENCY, HYSTER, HTN, DB, NEW DX OF [place] RADIATION DOSAGE (If Supplied By Facility): CTDIvol = ( 6.23 ) mGy, DLP = ( 279.39 ) mGycm TECHNIQUE: Transaxial images were obtained from the dome of the diaphragm to the symphysis pubis without oral contrast, and without intravenous contrast. Sagittal and coronal images were reconstructed. Individualized dose optimization techniques were used for this CT. COMPARISON: None. FINDINGS: The visualized lung bases are unremarkable. The visualized portions of the heart are within normal limits. Normal liver. Normal gallbladder and extrahepatic biliary system. Normal spleen. Normal pancreas. Normal bilateral adrenal glands. There is subtle bilateral hydroureter hydronephrosis without evidence of stones. Normal visualized stomach. Normal small intestine. There are multiple colonic diverticula consistent with diverticulosis. Prominent fecal retention in the rectosigmoid colon. Nonvisualized appendix. There is diffuse atherosclerotic calcification of the abdominal aorta, without a demonstrated aneurysm. Normal inferior vena cava. Normal retroperitoneum. Normal urinary bladder. Status post hysterectomy Normal abdominal wall. There are diffuse degenerative changes of the visualized lumbar spine. CT/Abdomen/Pelvis without Cont IMPRESSION: There appears to be slight bilateral hydronephrosis and hydroureter without evidence of discrete stones. Unsure if this is related to infectious process. Recommend correlation with UA. Otherwise, fecal retention within the colon. Electronically Signed: Bennie Trotter DO at 15:25 EST Tel , Service support ,
[2019-10-16] MEDS: Ondansetron 4 MG/2 ML Vial IV (13:59)
--- NOTE | 2019-10-16 14:00 | ED.RN ---
spouse of pt yelled and belittled this RN for not coming back. this rn attempted to explain that she had not had connect with pt and was unaware of the pt's needs, spouse said it does not matter you represent this organization you should know when she needs something. attempted to apologize and explain that there are multiple critical pt's, that she is important but that critical pt's need immediate attention. this rn had not had prior contact with pt prior to entering the room d/t call light.
[2019-10-16] MEDS: oxyCODONE 5 MG Tablet PO (14:01)
[2019-10-16 14:24] VITALS: BP 201/78; PULSE 58; RESP 18; O2SAT 100
[2019-10-16 14:26] LABS: Mucous, Urine 0 SEEN /hpf (<or=2+); Red Blood Cells-Urine 0 SEEN /hpf (0-5)
[2019-10-16 14:27] VITALS: BP 201/78; PULSE 58; RESP 18; TEMP 36.4; O2SAT 100
[2019-10-16 14:29] LABS: Color, Urine Yellow (Yellow); Glucose, Dipstick Normal (Normal); Ketone-Dipstick 5 mg/dl (Negative); Leukocyte Esterase-Dipstick 500 /ul (Negative); Nitrite-Dipstick Negative (Negative); Occult Blood-Urine Negative /ul (Negative); Protein-Dipstick Negative (Negative); Specific Gravity, Urine 1.015 (1.002-1.030); Urine Bilirubin Dipstick Negative (Negative); Urine Clarity Clear (Clear); Urine Urobilinogen Normal (Normal)
[2019-10-16 14:59] LABS: White Blood Cells 5-10 SEEN /hpf (0-5)
[2019-10-16 15:00] LABS: Bacteria 1+ /hpf (None Seen); Squamous Epithelial Cells - UA 0-5 SEEN /hpf (5-10)
[2019-10-16 16:37] VITALS: BP 182/68; PULSE 57; RESP 18; O2SAT 99
[2019-10-16] MEDS: Ceftriaxone 1 GM/50 ML BAG IV (16:37)
[2019-10-16 17:34] VITALS: BP 177/67; PULSE 58; RESP 18; O2SAT 99
== END 2019-10-16 17:36 | disposition home or self-care (01) ==
PROVIDERS: Emergency Provider Physician Assistant Medical; PCP Internal Medicine
DX: N39.0 Urinary tract infection, site not specified (principal); G20 Parkinson's disease; I10 Essential (primary) hypertension; Z90.710 Acquired absence of both cervix and uterus; Z91.040 Latex allergy status
CPT/HCPCS: 74176; 80048; 81001; 85025; 87077; 87086; 87088; 87186; 96361; 96365; 96375; 99285; P9612; J2405

== ENCOUNTER → 2019-11-01 16:29 | Outpatient (CLI) | payer MEDICARE, OTHER, SELFPAY ==
[2019-10-16 12:50] VITALS: BMI 22.8
== END ==
PROVIDERS: PCP Internal Medicine; Referring Provider Urology; Visit Provider Urology
DX: N39.0 Urinary tract infection, site not specified (principal)
CPT/HCPCS: 87086; 87088

== ENCOUNTER → 2019-11-30 14:35 | Outpatient (CLI) | payer MEDICARE, OTHER, SELFPAY | PROVIDERS: PCP Internal Medicine; Referring Provider Urology; Visit Provider Urology | DX: N39.0 Urinary tract infection, site not specified (principal) | CPT/HCPCS: 87086 ==

== ENCOUNTER → 2020-01-19 18:05 | Outpatient (REF) | payer MEDICARE, OTHER, SELFPAY ==
[2020-01-20 09:22] LABS: Color, Urine Yellow (Yellow); Glucose, Dipstick Normal (Normal); Ketone-Dipstick Negative (Negative); Leukocyte Esterase-Dipstick Negative /ul (Negative); Nitrite-Dipstick Negative (Negative); Occult Blood-Urine Negative /ul (Negative); Protein-Dipstick Negative (Negative); Urine Bilirubin Dipstick Negative (Negative); Urine Clarity Sl. Cloudy (Clear); Urine Urobilinogen Normal (Normal)
== END ==
PROVIDERS: PCP Internal Medicine; Visit Provider Internal Medicine
DX: N39.0 Urinary tract infection, site not specified (principal)
CPT/HCPCS: 81002; 87086; 87088

== ENCOUNTER → 2020-04-02 19:35 | Outpatient (REF) | payer MEDICARE, OTHER, SELFPAY ==
[2020-04-02 19:42] LABS: Color, Urine Straw (Yellow); Glucose, Dipstick Normal (Normal); Ketone-Dipstick Negative (Negative); Leukocyte Esterase-Dipstick 100 /ul (Negative); Nitrite-Dipstick Negative (Negative); Occult Blood-Urine Negative /ul (Negative); Protein-Dipstick Negative (Negative); Specific Gravity, Urine 1.005 (1.002-1.030); Urine Bilirubin Dipstick Negative (Negative); Urine Clarity Clear (Clear); Urine Urobilinogen Normal (Normal)
== END ==
PROVIDERS: PCP Internal Medicine; Visit Provider Internal Medicine
DX: E11.9 Type 2 diabetes mellitus without 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 (principal); R32 Unspecified urinary incontinence
CPT/HCPCS: 81002; 87086; 87088

== ENCOUNTER 2020-04-12 14:56 | Emergency (ER) | payer MEDICARE, OTHER, SELFPAY ==
[2020-04-12 14:57] VITALS: BP 138/76; PULSE 71; RESP 16; TEMP 36.3; O2SAT 98; BMI 23.8
--- NOTE | 2020-04-12 15:28 | RAD_ITS ---
STUDY: X-RAY CHEST REASON FOR EXAM: Female, 74 years old. MENTAL HEALTH EVALUATION, PT HAS A LUMP UPPER LEFT CHEST ABOVE BREAST TECHNIQUE: Single AP portable view of the chest. COMPARISON: 03/10/2019 FINDINGS: The lungs are clear and expanded. There is no demonstrated pleural abnormality. Normal size heart. Normal mediastinum and caesar. Normal visualized pulmonary arteries. Normal visualized aortic arch and descending thoracic aorta. Normal visualized thoracic spine. Normal visualized ribs, clavicles, and shoulders. There is no demonstrated abnormality of the visualized soft tissue structures of the upper abdomen. RAD/Chest 1 View (Portable) IMPRESSION: Normal x-ray examination of the chest. Electronically Signed: Arnaldo Argueta MD at 16:18 EDT Tel , Service support ,
--- NOTE | 2020-04-12 15:30 | ED.DCSUM_ITS ---
History of Present Illness Chief Complaint: Mental Health Informant: Patient Narrative: Patient presents to the emergency room because she feels like she has been trapped at her detention for months. She states this is due to the pandemic. She states that she thought she was going to the hospital but she is really living in a detention. Patient has history of psychiatric problems as well as estranged from her . Patient is a poor historian however I did speak with her daughter who called when she arrived and stated that she was placed in the home due to the patient's being estranged from her. He does not want her to come home. She states it would be world war 3 if she did come home. She also states that she is not willing to take her back to her house. She also recognizes that the patient does this every night at the same time of day. Past Medical History - Allergies and Home Meds Allergies/Adverse Reactions: Allergies latex Allergy (Verified 04/12/20 14:57) Itching ITCHING AND REDNESS rhubarb Allergy (Verified 04/12/20 14:57) PT UNSURE OF REACTION Primary Care Physician: Rain Mccormick DO [Primary Care Provider] - Past Medical History: None Surgical History: hysterectomy, - - Smoking Status: Never smoker Review of Systems General: Denies: Chills, Fever, Sweats Eyes: Denies: Visual changes - bilaterally, Diplopia ENT: Denies: Rhinorrhea, Sore throat Cardiovascular: Denies: Chest pain, Palpitations Respiratory: Denies: Dyspnea, Cough, Dyspnea on exertion Gastrointestinal: Reports: Nausea, Vomiting - She claims to have had one episode of nausea/vomiting. Denies: Abdominal pain, Diarrhea, Melena, Hematochezia Genitourinary: Denies: Dysuria, Hematuria, Frequency Musculoskeletal: Denies: Back pain, Extremity Pain Skin: Denies: Rash, Wounds Neurological: Denies: Headache, Weakness, Numbness Physical Exam Vital Signs/Narrative: Vital Signs Temp Pulse Resp BP Pulse Ox 04/12/20 14:57 97.4 F L 71 16 138/76 H 98 General: Well nourished, Well developed, No Acute Distress Head: Normocephalic, Atraumatic Eyes: Perrl, EOMI Cardiovascular: Regular rate, Regular rhythm Respiratory: No distress, CTA bilaterally Abdomen: Soft Extremities: Nontender, No edema Skin: Normal color, No rash Neurological: Alert, Cranial nerves II-XII grossly intact Psychological: Tearful, Agitated Diagnostic/Tx/Re-eval Clinical Impression(s) from Imaging Studies Chest X-Ray 04/12/20 15:28 IMPRESSION: Normal x-ray examination of the chest. Electronically Signed: Arnaldo Argueta MD at 16:18 EDT Tel , Service support , Laboratory Data 04/12/20 15:47 Sodium 142 Potassium 3.9 Chloride 110 H Carbon Dioxide 27.0 Anion Gap 5 BUN 29 H Creatinine 1.31 H Estim Creat Clear Calc 33.52 Est GFR (MDRD) Af Amer 51 L Est GFR (MDRD) Non-Af 42 L BUN/Creatinine Ratio 22.1 H Glucose 125 H Calcium 8.9 Total Bilirubin 0.60 AST 12 L ALT 11 L Alkaline Phosphatase 47 Total Protein 6.9 Albumin 4.0 Globulin 2.9 Albumin/Globulin Ratio 1.4 - Medical Decision Making Presents with agitation from her detention as she felt like she has been trapped there. I did speak with her daughter who stated that she and her father had not gotten along and he would not be willing to take her back. I did attempt to reach out to him as he is the power of privacy attorney however he did not respond. He did state that she would not take her back either. She has a lot of dementia and psychological issues that are difficult to deal with. This is why she is in the facility she is at currently. She does typically have these episodes of agitation in the evening. Patient's lab work is normal. Chest x- ray is negative. Patient has calm down significantly. Impression: Agitation Nausea vomiting x1 ED Disposition - Plan for ED Patient: Disposition: Home or Assisted Living Diagnosis: Agitation, Nausea & vomiting Instructions: ED Diet for Vomiting or Diarrhea Adult, ED Personality Disorder Referrals: Rain Mccormick DO [Primary Care Provider] -
[2020-04-12 16:15] LABS: ALB/GLOB Ratio 1.4 RATIO (0.9-2.4); AST(SGOT) 12 U/L (15-37); Alanine Aminotransfer ALT/SGPT 11 U/L (13-56); Alkaline Phosphatase 47 U/L (45-117); Anion Gap 5 (5-15); BUN 29 mg/dL (7-18); BUN/Creat Ratio 22.1 RATIO (10-20); Calcium,Total 8.9 mg/dL (8.5-10.1); Chloride 110 mmol/L (98-107); Creatinine, Serum 1.31 mg/dL (0.55-1.02); EST Glomerular Filtration Rate 42 mL/min (>60); Est Glom Filt Rate - Afr Amer 51 mL/min (>60); Estimated Creatinine Clearance 33.52 ml/min; Globulin 2.9 g/dL (2.2-4.2); Glucose 125 mg/dL (74-106); Potassium 3.9 mmol/L (3.5-5.1); Protein, Total 6.9 g/dL (6.4-8.2); Sodium Level 142 mmol/L (136-145)
[2020-04-12 16:21] LABS: Bacteria 0 SEEN /hpf (None Seen); Mucous, Urine 0 SEEN /hpf (<or=2+); Red Blood Cells-Urine 0 SEEN /hpf (0-5); Squamous Epithelial Cells - UA 0 SEEN /hpf (5-10); White Blood Cells 0 SEEN /hpf (0-5)
[2020-04-12 16:51] LABS: Color, Urine Yellow (Yellow); Glucose, Dipstick Normal (Normal); Ketone-Dipstick 5 mg/dl (Negative); Leukocyte Esterase-Dipstick Negative /ul (Negative); Nitrite-Dipstick Negative (Negative); Occult Blood-Urine 10 /ul (Negative); Protein-Dipstick Negative (Negative); Urine Bilirubin Dipstick Negative (Negative); Urine Clarity Clear (Clear); Urine Urobilinogen 1 mg/dl (Normal)
[2020-04-12 18:39] VITALS: BP 114/74; PULSE 81; RESP 17; O2SAT 99
== END 2020-04-12 18:40 | disposition home or self-care (01) ==
PROVIDERS: Emergency Provider Student in an Organized Health Care Education/Training Program; PCP Internal Medicine
DX: R45.1 Restlessness and agitation (principal); R11.2 Nausea with vomiting, unspecified; Z90.710 Acquired absence of both cervix and uterus; Z91.040 Latex allergy status; F03.90 Unspecified dementia, unspecified severity, without behavioral disturbance, psychotic disturbance, mood disturbance, and anxiety
CPT/HCPCS: 71045; 80053; 81001; 96372; 99285; A4216

== ENCOUNTER 2020-04-27 18:51 | Emergency (ER) | payer MEDICARE, OTHER, SELFPAY ==
[2020-04-27 18:52] VITALS: BP 158/74; PULSE 57; RESP 16; TEMP 36.6; O2SAT 98; BMI 23.8
[2020-04-27 19:29] LABS: Bacteria 0 SEEN /hpf (None Seen); Mucous, Urine 0 SEEN /hpf (<or=2+); Red Blood Cells-Urine 0 SEEN /hpf (0-5); Squamous Epithelial Cells - UA 0 SEEN /hpf (5-10)
--- NOTE | 2020-04-27 19:34 | ED.DCSUM_ITS ---
History of Present Illness Chief Complaint: Complaint Informant: Patient, Family Narrative: Patient is a 74-year-old female who presents to the emergency department for urinary frequency, dysuria and some abdominal discomfort. He does get frequent urinary tract infections. It has been a couple months since she was last on an antibiotic. She did slightly get nauseous today. She denies any fevers or chills. No flank pain. She denies any hematuria. She does follow with a urologist. She does have a history of Parkinson's disease. She is a diabetic. She currently rates the abdominal discomfort as mild. Mostly in the lower quadrant, suprapubic. This is typical for her previous urinary tract infections. Only other complaint is some generalized fatigue which started yesterday as well. No chest pain or shortness of breath. No heart palpitations. Past Medical History - Allergies and Home Meds Allergies/Adverse Reactions: Allergies latex Allergy (Verified 04/27/20 18:52) Itching ITCHING AND REDNESS rhubarb Allergy (Verified 04/27/20 18:52) PT UNSURE OF REACTION Primary Care Physician: Rain Mccormick DO [Primary Care Provider] - 3-5 Days if not improving Prior records reviewed: Yes Past Medical History: - - Diabetes, Parkinson's, depression Surgical History: hysterectomy, - - Lives: [place] Smoking Status: Never smoker Review of Systems All systems negative except as indicated General: Denies: Chills, Fever, Sweats Eyes: Denies: Visual changes - bilaterally, Diplopia ENT: Denies: Rhinorrhea, Sore throat Cardiovascular: Denies: Chest pain, Palpitations Respiratory: Denies: Dyspnea, Cough, Dyspnea on exertion Gastrointestinal: Reports: Abdominal pain, Nausea. Denies: Vomiting, Diarrhea, Melena, Hematochezia Genitourinary: Reports: Dysuria, Frequency. Denies: Hematuria Musculoskeletal: Denies: Back pain, Extremity Pain Skin: Denies: Rash, Wounds Neurological: Denies: Headache, Weakness, Numbness Physical Exam Vital Signs/Narrative: Vital Signs Temp Pulse Resp BP Pulse Ox 04/27/20 18:52 98 F 57 L 16 158/74 H 98 Inital Vital Signs reviewed: Yes General: Well nourished, Well developed, No Acute Distress, - - Does have a tremor present. Head: Normocephalic, Atraumatic Eyes: Perrl, EOMI ENT: Moist mucous membranes, No rhinorrhea Neck: Supple, Nontender Cardiovascular: Regular rate, Regular rhythm, No murmurs Respiratory: No distress, CTA bilaterally, Chest nontender Abdomen: Soft, Nondistended, Normal bowel sounds, Tender - Mild tenderness over the suprapubic region. Back: Nontender, Normal Inspection Extremities: Nontender, No edema Skin: Normal color, No rash Neurological: Alert, Oriented x3, Normal Strength, Normal Sensation Psychological: Normal affect, Normal Mood Diagnostic/Tx/Re-eval - Medical Decision Making Patient presents to the ED for UTI symptoms. Upon arrival to the ED vital signs within normal limits. Benign physical exam. Will check a urine and urine culture. Patient very symptomatic with the urinary symptoms. This is similar to her previous UTIs. Her urinalysis did not have white blood cells or bacteria but did have leukocyte esterase. Even her symptoms will treat. We will give first dose of Rocephin here in the emergency department she states she will not be able to get antibiotics filled tonight. Will place on Keflex as well. Will give Pyridium of this has helped her before in the past. She does understand that this does turn her urine and other fluids orange. She understands she needs to follow-up with her urologist. At this time will discharge home in stable condition. Warning signs and symptoms for which to return to the ED are reviewed with her including developing any fever/chills. Inability to keep down medications or developing significant back pain with her urinary symptoms. She understands and is agreeable with this plan. ED Disposition - Plan for ED Patient: Disposition: Home or Assisted Living Diagnosis: Dysuria, Urinary frequency, UTI (urinary tract infection) Instructions: ED Dysuria Uncertain Cause Prescriptions: Cephalexin [Keflex] 500 mg PO Q12 #14 cap Transmission Status: Received by [id number] Phenazopyridine HCl [Pyridium] 200 mg PO BID PRN PRN #10 tab PRN Reason: Pain Transmission Status: Received by [id number] Referrals: Rain Mccormick DO [Primary Care Provider] - 3-5 Days if not improving
[2020-04-27 19:37] LABS: Color, Urine Yellow (Yellow); Glucose, Dipstick Normal (Normal); Ketone-Dipstick 5 mg/dl (Negative); Leukocyte Esterase-Dipstick 100 /ul (Negative); Nitrite-Dipstick Negative (Negative); Occult Blood-Urine Negative /ul (Negative); Protein-Dipstick Negative (Negative); Specific Gravity, Urine 1.015 (1.002-1.030); Urine Bilirubin Dipstick Negative (Negative); Urine Clarity Sl. Cloudy (Clear); Urine Urobilinogen Normal (Normal)
[2020-04-27 19:54] LABS: White Blood Cells 0-5 SEEN /hpf (0-5)
[2020-04-27] MEDS: Ondansetron ODT 4 MG Tablet PO (20:54)
[2020-04-27] MEDS: Ceftriaxone 1 GM Vial IM (21:39)
== END 2020-04-27 20:52 | disposition home or self-care (01) ==
PROVIDERS: Emergency Provider Emergency Medicine; PCP Internal Medicine
DX: R30.0 Dysuria (principal); N39.0 Urinary tract infection, site not specified; E11.9 Type 2 diabetes mellitus without 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; F32.9 Major depressive disorder, single episode, unspecified; G20 Parkinson's disease; Z90.710 Acquired absence of both cervix and uterus; Z91.040 Latex allergy status
CPT/HCPCS: 81001; 87077; 87086; 87088; 87186; 96372; 99283

== ENCOUNTER 2020-05-08 20:50 | Emergency (ER) | payer MEDICARE, OTHER, SELFPAY ==
[2020-05-08 20:51] VITALS: BP 150/82; PULSE 56; RESP 18; TEMP 36.7; O2SAT 97; BMI 23.1
--- NOTE | 2020-05-08 21:55 | ED.VIS.GEN ---
History of Present Illness Chief Complaint: Complaint Informant: Patient Onset: Weeks Context: Gradual Onset Current Severity: Moderate Maximum Severity: Moderate Narrative: Patient presents secondary to nausea and continued dysuria. Patient was seen on the of this month and diagnosed with probable UTI. She was treated with Keflex and Pyridium. Urine culture grew Proteus vulgaris which was resistant to ceftezole and but sensitive to cefepime. Patient states that she felt better with the Pyridium but is not that the Keflex took care of her infection. She continues to have suprapubic pain and has now developed right flank pain. She reports some mild chills but no fever. She states tonight she felt very nauseated. - Past Medical History (1) Parkinsons Status: Chronic (2) Diabetes Status: Chronic (3) Fibromyalgia Status: Chronic (4) Interstitial cystitis Status: Chronic Past Medical History - Allergies and Home Meds Allergies/Adverse Reactions: Allergies seasonal Allergy (Uncoded 05/08/20 20:58) NEEDS FOLLOW-UP itchy eyes and sneezing Primary Care Physician: Rain Mccormick DO [Primary Care Provider] - Prior records reviewed: Yes Surgical History: hysterectomy, - - Lives: Spouse/ Significant Other Smoking Status: Never smoker Review of Systems General: Reports: Chills. Denies: Fever Eyes: Denies: Visual changes - bilaterally ENT: Denies: Bilateral ear pain Cardiovascular: Denies: Chest pain Respiratory: Denies: Dyspnea, Cough Gastrointestinal: Reports: Abdominal pain - Suprapubic pain and right flank pain, Nausea. Denies: Vomiting Genitourinary: Reports: Dysuria. Denies: Hematuria Musculoskeletal: Denies: Swelling, Extremity Pain Skin: Denies: Rash Neurological: Denies: Headache Hematologic: Denies: Easy bruising, Easy bleeding Allergy: Denies: Uticaria Physical Exam Vital Signs/Narrative: Vital Signs Temp Pulse Resp BP Pulse Ox 05/08/20 20:51 98.1 F 56 L 18 150/82 H 97 Inital Vital Signs reviewed: Yes General: Well nourished, Well developed Head: Normocephalic ENT: Moist mucous membranes Neck: Supple Cardiovascular: Regular rate, Regular rhythm Respiratory: No distress, CTA bilaterally Abdomen: Soft, Tender - Suprapubic tenderness to palpation. Back: CVA tenderness - Right CVA tenderness. Extremities: Nontender Skin: Normal color Neurological: Alert, Oriented x3 Psychological: Normal affect Diagnostic/Tx/Re-eval Laboratory Results 05/08/20 05/08/20 05/08/20 22:19 22:19 22:38 WBC 7.0 RBC 4.59 Hgb 13.7 Hct 39.6 MCV 86.3 MCH 29.8 MCHC 34.6 RDW Std Deviation 38.4 RDW Coeff of Jeff 12.2 Plt Count 209 MPV 10.0 Immature Gran % (Auto) 0.300 Neut % (Auto) 62.4 Lymph % (Auto) 28.8 [place] % (Auto) 7.3 Eos % (Auto) 0.9 Baso % (Auto) 0.3 Absolute Neuts (auto) 4.4 Absolute Lymphs (auto) 2.02 Nucleated RBC % 0 Sodium 140 Potassium 3.6 Chloride 107 Carbon Dioxide 26.0 Anion Gap 7 BUN 23 H Creatinine 1.35 H Estim Creat Clear Calc 32.53 Est GFR (MDRD) Af Amer 50 L Est GFR (MDRD) Non-Af 41 L BUN/Creatinine Ratio 17.0 Glucose 98 Calcium 9.7 Urine Color Yellow Urine Clarity Sl. Cloudy Urine pH 7.0 Ur Specific [place] 1.005 Urine Protein Negative Urine Glucose (UA) Normal Urine Ketones Negative Urine Occult Blood Negative Urine Nitrite Negative Urine Bilirubin Negative Urine Urobilinogen Normal Ur Leukocyte Esterase 500 H Urine RBC 0 SEEN Urine WBC 10-25 SEEN Ur Squamous Epith Cells 0-5 SEEN Ur Transition Epith Cell 5-10 SEEN Urine Bacteria 0 SEEN Urine Mucus 0 SEEN - Medical Decision Making Patient was given Zofran here to help with nausea. Urine continues to show significant white cells but really no significant bacteria. This was similar to her last urinalysis that did have a positive urine culture. Culture will be sent again. She will be treated with Bactrim. ED Disposition - Plan for ED Patient: Disposition: Home or Assisted Living Diagnosis: Pyelonephritis Instructions: ED Pyelonephritis Female Adult Prescriptions: Smz/Tmp Ds [Bactrim Ds] 1 tab PO BID #20 tab Transmission Status: Pending to [id number] Phenazopyridine HCl [Pyridium] 200 mg PO BID PRN PRN #10 tab PRN Reason: Pain Transmission Status: Pending to [id number] Ondansetron [Zofran Odt] 4 mg PO Q8H PRN PRN #10 tab PRN Reason: Nausea Transmission Status: Pending to [id number] Referrals: Rain Mccormick DO [Primary Care Provider] - 1 Week
[2020-05-08] MEDS: 0.9% Normal Saline 1,000 ML 150 ML IV (22:20)
[2020-05-08] MEDS: Ondansetron 4 MG/2 ML Vial IV (22:20)
[2020-05-08 22:30] LABS: Absolute Lymphocyte Count 2.02 X10^3/uL (0.83-4.51); Absolute Neutrophil Count 4.4 X10^3/uL (2.0-7.7); Basophil# 0.02 X10^3/uL; Basophil% 0.3 % (0-1); Eosinophil# 0.06 X10^3/uL; Eosinophils% 0.9 % (0-5); Hematocrit 39.6 % (37-47); Hemoglobin 13.7 g/dL (12.0-15.0); Lymphocyte # 2.02 X10^3/ul (4.0); Lymphocyte % 28.8 % (19-41); Mean Corp Hgb Conc 34.6 g/dL (32-36); Mean Corpuscular Hgb 29.8 pg (27.0-32.0); Mean Corpuscular Volume 86.3 fL (81-99); Monocyte# 0.51 X10^3/uL; Monocyte% 7.3 % (0-10); NRBC Flagged by Analyzer 0 % (0-5); Neutrophil # 4.38 X10^3/uL (2.7-7.7); Neutrophil % 62.4 % (47-70); Platelet Count 209 K/mm3 (150-450); RBC Distribution Width CV 12.2 % (11.6-14.6); RBC Distribution Width SD 38.4 fl (35.1-43.9); Red Blood Count 4.59 M/mm3 (4.2-5.4)
[2020-05-08 22:48] LABS: Bacteria 0 SEEN /hpf (None Seen); Mucous, Urine 0 SEEN /hpf (<or=2+); Red Blood Cells-Urine 0 SEEN /hpf (0-5)
[2020-05-08 22:59] LABS: Color, Urine Yellow (Yellow); Glucose, Dipstick Normal (Normal); Ketone-Dipstick Negative (Negative); Leukocyte Esterase-Dipstick 500 /ul (Negative); Nitrite-Dipstick Negative (Negative); Occult Blood-Urine Negative /ul (Negative); Protein-Dipstick Negative (Negative); Specific Gravity, Urine 1.005 (1.002-1.030); Urine Bilirubin Dipstick Negative (Negative); Urine Clarity Sl. Cloudy (Clear); Urine Urobilinogen Normal (Normal)
[2020-05-08 23:01] LABS: Anion Gap 7 (5-15); BUN 23 mg/dL (7-18); Calcium,Total 9.7 mg/dL (8.5-10.1); Chloride 107 mmol/L (98-107); Creatinine, Serum 1.35 mg/dL (0.55-1.02); EST Glomerular Filtration Rate 41 mL/min (>60); Est Glom Filt Rate - Afr Amer 50 mL/min (>60); Estimated Creatinine Clearance 32.53 ml/min; Glucose 98 mg/dL (74-106); Potassium 3.6 mmol/L (3.5-5.1); Sodium Level 140 mmol/L (136-145)
[2020-05-08 23:12] LABS: Squamous Epithelial Cells - UA 0-5 SEEN /hpf (5-10); Transitional Epithelial - Ur 5-10 SEEN /hpf (0-5); White Blood Cells 10-25 SEEN /hpf (0-5)
[2020-05-08] MEDS: Smz/Tmp Ds Tablet 1 TABLET PO (23:46)
== END 2020-05-08 23:51 | disposition home or self-care (01) ==
PROVIDERS: Emergency Provider Emergency Medicine; PCP Internal Medicine
DX: N12 Tubulo-interstitial nephritis, not specified as acute or chronic (principal); E11.9 Type 2 diabetes mellitus without 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; G20 Parkinson's disease; M79.7 Fibromyalgia; Z90.710 Acquired absence of both cervix and uterus
CPT/HCPCS: 80048; 81001; 85025; 87086; 87088; 96361; 96374; 99283; J7030; J2405

== ENCOUNTER 2020-05-12 11:41 | Emergency (ER) | payer MEDICARE, OTHER, SELFPAY ==
[2020-05-12 11:42] VITALS: BP 148/79; PULSE 59; RESP 18; TEMP 36.7; O2SAT 98; BMI 28.8
--- NOTE | 2020-05-12 12:00 | CT_ITS ---
STUDY: CT ABDOMEN AND PELVIS WITHOUT CONTRAST REASON FOR EXAM: Female, 74 years old. RT FLANK PAIN, URINARY FREQUENCY RADIATION DOSAGE (If Supplied By Facility): CTDIvol = ( 7.94 ) mGy, DLP = ( 360.93 ) mGycm TECHNIQUE: Transaxial images were obtained from the dome of the diaphragm to the symphysis pubis without oral contrast, and without intravenous contrast. Sagittal and coronal images were reconstructed. Individualized dose optimization techniques were used for this CT. COMPARISON: Comparison is made with prior examination dated 10/16/2019. FINDINGS: The visualized lung bases are unremarkable. Small pericardial effusion along the inferior and right side of the pericardium. Normal liver. Normal gallbladder and extrahepatic biliary system. Normal spleen. Normal pancreas. Stable minimal hypertrophy of the left adrenal gland. Stable mild right hydronephrosis. No evidence of obstructive uropathy is seen. Normal left kidney. Normal visualized stomach. Normal small intestine. Moderate amount of fecal material is seen in the colon. Sigmoid diverticulosis. The appendix is visualized and appears normal. There is diffuse atherosclerotic calcification of the abdominal aorta and the major visceral branches., without a demonstrated aneurysm. Normal inferior vena cava. Normal retroperitoneum. Normal urinary bladder. There is absence of the uterus consistent with a prior hysterectomy. Normal abdominal wall. There are diffuse degenerative changes of the visualized lumbar spine. CT/Abdomen/Pelvis without Cont IMPRESSION: Small pericardial effusion. Mild degree of right hydronephrosis without evidence of obstructive uropathy at this time. Electronically Signed: Junaid Casillas, at 13:53 EDT , Service support ,
--- NOTE | 2020-05-12 12:01 | ED.DCSUM_ITS ---
History of Present Illness Chief Complaint: Complaint Informant: Patient Onset: Days Context: Gradual Onset Current Severity: Moderate Maximum Severity: Severe Narrative: Presents with recurrent right flank pain. She was seen in the ER on the evening of the . At that time she appeared to have a urinary tract infection and was treated with Bactrim. She had previously failed treatment with Keflex. Patient states she was doing well until this morning when her pain recurred. She reports urinary frequency and burning. She complains of right flank pain. She denies fever or chills. She has had no nausea or vomiting. Urine culture from her last visit revealed mixed gram-positive and gram-negative bacteria. - Past Medical History (1) Diabetes Status: Chronic (2) Fibromyalgia Status: Chronic (3) Interstitial cystitis Status: Chronic (4) Parkinsons Status: Chronic Past Medical History - Allergies and Home Meds Allergies/Adverse Reactions: Allergies seasonal Allergy (Uncoded 05/12/20 11:45) NEEDS FOLLOW-UP itchy eyes and sneezing Primary Care Physician: Rain Mccormick DO [Primary Care Provider] - Prior records reviewed: Yes Surgical History: hysterectomy, - - Lives: Spouse/ Significant Other Smoking Status: Never smoker Review of Systems General: Denies: Chills, Fever Eyes: Denies: Visual changes - bilaterally ENT: Denies: Bilateral ear pain Cardiovascular: Denies: Chest pain Respiratory: Denies: Dyspnea, Cough Gastrointestinal: Reports: Abdominal pain - Right flank pain. Denies: Nausea, Vomiting Genitourinary: Reports: Dysuria, Frequency Musculoskeletal: Reports: Back pain - Right flank. Denies: Extremity Pain Neurological: Denies: Headache Hematologic: Denies: Easy bruising, Easy bleeding Allergy: Denies: Uticaria Physical Exam Vital Signs/Narrative: Vital Signs Temp Pulse Resp BP Pulse Ox 05/12/20 11:42 98.0 F 59 L 18 148/79 H 98 Inital Vital Signs reviewed: Yes General: Well nourished Head: Normocephalic, Atraumatic ENT: Moist mucous membranes Neck: Supple Cardiovascular: Regular rate, Regular rhythm Respiratory: No distress, CTA bilaterally Abdomen: Soft, Normal bowel sounds, Tender - Lower quadrant tenderness.. Negative for: Guarding, Rebound tenderness Back: CVA tenderness Extremities: Nontender Skin: Normal color Neurological: Alert, Oriented x3 Psychological: Normal affect Diagnostic/Tx/Re-eval Impressions Abdomen/Pelvis CT 05/12/20 12:00 IMPRESSION: Small pericardial effusion. Mild degree of right hydronephrosis without evidence of obstructive uropathy at this time. Electronically Signed: Junaid Casillas, at 13:53 EDT , Service support , 05/12/20 12:00 Abdomen/Pelvis without Cont [CT] Stat Laboratory Results 05/12/20 05/12/20 05/12/20 12:40 12:40 12:40 WBC 6.1 RBC 4.35 Hgb 13.2 Hct 38.0 MCV 87.4 MCH 30.3 MCHC 34.7 RDW Std Deviation 38.7 RDW Coeff of Jeff 12.0 Plt Count 225 MPV 10.1 Immature Gran % (Auto) 0.300 Neut % (Auto) 69.6 Lymph % (Auto) 22.7 [place] % (Auto) 6.4 Eos % (Auto) 0.7 Baso % (Auto) 0.3 Absolute Neuts (auto) 4.3 Absolute Lymphs (auto) 1.39 Nucleated RBC % 0 Sodium 137 Potassium 4.3 Chloride 107 Carbon Dioxide 22.0 Anion Gap 8 BUN 21 H Creatinine 1.67 H Estim Creat Clear Calc 26.29 Est GFR (MDRD) Af Amer 39 L Est GFR (MDRD) Non-Af 32 L BUN/Creatinine Ratio 12.6 Glucose 101 Calcium 9.1 Urine Color Yellow Urine Clarity Sl. Cloudy Urine pH 6.5 Ur Specific [place] 1.010 Urine Protein Negative Urine Glucose (UA) Normal Urine Ketones Negative Urine Occult Blood 10 H Urine Nitrite Negative Urine Bilirubin Negative Urine Urobilinogen Normal Ur Leukocyte Esterase 500 H Urine RBC 0-5 SEEN Urine WBC 25-50 SEEN Ur Squamous Epith Cells 0-5 SEEN Urine Bacteria 0 SEEN Urine Mucus 0 SEEN - Medical Decision Making Patient was given Pyridium here. Repeat blood work shows minimal worsening of her renal function. Urine continues to show white cells but no bacteria. CT flank reveals mild right hydronephrosis with no evidence of stone. My suspicion is that she had a recent UTI that has flared up her interstitial cystitis. I spoke with Dr. Cutler. He would like her placed on Elmiron 150 mg twice daily for 2 weeks and he will see her in the office. ED Disposition - Plan for ED Patient: Disposition: Home or Assisted Living Diagnosis: Interstitial cystitis Instructions: What Is Interstitial Cystitis? Prescriptions: Pentosan Polysulfate Sodium [Elmiron] 100 mg PO BID #28 capsule Referrals: Hadley Cutler MD [STAFF PHYSICIAN] - 1-2 Weeks
[2020-05-12] MEDS: Phenazopyridine 95 MG Tablet 190 MG PO (12:35)
[2020-05-12] MEDS: 0.9% Normal Saline 1,000 ML 150 ML IV (12:35)
[2020-05-12 12:46] LABS: Bacteria 0 SEEN /hpf (None Seen); Mucous, Urine 0 SEEN /hpf (<or=2+)
[2020-05-12 12:50] LABS: Absolute Lymphocyte Count 1.39 X10^3/uL (0.83-4.51); Absolute Neutrophil Count 4.3 X10^3/uL (2.0-7.7); Basophil# 0.02 X10^3/uL; Basophil% 0.3 % (0-1); Eosinophil# 0.04 X10^3/uL; Eosinophils% 0.7 % (0-5); Hemoglobin 13.2 g/dL (12.0-15.0); Lymphocyte # 1.39 X10^3/ul (4.0); Lymphocyte % 22.7 % (19-41); Mean Corp Hgb Conc 34.7 g/dL (32-36); Mean Corpuscular Hgb 30.3 pg (27.0-32.0); Mean Corpuscular Volume 87.4 fL (81-99); Mean Platelet Vol. 10.1 fl (6.2-12.0); Monocyte# 0.39 X10^3/uL; Monocyte% 6.4 % (0-10); NRBC Flagged by Analyzer 0 % (0-5); Neutrophil # 4.25 X10^3/uL (2.7-7.7); Neutrophil % 69.6 % (47-70); Platelet Count 225 K/mm3 (150-450); RBC Distribution Width SD 38.7 fl (35.1-43.9); Red Blood Count 4.35 M/mm3 (4.2-5.4); White Blood Count 6.1 K/mm3 (4.4-11.0)
[2020-05-12 12:57] LABS: Color, Urine Yellow (Yellow); Glucose, Dipstick Normal (Normal); Ketone-Dipstick Negative (Negative); Leukocyte Esterase-Dipstick 500 /ul (Negative); Nitrite-Dipstick Negative (Negative); Occult Blood-Urine 10 /ul (Negative); Protein-Dipstick Negative (Negative); Urine Bilirubin Dipstick Negative (Negative); Urine Clarity Sl. Cloudy (Clear); Urine Urobilinogen Normal (Normal); Urine pH 6.5 (5.0 - 8.0)
[2020-05-12 13:03] LABS: Anion Gap 8 (5-15); BUN 21 mg/dL (7-18); BUN/Creat Ratio 12.6 RATIO (10-20); Calcium,Total 9.1 mg/dL (8.5-10.1); Chloride 107 mmol/L (98-107); Creatinine, Serum 1.67 mg/dL (0.55-1.02); EST Glomerular Filtration Rate 32 mL/min (>60); Est Glom Filt Rate - Afr Amer 39 mL/min (>60); Estimated Creatinine Clearance 26.29 ml/min; Glucose 101 mg/dL (74-106); Potassium 4.3 mmol/L (3.5-5.1); Red Blood Cells-Urine 0-5 SEEN /hpf (0-5); Sodium Level 137 mmol/L (136-145); Squamous Epithelial Cells - UA 0-5 SEEN /hpf (5-10); White Blood Cells 25-50 SEEN /hpf (0-5)
[2020-05-12 14:17] VITALS: BP 147/89; PULSE 87; RESP 16; O2SAT 97
== END 2020-05-12 14:45 | disposition home or self-care (01) ==
PROVIDERS: Emergency Provider Emergency Medicine; PCP Internal Medicine
DX: N30.10 Interstitial cystitis (chronic) without hematuria (principal); I31.3 Pericardial effusion (noninflammatory); N13.30 Unspecified hydronephrosis; E11.9 Type 2 diabetes mellitus without 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; M79.7 Fibromyalgia; G20 Parkinson's disease; Z90.710 Acquired absence of both cervix and uterus
CPT/HCPCS: 74176; 80048; 81001; 85025; 96360; 96361; 99283; J7030

== ENCOUNTER 2020-06-07 11:35 | Emergency (ER) | payer MEDICARE, OTHER, SELFPAY ==
[2020-06-07 11:36] VITALS: BP 143/78; PULSE 54; RESP 18; TEMP 36.3; O2SAT 99; BMI 25.5
--- NOTE | 2020-06-07 12:09 | CT_ITS ---
STUDY: CT ABDOMEN AND PELVIS WITHOUT CONTRAST REASON FOR EXAM: Female, 74 years old. BILAT FLANK PAIN, urinary urgency, hx interstitial cystitis, parkinson''s RADIATION DOSAGE (If Supplied By Facility): CTDIvol = ( 6.10 ) mGy, DLP = ( 292.44 ) mGycm TECHNIQUE: Transaxial images were obtained from the dome of the diaphragm to the symphysis pubis without oral contrast, and without intravenous contrast. Sagittal and coronal images were reconstructed. Individualized dose optimization techniques were used for this CT. COMPARISON: Comparison is made with prior examination dated 05/12/2020. FINDINGS: The visualized lung bases are unremarkable. Mild degree of pericardial effusion along the cardiac base. Normal liver. Mildly distended gallbladder. Normal spleen. Normal pancreas. Normal bilateral adrenal glands. Mild bilateral hydronephrosis most likely secondary to the distended urinary bladder. Normal visualized stomach. Normal small intestine. There are multiple colonic diverticula consistent with diverticulosis. Moderate amount of fecal material is seen in the right hemicolon. The appendix is visualized and appears normal. There is diffuse atherosclerotic calcification of the abdominal aorta, without a demonstrated aneurysm. Normal inferior vena cava. Normal retroperitoneum. Distended urinary bladder. There is absence of the uterus consistent with a prior hysterectomy. Phleboliths are seen in the pelvis. Normal abdominal wall. There are diffuse degenerative changes of the visualized lumbar spine. CT/Abdomen/Pelvis without Cont IMPRESSION: Stable examination. Mildly distended gallbladder. Stable small pericardial effusion. Electronically Signed: Junaid Casillas, at 13:36 EDT , Service support ,
[2020-06-07 12:30] LABS: Absolute Lymphocyte Count 1.15 X10^3/uL (0.83-4.51); Absolute Neutrophil Count 3.2 X10^3/uL (2.0-7.7); Basophil# 0.02 X10^3/uL; Basophil% 0.4 % (0-1); Eosinophil# 0.04 X10^3/uL; Eosinophils% 0.9 % (0-5); Hematocrit 36.9 % (37-47); Hemoglobin 12.5 g/dL (12.0-15.0); Lymphocyte # 1.15 X10^3/ul (4.0); Lymphocyte % 24.6 % (19-41); Mean Corp Hgb Conc 33.9 g/dL (32-36); Mean Corpuscular Hgb 29.8 pg (27.0-32.0); Mean Corpuscular Volume 88.1 fL (81-99); Mean Platelet Vol. 9.6 fl (6.2-12.0); Monocyte# 0.29 X10^3/uL; Monocyte% 6.2 % (0-10); NRBC Flagged by Analyzer 0 % (0-5); Neutrophil # 3.18 X10^3/uL (2.7-7.7); Neutrophil % 67.9 % (47-70); Platelet Count 174 K/mm3 (150-450); RBC Distribution Width CV 12.2 % (11.6-14.6); RBC Distribution Width SD 39.2 fl (35.1-43.9); Red Blood Count 4.19 M/mm3 (4.2-5.4); White Blood Count 4.7 K/mm3 (4.4-11.0)
[2020-06-07 12:32] LABS: Mucous, Urine 0 SEEN /hpf (<or=2+); Red Blood Cells-Urine 0 SEEN /hpf (0-5); Squamous Epithelial Cells - UA 0 SEEN /hpf (5-10)
--- NOTE | 2020-06-07 12:35 | ED.VISSUMM ---
- ER Visit Summary Date of Service: 06/07/20 Chief Complaint: Dysuria, back pain History of Present Illness: The patient is a 74 F presenting with UTI symptoms. Patient states she has had frequent UTIs. Her last UTI was treated with penicillin. She completed this course of antibiotics. She states she now has dysuria, frequency, nausea. She denies vomiting. She has lower back pain. She denies fever. Denies chest pain or shortness of breath. Denies other complaints. Physical Examination: Vitals are stable. Patient is afebrile. Alert no acute distress. HEENT exam is unremarkable. Neck is supple. Lungs are clear and equal bilaterally. Heart is regular rate and rhythm. Abdomen is soft suprapubic tenderness with no guarding or rebound Back: mild diffuse low back tenderness Extremities are unremarkable. Skin is warm and dry. No focal neurologic deficit. Normal strength and sensation. Tearful Remainder of exam is unremarkable. Emergency Department Course and Treatment: Patient was given morphine, Zofran IV. CBC, chemistries unremarkable. Lipase is normal. Urinalysis unremarkable. CT abdomen pelvis shows stable examination. Mildly distended gallbladder. She has no right upper quadrant tenderness. On reevaluation she is resting comfortably and her pain is improved. She is comfortable with discharge home. She will follow-up with her primary care physician. Discussed with her daughter as well. Advised to return to ED if worsening complaints. Disposition: Discharge home Impression: Back pain This note was generated with [employer] dictation software. It may contain incorrect words, spelling, and punctuation that were not noted in review of the chart prior to signing ED Disposition - Plan for ED Patient: Referrals: Rain Mccormick DO [Primary Care Provider] -
[2020-06-07 12:39] LABS: Color, Urine Yellow (Yellow); Glucose, Dipstick Normal (Normal); Ketone-Dipstick Negative (Negative); Leukocyte Esterase-Dipstick Negative /ul (Negative); Nitrite-Dipstick Negative (Negative); Occult Blood-Urine Negative /ul (Negative); Protein-Dipstick Negative (Negative); Urine Bilirubin Dipstick Negative (Negative); Urine Clarity Clear (Clear); Urine Urobilinogen Normal (Normal)
[2020-06-07 12:49] LABS: ALB/GLOB Ratio 1.4 RATIO (0.9-2.4); AST(SGOT) 11 U/L (15-37); Alanine Aminotransfer ALT/SGPT < 6 U/L (13-56); Albumin, Serum 3.7 g/dL (3.2-5.0); Alkaline Phosphatase 41 U/L (45-117); Anion Gap 4 (5-15); BUN 18 mg/dL (7-18); BUN/Creat Ratio 15.7 RATIO (10-20); Calcium,Total 8.8 mg/dL (8.5-10.1); Chloride 109 mmol/L (98-107); Creatinine, Serum 1.15 mg/dL (0.55-1.02); EST Glomerular Filtration Rate 49 mL/min (>60); Est Glom Filt Rate - Afr Amer 60 mL/min (>60); Estimated Creatinine Clearance 38.18 ml/min; Globulin 2.7 g/dL (2.2-4.2); Glucose 88 mg/dL (74-106); Lipase 79 U/L (73-393); Potassium 4.1 mmol/L (3.5-5.1); Protein, Total 6.4 g/dL (6.4-8.2); Sodium Level 141 mmol/L (136-145)
[2020-06-07 13:01] LABS: Bacteria RARE /hpf (None Seen); White Blood Cells 0-5 SEEN /hpf (0-5)
[2020-06-07] MEDS: Ondansetron 4 MG/2 ML Vial IV (13:09)
[2020-06-07] MEDS: Morphine 4 MG/ML Syringe IV (13:09)
--- NOTE | 2020-06-07 14:05 | ED.DEP ---
ED Disposition - Plan for ED Patient: Instructions: ED Flank Pain Uncertain Cause Referrals: Rain Mccormick DO [Primary Care Provider] -
--- NOTE | 2020-06-07 14:09 | ED.RN ---
PT CONTACTED TO STOCK PLAN ADMINISTRATOR THE PT. PER , WILL BE APPROX 10 MINUTES
[2020-06-07 14:32] VITALS: BP 159/82; PULSE 72; RESP 16; O2SAT 99
== END 2020-06-07 14:33 | disposition home or self-care (01) ==
LOC: ED 12:14
PROVIDERS: Emergency Provider Emergency Medicine; PCP Internal Medicine
DX: M54.5 Low back pain (principal); K82.8 Other specified diseases of gallbladder; R11.0 Nausea; Z87.440 Personal history of urinary (tract) infections
CPT/HCPCS: 74176; 80053; 81001; 83690; 85025; 96374; 96375; 99283; A4216; J2405

== ENCOUNTER 2020-09-09 00:58 | Emergency (ER) | payer MEDICARE, OTHER, SELFPAY ==
[2020-09-09 00:59] VITALS: BP 179/77; PULSE 52; RESP 16; TEMP 36.2; O2SAT 98; BMI 24.3
--- NOTE | 2020-09-09 01:16 | ED.VIS.GEN ---
History of Present Illness Chief Complaint: Complaint Narrative: Patient is a 75-year-old female who presents with hallucinations. Patient initially stated that she was brought in by her because he woke her up tonight and stated that she needed to urinate she was unable to do so. She does have a history of chronic UTIs. She states she feels confused like she is in a dream. I spoke to the who stated that she had been hallucinating all day which she has had with previous UTIs. Patient denies any fevers vomiting diarrhea. She complains of lower abdominal pain when nursing did a bladder scan but no pain otherwise. Past Medical History - Allergies and Home Meds Allergies/Adverse Reactions: Allergies seasonal Allergy (Uncoded 09/09/20 01:04) NEEDS FOLLOW-UP itchy eyes and sneezing Primary Care Physician: Rain Mccormick DO [Primary Care Provider] - Past Medical History: - - Parkinson's disease, chronic UTIs anxiety Surgical History: hysterectomy, - - Smoking Status: Never smoker Review of Systems All systems negative except as indicated General: Denies: Fever Eyes: Denies: Visual changes - bilaterally ENT: Denies: Bilateral ear pain Cardiovascular: Denies: Chest pain Respiratory: Denies: Dyspnea Gastrointestinal: Reports: Abdominal pain. Denies: Nausea, Vomiting, Diarrhea Musculoskeletal: Denies: Myalgias, Arthralgias Skin: Denies: Rash Neurological: Denies: Headache Allergy: Denies: Uticaria Physical Exam Vital Signs/Narrative: Vital Signs Temp Pulse Resp BP Pulse Ox 09/09/20 00:59 97.2 F L 52 L 16 179/77 H 98 Inital Vital Signs reviewed: Yes General: Well nourished, Well developed Head: Normocephalic Eyes: EOMI ENT: Moist mucous membranes Neck: Supple Cardiovascular: Regular rate, Regular rhythm Respiratory: No distress, CTA bilaterally Abdomen: Soft, Tender - Suprapubic tenderness Skin: Normal color Neurological: Alert, Oriented x3, - - No focal or lateralizing neurological deficits Psychological: Normal affect Diagnostic/Tx/Re-eval Laboratory Results 09/09/20 09/09/20 09/09/20 01:20 01:20 01:20 WBC 6.6 RBC 4.41 Hgb 13.1 Hct 39.4 MCV 89.3 MCH 29.7 MCHC 33.2 RDW Std Deviation 37.4 RDW Coeff of Jeff 11.5 L Plt Count 201 MPV 9.8 Immature Gran % (Auto) 0.300 Neut % (Auto) 51.9 Lymph % (Auto) 36.4 Blount % (Auto) 8.3 Eos % (Auto) 2.6 Baso % (Auto) 0.5 Absolute Neuts (auto) 3.4 Absolute Lymphs (auto) 2.41 Nucleated RBC % 0 Sodium 143 Potassium 3.9 Chloride 110 H Carbon Dioxide 28.0 Anion Gap 5 BUN 28 H Creatinine 1.39 H Estim Creat Clear Calc 31.13 Est GFR (MDRD) Af Amer 48 L Est GFR (MDRD) Non-Af 40 L BUN/Creatinine Ratio 20.1 H Glucose 95 Calcium 9.3 Urine Color NATHANAEL Urine Clarity Sl Cldy Urine pH 5.0 Ur Specific Bonnyman 1.015 Urine Protein 30 H Urine Glucose (UA) NEGATIVE Urine Ketones 5 H Urine Occult Blood 10 H Urine Nitrite Positive H Urine Bilirubin 6 H Urine Urobilinogen 12 H Ur Leukocyte Esterase 100 H Urine RBC 0-5 SEEN Urine WBC 5-10 SEEN Ur Squamous Epith Cells 0-5 SEEN Amorphous Sediment RARE Urine Bacteria 2+ Hyaline Casts 0-5 SEEN Urine Mucus 0 SEEN - Medical Decision Making UA is nitrite positive with 5-10 WBCs. Patient was given a dose of IV Rocephin and we will prescribe Keflex and also send off a urine culture. Serum laboratory studies notable for mild elevation of creatinine which appears to be near baseline. At this point I do not feel she requires hospitalization. We will discharge with oral antibiotics. She does understand return for new or worsening symptoms otherwise to follow-up as an outpatient. Patient discharged. ED Disposition - Plan for ED Patient: Disposition: Home or Assisted Living Diagnosis: UTI (urinary tract infection) Instructions: ED Bladder Infection, Female (Adult) Prescriptions: Cephalexin [Keflex] 500 mg PO Q12 #14 cap Prescription Printed Referrals: Rain Mccormick DO [Primary Care Provider] -
[2020-09-09 01:22] LABS: Mucous, Urine 0 SEEN /hpf (<or=2+)
[2020-09-09 01:28] LABS: Absolute Lymphocyte Count 2.41 X10^3/uL (0.83-4.51); Absolute Neutrophil Count 3.4 X10^3/uL (2.0-7.7); Basophil# 0.03 X10^3/uL; Basophil% 0.5 % (0-1); Eosinophil# 0.17 X10^3/uL; Eosinophils% 2.6 % (0-5); Hematocrit 39.4 % (37-47); Hemoglobin 13.1 g/dL (12.0-15.0); Lymphocyte # 2.41 X10^3/ul (4.0); Lymphocyte % 36.4 % (19-41); Mean Corp Hgb Conc 33.2 g/dL (32-36); Mean Corpuscular Hgb 29.7 pg (27.0-32.0); Mean Corpuscular Volume 89.3 fL (81-99); Mean Platelet Vol. 9.8 fl (6.2-12.0); Monocyte# 0.55 X10^3/uL; Monocyte% 8.3 % (0-10); NRBC Flagged by Analyzer 0 % (0-5); Neutrophil # 3.44 X10^3/uL (2.7-7.7); Neutrophil % 51.9 % (47-70); Platelet Count 201 K/mm3 (150-450); RBC Distribution Width CV 11.5 % (11.6-14.6); RBC Distribution Width SD 37.4 fl (35.1-43.9); Red Blood Count 4.41 M/mm3 (4.2-5.4); White Blood Count 6.6 K/mm3 (4.4-11.0)
[2020-09-09 01:34] LABS: Color, Urine AMBER (Yellow); Glucose, Dipstick NEGATIVE (Normal); Ketone-Dipstick 5 mg/dl (Negative); Specific Gravity, Urine 1.015 (1.002-1.030); Urine Bilirubin Dipstick 6 mg/dL (Negative); Urine Clarity Sl Cldy (Clear)
[2020-09-09 01:35] LABS: Leukocyte Esterase-Dipstick 100 /ul (Negative); Nitrite-Dipstick Positive (Negative); Occult Blood-Urine 10 /ul (Negative); Protein-Dipstick 30 mg/dl (Negative); Urine Urobilinogen 12 mg/dl (Normal)
[2020-09-09 01:40] LABS: White Blood Cells 5-10 SEEN /hpf (0-5)
[2020-09-09 01:41] LABS: Bacteria 2+ /hpf (None Seen); Hyaline Cast 0-5 SEEN /lpf (0-5); Red Blood Cells-Urine 0-5 SEEN /hpf (0-5); Squamous Epithelial Cells - UA 0-5 SEEN /hpf (5-10)
[2020-09-09 01:42] LABS: Amorphous Sediment RARE
[2020-09-09 01:47] VITALS: BP 144/78; PULSE 53; RESP 18; TEMP 36.2; O2SAT 97
[2020-09-09 01:47] LABS: Anion Gap 5 (5-15); BUN 28 mg/dL (7-18); BUN/Creat Ratio 20.1 RATIO (10-20); Calcium,Total 9.3 mg/dL (8.5-10.1); Chloride 110 mmol/L (98-107); Creatinine, Serum 1.39 mg/dL (0.55-1.02); EST Glomerular Filtration Rate 40 mL/min (>60); Est Glom Filt Rate - Afr Amer 48 mL/min (>60); Estimated Creatinine Clearance 31.13 ml/min; Glucose 95 mg/dL (74-106); Potassium 3.9 mmol/L (3.5-5.1); Sodium Level 143 mmol/L (136-145)
[2020-09-09] MEDS: Ceftriaxone 1 GM/50 ML BAG IV (02:01)
[2020-09-09 02:40] VITALS: BP 148/67; PULSE 51; RESP 16; O2SAT 97
== END 2020-09-09 02:58 | disposition home or self-care (01) ==
LOC: ED 02:01
PROVIDERS: Emergency Provider Emergency Medicine; PCP Internal Medicine
DX: N39.0 Urinary tract infection, site not specified (principal); G20 Parkinson's disease; Z90.710 Acquired absence of both cervix and uterus; Z87.440 Personal history of urinary (tract) infections
CPT/HCPCS: 80048; 81001; 85025; 87086; 96365; 99284; J7050; P9612; A4216

== ENCOUNTER → 2020-09-26 17:15 | Outpatient (REF) | payer MEDICARE, OTHER, SELFPAY ==
[2020-09-09 00:59] VITALS: BMI 24.3
[2020-09-27 07:54] LABS: Mucous, Urine 0 SEEN /hpf (<or=2+); Red Blood Cells-Urine 0 SEEN /hpf (0-5)
[2020-09-27 08:05] LABS: Color, Urine Yellow (Yellow); Glucose, Dipstick Normal (Normal); Ketone-Dipstick Negative (Negative); Leukocyte Esterase-Dipstick 25 /ul (Negative); Nitrite-Dipstick Negative (Negative); Occult Blood-Urine Negative /ul (Negative); Protein-Dipstick Negative (Negative); Specific Gravity, Urine 1.005 (1.002-1.030); Urine Bilirubin Dipstick Negative (Negative); Urine Clarity Sl. Cloudy (Clear); Urine Urobilinogen Normal (Normal)
[2020-09-27 08:19] LABS: Bacteria 1+ /hpf (None Seen); Squamous Epithelial Cells - UA 0-5 SEEN /hpf (5-10); White Blood Cells 0-5 SEEN /hpf (0-5)
== END ==
PROVIDERS: PCP Internal Medicine; Visit Provider Internal Medicine
DX: N39.0 Urinary tract infection, site not specified (principal); R46.89 Other symptoms and signs involving appearance and behavior; R35.0 Frequency of micturition
CPT/HCPCS: 81001; 87086; 87088

== ENCOUNTER → 2020-10-19 10:30 | Outpatient (REF) | payer MEDICARE, OTHER, SELFPAY ==
[2020-10-19 11:22] LABS: Bacteria 0 SEEN /hpf (None Seen); Mucous, Urine 0 SEEN /hpf (<or=2+); Red Blood Cells-Urine 0 SEEN /hpf (0-5); Squamous Epithelial Cells - UA 0 SEEN /hpf (5-10); White Blood Cells 0 SEEN /hpf (0-5)
[2020-10-19 11:27] LABS: Color, Urine Yellow (Yellow); Glucose, Dipstick Normal (Normal); Ketone-Dipstick Negative (Negative); Leukocyte Esterase-Dipstick 25 /ul (Negative); Nitrite-Dipstick Positive (Negative); Occult Blood-Urine Negative /ul (Negative); Protein-Dipstick Negative (Negative); Urine Bilirubin Dipstick Negative (Negative); Urine Clarity Clear (Clear); Urine Urobilinogen Normal (Normal)
== END ==
PROVIDERS: PCP Internal Medicine; Visit Provider Internal Medicine
DX: R41.0 Disorientation, unspecified (principal); R82.998 Other abnormal findings in urine
CPT/HCPCS: 81001; 87086; 87088

== ENCOUNTER → 2020-11-13 03:10 | Outpatient (REF) | payer MEDICARE, OTHER, SELFPAY ==
[2020-11-13 03:31] VITALS: BMI 24.2
[2020-11-13 07:43] LABS: Bacteria 0 SEEN /hpf (None Seen); Mucous, Urine 0 SEEN /hpf (<or=2+); Red Blood Cells-Urine 0 SEEN /hpf (0-5)
[2020-11-13 08:07] LABS: Color, Urine Yellow (Yellow); Glucose, Dipstick Normal (Normal); Ketone-Dipstick Negative (Negative); Leukocyte Esterase-Dipstick 500 /ul (Negative); Nitrite-Dipstick Negative (Negative); Occult Blood-Urine Negative /ul (Negative); Protein-Dipstick Negative (Negative); Urine Bilirubin Dipstick Negative (Negative); Urine Clarity Sl. Cloudy (Clear); Urine Urobilinogen Normal (Normal); Urine pH 6.5 (5.0 - 8.0)
[2020-11-13 08:20] LABS: Squamous Epithelial Cells - UA 0-5 SEEN /hpf (5-10); White Blood Cells 25-50 SEEN /hpf (0-5)
== END ==
PROVIDERS: PCP Internal Medicine; Referring Provider Internal Medicine; Visit Provider Internal Medicine
DX: N39.0 Urinary tract infection, site not specified (principal); R41.0 Disorientation, unspecified
CPT/HCPCS: 81001; 87086

== ENCOUNTER 2020-11-13 03:30 | Emergency (ER) | payer MEDICARE, OTHER, SELFPAY ==
[2020-11-13 03:31] VITALS: BP 173/92; PULSE 58; RESP 18; TEMP 36.7; O2SAT 100; BMI 24.2
--- NOTE | 2020-11-13 03:37 | ED.RN ---
PT VERY ANGRY THAT SHE HAD TO GIVE HER SOCIAL SECURITY. WAS GOING THROUGH THE ADMISIION PROCESS AND PT BECAME FURTHER ANGRY. ATTEMPT TO EXPLAIN THE PROCESS.ICE PLACED ON R SHOULDER.PT THEN C/O BEING TOO DAMN COLD.
--- NOTE | 2020-11-13 03:42 | CT_ITS ---
STUDY: CT BRAIN WITHOUT CONTRAST REASON FOR EXAM: Female, 75 years old. Injury/Pain RADIATION DOSAGE (If Supplied By Facility): CTDIvol = ( 44.99 ) mGy, DLP = ( 829.85 ) mGycm TECHNIQUE: Transaxial CT imaging of the brain was performed without administration of intravenous contrast material. Individualized dose optimization techniques were used for this CT. COMPARISON: CT head from 12/21/2018 FINDINGS: There is a small right parietotemporal subdural hemorrhage with thickness measuring approximately 5 mm in thickness. Normal soft tissue structures. Normal calvarium. There is mild cerebral atrophy with widening of the extra-axial spaces and ventricular dilatation. There are areas of decreased attenuation within the white matter tracts of the supratentorial brain, consistent with microvascular disease changes. Normal basal ganglia and thalami. Normal brainstem. Normal cerebellum. There are no findings of an acute ischemic infarction. Normal visualized paranasal sinuses. CT/Brain/Head without Contrast IMPRESSION: Right temporal region subdural hemorrhage measuring approximately 5 mm in thickness. Electronically Signed: Wil Jaquez MD at 5:03 EST Tel , Service support ,
--- NOTE | 2020-11-13 03:42 | CT_ITS ---
STUDY: CT CERVICAL SPINE WITHOUT CONTRAST REASON FOR EXAM: Female, 75 years old. Injury/Pain RADIATION DOSAGE (If Supplied By Facility): CTDIvol = ( 15.94 ) mGy, DLP = ( 281.63 ) mGycm TECHNIQUE: High resolution transaxial imaging was performed without contrast material. Sagittal and coronal images were reconstructed. Individualized dose optimization techniques were used for this CT. COMPARISON: None FINDINGS: Normal craniovertebral junction. There are degenerative changes of the anterior atlantoaxial articulation. Normal odontoid process. There is straightening of the normal cervical lordosis. Vertebral body height and alignment is maintained. There is diffuse facet arthrosis. Degenerative disc height loss at C5-C6 and C6-C7. Posterior osteophyte at C5-C6 causes mild to moderate central canal narrowing. Normal visualized soft tissue structures. There is a round partially calcified right thyroid lobe nodule measuring approximately 1.5 cm in diameter. Follow-up thyroid ultrasound can be performed. CT/Spine Cervical without Contras IMPRESSION: Multilevel degenerative changes, as described above. No acute fracture or subluxation. Electronically Signed: Wil Jaquez MD at 5:12 EST Tel , Service support ,
--- NOTE | 2020-11-13 03:44 | RAD_ITS ---
STUDY: X-RAY - LUMBAR SPINE REASON FOR EXAM: Female, 75 years old. Injury/Pain TECHNIQUE: 3 view(s) of the lumbar spine were obtained. COMPARISON: CT lumbar spine from 05/02/2019 FINDINGS: There is straightening of the normal lumbar lordosis. There is no substantial scoliosis. There is a normal alignment of the vertebrae. Vertebral body heights and alignment is maintained. No acute fracture visualized. There is degenerative disc changes most prominent at L1-L2 and L2-L3. There is diffuse facet arthrosis. The soft tissue structures are unremarkable. RAD/Lumbar Spine 2 or 3 Views IMPRESSION: Degenerative changes of the spine, as detailed above. Electronically Signed: Wil Jaquez MD at 5:15 EST Tel , Service support ,
--- NOTE | 2020-11-13 03:44 | RAD_ITS ---
STUDY: X-RAY - PELVIS AND RIGHT HIP REASON FOR EXAM: Female, 75 years old. Injury/Pain TECHNIQUE: 3 views of the pelvis and hip. COMPARISON: None. FINDINGS: There is a non-specific bowel gas pattern. Normal visualized soft tissue structures. There are degenerative changes of the bilateral hip joints. No acute dislocation or fracture. RAD/HIP, UNI W/ Pelvis 2-3 Views IMPRESSION: No acute fracture or hip dislocation. Electronically Signed: Wil Jaquez MD at 4:41 EST Tel , Service support ,
--- NOTE | 2020-11-13 03:44 | RAD_ITS ---
STUDY: X-RAY - RIGHT SHOULDER REASON FOR EXAM: Female, 75 years old. Injury/Pain TECHNIQUE: AP and scapular Y view(s) of the shoulder. COMPARISON: None. FINDINGS: Normal glenohumeral articulation. There is degenerative arthrosis of the acromioclavicular joint without inferior osseous spur formation. Normal acromion. Normal humeral head and visualized proximal humerus. There is calcification superior to the humeral head consistent with calcific tendinosis. The soft tissue structures are unremarkable. Normal visualized pulmonary apex. RAD/Shoulder min 2 Views IMPRESSION: No acute fracture or dislocation. Electronically Signed: Wil Jaquez MD at 4:39 EST Tel , Service support ,
[2020-11-13] MEDS: Ondansetron ODT 4 MG Tablet PO (03:51)
[2020-11-13] MEDS: fentaNYL 100 MCG/2 ML Ampul 50 MCG IM (03:51)
--- NOTE | 2020-11-13 03:56 | ED.VISSUMM ---
- ER Visit Summary Date of Service: 11/13/20 Chief Complaint: Fall History of Present Illness: The patient is a [address] Jacobs. Patient reports approximately an hour ago she lost balance while trying to put her shoes on. And states that she hit her head and has an abrasion to her right cheek. She denies headache. She denies loss of consciousness. She is not on anticoagulants. She complains of neck pain and stated 10 severity and low back pain and stated 10 severity. Patient also complains of right shoulder pain is 9-10 severity and left hip pain that is 8 out of 10 in severity. On review of systems patient complains of nausea. She denies any other complaints. Physical Examination: Vitals: Stable. Afebrile. Neck: Mild diffuse tenderness palpation over the entire C-spine. No point tenderness. Full ROM without difficulty. Back: Mild diffuse tenderness palpation over the lumbar spine and the paraspinous musculature. No point tenderness. General: A&O x 3. NAD. Cardiovascular exam: Bradycardic regular rhythm with a 2 out of 6 systolic murmur. Respiratory exam: Chest nontender. No crepitus. Clear to auscultation bilaterally. No wheezes or stridor. Abdominal exam: Soft, nontender, nondistended, normal bowel sounds. No pain in RUQ or LUQ specifically. No peritoneal signs. Extremity: Moderate tenderness palpation over the right proximal humerus. No pain over the clavicles. Mild tenderness palpation over her hips bilaterally. This seems to be worse on the right. She is neuro vas intact distal to this. Test Results: Clinical Impression(s) from Imaging Studies Brain CT 11/13/20 03:42 IMPRESSION: Right temporal region subdural hemorrhage measuring approximately 5 mm in thickness. Electronically Signed: Wil Jaquez MD at 5:03 EST Tel , Service support , ADDENDUM: 11/13/[address] 11/13/20 03:42 IMPRESSION: Multilevel degenerative changes, as described above. No acute fracture or subluxation. Electronically Signed: Wil Jaquez MD at 5:12 EST Tel , Service support , Hip/Pelvis X-Ray 11/13/20 03:44 IMPRESSION: No acute fracture or hip dislocation. Electronically Signed: Wil Jaquez MD at 4:41 EST Tel , Service support , Lumbar Spine X-Ray 11/13/20 03:44 IMPRESSION: Degenerative changes of the spine, as detailed above. Electronically Signed: Wil Jaquez MD at 5:15 EST Tel , Service support , Shoulder X-Ray 11/13/20 03:44 IMPRESSION: No acute fracture or dislocation. Electronically Signed: Wil Jaquez MD at 4:39 EST Tel , Service support , Emergency Department Course and Treatment: Patient was given a dose of fentanyl IM and Zofran p.o. She is resting more comfortably. The patient has a DNR Comfort Care only filled out on her chart from the assisted. I contacted the family and the daughter and came into the emergency department. We had a prolonged discussion about the patient's wishes and their wishes. They would like her to be DNR Comfort Care only and do not want her transferred to a tertiary care center. Treatment Plan: Patient was placed in a sling. She does not do well with opiates. She is given Tylenol p.o. She will be discharged with instructions to follow-up with Dr. Mccormick in 3 to 5 days. Instructed to follow-up with Dr. Beny Smith in 1 week if not improving. Return to the emergency department for any worsening symptoms. Disposition: To home in improved and stable condition. Impression: 1. Fall. 2. Subdural hemorrhage. 3. Right shoulder pain, acute. 4. DNR Comfort Care only. This note was generated with [employer] software. It may contain incorrect words, spelling, and punctuation that were not noted in review of the chart prior to signing ED Disposition - Plan for ED Patient: Instructions: ED Shoulder Pain, Uncertain Cause Referrals: Rain Mccormick DO [Primary Care Provider] - 3-5 Days Beny Smith MD [STAFF PHYSICIAN] - 1 Week if not improving
[2020-11-13 05:34] VITALS: BP 138/78; PULSE 52; RESP 16; O2SAT 98
[2020-11-13 06:22] VITALS: BP 138/78; PULSE 52; RESP 16
== END 2020-11-13 06:23 | disposition home or self-care (01) ==
PROVIDERS: Emergency Provider Emergency Medicine; PCP Internal Medicine
DX: I62.00 Nontraumatic subdural hemorrhage, unspecified (principal); M25.511 Pain in right shoulder; Z66 Do not resuscitate; S00.81XA Abrasion of other part of head, initial encounter; W19.XXXA Unspecified fall, initial encounter; Y93.9 Activity, unspecified; Y92.89 Other specified places as the place of occurrence of the external cause; Y99.9 Unspecified external cause status; R11.0 Nausea; M54.5 Low back pain; Z79.899 Other long term (current) drug therapy
CPT/HCPCS: 70450; 72100; 72125; 73030; 73502; 81001; 87086; 87088; 96372; 99284

== ENCOUNTER → 2020-11-16 05:00 | Outpatient (REF) | payer MEDICARE, OTHER, SELFPAY ==
[2020-11-13 03:31] VITALS: BMI 24.2
[2020-11-16 07:06] LABS: Absolute Lymphocyte Count 1.24 X10^3/uL (0.83-4.51); Absolute Neutrophil Count 3.6 X10^3/uL (2.0-7.7); Basophil# 0.03 X10^3/uL; Basophil% 0.5 % (0-1); Eosinophil# 0.09 X10^3/uL; Eosinophils% 1.6 % (0-5); Hematocrit 35.4 % (37-47); Hemoglobin 12.1 g/dL (12.0-15.0); Lymphocyte # 1.24 X10^3/ul (4.0); Lymphocyte % 22.7 % (19-41); Mean Corp Hgb Conc 34.2 g/dL (32-36); Mean Corpuscular Hgb 29.4 pg (27.0-32.0); Mean Corpuscular Volume 85.9 fL (81-99); Mean Platelet Vol. 9.9 fl (6.2-12.0); Monocyte# 0.46 X10^3/uL; Monocyte% 8.4 % (0-10); NRBC Flagged by Analyzer 0 % (0-5); Neutrophil # 3.63 X10^3/uL (2.7-7.7); Neutrophil % 66.4 % (47-70); Platelet Count 178 K/mm3 (150-450); RBC Distribution Width CV 12.7 % (11.6-14.6); Red Blood Count 4.12 M/mm3 (4.2-5.4); White Blood Count 5.5 K/mm3 (4.4-11.0)
[2020-11-16 07:40] LABS: ALB/GLOB Ratio 1.3 RATIO (0.9-2.4); AST(SGOT) 15 U/L (15-37); Alanine Aminotransfer ALT/SGPT 8 U/L (13-56); Albumin, Serum 3.4 g/dL (3.2-5.0); Alkaline Phosphatase 59 U/L (45-117); Anion Gap 6 (5-15); BUN 27 mg/dL (7-18); BUN/Creat Ratio 19.9 RATIO (10-20); Calcium,Total 8.8 mg/dL (8.5-10.1); Chloride 109 mmol/L (98-107); Creatinine, Serum 1.36 mg/dL (0.55-1.02); EST Glomerular Filtration Rate 41 mL/min (>60); Est Glom Filt Rate - Afr Amer 49 mL/min (>60); Globulin 2.7 g/dL (2.2-4.2); Glucose 101 mg/dL (74-106); Potassium 3.5 mmol/L (3.5-5.1); Protein, Total 6.1 g/dL (6.4-8.2); Sodium Level 142 mmol/L (136-145); Thyroid Stim Hormone (TSH) 1.17 uIU/mL (0.358-3.74)
== END ==
PROVIDERS: PCP Internal Medicine; Referring Provider Internal Medicine; Visit Provider Internal Medicine
DX: E78.5 Hyperlipidemia, unspecified (principal); E03.9 Hypothyroidism, unspecified; M79.7 Fibromyalgia; Z79.899 Other long term (current) drug therapy
CPT/HCPCS: 36415; 80053; 84443; 85025

== ENCOUNTER 2020-11-19 14:53 | Emergency (ER) | payer MEDICARE, OTHER, SELFPAY ==
[2020-11-19 14:55] VITALS: BP 141/67; PULSE 65; RESP 15; TEMP 36.7; O2SAT 99; BMI 24.3
[2020-11-19 14:58] VITALS: BP 141/67; PULSE 63; RESP 15; O2SAT 98
--- NOTE | 2020-11-19 15:06 | ED.RN ---
latia diana LPN from [place]. [phone]
--- NOTE | 2020-11-19 15:13 | CT_ITS ---
STUDY: CT BRAIN WITHOUT CONTRAST REASON FOR EXAM: Female, 75 years old. fall RADIATION DOSAGE (If Supplied By Facility): CTDIvol = ( 44.99 ) mGy, DLP = ( 796.11 ) mGycm TECHNIQUE: Transaxial CT imaging of the brain was performed without administration of intravenous contrast material. Individualized dose optimization techniques were used for this CT. COMPARISON: 11/13/2020 FINDINGS: Normal soft tissue structures. Normal calvarium. Normal size ventricles and extra-axial spaces for the patient''s age. There are areas of decreased attenuation within the white matter tracts of the supratentorial brain, consistent with microvascular disease changes. Normal basal ganglia and thalami. Normal brainstem. Normal cerebellum. Right temporal hyperdense subdural hematoma has decreased in size (currently 3 mm in thickness) since prior study (comparing image 47 series 601 of the current exam with image 42 series 601 of the prior exam). There are no findings of an acute ischemic infarction. Normal visualized paranasal sinuses. CT/Brain/Head without Contrast IMPRESSION: Decreased right temporal subdural hematoma. Electronically Signed: Quinn Rubi MD ([place]) at 16:24 EST , Service support ,
--- NOTE | 2020-11-19 15:19 | ED.VISSUMM ---
- ER Visit Summary Date of Service: 11/19/20 Chief Complaint: Behavioral problems History of Present Illness: The patient is a 75 F presenting from assisted living due to behavioral problems. Staff state they are unable to care for her and are concerned about her safety. She has been acting out. Today she was trying to leave the facility and was found outside. They state she has been going into other patient's rooms. Today she said she was looking for small children and could not find her room. They state that she has been manipulative and has been telling staff members that she did not receive her medications in order to get additional doses. She fell on Friday. They state she admitted that she threw herself on the floor intentionally. No known loss of consciousness. They state that she has been seen by multiple psychiatrists and had an evaluation last Friday. They state that she frequently will have a doctor's appointment and will call and cancel her appointments. Patient states she believes she is here for acting out but does not recall doing this. Physical Examination: Vitals are stable. Patient is afebrile. Alert no acute distress. HEENT exam small abrasion right forehead Neck is nontender Lungs are clear and equal bilaterally. Heart is regular rate and rhythm. Abdomen is soft nontender nondistended. Extremities are unremarkable. Skin is warm and dry. No focal neurologic deficit. Remainder of exam is unremarkable. Emergency Department Course and Treatment: CBC, chemistries unremarkable other than BUN 31, creatinine 1.54. Alcohol negative. Covid negative. Tox positive for benzos. Urinalysis shows 0-5 white cells, 0-[address] head shows decreased right temporal subdural hematoma. Patient was seen in the ED on November 13 and was found to have a subdural hematoma. After long discussion with the family the decision was made to not transfer her to tertiary care center because she is DNR CC only. I discussed with her assisted living facility. They are not able to accept her back today because they do not feel they can keep her safe. Discussed with counseling center for geriatric psychiatric placement Disposition: per counseling center Impression: Behavioral disturbance This note was generated with [employer] dictation software. It may contain incorrect words, spelling, and punctuation that were not noted in review of the chart prior to signing ED Disposition - Plan for ED Patient: Referrals: Rain Mccormick, [Primary Care Provider] -
[2020-11-19 15:42] LABS: Absolute Lymphocyte Count 1.18 X10^3/uL (0.83-4.51); Basophil# 0.03 X10^3/uL; Basophil% 0.5 % (0-1); Eosinophil# 0.05 X10^3/uL; Eosinophils% 0.9 % (0-5); Hemoglobin 12.9 g/dL (12.0-15.0); Lymphocyte # 1.18 X10^3/ul (4.0); Lymphocyte % 20.9 % (19-41); Mean Corp Hgb Conc 32.3 g/dL (32-36); Mean Corpuscular Hgb 27.9 pg (27.0-32.0); Mean Corpuscular Volume 86.6 fL (81-99); Mean Platelet Vol. 9.5 fl (6.2-12.0); Monocyte# 0.38 X10^3/uL; Monocyte% 6.7 % (0-10); NRBC Flagged by Analyzer 0 % (0-5); Neutrophil # 3.99 X10^3/uL (2.7-7.7); Neutrophil % 70.8 % (47-70); Platelet Count 250 K/mm3 (150-450); RBC Distribution Width CV 12.6 % (11.6-14.6); RBC Distribution Width SD 39.8 fl (35.1-43.9); Red Blood Count 4.62 M/mm3 (4.2-5.4); White Blood Count 5.6 K/mm3 (4.4-11.0)
[2020-11-19 15:54] LABS: Alcohol, Blood (Medical)-Serum < 3.0 mg/dL
[2020-11-19 15:56] LABS: Anion Gap 6 (5-15); BUN 31 mg/dL (7-18); BUN/Creat Ratio 20.1 RATIO (10-20); Calcium,Total 9.1 mg/dL (8.5-10.1); Chloride 110 mmol/L (98-107); Creatinine, Serum 1.54 mg/dL (0.55-1.02); EST Glomerular Filtration Rate 35 mL/min (>60); Est Glom Filt Rate - Afr Amer 42 mL/min (>60); Estimated Creatinine Clearance 28.09 ml/min; Glucose 100 mg/dL (74-106); Potassium 3.7 mmol/L (3.5-5.1); Sodium Level 144 mmol/L (136-145)
[2020-11-19 16:05] LABS: Bacteria 0 SEEN /hpf (None Seen)
--- NOTE | 2020-11-19 16:05 | EKG12_ITS ---
Test Reason : ALT LOC Blood Pressure : / mmHG Vent. Rate : 058 BPM Atrial Rate : 058 BPM P-R Int : 128 ms QRS Dur : 070 ms QT Int : 430 ms P-R-T Axes : 014 019 046 degrees QTc Int : 422 ms Sinus bradycardia Low voltage QRS (Limb Leads) Borderline ECG Confirmed by DIMA KELLEY, JANET ([id number]), assistant film editor ADRIAN COFFEY ([id number]) on 11/22/2020 10:58:07 AM Referred By: SANDI Confirmed By:JANET CH MD
[2020-11-19 16:06] LABS: Color, Urine Yellow (Yellow); Glucose, Dipstick Normal (Normal); Ketone-Dipstick 5 mg/dl (Negative); Leukocyte Esterase-Dipstick 100 /ul (Negative); Nitrite-Dipstick Negative (Negative); Occult Blood-Urine 10 /ul (Negative); Protein-Dipstick 15 mg/dl (Negative); Urine Bilirubin Dipstick Negative (Negative); Urine Clarity Clear (Clear); Urine Urobilinogen 1 mg/dl (Normal)
[2020-11-19 16:12] LABS: Red Blood Cells-Urine 0-5 SEEN /hpf (0-5); Squamous Epithelial Cells - UA 0-5 SEEN /hpf (5-10); White Blood Cells 0-5 SEEN /hpf (0-5)
[2020-11-19 16:13] LABS: Calcium Oxalate Crystals Ur RARE /hpf (<or=2+); Mucous, Urine 1+ /hpf (<or=2+)
[2020-11-19 16:17] LABS: Amphetamine Urine VISTA NEGATIVE (<1000 ng/mL); Barbiturate Urine VISTA NEGATIVE (< 200 ng/mL); Benzodiazepine Urine VISTA POSITIVE (< 200 ng/mL); Cocaine Urine VISTA NEGATIVE (< 300 ng/mL); Ecstacy Urine VISTA NEGATIVE (< 500 ng/mL); Methadone Urine VISTA NEGATIVE (< 300 ng/mL); PCP Urine VISTA NEGATIVE (< 25 ng/mL); THC Urine VISTA NEGATIVE (< 50 ng/mL); Vista UDS pH Range 6
--- NOTE | 2020-11-19 16:27 | ED.RN ---
called counseling center for dr bauer. per answering service reba will call back
--- NOTE | 2020-11-19 16:35 | ED.RN ---
reba from the counseling center called back
[2020-11-19 18:21] VITALS: BP 181/77; PULSE 89; RESP 16; O2SAT 98
[2020-11-19] MEDS: Carbidopa/Levodopa 25/100 Tablet PO (18:23)
[2020-11-19] MEDS: clonazePAM 0.5 MG Tablet PO ×2 (18:23→22:58)
--- NOTE | 2020-11-19 20:17 | ED.RN ---
THIS RN SPOKE WITH THE COUNSELING CENTER. PT WAS DECLINED AT [facility] DUE TO HER ACUITY. THEY ARE TRYING TO PLACE HER CURRENTLY AT [facility]
[2020-11-19 20:18] VITALS: BP 115/45; PULSE 68; RESP 17; O2SAT 99
--- NOTE | 2020-11-19 21:45 | ED.RN ---
daughter arrived to department. current plan of care and delay explained to family. they expressed understanding and gratitude for information. elsie pendleton, rn [phone]
[2020-11-19 22:14] VITALS: BP 118/85; PULSE 72; RESP 17; O2SAT 99
[2020-11-20 00:39] VITALS: BP 147/56; PULSE 60; RESP 18; O2SAT 95
[2020-11-20 04:00] VITALS: BP 165/66; PULSE 55; RESP 15; TEMP 36.3; O2SAT 97
[2020-11-20] MEDS: clonazePAM 0.5 MG Tablet PO (05:06)
[2020-11-20] MEDS: Carbidopa/Levodopa 25/250 Tablet PO (05:06)
[2020-11-20] MEDS: Escitalopram Oxalate 10 MG Tablet PO (05:36)
[2020-11-20] MEDS: Phenazopyridine 95 MG Tablet 190 MG PO (05:36)
[2020-11-20 06:12] VITALS: BP 165/66; PULSE 55; RESP 15; TEMP 36.3; O2SAT 97
== END 2020-11-20 07:37 ==
LOC: ED 15:37
PROVIDERS: Emergency Provider Emergency Medicine; PCP Internal Medicine
DX: F91.9 Conduct disorder, unspecified (principal); S00.81XA Abrasion of other part of head, initial encounter; X58.XXXA Exposure to other specified factors, initial encounter; E11.9 Type 2 diabetes mellitus without 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; G20 Parkinson's disease; Z79.899 Other long term (current) drug therapy
CPT/HCPCS: 70450; 80048; 80307; 81001; 82077; 85025; 87426; 93005; 99285; A4216

== ENCOUNTER → 2021-02-01 12:00 | Outpatient (REF) | payer MEDICARE, OTHER, SELFPAY ==
[2021-02-02 08:08] LABS: Bacteria 0 SEEN /hpf (None Seen); Mucous, Urine 0 SEEN /hpf (<or=2+); Red Blood Cells-Urine 0 SEEN /hpf (0-5); Squamous Epithelial Cells - UA 0 SEEN /hpf (5-10)
[2021-02-02 08:35] LABS: Color, Urine Yellow (Yellow); Glucose, Dipstick Normal (Normal); Ketone-Dipstick Negative (Negative); Leukocyte Esterase-Dipstick Negative /ul (Negative); Nitrite-Dipstick Positive (Negative); Occult Blood-Urine Negative /ul (Negative); Protein-Dipstick Negative (Negative); Specific Gravity, Urine 1.015 (1.002-1.030); Urine Bilirubin Dipstick Negative (Negative); Urine Clarity Clear (Clear); Urine Urobilinogen Normal (Normal); Urine pH 6.5 (5.0 - 8.0)
[2021-02-02 09:00] LABS: White Blood Cells 0-5 SEEN /hpf (0-5)
== END ==
LOC: OLS.BROOKB 12:00
PROVIDERS: PCP Internal Medicine; Visit Provider Internal Medicine
DX: R35.0 Frequency of micturition (principal)
CPT/HCPCS: 81001; 87077; 87086; 87088; 87186

== ENCOUNTER 2021-02-06 16:58 | Emergency (ER) | payer MEDICARE, OTHER, SELFPAY ==
[2021-02-06 16:59] VITALS: BP 107/65; PULSE 49; RESP 16; TEMP 36.4; O2SAT 100; BMI 23.6
--- NOTE | 2021-02-06 17:19 | CT_ITS ---
HISTORY: Trauma, head injury TECHNIQUE: Multiple axial images were obtained of the brain without intravenous contrast. A radiation dose optimization technique was used for this scan. IV Contrast dosage and agent: None. COMPARISON: 11/19/20 FINDINGS: # of images incl. paperwork: [id number] PARANASAL SINUSES AND MASTOID AIR CELLS: Clear. INTRACRANIAL HEMORRHAGE: None. BRAIN PARENCHYMA: No CT evidence of stroke. No intracranial masses. There is preservation of the trivedi/white matter interface. Posterior fossa structures are unremarkable. There is hypoattenuation of the periventricular white matter. Chronic involutional changes are noted. CSF SPACES: Appropriate for age. There is no hydrocephalus. MASS EFFECT: None. CALVARIUM: No acute fracture. CT/Brain/Head without Contrast IMPRESSION: Chronic involutional and white matter changes. No acute intracranial process. Individualized dose optimization techniques were used for this CT. at 1750 Reported and signed by: Michael Sultana MD Electronically Signed: Michael Sultana MD at 17:49 EDT Tel , Service support ,
--- NOTE | 2021-02-06 17:19 | EX.ED.DYSGE1 ---
HPI History of Present Illness Chief Complaint: Fall Informant: patient Narrative Narrative: 75-year-old female with Parkinson's states that she sustained a fall today. She states that this is about the fourth time she has fallen. She states that usually involves her walker which she cannot seem to master. She had physical therapy today and her legs were rubber. She states she hit a couple baker and then hit her head on the ceramic tile. She has pain in her buttock, midthoracic back, and left upper scalp. No loss of consciousness. Patient has chronic nausea. [facility] Medical History (Updated 02/06/21 @ 18:[address] Andrea Veliz, DO) Diabetes Fibromyalgia Interstitial cystitis Overactive bladder Parkinsons Parkinsons Home Medications alendronate 70 mg PO HILL 12/21/18 [History Last Taken 05/07/20] metoprolol succinate 25 mg PO DAILY 12/21/18 [History Last Taken 05/11/20] clonazepam 0.5 mg PO TID 03/10/19 [History Last Taken 11/19/20 11:00] carbidopa-levodopa 1 tab PO TID 04/12/20 [History Last Taken 11/19/20 06:00] ibuprofen 400 mg PO Q6H PRN 05/12/20 [History Last Taken Unknown] mirtazapine 15 mg PO QHS 09/09/20 [History Last Taken Unknown] acetaminophen 500 mg PO Q6H PRN 11/19/20 [History Last Taken Unknown] docusate sodium 100 mg PO DAILY PRN 11/19/20 [History Last Taken Unknown] pentosan polysulfate sodium 100 mg PO TID 11/19/20 [History Last Taken 11/19/20 11:00] phenazopyridine 200 mg PO TID PRN 11/19/20 [History Last Taken Unknown] polyethylene glycol 8000(bulk) 17 g PO DAILY PRN 11/19/20 [History Last Taken Unknown] atorvastatin 20 mg PO QHS 02/06/21 [History Last Taken Unknown] donepezil 5 mg PO DAILY 02/06/21 [History Last Taken Unknown] Allergy/AdvReac Type Severity Reaction Status Date / Time rhubarb Allergy PT UNSURE Verified 02/06/21 16:59 OF REACTION seasonal Allergy NEEDS Uncoded 02/06/21 16:59 FOLLOW-UP Social History (Updated 02/06/21 @ 17:[address] Andrea Veliz, DO) Smoking Status: Never smoker substance use type: does not use ROS ROS ED Constitutional Constitutional ED: Denies chills or weight loss Eyes Eyes: Denies change in vision or diplopia ENT ENT ED: Denies ear pain, rhinorrhea or sore throat Cardiovascular Cardiovascular: Denies chest pain, orthopnea, palpitations or racing heartbeat Respiratory/Chest Respiratory/Chest: Denies cough, dyspnea or orthopnea Gastrointestinal Gastrointestinal: Reports nausea; Denies abdominal pain, diarrhea or vomiting Genitourinary Genitourinary ED: Denies dysuria, hematuria or urinary frequency Musculoskeletal Musculoskeletal: Reports back pain; Denies arthralgias or myalgias Integumentary Denies abscess or rash Neurologic Neurologic: Reports headache(s); Denies weakness Psychiatric Psychiatric: Denies anxiety, depression, suicidal ideation or suicidal thoughts Endocrine Endocrinology: Denies polydipsia, polyphagia or polyuria Allergic/Immunologic Allergic/Immunologic ED: Denies mouth swelling, tongue swelling or urticaria EXAM Physical Exam Const Vital Signs: 02/06/21 16:59 02/06/21 17:15 Temperature 97.6 F L Temperature Source Temporal Pulse Rate 49 L Respiratory Rate 16 Respiratory Effort Normal Non-Labored Respiratory Depth Normal Respiratory Pattern Normal Blood Pressure 107/65 Blood Pressure Mean 79 Pulse Ox 100 Oxygen Delivery Method Room Air Positive well nourished and well developed General Appearance ED: well developed HEENT Reports normocephalic, head/scalp atraumatic and moist mucous membranes HEENT Narrative: There is a small area of contusion left parietal scalp trauma Eyes PERRL and EOMs intact bilaterally Neck no lymphadenopathy, supple and no JVD Resp normal respiratory effort and clear to auscultation bilaterally Cardio regular rate, regular rhythm and no murmurs GI normal to inspection, nondistended, normoactive bowel sounds and non-tender Palpation: soft Back/Spine no CVA tenderness and normal ROM Back/Spine Narrative: Patient has tenderness to palpation in the mid thoracic spine. Extremity normal to inspection General Extremety ED: Negative for edema General Extremity: Negative for edema Neuro oriented x3 and CN's II-XII intact bilaterally Sensorium / Orientation: alert Motor Exam: strength 5/5 throughout Psych mental status grossly normal Mood & Affect: Negative for depressed or tearful Skin no rashes or lesions noted and no wounds MDM MDM MDM Narrative Medical decision making narrative: with supportive care return if worsening or concernsCT the brain was negative for fracture or hemorrhage. My interpretation of the plain films of the thoracic spine and pelvis are degenerative changes no acute fracture. Radiology agrees. Patient be discharged home Radiography Diagnostic Testing: Radiology Impression Brain CT 02/06/21 17:19 IMPRESSION: Chronic involutional and white matter changes. No acute intracranial process. Individualized dose optimization techniques were used for this CT. at 1750 Reported and signed by: Michael Sultana MD Electronically Signed: Michael Sultana MD at 17:49 EDT Tel , Service support , Pelvis X-Ray 02/06/21 17:42 IMPRESSION: No evidence of displaced pelvic or hip fracture. at 1826 Reported and signed by: Michael Sultana MD Electronically Signed: Michael Sultana MD at 18:25 EDT Tel , Service support , Thoracic Spine X-Ray 02/06/21 17:44 IMPRESSION: Degenerative changes without acute bony abnormality. at 1822 Reported and signed by: Michael Sultana MD Electronically Signed: Michael Sultana MD at 18:21 EDT Tel , Service support , Discharge Plan Triage Chief Complaint: Fall ED Provider: Andrea Veliz Dx/Rx/DC Orders Clinical Impression: Head injury, Back contusion, Contusion of buttock Instructions: ED Back Contusion, ED Head Injury (Adult) Prescriptions: No Action alendronate 70 MG tablet 70 mg PO HILL RF: 0 metoprolol succinate 25 MG tablet 25 mg PO DAILY RF: 0 clonazepam 0.5 MG tablet 0.5 mg PO TID RF: 0 carbidopa-levodopa 1 EACH tablet 1 tab PO TID RF: 0 ibuprofen 200 MG tablet 400 mg PO Q6H PRN (Reason: Pain Or Fever) RF: 0 mirtazapine 15 MG tablet,disintegrating 15 mg PO QHS RF: 0 pentosan polysulfate sodium 100 MG capsule 100 mg PO TID RF: 0 polyethylene glycol 8000(bulk) 500 GM powder 17 g PO DAILY PRN (Reason: Constipation) RF: 0 acetaminophen 500 MG tablet 500 mg PO Q6H PRN (Reason: Pain) RF: 0 docusate sodium 100 MG capsule 100 mg PO DAILY PRN (Reason: Constipation) RF: 0 phenazopyridine 200 MG tablet 200 mg PO TID PRN (Reason: bladder pain) RF: 0 atorvastatin 20 mg Tablet 20 mg PO QHS RF: 0 donepezil 5 mg Tablet 5 mg PO DAILY RF: 0 Primary Care Provider: Rain Mccormick Referrals: Rain Mccormick DO [Primary Care Provider] - [facility] appointment Disposition Disposition: Home, self care
--- NOTE | 2021-02-06 17:42 | RAD_ITS ---
HISTORY: Trauma, fall, injury with pain. EXAMINATION/TECHNIQUE: XR Pelvis 1 or 2 Views: AP pelvis COMPARISON: None FINDINGS: PELVIC BONES: No displaced fracture, destructive or sclerotic lesions. Note that overlapping bowel shadows may however obscure fine detail. Sacroiliac joints are unremarkable. No widening of the pubic symphisis. HIPS: The articular structures are unremarkable. No displaced fracture seen in this frontal view. SOFT TISSUES: No soft tissue swelling or gas. RAD/Pelvis 1 or 2 Views IMPRESSION: No evidence of displaced pelvic or hip fracture. at 1826 Reported and signed by: Michael Sultana MD Electronically Signed: Michael Sultana MD at 18:25 EDT Tel , Service support ,
--- NOTE | 2021-02-06 17:44 | RAD_ITS ---
HISTORY: injury from fall today, pt has pain in upper back. EXAMINATION/TECHNIQUE: XR Spine Thoracic 3 Views: 3 views COMPARISON: None FINDINGS: VERTEBRAE: Preserved vertebral body height. No fracture. No spondylolisthesis. Preservation of the normal thoracic kyphosis. No significant facet arthropathy. DISCS: Disc spaces are maintained with numerous anterior and marginal osteophytes. INCLUDED CHEST/ABDOMEN: No acute abnormalities. RAD/Thoracic Spine 3 Views IMPRESSION: Degenerative changes without acute bony abnormality. at 1822 Reported and signed by: Michael Sultana MD Electronically Signed: Michael Sultana MD at 18:21 EDT Tel , Service support ,
[2021-02-06 18:43] VITALS: BP 122/72; PULSE 51; RESP 16; O2SAT 97
== END 2021-02-06 18:44 | disposition home or self-care (01) ==
PROVIDERS: Emergency Provider Emergency Medicine; PCP Internal Medicine
DX: S09.90XA Unspecified injury of head, initial encounter (principal); S20.229A Contusion of unspecified back wall of thorax, initial encounter; S30.0XXA Contusion of lower back and pelvis, initial encounter; W22.01XA Walked into wall, initial encounter; Y93.89 Activity, other specified; Y92.89 Other specified places as the place of occurrence of the external cause; Y99.8 Other external cause status; R11.0 Nausea; E11.9 Type 2 diabetes mellitus without 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; G20 Parkinson's disease; N32.81 Overactive bladder; Z79.899 Other long term (current) drug therapy
CPT/HCPCS: 70450; 72072; 72170; 99282

== ENCOUNTER → 2021-02-16 20:45 | Outpatient (REF) | payer MEDICARE, OTHER, SELFPAY ==
[2021-02-06 16:59] VITALS: BMI 23.6
[2021-02-17 09:16] LABS: Bacteria 0 SEEN /hpf (None Seen); Mucous, Urine 0 SEEN /hpf (<or=2+); Red Blood Cells-Urine 0 SEEN /hpf (0-5); White Blood Cells 0 SEEN /hpf (0-5)
[2021-02-17 09:47] LABS: Color, Urine Yellow (Yellow); Glucose, Dipstick Normal (Normal); Ketone-Dipstick Negative (Negative); Leukocyte Esterase-Dipstick Negative /ul (Negative); Nitrite-Dipstick Negative (Negative); Occult Blood-Urine Negative /ul (Negative); Protein-Dipstick Negative (Negative); Urine Bilirubin Dipstick Negative (Negative); Urine Clarity Clear (Clear); Urine Urobilinogen Normal (Normal)
[2021-02-17 09:55] LABS: Squamous Epithelial Cells - UA 0-5 SEEN /hpf (5-10)
== END ==
LOC: OLS.BROOKB 20:45
PROVIDERS: PCP Internal Medicine; Visit Provider Internal Medicine
DX: R35.0 Frequency of micturition (principal)
CPT/HCPCS: 81001; 87086; 87088

== ENCOUNTER 2021-05-21 03:36 | Emergency (ER) | payer MEDICARE, OTHER, SELFPAY ==
[2021-05-21 03:36] VITALS: BP 192/77; PULSE 63; RESP 18; TEMP 36.2; O2SAT 100; BMI 23.3
--- NOTE | 2021-05-21 04:15 | CT_ITS ---
EXAM: CT HEAD WITHOUT INTRAVENOUS CONTRAST : 1945 CLINICAL INDICATION: fall TECHNIQUE: Multiple axial images were obtained of the head without intravenous contrast. This CT exam was performed using one or more of the following dose reduction techniques: automated exposure control, adjustment of the mA and/or kV according to patient size, and/or use of iterative reconstruction technique. This report was created using [employer] report generation technology. COMPARISON: 02/06/21 FINDINGS: BRAIN AND EXTRA-AXIAL SPACES: Diffuse cerebral volume loss. Periventricular small vessel chronic ischemic change. No intra- or extra-axial hemorrhage. No intracranial mass or mass effect. Posterior fossa structures are unremarkable. No hydrocephalus. Basal cisterns are patent. BONES/JOINTS: Unremarkable. No discrete lytic or blastic abnormalities. VASCULATURE: Arterial calcifications. SINUSES: Unremarkable as visualized. Clear. MASTOID AIR CELLS: Unremarkable. Clear. ORBITS: Visualized globes, extraocular muscles, optic nerves and retrobulbar fat appear unremarkable. CT/Brain/Head without Contrast IMPRESSION: 1. No acute intracranial abnormalities. 2. Age-related changes. Individualized dose optimization techniques were used for this CT. at 0507 Reported and signed by: Sheldon Sumner MD Electronically Signed: Sheldon Sumner MD at 5:06 EDT Tel , Service support ,
--- NOTE | 2021-05-21 04:15 | CT_ITS ---
History: trauma. TECHNIQUE: Helically acquired images were obtained of the cervical spine. 2-D reformatted images were reviewed. A radiation dose optimization technique was used for the scan. # of images incl. paperwork: [id number]. IV contrast dosage and agent: None. COMPARISON: None. FINDINGS: VERTEBRAE: No evidence of fracture or other acute injury. Vertebral body heights maintained. Posterior elements intact. ALIGNMENT: No significant anterior or posterior subluxation. Preservation of the cervical lordosis. INTERVERTEBRAL DISCS: Diffuse degenerative changes of the intervertebral discs. SOFT TISSUES: No prevertebral soft tissue thickening. CT/Spine Cervical without Contras IMPRESSION: No evidence for acute fracture or dislocation in the cervical spine. Degenerative changes. Individualized dose optimization techniques were used for this CT. at 0517 Reported and signed by: Sheldon Sumner MD Electronically Signed: Sheldon Sumner MD at 5:17 EDT Tel , Service support ,
--- NOTE | 2021-05-21 04:15 | CT_ITS ---
EXAM: CT PELVIS WITHOUT INTRAVENOUS CONTRAST : 1945 CLINICAL INDICATION: TRAUMA TECHNIQUE: Helically acquired images were obtained of the pelvis without intravenous contrast. This CT exam was performed using one or more of the following dose reduction techniques: automated exposure control, adjustment of the mA and/or kV according to patient size, and/or use of iterative reconstruction technique. This report was created using [employer] report generation technology. COMPARISON: None. FINDINGS: BOWEL: Unremarkable as visualized. No bowel distention. No focal inflammatory change. APPENDIX: No evidence of acute appendicitis. INTRAPERITONEAL SPACE: Unremarkable. No ascites or other fluid collection. No free air. BLADDER: Unremarkable. REPRODUCTIVE: Hysterectomy. BONES/JOINTS: Diffuse demineralization of the osseous structures. Degenerative changes of the hips. No suspicious lytic or blastic abnormality. SOFT TISSUES: Unremarkable. No pelvic wall hernia. LYMPH NODES: Unremarkable. No enlarged lymph nodes. CT/Pelvis without IV Contrast IMPRESSION: No acute findings in the pelvis. Individualized dose optimization techniques were used for this CT. at 0514 Reported and signed by: Sheldon Sumner MD Electronically Signed: Sheldon Sumner MD at 5:14 EDT Tel , Service support ,
[2021-05-21] MEDS: Ondansetron ODT 4 MG Tablet PO (05:12)
--- NOTE | 2021-05-21 05:38 | EDS_ITS ---
HPI History of Present Illness Chief Complaint: Head Injury Informant: patient and EMS Onset/Context/Timing Onset: Today Current Severity: Moderate Maximum Severity: Moderate Narrative Narrative: Patient presents after fall at [facility]. Patient is at [place] secondary to underlying Parkinson's. She got up tonight to go to the restroom after calling for an aide several times with no response. She states he was trying to move her wheelchair out of the way when she lost her balance and fell. She did strike her head and complains of significant pain to the posterior portion of her head. No lacerations noted. She is not on anticoagulants. She does complain of some mild pain over the lower back and sacral area. [facility] Medical History (Updated 05/21/21 @ 05:[address] Kelli Riley MD) Diabetes Fibromyalgia Interstitial cystitis Overactive bladder Parkinsons Home Medications alendronate 70 mg PO HILL 12/21/18 [History Last Taken 05/07/20] metoprolol succinate 25 mg PO DAILY 12/21/18 [History Last Taken 05/11/20] clonazepam 0.5 mg PO TID 03/10/19 [History Last Taken 11/19/20 11:00] carbidopa-levodopa [Sinemet] 1 tab PO 4X/DAY 04/12/20 [History Last Taken 11/19/20 06:00] ibuprofen 400 mg PO Q6H PRN 05/12/20 [History Last Taken Unknown] mirtazapine 22.5 mg PO QHS 09/09/20 [History Last Taken Unknown] acetaminophen 500 mg PO Q6H PRN 11/19/20 [History Last Taken Unknown] docusate sodium 100 mg PO DAILY PRN 11/19/20 [History Last Taken Unknown] pentosan polysulfate sodium 100 mg PO TID 11/19/20 [History Last Taken 11/19/20 11:00] phenazopyridine 200 mg PO TID PRN 11/19/20 [History Last Taken Unknown] polyethylene glycol 8000(bulk) 17 g PO DAILY PRN 11/19/20 [History Last Taken Unknown] atorvastatin 20 mg PO QHS 02/06/21 [History Last Taken Unknown] donepezil 5 mg PO DAILY 02/06/21 [History Last Taken Unknown] Allergy/AdvReac Type Severity Reaction Status Date / Time seasonal Allergy NEEDS Uncoded 02/06/21 16:59 FOLLOW-UP Social History Smoking Status: Never smoker substance use type: does not use ROS ROS ED Constitutional Constitutional ED: Denies chills or fever(s) Eyes Eyes: Denies change in vision ENT ENT ED: Denies sore throat Cardiovascular Cardiovascular: Denies chest pain Respiratory/Chest Respiratory/Chest: Denies cough or dyspnea Gastrointestinal Gastrointestinal: Reports nausea; Denies abdominal pain, diarrhea or vomiting Genitourinary Genitourinary ED: Denies dysuria Musculoskeletal Musculoskeletal: Denies back pain Integumentary Denies rash Neurologic Neurologic: Reports headache(s); Denies weakness Allergic/Immunologic Allergic/Immunologic ED: Denies urticaria EXAM Physical Exam Const Vital Signs: 05/21/21 03:36 05/21/21 03:40 Temperature 97.2 F L Temperature Source Temporal Pulse Rate 63 Respiratory Rate 18 Respiratory Effort Normal Respiratory Depth Normal Respiratory Pattern Normal Blood Pressure 192/77 H Blood Pressure Mean 115 Pulse Ox 100 Oxygen Delivery Method Room Air Room Air Positive well nourished and well developed General Appearance ED: well developed HEENT Reports normocephalic and head/scalp atraumatic HEENT Narrative: Tenderness location of the posterior parietal scalp. No lacerations Eyes PERRL and EOMs intact bilaterally Neck supple Chest Wall inspection of chest normal and palpation of chest normal Resp normal respiratory effort and clear to auscultation bilaterally Cardio regular rate and regular rhythm GI normal to inspection, nondistended, normoactive bowel sounds Palpation: soft Back/Spine no CVA tenderness Back/Spine Narrative: Tenderness over the sacrum posteriorly. No tenderness of the lumbar spine. Extremity normal to inspection Neuro oriented x3 Neuro Narrative: No focal neurologic deficits. Sensorium / Orientation: alert Psych mental status grossly normal Skin no rashes or lesions noted MDM MDM MDM Narrative Medical decision making narrative: CT scan of the head, C-spine, pelvis obtained. Radiography Diagnostic Testing: Radiology Impression Brain CT 05/21/21 04:15 IMPRESSION: 1. No acute intracranial abnormalities. 2. Age-related changes. Individualized dose optimization techniques were used for this CT. at 0507 Reported and signed by: Sheldon Sumner MD Electronically Signed: Sheldon Sumner MD at 5:06 EDT Tel , Service support , Cervical Spine CT 05/21/21 04:15 IMPRESSION: No evidence for acute fracture or dislocation in the cervical spine. Degenerative changes. Individualized dose optimization techniques were used for this CT. at 0517 Reported and signed by: Sheldon Sumner MD Electronically Signed: Sheldon Sumner MD at 5:17 EDT Tel , Service support , Pelvis CT 05/21/21 04:15 IMPRESSION: No acute findings in the pelvis. Individualized dose optimization techniques were used for this CT. at 0514 Reported and signed by: Sheldon Sumner MD Electronically Signed: Sheldon Sumner MD at 5:14 EDT Tel , Service support , Treatment and Re-Evaluation Comments:: Patient was given a dose of Zofran for nausea after returning from CT. CT scans are unremarkable and these test results are discussed with her. At this time she does report her nausea is improving. She be given a dose of Tylenol as well to help with headache. She feels comfortable being discharged back to her ECF. Discharge Plan Triage Chief Complaint: Head Injury ED Provider: Kelli Riley Dx/Rx/DC Orders Clinical Impression: Closed head injury, Contusion of sacrum Instructions: ED Back Contusion, ED Head Injury (Adult) Prescriptions: No Action alendronate 70 MG tablet 70 mg PO HILL RF: 0 metoprolol succinate 25 MG tablet 25 mg PO DAILY RF: 0 clonazepam 0.5 MG tablet 0.5 mg PO TID RF: 0 carbidopa-levodopa [Sinemet] 1 EACH tablet 1 tab PO 4X/DAY RF: 0 ibuprofen 200 MG tablet 400 mg PO Q6H PRN (Reason: Pain Or Fever) RF: 0 mirtazapine 15 MG tablet,disintegrating 22.5 mg PO QHS RF: 0 pentosan polysulfate sodium 100 MG capsule 100 mg PO TID RF: 0 polyethylene glycol 8000(bulk) 500 GM powder 17 g PO DAILY PRN (Reason: Constipation) RF: 0 acetaminophen 500 MG tablet 500 mg PO Q6H PRN (Reason: Pain) RF: 0 docusate sodium 100 MG capsule 100 mg PO DAILY PRN (Reason: Constipation) RF: 0 phenazopyridine 200 MG tablet 200 mg PO TID PRN (Reason: bladder pain) RF: 0 atorvastatin 20 mg Tablet 20 mg PO QHS RF: 0 donepezil 5 mg Tablet 5 mg PO DAILY RF: 0 Primary Care Provider: Rain Mccormick Referrals: Rain Mccormick DO [Primary Care Provider] - 1 Week if not improving Disposition Disposition: Assisted Living Discharge Location: [facility]
[2021-05-21] MEDS: Acetaminophen 325 MG Tablet 650 MG PO (05:56)
[2021-05-21 06:21] VITALS: BP 178/85; PULSE 78; RESP 18; O2SAT 97
== END 2021-05-21 06:22 | disposition home or self-care (01) ==
PROVIDERS: Emergency Provider Emergency Medicine; PCP Internal Medicine
DX: S09.90XA Unspecified injury of head, initial encounter (principal); S30.0XXA Contusion of lower back and pelvis, initial encounter; E11.9 Type 2 diabetes mellitus without 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; G20 Parkinson's disease; N32.81 Overactive bladder; W05.0XXA Fall from non-moving wheelchair, initial encounter; Y93.89 Activity, other specified; Y92.129 Unspecified place in nursing home as the place of occurrence of the external cause; Y99.9 Unspecified external cause status; M79.7 Fibromyalgia
CPT/HCPCS: 70450; 72125; 72192; 99285; A4216

== ENCOUNTER → 2021-06-02 18:30 | Outpatient (REF) | payer MEDICARE, OTHER, SELFPAY ==
[2021-06-04 08:10] LABS: Mucous, Urine 0 SEEN /hpf (<or=2+); Red Blood Cells-Urine 0 SEEN /hpf (0-5); Squamous Epithelial Cells - UA 0 SEEN /hpf (5-10)
[2021-06-04 08:50] LABS: Glucose, Dipstick Normal (Normal); Ketone-Dipstick Negative (Negative); Leukocyte Esterase-Dipstick 25 /ul (Negative); Nitrite-Dipstick Positive (Negative); Occult Blood-Urine 10 /ul (Negative); Protein-Dipstick 30 mg/dl (Negative); Specific Gravity, Urine 1.015 (1.002-1.030); Urine Clarity Cloudy (Clear); Urine Urobilinogen 8 mg/dl (Normal); Urine pH 6.5 (5.0 - 8.0)
[2021-06-04 08:58] LABS: Color, Urine SEE COMMENT BELOW (Yellow); Urine Bilirubin Dipstick 6 mg/dL (Negative)
[2021-06-04 09:01] LABS: Bacteria 3+ /hpf (None Seen); Calcium Oxalate Crystals Ur 2+ /hpf (<or=2+); White Blood Cells 0-5 SEEN /hpf (0-5)
== END ==
LOC: OLS.BROOKB 18:30
PROVIDERS: PCP Internal Medicine; Visit Provider Internal Medicine
DX: N39.0 Urinary tract infection, site not specified (principal); R32 Unspecified urinary incontinence; Z79.899 Other long term (current) drug therapy
CPT/HCPCS: 81001; 87077; 87086; 87088; 87186

== ENCOUNTER → 2021-06-28 05:00 | Outpatient (REF) | payer MEDICARE, OTHER, SELFPAY ==
[2021-06-28 08:49] LABS: Hematocrit 40.2 % (37-47); Hemoglobin 13.3 g/dL (12.0-15.0); Mean Corp Hgb Conc 33.1 g/dL (32-36); Mean Corpuscular Hgb 29.1 pg (27.0-32.0); Mean Platelet Vol. 10.6 fl (6.2-12.0); Platelet Count 213 K/mm3 (150-450); RBC Distribution Width CV 11.9 % (11.6-14.6); RBC Distribution Width SD 37.9 fl (35.1-43.9); Red Blood Count 4.57 M/mm3 (4.2-5.4); White Blood Count 5.5 K/mm3 (4.4-11.0)
[2021-06-28 09:19] LABS: ALB/GLOB Ratio 1.2 RATIO (0.9-2.4); AST(SGOT) 10 U/L (15-37); Alanine Aminotransfer ALT/SGPT 10 U/L (13-56); Albumin, Serum 3.8 g/dL (3.2-5.0); Alkaline Phosphatase 55 U/L (45-117); Amylase 37 U/L (25-115); Anion Gap 4 (5-15); BUN 15 mg/dL (7-18); BUN/Creat Ratio 13.5 RATIO (10-20); Calcium,Total 9.4 mg/dL (8.5-10.1); Chloride 109 mmol/L (98-107); Creatinine, Serum 1.11 mg/dL (0.55-1.02); EST Glomerular Filtration Rate 51 mL/min (>60); Est Glom Filt Rate - Afr Amer 62 mL/min (>60); Globulin 3.2 g/dL (2.2-4.2); Glucose 87 mg/dL (74-106); Lipase 91 U/L (73-393); Potassium 3.9 mmol/L (3.5-5.1); Sodium Level 142 mmol/L (136-145)
== END ==
LOC: OLS.BROOKB 05:00
PROVIDERS: PCP Internal Medicine; Visit Provider Internal Medicine
DX: R11.0 Nausea (principal)
CPT/HCPCS: 36415; 80053; 82150; 83690; 85027

== ENCOUNTER 2021-08-08 21:15 | Emergency (ER) | payer MEDICARE, OTHER, SELFPAY ==
[2021-08-08 21:17] VITALS: BP 196/79; PULSE 62; RESP 16; TEMP 36.6; O2SAT 100; BMI 22.4
[2021-08-08 21:18] VITALS: BP 196/79; PULSE 62; RESP 16; TEMP 36.6; O2SAT 100
--- NOTE | 2021-08-08 21:43 | ED.VIS.FEGU ---
HPI HPI - Female History of Present Illness Chief Complaint: Complaint Narrative Narrative: 76-year-old female presenting from assisted living for urinary incontinence and dysuria. She states has been incontinent for a couple of weeks. She states she has history of UTIs. Today she tried Pyridium but this did not help. She has not been on any antibiotics. She denies fever or chills. She has not had nausea or vomiting. She does state that she was trying to get her to pick her up from the assisted living and take her to the emergency room to get a urinalysis however he did not want to because this is expensive. She then stated that she called 911 to the assisted living to pick her up and take her to the emergency room because nobody at the assisted living with test her urine. [facility] Medical History Diabetes Fibromyalgia Interstitial cystitis Overactive bladder Parkinsons Home Medications alendronate 70 mg PO HILL 12/21/18 [History Last Taken 05/07/20] metoprolol succinate 25 mg PO DAILY 12/21/18 [History Last Taken 05/11/20] clonazepam 0.5 mg PO TID 03/10/19 [History Last Taken 11/19/20 11:00] carbidopa-levodopa [Sinemet] 1 tab PO 4X/DAY 04/12/20 [History Last Taken 11/19/20 06:00] ibuprofen 400 mg PO Q6H PRN 05/12/20 [History Last Taken Unknown] mirtazapine 22.5 mg PO QHS 09/09/20 [History Last Taken Unknown] acetaminophen 500 mg PO Q6H PRN 11/19/20 [History Last Taken Unknown] docusate sodium 100 mg PO DAILY PRN 11/19/20 [History Last Taken Unknown] pentosan polysulfate sodium 100 mg PO TID 11/19/20 [History Last Taken 11/19/20 11:00] phenazopyridine 200 mg PO TID PRN 11/19/20 [History Last Taken Unknown] polyethylene glycol 8000(bulk) 17 g PO DAILY PRN 11/19/20 [History Last Taken Unknown] atorvastatin 20 mg PO QHS 02/06/21 [History Last Taken Unknown] donepezil 5 mg PO DAILY 02/06/21 [History Last Taken Unknown] cephalexin 500 mg PO Q12 #14 capsule 08/08/21 [Rx Last Taken Unknown] Allergy/AdvReac Type Severity Reaction Status Date / Time seasonal Allergy NEEDS Uncoded 08/08/21 21:20 FOLLOW-UP Social History Smoking Status: Never smoker substance use type: does not use ROS ROS ED Constitutional Constitutional ED: Denies chills or fever(s) Eyes Eyes: Denies blurry vision or change in vision ENT ENT ED: Denies rhinorrhea or sore throat Cardiovascular Cardiovascular: Denies chest pain or palpitations Respiratory/Chest Respiratory/Chest: Denies cough or dyspnea Gastrointestinal Gastrointestinal: Denies abdominal pain, diarrhea, nausea or vomiting Genitourinary Genitourinary ED: Reports dysuria and urinary frequency Musculoskeletal Musculoskeletal: Denies arthralgias or myalgias Integumentary Denies rash Neurologic Neurologic: Denies headache(s) or paresthesias EXAM Physical Exam Const Vital Signs: 08/08/21 21:17 08/08/21 21:18 08/08/21 22:43 Temperature 97.8 F 97.8 F Temperature Source Oral Oral Pulse Rate 62 62 65 Respiratory Rate 16 16 18 Blood Pressure 196/79 H 196/79 H 131/60 H Blood Pressure Mean 118 118 Pulse Ox 100 100 98 Positive well nourished General Appearance ED: NAD; Negative for pallor HEENT Reports moist mucous membranes Negative for trauma Eyes PERRL and EOMs intact bilaterally Resp normal respiratory effort and clear to auscultation bilaterally Cardio regular rate and regular rhythm GI normal to inspection, nondistended, normoactive bowel sounds Back/Spine no CVA tenderness Neuro oriented x3 and CN's II-XII intact bilaterally Sensorium / Orientation: alert Psych mental status grossly normal Skin General Skin Exam: Negative for jaundice or pallor MDM MDM MDM Narrative Medical decision making narrative: 76-year-old female presenting with dysuria and urinary incontinence. She was found to have a urinary tract infection. She will be started on Keflex p.o. twice daily with first dose in the ER. She is already on Macrobid at home. Patient's urine is sent for culture. Her vital signs are stable and she is afebrile. I will transport her back to her assisted living facility. Impression: 1 UTI Lab Data Labs: Laboratory Results - last 24 hr 08/08/21 21:37 Urine Color SEE COMMENT BELOW Urine Clarity Clear Urine pH 7.0 Ur Specific Ulysses 1.010 Urine Protein Negative Urine Glucose (UA) Normal Urine Ketones 5 H Urine Occult Blood Negative Urine Nitrite Positive H Urine Bilirubin 6 H Urine Urobilinogen 8 H Ur Leukocyte Esterase 25 H Urine RBC 0 SEEN Urine WBC 0 SEEN Ur Squamous Epith Cells 0 SEEN Urine Bacteria 0 SEEN Urine Mucus 0 SEEN Discharge Plan Triage Chief Complaint: Complaint ED Provider: Kobe Martin Dx/Rx/DC Orders Instructions: ED CYSTITIS Female Adult Prescriptions: New cephalexin 500 mg capsule 500 mg PO Q12 Qty: 14 RF: 0 No Action alendronate 70 MG tablet 70 mg PO HILL RF: 0 metoprolol succinate 25 MG tablet 25 mg PO DAILY RF: 0 clonazepam 0.5 MG tablet 0.5 mg PO TID RF: 0 carbidopa-levodopa [Sinemet] 1 EACH tablet 1 tab PO 4X/DAY RF: 0 ibuprofen 200 MG tablet 400 mg PO Q6H PRN (Reason: Pain Or Fever) RF: 0 mirtazapine 15 MG tablet,disintegrating 22.5 mg PO QHS RF: 0 pentosan polysulfate sodium 100 MG capsule 100 mg PO TID RF: 0 polyethylene glycol 8000(bulk) 500 GM powder 17 g PO DAILY PRN (Reason: Constipation) RF: 0 acetaminophen 500 MG tablet 500 mg PO Q6H PRN (Reason: Pain) RF: 0 docusate sodium 100 MG capsule 100 mg PO DAILY PRN (Reason: Constipation) RF: 0 phenazopyridine 200 MG tablet 200 mg PO TID PRN (Reason: bladder pain) RF: 0 atorvastatin 20 mg Tablet 20 mg PO QHS RF: 0 donepezil 5 mg Tablet 5 mg PO DAILY RF: 0 Primary Care Provider: Rain Mccormick Referrals: Rain Mccormick DO [Primary Care Provider] - Disposition Disposition: Home, Self Care
[2021-08-08 21:48] LABS: Bacteria 0 SEEN /hpf (None Seen); Mucous, Urine 0 SEEN /hpf (<or=2+); Red Blood Cells-Urine 0 SEEN /hpf (0-5); Squamous Epithelial Cells - UA 0 SEEN /hpf (5-10); White Blood Cells 0 SEEN /hpf (0-5)
[2021-08-08 21:57] LABS: Glucose, Dipstick Normal (Normal); Ketone-Dipstick 5 mg/dl (Negative); Leukocyte Esterase-Dipstick 25 /ul (Negative); Nitrite-Dipstick Positive (Negative); Occult Blood-Urine Negative /ul (Negative); Protein-Dipstick Negative (Negative); Urine Clarity Clear (Clear); Urine Urobilinogen 8 mg/dl (Normal)
[2021-08-08 22:01] LABS: Color, Urine SEE COMMENT BELOW (Yellow); Urine Bilirubin Dipstick 6 mg/dL (Negative)
[2021-08-08 22:43] VITALS: BP 131/60; PULSE 65; RESP 18; O2SAT 98
[2021-08-08] MEDS: Cephalexin 250 MG Capsule 500 MG PO (22:43)
[2021-08-08] MEDS: Ondansetron ODT 4 MG Tablet PO (22:55)
--- NOTE | 2021-08-08 23:08 | ED.RN ---
Spouse arrives to [facility] patient to take her to [facility]. Pt assisted into wheelchair and this RN assists spouse in getting patient into his vehicle.
== END 2021-08-08 23:09 | disposition home or self-care (01) ==
PROVIDERS: Emergency Provider Student in an Organized Health Care Education/Training Program; PCP Internal Medicine
DX: N39.0 Urinary tract infection, site not specified (principal); E11.9 Type 2 diabetes mellitus without 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; M79.7 Fibromyalgia; G20 Parkinson's disease; Z87.440 Personal history of urinary (tract) infections
CPT/HCPCS: 81001; 87086; 99284; P9612

== ENCOUNTER → 2021-08-23 05:00 | Outpatient (REF) | payer MEDICARE, OTHER, SELFPAY ==
[2021-08-23 08:45] LABS: Hematocrit 37.2 % (37-47); Hemoglobin 11.8 g/dL (12.0-15.0); Mean Corp Hgb Conc 31.7 g/dL (32-36); Mean Corpuscular Hgb 27.7 pg (27.0-32.0); Mean Corpuscular Volume 87.3 fL (81-99); Platelet Count 180 K/mm3 (150-450); RBC Distribution Width CV 12.2 % (11.6-14.6); Red Blood Count 4.26 M/mm3 (4.2-5.4); White Blood Count 5.1 K/mm3 (4.4-11.0)
[2021-08-23 09:00] LABS: ALB/GLOB Ratio 1.3 RATIO (0.9-2.4); AST(SGOT) 8 U/L (15-37); Alanine Aminotransfer ALT/SGPT 13 U/L (13-56); Albumin, Serum 3.5 g/dL (3.2-5.0); Alkaline Phosphatase 54 U/L (45-117); Anion Gap 5 (5-15); BUN 17 mg/dL (7-18); BUN/Creat Ratio 14.8 RATIO (10-20); Calcium,Total 8.8 mg/dL (8.5-10.1); Chloride 110 mmol/L (98-107); Creatinine, Serum 1.15 mg/dL (0.55-1.02); EST Glomerular Filtration Rate 49 mL/min (>60); Est Glom Filt Rate - Afr Amer 59 mL/min (>60); Globulin 2.6 g/dL (2.2-4.2); Glucose 92 mg/dL (74-106); Potassium 3.6 mmol/L (3.5-5.1); Protein, Total 6.1 g/dL (6.4-8.2); Sodium Level 143 mmol/L (136-145)
== END ==
LOC: OLS.BROOKB 05:00
PROVIDERS: PCP Internal Medicine
DX: G20 Parkinson's disease (principal); F31.9 Bipolar disorder, unspecified; R44.3 Hallucinations, unspecified; F41.9 Anxiety disorder, unspecified; K59.00 Constipation, unspecified; F03.90 Unspecified dementia, unspecified severity, without behavioral disturbance, psychotic disturbance, mood disturbance, and anxiety; R53.83 Other fatigue
CPT/HCPCS: 36415; 80053; 85027

== ENCOUNTER 2021-10-28 13:06 | Emergency (ER) | payer MEDICARE, OTHER, SELFPAY ==
[2021-10-28 13:12] VITALS: BP 98/54; PULSE 56; RESP 16; TEMP 36.4; O2SAT 98; BMI 20.8
--- NOTE | 2021-10-28 13:31 | RAD_ITS ---
EXAM: XR LEFT SHOULDER COMPLETE, 2 OR MORE VIEWS CLINICAL INDICATION: Fall injury. TECHNIQUE: Two or more views of the left shoulder. This report was created using [employer] report generation technology. COMPARISON: None. FINDINGS: BONES/JOINTS: Old fracture deformity of the left humeral neck containing metallic plate and transfixing screws. Preservation of the joint space. No sclerotic or destructive changes observed. SOFT TISSUES: Unremarkable. No soft tissue swelling or gas. No radiopaque foreign body. RAD/Shoulder min 2 Views IMPRESSION: 1. No acute fracture or dislocation of the left shoulder. 2. Old fracture deformity of the left humeral neck with intact metallic plate and transfixing screws. Electronically Signed: Sean Schofield MD at 14:46 EST ,
--- NOTE | 2021-10-28 13:31 | CT_ITS ---
EXAM: CT HEAD WITHOUT INTRAVENOUS CONTRAST CLINICAL INDICATION: Fall injury. TECHNIQUE: Multiple axial images were obtained of the head without intravenous contrast. This CT exam was performed using one or more of the following dose reduction techniques: automated exposure control, adjustment of the mA and/or kV according to patient size, and/or use of iterative reconstruction technique. This report was created using [employer] report generation technology. COMPARISON: CT head without contrast 05/21/2021. FINDINGS: BRAIN AND EXTRA-AXIAL SPACES: Moderate cerebral atrophy, central more than cortical. This accounts for the diminished central white matter volume. Mild dilatation of the entire ventricles. This is unchanged. Anterior periventricular white matter hypodensities are chronic white matter ischemic changes and unchanged. No intra- or extra-axial hemorrhage. No intracranial mass or mass effect. Posterior fossa structures are unremarkable. No hydrocephalus. Basal cisterns are patent. BONES/JOINTS: Unremarkable. No discrete lytic or blastic abnormalities. SINUSES: Unremarkable as visualized. Clear. MASTOID AIR CELLS: Unremarkable. Clear. ORBITS: Visualized globes, extraocular muscles, optic nerves and retrobulbar fat appear unremarkable. CT/Brain/Head without Contrast IMPRESSION: 1. No CT evidence of intracranial bleeding, acute ischemic infarct or acute intracranial abnormality. 2. Chronic anterior periventricular white matter ischemic changes in both cerebral hemispheres. 3. Mild dilatation of the entire ventricles. This is unchanged. If there is clinical NPH, radionuclide cisternogram will help. 4. No interval change when compared to 05/21/2021. Electronically Signed: Sean Schofield MD at 14:11 EST ,
--- NOTE | 2021-10-28 13:31 | CT_ITS ---
EXAM: CT CERVICAL SPINE WITHOUT INTRAVENOUS CONTRAST CLINICAL INDICATION: Fall injury. TECHNIQUE: Helically acquired images were obtained of the cervical spine without intravenous contrast. 2D reformatted images were reviewed. This CT exam was performed using one or more of the following dose reduction techniques: automated exposure control, adjustment of the mA and/or kV according to patient size, and/or use of iterative reconstruction technique. This report was created using [employer] report generation technology. COMPARISON: CT cervical spine without contrast 05/21/2021. FINDINGS: VERTEBRAE: Minimal degenerative anterolisthesis of C4 on C5 is unchanged. Normal vertebral body heights. No fracture. No discrete lytic or blastic abnormality. Normal craniocervical junction and cervicothoracic junction. 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 Pronounced C5-C6 disc space height narrowing with ossification of the posterior longitudinal ligament. Normal central canal at the C5-C6 disc space level. Normal bilateral intervertebral neural foramina at the C5-C6 disc space level. Moderate C6-C7 disc space height narrowing but normal central canal and intervertebral neural foramina. Normal remaining cervical disc space heights. SOFT TISSUES: Unremarkable. No prevertebral soft tissue swelling. LYMPH NODES: Unremarkable. No cervical adenopathy. LUNG APICES: Unremarkable as visualized. Clear. CT/Spine Cervical without Contras IMPRESSION: 1. No CT evidence of acute fracture the cervical spine and the craniocervical junction. 2. Minimal degenerative anterolisthesis of C4 on C5. 3. Pronounced C5-C6 disc space height narrowing with partial ankylosis of the vertebral endplates and ossification of the posterior longitudinal ligament. 4. Moderate C6-C7 disc space height narrowing. 5. No interval change when compared to 05/21/2021. Electronically Signed: Sean Schofield MD at 14:15 EST ,
--- NOTE | 2021-10-28 13:32 | EDS_ITS ---
HPI History of Present Illness Chief Complaint: Fall Informant: patient Onset/Context/Timing Onset: Today Current Severity: Mild Maximum Severity: Moderate Narrative Narrative: Patient presents after fall at correction. Patient states she was eating her lunch tray at bedside. The tray started to fall. She reached to grab for it and fell striking her head on a metal bed frame. No loss of consciousness. Patient states she initially had double vision but that is resolved. She is complaining of mild burning sensation to the left side of her head, some slight neck tightness, left shoulder pain. [facility] Medical History Diabetes Fibromyalgia Interstitial cystitis Overactive bladder Parkinsons Home Medications alendronate 70 mg PO HILL 12/21/18 [History Last Taken 05/07/20] metoprolol succinate 25 mg PO DAILY 12/21/18 [History Last Taken 05/11/20] clonazepam 0.5 mg PO TID 03/10/19 [History Last Taken 11/19/20 11:00] carbidopa-levodopa [Sinemet] 1 tab PO 4X/DAY 04/12/20 [History Last Taken 11/19/20 06:00] ibuprofen 400 mg PO Q6H PRN 05/12/20 [History Last Taken Unknown] mirtazapine 22.5 mg PO QHS 09/09/20 [History Last Taken Unknown] acetaminophen 500 mg PO Q6H PRN 11/19/20 [History Last Taken Unknown] docusate sodium 100 mg PO DAILY PRN 11/19/20 [History Last Taken Unknown] pentosan polysulfate sodium 100 mg PO TID 11/19/20 [History Last Taken 11/19/20 11:00] phenazopyridine 200 mg PO TID PRN 11/19/20 [History Last Taken Unknown] polyethylene glycol 8000(bulk) 17 g PO DAILY PRN 11/19/20 [History Last Taken Unknown] atorvastatin 20 mg PO QHS 02/06/21 [History Last Taken Unknown] donepezil 5 mg PO DAILY 02/06/21 [History Last Taken Unknown] cephalexin 500 mg PO Q12 #14 capsule 08/08/21 [Rx Last Taken Unknown] ondansetron 4 mg PO Q8H PRN PRN #10 tab 11/24/21 [Rx Last Taken Unknown] Allergy/AdvReac Type Severity Reaction Status Date / Time rhubarb Allergy Unknown PT UNSURE Verified 10/28/21 14:42 OF REACTION seasonal Allergy NEEDS Uncoded 08/08/21 21:20 FOLLOW-UP Social History Smoking Status: Never smoker substance use type: does not use ROS ROS ED Constitutional Constitutional ED: Denies chills or fever(s) Eyes Eyes: Reports other Details: Initially had diplopia, now resolved ENT ENT ED: Denies rhinorrhea or sore throat Cardiovascular Cardiovascular: Denies chest pain Respiratory/Chest Respiratory/Chest: Denies cough or dyspnea Gastrointestinal Gastrointestinal: Denies abdominal pain Musculoskeletal Musculoskeletal: Reports arthralgias and neck pain; Denies myalgias Integumentary Denies rash Neurologic Neurologic: Reports headache(s) Endocrine Endocrinology: Denies polydipsia or polyuria Allergic/Immunologic Allergic/Immunologic ED: Denies urticaria EXAM Physical Exam Const Vital Signs: 10/28/21 13:12 10/28/21 13:15 10/28/21 15:01 Temperature 97.6 F L Temperature Source Oral Pulse Rate 56 L Respiratory Rate 16 Respiratory Effort Normal Non-Labored Respiratory Depth Normal Respiratory Pattern Normal Blood Pressure 98/54 L 153/65 H Blood Pressure Mean 68 94 Pulse Ox 98 97 Oxygen Delivery Method Room Air Room Air Room Air Positive well nourished and well developed General Appearance ED: well developed HEENT Reports moist mucous membranes Eyes PERRL and EOMs intact bilaterally Neck supple Chest Wall inspection of chest normal and palpation of chest normal Resp normal respiratory effort and clear to auscultation bilaterally Cardio regular rhythm Rate: bradycardia GI non-tender Palpation: soft Back/Spine Back/Spine Narrative: Mild C-spine tenderness. No step-offs. Extremity Extremity Narrative: Mild tenderness of the anterior left shoulder. No obvious deformity. Strong distal pulses. Neuro oriented x3 Neuro Narrative: Moves all 4 extremities. No focal neurologic deficits. Sensorium / Orientation: alert Skin no rashes or lesions noted MDM MDM MDM Narrative Medical decision making narrative: Patient sent for CT scan of the head and C- spine. Left shoulder x-rays obtained. Radiography Diagnostic Testing: Clinical Impression(s) from Imaging Studies Brain CT 10/28/21 13:31 IMPRESSION: 1. No CT evidence of intracranial bleeding, acute ischemic infarct or acute intracranial abnormality. 2. Chronic anterior periventricular white matter ischemic changes in both cerebral hemispheres. 3. Mild dilatation of the entire ventricles. This is unchanged. If there is clinical NPH, radionuclide cisternogram will help. 4. No interval change when compared to 05/21/2021. Electronically Signed: Sean Schofield MD at 14:11 EST Reading Location ID and State: [facility] / [place] , Service support , Cervical Spine CT 10/28/21 13:[address]: [address] evidence of acute fracture the cervical spine and the craniocervical junction. 2. Minimal degenerative anterolisthesis of C4 on C5. 3. Pronounced C5-C6 disc space height narrowing with partial ankylosis of the vertebral endplates and ossification of the posterior longitudinal ligament. 4. Moderate C6-C7 disc space height narrowing. 5. No interval change when compared to 05/21/2021. Electronically Signed: Sean Schofield MD at 14:15 EST , Shoulder X-Ray 10/28/21 13:31 IMPRESSION: 1. No acute fracture or dislocation of the left shoulder. 2. Old fracture deformity of the left humeral neck with intact metallic plate and transfixing screws. Electronically Signed: Sean Schofield MD at 14:46 EST Reading Location ID and State: [facility] / [place] , Service support , Treatment and Re-Evaluation Comments:: CT scans unremarkable. Left shoulder x-ray per my interpretation shows no acute fracture with prior surgical fixation. Radiology to rotation reviewed and agrees. Test results discussed with patient and family at bedside. Patient will be discharged. Discharge Plan Triage Chief Complaint: Fall ED Provider: Kelli Riley Dx/Rx/DC Orders Clinical Impression: Fall, Closed head injury Instructions: ED Head Injury (Adult), ED Fall Prevention Prescriptions: No Action alendronate 70 MG tablet 70 mg PO HILL RF: 0 metoprolol succinate 25 MG tablet 25 mg PO DAILY RF: 0 clonazepam 0.5 MG tablet 0.5 mg PO TID RF: 0 carbidopa-levodopa [Sinemet] 1 EACH tablet 1 tab PO 4X/DAY RF: 0 ibuprofen 200 MG tablet 400 mg PO Q6H PRN (Reason: Pain Or Fever) RF: 0 mirtazapine 15 MG tablet,disintegrating 22.5 mg PO QHS RF: 0 pentosan polysulfate sodium 100 MG capsule 100 mg PO TID RF: 0 polyethylene glycol 8000(bulk) 500 GM powder 17 g PO DAILY PRN (Reason: Constipation) RF: 0 acetaminophen 500 MG tablet 500 mg PO Q6H PRN (Reason: Pain) RF: 0 docusate sodium 100 MG capsule 100 mg PO DAILY PRN (Reason: Constipation) RF: 0 phenazopyridine 200 MG tablet 200 mg PO TID PRN (Reason: bladder pain) RF: 0 atorvastatin 20 mg Tablet 20 mg PO QHS RF: 0 donepezil 5 mg Tablet 5 mg PO DAILY RF: 0 cephalexin 500 mg capsule 500 mg PO Q12 Qty: 14 RF: 0 ondansetron 4 mg tablet,disintegrating 4 mg PO Q8H PRN PRN (Reason: Nausea) Qty: 10 RF: 0 Primary Care Provider: Rain Mccormick Referrals: Rain Mccormick DO [Primary Care Provider] - 1 Week Disposition Disposition: Home, Self Care
[2021-10-28 15:01] VITALS: BP 153/65; O2SAT 97
== END 2021-10-28 15:41 | disposition home or self-care (01) ==
PROVIDERS: Emergency Provider Emergency Medicine; PCP Internal Medicine; Visit Provider Emergency Medicine
DX: S09.90XA Unspecified injury of head, initial encounter (principal); G20 Parkinson's disease; E11.9 Type 2 diabetes mellitus without 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; W17.89XA Other fall from one level to another, initial encounter; Y92.122 Bedroom in nursing home as the place of occurrence of the external cause
CPT/HCPCS: 70450; 72125; 73030; 99284; A4216

== ENCOUNTER 2021-10-31 14:21 | Emergency (ER) | payer MEDICARE, OTHER, SELFPAY ==
[2021-10-31 14:23] VITALS: BP 113/44; PULSE 49; RESP 16; TEMP 36.2; O2SAT 100; BMI 21.0
[2021-10-31 14:56] LABS: Bedside Glucose 123 mg/dL (70-110)
--- NOTE | 2021-10-31 15:15 | EKG12_ITS ---
Test Reason : ALT LOC Blood Pressure : / mmHG Vent. Rate : 055 BPM Atrial Rate : 055 BPM P-R Int : 134 ms QRS Dur : 086 ms QT Int : 482 ms P-R-T Axes : 055 026 061 degrees QTc Int : 461 ms Sinus bradycardia Nonspecific T wave abnormality Abnormal ECG Confirmed by WONG KELLEY, EUGENIA ([id number]), avid editor ADRIAN COFFEY ([id number]) on 11/01/2021 10:21:56 A M Referred By: IVAN/BITA Confirmed By:SHANA BACK MD
--- NOTE | 2021-10-31 15:16 | EDS_ITS ---
HPI History of Present Illness Chief Complaint: Alt LOC Informant: patient Onset/Context/Timing Onset: Today Current Severity: Gone Maximum Severity: Mild Narrative Narrative: 76-year-old female is dementia, UTIs, diabetes and Parkinson's disease. Patient is a resident of [facility]. is present in her room currently and is helping with the history. Reportedly today had a decreased mental status and transient hypotension. He states he has had some nausea recently and only one episode of vomiting. No current diarrhea no melena no fever. She fell several days ago and was seen in the emergency department. Prior similar symptoms: Yes Recent Illness/Hospitalization: No PFSH PFS Medical History Dementia Diabetes Fibromyalgia Interstitial cystitis Overactive bladder Parkinsons Home Medications alendronate 70 mg PO HILL 12/21/18 [History Last Taken 05/07/20] metoprolol succinate 25 mg PO DAILY 12/21/18 [History Last Taken 05/11/20] clonazepam 0.5 mg PO TID 03/10/19 [History Last Taken 11/19/20 11:00] carbidopa-levodopa [Sinemet] 1 tab PO 4X/DAY 04/12/20 [History Last Taken 11/19/20 06:00] ibuprofen 400 mg PO Q6H PRN 05/12/20 [History Last Taken Unknown] mirtazapine 22.5 mg PO QHS 09/09/20 [History Last Taken Unknown] acetaminophen 500 mg PO Q6H PRN 11/19/20 [History Last Taken Unknown] docusate sodium 100 mg PO DAILY PRN 11/19/20 [History Last Taken Unknown] pentosan polysulfate sodium 100 mg PO TID 11/19/20 [History Last Taken 11/19/20 11:00] phenazopyridine 200 mg PO TID PRN 11/19/20 [History Last Taken Unknown] polyethylene glycol 8000(bulk) 17 g PO DAILY PRN 11/19/20 [History Last Taken Unknown] atorvastatin 20 mg PO QHS 02/06/21 [History Last Taken Unknown] donepezil 5 mg PO DAILY 02/06/21 [History Last Taken Unknown] cephalexin 500 mg PO Q12 #14 capsule 08/08/21 [Rx Last Taken Unknown] ondansetron 4 mg PO Q8H PRN PRN #10 tab 08/08/21 [Rx Last Taken Unknown] diphenhydramine HCl 25 mg PO BID 10/31/21 [History Last Taken Unknown] pentosan polysulfate sodium [Elmiron] 100 mg PO TID 10/31/21 [History Last Taken Unknown] pimavanserin [Nuplazid] 34 mg PO DAILY 10/31/21 [History Last Taken Unknown] quetiapine 25 mg PO BID 10/31/21 [History Last Taken Unknown] Allergy/AdvReac Type Severity Reaction Status Date / Time rhubarb Allergy Unknown PT UNSURE Verified 10/31/21 14:22 OF REACTION seasonal Allergy NEEDS Uncoded 10/31/21 14:22 FOLLOW-UP Social History Smoking Status: Never smoker substance use type: does not use ROS ROS ED ROS Narrative Nausea. Review of Systems ROS Unobtainable: Denies due to encephalopathy Constitutional Constitutional ED: Denies chills or fever(s) Eyes Eyes: Denies change in vision ENT ENT ED: Denies ear pain Cardiovascular Cardiovascular: Denies chest pain or palpitations Respiratory/Chest Respiratory/Chest: Denies cough or dyspnea Gastrointestinal Gastrointestinal: Reports nausea and vomiting; Denies abdominal pain or diarrhea Genitourinary Genitourinary ED: Denies dysuria Musculoskeletal Musculoskeletal: Denies myalgias Integumentary Denies rash Neurologic Neurologic: Denies headache(s) Psychiatric Psychiatric: Denies depression Endocrine Endocrinology: Denies polyuria Allergic/Immunologic Allergic/Immunologic ED: Denies urticaria EXAM Physical Exam Narrative Exam Narrative: 76-year-old female no acute distress. Vital signs stable afebrile. While in the room the blood pressures like 146/67. Pulse ox 90% on room air no signs of hypoxia. She does not look septic or toxic. H EENT exam a traumatic. Mucous membranes. Neck nontender no lymphadenopathy. Lungs are clear. Heart bradycardic rate about 55 no murmur. Abdomen is soft nontender normal bowel sounds no peritoneal signs. Pelvic girdle intact. Patient can move all 4 extremities. Nontender. Neurologically she has dementia and Parkinson's but she is awake she is answering questions she knows she is at the hospital and she knows her is in the room. She is following commands. Const Vital Signs: 10/31/21 14:23 10/31/21 15:35 10/31/21 16:21 Temperature 97.1 F L Temperature Source Temporal Pulse Rate 49 L 53 L 65 Respiratory Rate 16 16 16 Blood Pressure 113/44 L 155/57 H 158/78 H Blood Pressure Mean 67 89 104 Pulse Ox 100 99 100 Oxygen Delivery Method Room Air Room Air Room Air Positive well nourished and well developed; Negative for obese, cachectic, contractures or unkempt General Appearance ED: well developed and NAD; Negative for unkempt, cachectic, contractures, cyanotic, diaphoretic or pallor Nutritional Appearance: Negative for cachectic or obese HEENT Reports dry mucous membranes; Denies moist mucous membranes Negative for trauma or tenderness Mouth ED: Yes dry mucous membranes Mouth: dry mucous membranes Eyes PERRL and EOMs intact bilaterally Neck no lymphadenopathy, supple and no JVD General: Negative for tenderness Chest Wall inspection of chest normal and palpation of chest normal Resp normal respiratory effort and clear to auscultation bilaterally Effort and Inspection: Negative for pain with movement Auscultation: Negative for rales, rhonchi or wheezes Cardio regular rate, regular rhythm, S1 normal heart sound, S2 normal heart sound and no murmurs Palpation: Negative for palpable S3 GI normal to inspection, nondistended, normoactive bowel sounds, non-tender, non- distended and no masses Inspection: Negative for abdominal distention Auscultation: normoactive bowel sounds Palpation: soft; Negative for tender, guarding or rebound tenderness present Back/Spine no CVA tenderness General Back: Negative for CVA tenderness Cervical Spine: Negative for cervical spine tenderness Thoracic Spine / Upper Back: Negative for thoracic spinal tenderness or paraspinal muscle tenderness Extremity normal to inspection General Extremety ED: Negative for edema or tenderness General Extremity: Negative for edema Neuro oriented x3 Sensorium / Orientation: alert; Negative for lethargic or stuporous Motor Exam: strength 5/5 throughout Psych mental status grossly normal Appearance: Negative for unkempt Attitude: No agitated Mood & Affect: Negative for depressed, anxious or tearful Skin no rashes or lesions noted and no wounds General Skin Exam: Negative for jaundice or pallor MDM MDM MDM Narrative Medical decision making narrative: [Female from alf with reported transient hypotension with decreased mental status today. Exam at this time is benign. She does clinically look dehydrated. We will treat with IV fluids. Labs are being obtained. Repeat exam at 5 PM unchanged patient is doing well. Spoke to her at bedside he is comfortable with her being discharged back to the [facility] care facility on oral antibiotics. He knows if she gets worse she can return to be admitted. He states she has been treated on oral antibiotics before as an outpatient for UTIs. I will speak to one of the nurses at the [facility].the patient and her primary care physician. They are page. Lab Data Attestation: I reviewed the patient's lab results. Lab results narrative: CBC normal white count of 6. H&H 12 and 37. Platelets 194. Electrolytes gap of 6 BUN 18 creatinine 1.28. Glucose 129. Urinalysis is consistent with infection with positive nitrates, 50-100 white cells and 1+ bacteria. It will be sent for culture. Labs: Laboratory Results - last 24 hr 10/31/21 10/31/21 10/31/21 14:19 14:20 14:20 WBC 6.0 RBC 4.37 Hgb 12.5 Hct 37.7 MCV 86.3 MCH 28.6 MCHC 33.2 RDW Std Deviation 41.0 RDW Coeff of Jeff 13.1 Plt Count 194 MPV 12.2 H Immature Gran % (Auto) 0.300 Neut % (Auto) 69.4 Lymph % (Auto) 22.2 [place] % (Auto) 7.0 Eos % (Auto) 0.8 Baso % (Auto) 0.3 Absolute Neuts (auto) 4.2 Absolute Lymphs (auto) 1.34 Nucleated RBC % 0 Sodium 141 Potassium 3.5 Chloride 108 H Carbon Dioxide 27.0 Anion Gap 6 BUN 18 Creatinine 1.28 H Estim Creat Clear Calc 33.30 Est GFR (MDRD) Af Amer 52 L Est GFR (MDRD) Non-Af 43 L BUN/Creatinine Ratio 14.1 Glucose 129 H Calcium 8.8 Troponin I High Sens 6 Urine Color Urine Clarity Urine pH Ur Specific Delta Urine Protein Urine Glucose (UA) Urine Ketones Urine Occult Blood Urine Nitrite Urine Bilirubin Urine Urobilinogen Ur Leukocyte Esterase Urine RBC Urine WBC Ur Squamous Epith Cells Urine Bacteria Urine Mucus POC Glucose 123 H 10/31/21 16:10 WBC RBC Hgb Hct MCV MCH MCHC RDW Std Deviation RDW Coeff of Jeff Plt Count MPV Immature Gran % (Auto) Neut % (Auto) Lymph % (Auto) [place] % (Auto) Eos % (Auto) Baso % (Auto) Absolute Neuts (auto) Absolute Lymphs (auto) Nucleated RBC % Sodium Potassium Chloride Carbon Dioxide Anion Gap BUN Creatinine Estim Creat Clear Calc Est GFR (MDRD) Af Amer Est GFR (MDRD) Non-Af BUN/Creatinine Ratio Glucose Calcium Troponin I High Sens Urine Color Yellow Urine Clarity Sl. Cloudy Urine pH 7.0 Ur Specific Delta 1.015 Urine Protein 30 H Urine Glucose (UA) Normal Urine Ketones 15 H Urine Occult Blood 10 H Urine Nitrite Positive H Urine Bilirubin Negative Urine Urobilinogen 1 H Ur Leukocyte Esterase 500 H Urine RBC 0-5 SEEN Urine WBC 50-100 SEEN Ur Squamous Epith Cells 0 SEEN Urine Bacteria 1+ Urine Mucus 0 SEEN POC Glucose Radiography Chest X-Ray - ED: 1 View, Read by ED Physician, Read by Radiologist, Heart, Lungs, Mediastinum, Bony Structures, No Acute Disease and Chronic Changes Diagnostic Testing: Clinical Impression(s) from Imaging Studies Chest X-Ray 10/31/21 15:43 IMPRESSION: No acute pulmonary process Electronically Signed: Casey Flores MD at 16:41 EST Reading Location ID and State: [address] [place] [address] , Service support , Portable chest x-ray interpreted both by myself and the radiologist single view shows no acute process chronic changes. Normal mediastinum. Normal cardiac silhouette. No infiltrates. Rhythm Strip Rhythm Strip: Sinus Rhythm Rate: 55 Ectopy: None EKG Initial EKG: Attestation: I personally reviewed and interpreted this EKG as follows: Interpretation: Sinus Rhythm, No Acute Injury Pattern and Sinus Bradycardia Comments: Sinus bradycardia rate of 55 no acute signs of [place] or ischemia. Prior EKG tracings: not available for review Discharge Plan Triage Chief Complaint: Alt LOC ED Provider: Pedro Garcia Dx/Rx/DC Orders Prescriptions: No Action alendronate 70 MG tablet 70 mg PO HILL RF: 0 metoprolol succinate 25 MG tablet 25 mg PO DAILY RF: 0 clonazepam 0.5 MG tablet 0.5 mg PO TID RF: 0 carbidopa-levodopa [Sinemet] 1 EACH tablet 1 tab PO 4X/DAY RF: 0 ibuprofen 200 MG tablet 400 mg PO Q6H PRN (Reason: Pain Or Fever) RF: 0 mirtazapine 15 MG tablet,disintegrating 22.5 mg PO QHS RF: 0 pentosan polysulfate sodium 100 MG capsule 100 mg PO TID RF: 0 polyethylene glycol 8000(bulk) 500 GM powder 17 g PO DAILY PRN (Reason: Constipation) RF: 0 acetaminophen 500 MG tablet 500 mg PO Q6H PRN (Reason: Pain) RF: 0 docusate sodium 100 MG capsule 100 mg PO DAILY PRN (Reason: Constipation) RF: 0 phenazopyridine 200 MG tablet 200 mg PO TID PRN (Reason: bladder pain) RF: 0 atorvastatin 20 mg Tablet 20 mg PO QHS RF: 0 donepezil 5 mg Tablet 5 mg PO DAILY RF: 0 cephalexin 500 mg capsule 500 mg PO Q12 Qty: 14 RF: 0 ondansetron 4 mg tablet,disintegrating 4 mg PO Q8H PRN PRN (Reason: Nausea) Qty: 10 RF: 0 quetiapine 25 mg Tablet 25 mg PO BID RF: 0 Elmiron 100 mg Capsule 100 mg PO TID RF: 0 diphenhydramine HCl 25 mg Capsule 25 mg PO BID RF: 0 Nuplazid 34 mg Capsule 34 mg PO DAILY RF: 0 Primary Care Provider: Rain Mccormick
[2021-10-31 15:35] VITALS: BP 155/57; PULSE 53; RESP 16; O2SAT 99
[2021-10-31] MEDS: 0.9% Normal Saline 1,000 ML 1000 ML IV (15:42)
--- NOTE | 2021-10-31 15:43 | RAD_ITS ---
STUDY: X-RAY CHEST REASON FOR EXAM: Female, 76 years old. Fever and cough TECHNIQUE: Single AP portable view of the chest. COMPARISON: None. FINDINGS: EKG leads overlie the chest The lungs are clear and expanded. There is no demonstrated pleural abnormality. Normal size heart. Normal mediastinum and caesar. Normal visualized pulmonary arteries. Normal visualized aortic arch and descending thoracic aorta. There are diffuse degenerative changes of the visualized thoracic spine. There is degenerative osteoarthritis of the bilateral shoulders. Surgical hardware in the left humerus free of complication There is no demonstrated abnormality of the visualized soft tissue structures of the upper abdomen. RAD/Chest 1 View (Portable) IMPRESSION: No acute pulmonary process Electronically Signed: Casey Flores MD at 16:41 EST ,
[2021-10-31 15:46] LABS: Absolute Lymphocyte Count 1.34 X10^3/uL (0.83-4.51); Absolute Neutrophil Count 4.2 X10^3/uL (2.0-7.7); Basophil# 0.02 X10^3/uL; Basophil% 0.3 % (0-1); Eosinophil# 0.05 X10^3/uL; Eosinophils% 0.8 % (0-5); Hematocrit 37.7 % (37-47); Hemoglobin 12.5 g/dL (12.0-15.0); Lymphocyte # 1.34 X10^3/ul (0.83-4.51); Lymphocyte % 22.2 % (19-41); Mean Corp Hgb Conc 33.2 g/dL (32-36); Mean Corpuscular Hgb 28.6 pg (27.0-32.0); Mean Corpuscular Volume 86.3 fL (81-99); Mean Platelet Vol. 12.2 fl (6.2-12.0); Monocyte# 0.42 X10^3/uL; NRBC Flagged by Analyzer 0 % (0-5); Neutrophil # 4.18 X10^3/uL (2.7-7.7); Neutrophil % 69.4 % (47-70); Platelet Count 194 K/mm3 (150-450); RBC Distribution Width CV 13.1 % (11.6-14.6); Red Blood Count 4.37 M/mm3 (4.2-5.4)
[2021-10-31 15:51] LABS: Anion Gap 6 (5-15); BUN 18 mg/dL (7-18); BUN/Creat Ratio 14.1 RATIO (10-20); Calcium,Total 8.8 mg/dL (8.5-10.1); Chloride 108 mmol/L (98-107); Creatinine, Serum 1.28 mg/dL (0.55-1.02); EST Glomerular Filtration Rate 43 mL/min (>60); Est Glom Filt Rate - Afr Amer 52 mL/min (>60); Glucose 129 mg/dL (74-106); Potassium 3.5 mmol/L (3.5-5.1); Sodium Level 141 mmol/L (136-145); Troponin-I HS 6 pg/mL (3.0-54.0)
[2021-10-31 16:14] LABS: Mucous, Urine 0 SEEN /hpf (<or=2+); Squamous Epithelial Cells - UA 0 SEEN /hpf (5-10)
[2021-10-31 16:19] LABS: Color, Urine Yellow (Yellow); Glucose, Dipstick Normal (Normal); Ketone-Dipstick 15 mg/dl (Negative); Leukocyte Esterase-Dipstick 500 /ul (Negative); Nitrite-Dipstick Positive (Negative); Occult Blood-Urine 10 /ul (Negative); Protein-Dipstick 30 mg/dl (Negative); Specific Gravity, Urine 1.015 (1.002-1.030); Urine Bilirubin Dipstick Negative (Negative); Urine Clarity Sl. Cloudy (Clear); Urine Urobilinogen 1 mg/dl (Normal)
[2021-10-31] MEDS: Carbidopa/Levodopa 25/100 Tablet PO (16:20)
[2021-10-31] MEDS: clonazePAM 0.5 MG Tablet PO (16:20)
[2021-10-31 16:21] VITALS: BP 158/78; PULSE 65; RESP 16; O2SAT 100
[2021-10-31 16:31] LABS: White Blood Cells 50-100 SEEN /hpf (0-5)
[2021-10-31 16:32] LABS: Bacteria 1+ /hpf (None Seen); Red Blood Cells-Urine 0-5 SEEN /hpf (0-5)
--- NOTE | 2021-10-31 17:19 | NURSING ---
ATTEMPTED TO REACH NURSE AT [place]. NO ANSWER. LEFT MESSAGE FOR THEM TO CALL HERE
[2021-10-31] MEDS: Cephalexin 250 MG Capsule 500 MG PO (17:34)
[2021-10-31] MEDS: LORazepam 1 MG Tablet PO (17:41)
[2021-10-31 17:52] VITALS: BP 188/89; PULSE 75; RESP 19; O2SAT 100
== END 2021-10-31 17:53 | disposition home or self-care (01) ==
PROVIDERS: Emergency Provider Emergency Medicine; PCP Internal Medicine; Visit Provider Emergency Medicine
DX: N39.0 Urinary tract infection, site not specified (principal); G20 Parkinson's disease; E11.9 Type 2 diabetes mellitus without 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; E86.0 Dehydration
CPT/HCPCS: 71045; 80048; 81001; 82962; 84484; 85025; 87077; 87086; 87088; 87186; 93005; 96360; 99285; J7030; P9612; A4216

== ENCOUNTER 2021-11-07 01:29 | Emergency (ER) | payer MEDICARE, OTHER, SELFPAY ==
[2021-11-07 01:30] VITALS: BP 158/57; PULSE 79; RESP 17; TEMP 36.3; O2SAT 98; BMI 25.9
--- NOTE | 2021-11-07 02:03 | CT_ITS ---
STUDY: CT BRAIN WITHOUT CONTRAST REASON FOR EXAM: Female, 76 years old. Fall RADIATION DOSAGE (If Supplied By Facility): CTDIvol = ( 44.99 ) mGy, DLP = ( 829.85 ) mGycm TECHNIQUE: Transaxial CT imaging of the brain was performed without administration of intravenous contrast material. Individualized dose optimization techniques were used for this CT. COMPARISON: 10/28/2021 FINDINGS: Normal soft tissue structures. Normal calvarium. There is mild cerebral volume loss with widening of the extra-axial spaces and ventricular dilatation. There are areas of decreased attenuation within the white matter tracts of the supratentorial brain, consistent with microvascular disease changes. Normal basal ganglia and thalami. Normal brainstem. Normal cerebellum. There is no intracranial hemorrhage. There are no findings of an acute ischemic infarction. Normal visualized paranasal sinuses. Left ocular lens replacement. CT/Brain/Head without Contrast IMPRESSION: No acute abnormal intracranial finding. Electronically Signed: Shiv Cross MD at 3:15 EST ,
--- NOTE | 2021-11-07 02:03 | RAD_ITS ---
STUDY: X-RAY CHEST REASON FOR EXAM: Female, 76 years old. Cough TECHNIQUE: Portable, upright, AP chest radiograph COMPARISON: 10/31/2021 FINDINGS: The lungs are clear and expanded. There is no demonstrated pleural abnormality. Normal size heart. Normal mediastinum and caesar. Normal visualized pulmonary arteries. Aortic arch calcification. There is no demonstrated abnormality of the visualized soft tissue structures of the upper abdomen. RAD/Chest 1 View (Portable) IMPRESSION: No acute abnormal cardiopulmonary finding. Electronically Signed: Shiv Cross MD at 2:47 EST ,
--- NOTE | 2021-11-07 02:03 | CT_ITS ---
STUDY: CT CERVICAL SPINE WITHOUT CONTRAST REASON FOR EXAM: Female, 76 years old. Fall RADIATION DOSAGE (If Supplied By Facility): CTDIvol = ( 15.20 ) mGy, DLP = ( 285.68 ) mGycm TECHNIQUE: High resolution transaxial imaging was performed without contrast material. Sagittal and coronal images were reconstructed. Individualized dose optimization techniques were used for this CT. COMPARISON: 11/13/2020, 10/28/2021 FINDINGS: Normal craniovertebral junction. Normal anterior atlantoaxial articulation. Normal odontoid process. Normal cervical lordosis. Normal vertebral bodies and posterior osseous elements. Degenerative change throughout the cervical spine without critical spinal canal or neural foraminal stenosis. Multinodular thyroid goiter. Otherwise normal visualized soft tissue structures. CT/Spine Cervical without Contras IMPRESSION: No acute abnormal finding in the cervical spine. Electronically Signed: Shiv Cross MD at 3:20 EST ,
[2021-11-07 02:34] LABS: Absolute Lymphocyte Count 1.25 X10^3/uL (0.83-4.51); Absolute Neutrophil Count 4.1 X10^3/uL (2.0-7.7); Basophil# 0.01 X10^3/uL; Basophil% 0.2 % (0-1); Eosinophil# 0.12 X10^3/uL; Hematocrit 37.3 % (37-47); Hemoglobin 12.7 g/dL (12.0-15.0); Lymphocyte # 1.25 X10^3/ul (0.83-4.51); Lymphocyte % 20.9 % (19-41); Mean Corpuscular Hgb 28.5 pg (27.0-32.0); Mean Corpuscular Volume 83.8 fL (81-99); Mean Platelet Vol. 11.2 fl (6.2-12.0); Monocyte# 0.51 X10^3/uL; Monocyte% 8.5 % (0-10); NRBC Flagged by Analyzer 0 % (0-5); Neutrophil # 4.06 X10^3/uL (2.7-7.7); Neutrophil % 67.9 % (47-70); Platelet Count 176 K/mm3 (150-450); RBC Distribution Width CV 12.7 % (11.6-14.6); RBC Distribution Width SD 39.2 fl (35.1-43.9); Red Blood Count 4.45 M/mm3 (4.2-5.4)
--- NOTE | 2021-11-07 02:37 | ED.RN ---
ATTEMPTED CLEAN CATCH BY RN ON BEDPAN. PT UNABLE AND SHE REQUESTED A PUREWICK. PUREWICK PLACED.
[2021-11-07 02:50] LABS: Anion Gap 6 (5-15); BUN 15 mg/dL (7-18); BUN/Creat Ratio 14.3 RATIO (10-20); Calcium,Total 9.2 mg/dL (8.5-10.1); Chloride 110 mmol/L (98-107); Creatinine, Serum 1.05 mg/dL (0.55-1.02); EST Glomerular Filtration Rate 54 mL/min (>60); Est Glom Filt Rate - Afr Amer 66 mL/min (>60); Estimated Creatinine Clearance 40.59 ml/min; Glucose 101 mg/dL (74-106); Sodium Level 143 mmol/L (136-145)
[2021-11-07] MEDS: Ondansetron 4 MG/2 ML Vial IV (03:35)
[2021-11-07 04:21] VITALS: BP 180/88; PULSE 68; RESP 16; O2SAT 99
[2021-11-07] MEDS: Potassium Chloride Oral Tablet 20 MEQ 40 MEQ PO (04:21)
--- NOTE | 2021-11-07 04:30 | EDS_ITS ---
HPI History of Present Illness Chief Complaint: Fall Informant: patient Limited: dementia Narrative Narrative: Patient sent in from [place] after reported fall. Patient does not remember details of what happened. Fall was reportedly unwitnessed. ECF also notes patient's urine has been dark and she has had recent UTI. They request that we check her urine also. [facility] Medical History Dementia Diabetes Fibromyalgia Interstitial cystitis Overactive bladder Parkinsons Home Medications alendronate 70 mg PO HILL 12/21/18 [History Last Taken 05/07/20] metoprolol succinate 25 mg PO DAILY 12/21/18 [History Last Taken 05/11/20] clonazepam 0.5 mg PO TID 03/10/19 [History Last Taken 11/19/20 11:00] carbidopa-levodopa [Sinemet] 1 tab PO 4X/DAY 04/12/20 [History Last Taken 11/19/20 06:00] ibuprofen 400 mg PO Q6H PRN 05/12/20 [History Last Taken Unknown] mirtazapine 22.5 mg PO QHS 09/09/20 [History Last Taken Unknown] acetaminophen 500 mg PO Q6H PRN 11/19/20 [History Last Taken Unknown] docusate sodium 100 mg PO DAILY PRN 11/19/20 [History Last Taken Unknown] pentosan polysulfate sodium 100 mg PO TID 11/19/20 [History Last Taken 11/19/20 11:00] polyethylene glycol 8000(bulk) 17 g PO DAILY PRN 11/19/20 [History Last Taken Unknown] atorvastatin 20 mg PO QHS 02/06/21 [History Last Taken Unknown] donepezil 5 mg PO DAILY 02/06/21 [History Last Taken Unknown] cephalexin 500 mg PO Q12 #14 capsule 08/08/21 [Rx Last Taken Unknown] cephalexin 500 mg PO Q6H 10 Days #40 cap 10/31/21 [Rx Last Taken Unknown] diphenhydramine HCl 25 mg PO BID 10/31/21 [History Last Taken Unknown] pentosan polysulfate sodium [Elmiron] 100 mg PO TID 10/31/21 [History Last Taken Unknown] ciprofloxacin HCl [Cipro] 500 mg PO BID #14 tab 11/07/21 [Rx Last Taken Unknown] Allergy/AdvReac Type Severity Reaction Status Date / Time rhubarb Allergy Unknown PT UNSURE Verified 11/07/21 01:36 OF REACTION seasonal Allergy NEEDS Uncoded 11/07/21 01:36 FOLLOW-UP Social History Smoking Status: Never smoker substance use type: does not use ROS ROS ED ROS Narrative Limited secondary to patient's dementia. Eyes Eyes: Denies blurry vision Cardiovascular Cardiovascular: Denies chest pain Respiratory/Chest Respiratory/Chest: Reports other Details: Increased sneezing ; Denies cough or dyspnea Gastrointestinal Gastrointestinal: Reports nausea; Denies abdominal pain or vomiting Musculoskeletal Musculoskeletal: Denies arthralgias Neurologic Neurologic: Denies headache(s) EXAM Physical Exam Const Vital Signs: 11/07/21 01:30 11/07/21 02:36 11/07/21 04:21 Temperature 97.3 F L Temperature Source Temporal Pulse Rate 79 68 Respiratory Rate 17 16 Respiratory Effort Normal Respiratory Depth Normal Respiratory Pattern Normal Blood Pressure 158/57 H 180/88 H Blood Pressure Mean 90 118 Pulse Ox 98 99 Oxygen Delivery Method Room Air Room Air Positive well nourished and well developed General Appearance ED: well developed HEENT Reports moist mucous membranes HEENT Narrative: Mild tenderness of the left posterior parietal scalp. No hematoma noted. Eyes EOMs intact bilaterally Neck supple Chest Wall inspection of chest normal Resp normal respiratory effort and clear to auscultation bilaterally Cardio regular rate and regular rhythm GI non-tender Palpation: soft Extremity Extremity Narrative: Erythema noted to bilateral knees from prior contusions. No bony tenderness. Neuro Neuro Narrative: No focal neurologic deficits. Sensorium / Orientation: alert MDM MDM MDM Narrative Medical decision making narrative: CT head obtained. Lab work and urinalysis ordered. Lab Data Attestation: I reviewed the patient's lab results. Labs: Laboratory Results - last 24 hr 11/07/21 11/07/21 02:20 02:20 WBC 6.0 RBC 4.45 Hgb 12.7 Hct 37.3 MCV 83.8 MCH 28.5 MCHC 34.0 RDW Std Deviation 39.2 RDW Coeff of Jeff 12.7 Plt Count 176 MPV 11.2 Immature Gran % (Auto) 0.500 Neut % (Auto) 67.9 Lymph % (Auto) 20.9 [place] % (Auto) 8.5 Eos % (Auto) 2.0 Baso % (Auto) 0.2 Absolute Neuts (auto) 4.1 Absolute Lymphs (auto) 1.25 Nucleated RBC % 0 Sodium 143 Potassium 3.0 L Chloride 110 H Carbon Dioxide 27.0 Anion Gap 6 BUN 15 Creatinine 1.05 H Estim Creat Clear Calc 40.59 Est GFR (MDRD) Af Amer 66 Est GFR (MDRD) Non-Af 54 L BUN/Creatinine Ratio 14.3 Glucose 101 Calcium 9.2 Radiography Diagnostic Testing: Clinical Impression(s) from Imaging Studies Brain CT 11/07/21 02:03 IMPRESSION: No acute abnormal intracranial finding. Electronically Signed: Shiv Cross MD at 3:15 EST , Cervical Spine CT 11/07/21 02:03 IMPRESSION: No acute abnormal finding in the cervical spine. Electronically Signed: Shiv Cross MD at 3:20 EST , Chest X-Ray 11/07/21 02:03 IMPRESSION: No acute abnormal cardiopulmonary finding. Electronically Signed: Shiv Cross MD at 2:47 EST , Treatment and Re-Evaluation Comments:: CT scan of the head and C-spine revealed no acute findings. Chest x- ray per my interpretation shows no focal infiltrate. Radiology to rotation also reviewed. White count is normal. No left shift. Chemistry studies significant only for low potassium at 3.0. This was replaced orally. Patient refused to allow us to straight cath for good urine sample. She has not been able to give us a urine sample here. When I reviewed her most recent visit when UTI was diagnosed culture grew back Proteus. When we called [facility] they state that she is currently on Keflex. Unfortunately the culture is resistant to cefazolin, another first generation cephalosporin so I suspect it is also resistant to Keflex. Patient will be switched to Cipro. I did speak Dr. Hawthorne, on-call for the patient's PCP. Discharge Plan Triage Chief Complaint: Fall ED Provider: Kelli Riley Dx/Rx/DC Orders Clinical Impression: Fall, UTI (urinary tract infection) Instructions: ED Fall with Uncertain Cause, ED CYSTITIS Female Adult Prescriptions: New ciprofloxacin HCl [Cipro] 500 mg tablet 500 mg PO BID Qty: 14 RF: 0 No Action alendronate 70 MG tablet 70 mg PO HILL RF: 0 metoprolol succinate 25 MG tablet 25 mg PO DAILY RF: 0 clonazepam 0.5 MG tablet 0.5 mg PO TID RF: 0 carbidopa-levodopa [Sinemet] 1 EACH tablet 1 tab PO 4X/DAY RF: 0 ibuprofen 200 MG tablet 400 mg PO Q6H PRN (Reason: Pain Or Fever) RF: 0 mirtazapine 15 MG tablet,disintegrating 22.5 mg PO QHS RF: 0 pentosan polysulfate sodium 100 MG capsule 100 mg PO TID RF: 0 polyethylene glycol 8000(bulk) 500 GM powder 17 g PO DAILY PRN (Reason: Constipation) RF: 0 acetaminophen 500 MG tablet 500 mg PO Q6H PRN (Reason: Pain) RF: 0 docusate sodium 100 MG capsule 100 mg PO DAILY PRN (Reason: Constipation) RF: 0 atorvastatin 20 mg Tablet 20 mg PO QHS RF: 0 donepezil 5 mg Tablet 5 mg PO DAILY RF: 0 cephalexin 500 mg capsule 500 mg PO Q12 Qty: 14 RF: 0 Elmiron 100 mg Capsule 100 mg PO TID RF: 0 diphenhydramine HCl 25 mg Capsule 25 mg PO BID RF: 0 cephalexin 500 mg capsule 500 mg PO Q6H 10 Days Qty: 40 RF: 0 Primary Care Provider: Rain Mccormick Referrals: Rain Mccormick DO [Primary Care Provider] - 5-7 Days Disposition Disposition: Home, Self Care
[2021-11-07] MEDS: Ceftriaxone 1 GM/50 ML BAG IV (05:50)
[2021-11-07 07:20] VITALS: BP 196/85; PULSE 74; RESP 16; O2SAT 100
--- NOTE | 2021-11-07 07:20 | ED.RN ---
pt awakened to take iv out and get vitals. pt reports has parkinsons so shakes all the time and has been falling all the time pt talking to someone not in room but oriented back to place.
[2021-11-07 08:29] VITALS: BP 192/79
--- NOTE | 2021-11-07 08:44 | ED.RN ---
pt saying over and over please help me. alert to self only at this time. physicians amb here and given report. pt didnt know where was and thought that nurse was [place]
== END 2021-11-07 08:46 | disposition home or self-care (01) ==
PROVIDERS: Emergency Provider Emergency Medicine; PCP Internal Medicine; Visit Provider Emergency Medicine
DX: N39.0 Urinary tract infection, site not specified (principal); F03.90 Unspecified dementia, unspecified severity, without behavioral disturbance, psychotic disturbance, mood disturbance, and anxiety; E11.9 Type 2 diabetes mellitus without 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; W19.XXXA Unspecified fall, initial encounter; M79.7 Fibromyalgia
CPT/HCPCS: 70450; 71045; 72125; 80048; 85025; 99285; J7050; A4216; J2405

== ENCOUNTER 2021-11-19 13:47 | Emergency (ER) | payer MEDICARE, OTHER, SELFPAY ==
[2021-11-19 13:49] VITALS: BP 156/53; PULSE 58; RESP 16; TEMP 36.5; O2SAT 99; BMI 20.1
--- NOTE | 2021-11-19 14:00 | RAD_ITS ---
STUDY: X-RAY - LEFT SHOULDER REASON FOR EXAM: Female, 76 years old. Fall TECHNIQUE: 2 view(s) of the shoulder. COMPARISON: Comparison is made with prior study dated 10/28/2021. FINDINGS: There is moderate degenerative arthrosis of the glenohumeral articulation. There is degenerative arthrosis of the acromioclavicular joint without inferior osseous spur formation. Normal acromion. Decreased distance between the humeral head and the acromion suggestive of rotator cuff pathology. The patient is status post open reduction and internal fixation of the proximal humeral fracture. The soft tissue structures are unremarkable. Normal visualized pulmonary apex. RAD/Shoulder min 2 Views IMPRESSION: Status post ORIF of the proximal left humerus. No acute fracture seen. Electronically Signed: Junaid Casillas MD at 14:24 EST ,
--- NOTE | 2021-11-19 14:21 | CT_ITS ---
STUDY: CT BRAIN WITHOUT CONTRAST REASON FOR EXAM: Female, 76 years old. Fall, head injury RADIATION DOSAGE (If Supplied By Facility): CTDIvol = ( 44.99 ) mGy, DLP = ( 812.98 ) mGycm TECHNIQUE: Transaxial CT imaging of the brain was performed without administration of intravenous contrast material. Individualized dose optimization techniques were used for this CT. COMPARISON: Comparison is made with prior study dated 11/07/2021. FINDINGS: Normal soft tissue structures. Normal calvarium. There is mild cerebral atrophy with widening of the extra-axial spaces and ventricular dilatation. There are areas of decreased attenuation within the white matter tracts of the supratentorial brain, consistent with microvascular disease changes. Normal basal ganglia and thalami. Normal brainstem. Normal cerebellum. There is no intracranial hemorrhage. There are no findings of an acute ischemic infarction. Atherosclerotic calcification of the cavernous portions of the internal carotid arteries bilaterally. Normal visualized paranasal sinuses. CT/Brain/Head without Contrast IMPRESSION: Chronic involutional changes of the brain. Electronically Signed: Junaid Casillas MD at 14:45 EST ,
--- NOTE | 2021-11-19 14:32 | EDS_ITS ---
HPI HPI - Fall History of Present Illness Chief Complaint: Fall Informant: EMS and mental health staff Limited: dementia Narrative Narrative: Patient is a 76-year-old female with history of dementia as well as frequent falls presenting for evaluation after a fall. Patient is in [place] memory care unit. Per EMS report she had a fall today. Patient does not recall. Patient states has been falling more over the past week. Patient currently denies any acute complaints. Patient not on any blood thinners. Paperwork from nursing facility states that patient is DNR CC. [facility] Medical History Dementia Diabetes Fibromyalgia Interstitial cystitis Overactive bladder Parkinsons Home Medications alendronate 70 mg PO HILL 12/21/18 [History Last Taken 05/07/20] metoprolol succinate 25 mg PO DAILY 12/21/18 [History Last Taken 05/11/20] clonazepam 1 mg PO TID 03/10/19 [History Last Taken 11/19/20 11:00] carbidopa-levodopa [Sinemet] 0.5 tab PO 4X/DAY 04/12/20 [History Last Taken 11/19/20 06:00] ibuprofen 400 mg PO Q6H PRN 05/12/20 [History Last Taken Unknown] mirtazapine 15 mg PO QHS 09/09/20 [History Last Taken Unknown] acetaminophen 500 mg PO Q6H PRN 11/19/20 [History Last Taken Unknown] docusate sodium 100 mg PO DAILY PRN 11/19/20 [History Last Taken Unknown] polyethylene glycol 8000(bulk) 17 g PO DAILY PRN 11/19/20 [History Last Taken Unknown] atorvastatin 20 mg PO QHS 02/06/21 [History Last Taken Unknown] donepezil 5 mg PO DAILY 02/06/21 [History Last Taken Unknown] diphenhydramine HCl 25 mg PO BID PRN 10/31/21 [History Last Taken Unknown] acetaminophen 1,000 mg PO Q4H PRN 11/19/21 [History Last Taken Unknown] ergocalciferol (vitamin D2) [Ergo-D] 1,250 mcg PO QWEEK 11/19/21 [History Last Taken Unknown] ondansetron 4 mg PO Q8H PRN 11/19/21 [History Last Taken Unknown] pentosan polysulfate sodium [Elmiron] 100 mg PO TID 11/19/21 [History Last Taken Unknown] phenazopyridine 200 mg PO TID PRN 11/19/21 [History Last Taken Unknown] phenyleph-shark [id number] [Preparation H] 1 applic TOPICAL 4X/DAY 11/19/21 [History Last Taken Unknown] pimavanserin [Nuplazid] 34 mg PO DAILY 11/19/21 [History Last Taken Unknown] quetiapine 25 mg PO TID 11/19/21 [History Last Taken Unknown] Allergy/AdvReac Type Severity Reaction Status Date / Time rhubarb Allergy Unknown PT UNSURE Verified 11/19/21 13:52 OF REACTION seasonal Allergy NEEDS Uncoded 11/19/21 13:52 FOLLOW-UP Social History Smoking Status: Never smoker substance use type: does not use ROS ROS ED Review of Systems ROS Unobtainable: other Details: dementia EXAM Physical Exam Const Vital Signs: 11/19/21 13:49 11/19/21 14:18 Temperature 97.7 F L Temperature Source Temporal Pulse Rate 58 L Respiratory Rate 16 Respiratory Effort Normal Respiratory Depth Normal Respiratory Pattern Normal Blood Pressure 156/53 H Blood Pressure Mean 87 Pulse Ox 99 Oxygen Delivery Method Room Air Room Air Positive well nourished and well developed General Appearance ED: well developed and NAD HEENT Reports normocephalic and TM's clear HEENT Narrative: Subtle bruising over left upper forehead trauma; Negative for hematoma Tympanic Membrane ED: Yes TM's clear Eyes PERRL and EOMs intact bilaterally Neck full ROM General: Negative for tenderness Chest Wall inspection of chest normal Resp normal respiratory effort and clear to auscultation bilaterally Cardio regular rate, regular rhythm and no murmurs GI non-tender and non-distended Auscultation: normoactive bowel sounds Palpation: soft Back/Spine no CVA tenderness Cervical Spine: Negative for cervical spine tenderness Thoracic Spine / Upper Back: Negative for thoracic spinal tenderness Lumbar Spine / Lower Back: Negative for lumbar spinal tenderness Extremity normal to inspection, full ROM, no joint enlargement and no pedal edema Extremity Narrative: no pain with bilateral log roll. Pelvis is stable. Mild TTP or left hip with palpation. Mild deformity of the left shoulder however patient has had ORIF there in the past. No pinpoint area of tenderness. Normal range of motion. Neuro CN's II-XII intact bilaterally, moves all extremities and no focal motor deficits Sensorium / Orientation: alert Motor Exam: Negative for general weakness Psych mental status grossly normal Skin Lesions: no lesions Rashes: no rashes MDM MDM MDM Narrative Medical decision making narrative: He waited after a fall. Is unwitnessed however patient is in a memory care unit and apparently falls quite frequently. She initially was complaining of left arm pain EMS. X-ray of the shoulder did not show an acute process. She has normal range of motion with no pinpoint bony tenderness. CT of the head obtained which not show any acute process as well. Patient has mild pain in her left hip/pelvis present on exam with direct palpation but not with range of motion. X-ray obtained of the pelvis which does not show any acute process. Given the patient's frequent falls and history of urinary tract infection I did obtain a urinalysis which is not consistent with acute urinary tract infection. Is more consistent with contamination. Urine culture is sent. Will defer antibiotics at this time. Patient be discharged back to her nursing facility. As patient is asymptomatic at this time, hemodynamically stable and DNRCC, I do not think further evaluation indicated at this time Lab Data Attestation: I reviewed the patient's lab results. Labs: Laboratory Results - last 24 hr 11/19/21 15:26 Urine Color Yellow Urine Clarity Clear Urine pH 6.5 Ur Specific [place] 1.015 Urine Protein 30 H Urine Glucose (UA) Normal Urine Ketones 50 H Urine Occult Blood 25 H Urine Nitrite Negative Urine Bilirubin Negative Urine Urobilinogen Normal Ur Leukocyte Esterase 100 H Urine RBC 0 SEEN Urine WBC 5-10 SEEN Ur Squamous Epith Cells 0-5 SEEN Ur Transition Epith Cell 0-5 SEEN Urine Bacteria RARE Urine Mucus 0 SEEN Radiography Diagnostic Testing: Clinical Impression(s) from Imaging Studies Shoulder X-Ray 11/19/21 14:00 IMPRESSION: Status post ORIF of the proximal left humerus. No acute fracture seen. Electronically Signed: Junaid Casillas MD at 14:24 EST , Brain CT 11/19/21 14:21 IMPRESSION: Chronic involutional changes of the brain. Electronically Signed: Junaid Casillas MD at 14:45 EST , Pelvis X-Ray 11/19/21 14:35 IMPRESSION: Degenerative changes of both hip joints. No fracture is seen. There has been no change since prior study. Electronically Signed: Junaid Casillas MD at 14:57 EST , Discharge Plan Triage Chief Complaint: Fall ED Provider: Jasmine Pierre Dx/Rx/DC Orders Clinical Impression: Closed head injury, Falls Instructions: ED Mechanical Fall Prescriptions: No Action alendronate 70 MG tablet 70 mg PO HILL RF: 0 metoprolol succinate 25 MG tablet 25 mg PO DAILY RF: 0 clonazepam 0.5 MG tablet 1 mg PO TID RF: 0 carbidopa-levodopa [Sinemet] 1 EACH tablet 0.5 tab PO 4X/DAY RF: 0 ibuprofen 200 MG tablet 400 mg PO Q6H PRN (Reason: Pain Or Fever) RF: 0 mirtazapine 15 MG tablet,disintegrating 15 mg PO QHS RF: 0 polyethylene glycol 8000(bulk) 500 GM powder 17 g PO DAILY PRN (Reason: Constipation) RF: 0 acetaminophen 500 MG tablet 500 mg PO Q6H PRN (Reason: Pain) RF: 0 docusate sodium 100 MG capsule 100 mg PO DAILY PRN (Reason: Constipation) RF: 0 atorvastatin 20 mg Tablet 20 mg PO QHS RF: 0 donepezil 5 mg Tablet 5 mg PO DAILY RF: 0 diphenhydramine HCl 25 mg Capsule 25 mg PO BID PRN (Reason: Anxiety) RF: 0 quetiapine 25 mg Tablet 25 mg PO TID RF: 0 Elmiron 100 mg Capsule 100 mg PO TID RF: 0 acetaminophen 325 mg Tablet 1,000 mg PO Q4H PRN (Reason: pain/fever) RF: 0 phenazopyridine 200 mg Tablet 200 mg PO TID PRN (Reason: Bladder Spasms) RF: 0 ergocalciferol (vitamin D2) [Ergo-D] 1,250 mcg (50,000 unit) Capsule 1,250 mcg PO QWEEK RF: 0 ondansetron 4 mg Tablet,Disintegrating 4 mg PO Q8H PRN (Reason: Nausea) RF: 0 Preparation H Cream 1 applic topical 4X/DAY RF: 0 Nuplazid 34 mg Capsule 34 mg PO DAILY RF: 0 Primary Care Provider: Rain Mccormick Referrals: Rain Mccormick DO [Primary Care Provider] - Disposition Disposition: Detention Facility Discharge Location: [facility]
--- NOTE | 2021-11-19 14:35 | RAD_ITS ---
STUDY: X-RAY - PELVIS REASON FOR EXAM: Female, 76 years old. Fall, hip pain TECHNIQUE: One view of the pelvis was obtained. COMPARISON: Comparison is made with prior study dated 02/06/2021. FINDINGS: There is a non-specific bowel gas pattern. Normal visualized soft tissue structures. There is narrowing with cortical sclerosis and osteophyte formation of the sacroiliac joint consistent with degenerative osteoarthritic changes. Normal visualized bilateral superior and inferior pubic rami. There are degenerative changes of the pubic symphysis with articular narrowing and sclerosis. Normal ischial tuberosities. Normal visualized right femoral head. There is osteoarthritic spur formation of the right acetabular rim. There is moderate articular joint space narrowing of the right hip. Normal visualized left femoral head. There is osteoarthritic spur formation of the left acetabular rim. There is moderate articular joint space narrowing of the left hip. RAD/Pelvis 1 or 2 Views IMPRESSION: Degenerative changes of both hip joints. No fracture is seen. There has been no change since prior study. Electronically Signed: Junaid Casillas MD at 14:57 EST ,
[2021-11-19 15:30] LABS: Mucous, Urine 0 SEEN /hpf (<or=2+); Red Blood Cells-Urine 0 SEEN /hpf (0-5)
[2021-11-19 15:45] LABS: Color, Urine Yellow (Yellow); Glucose, Dipstick Normal (Normal); Ketone-Dipstick 50 mg/dl (Negative); Leukocyte Esterase-Dipstick 100 /ul (Negative); Nitrite-Dipstick Negative (Negative); Occult Blood-Urine 25 /ul (Negative); Protein-Dipstick 30 mg/dl (Negative); Specific Gravity, Urine 1.015 (1.002-1.030); Urine Bilirubin Dipstick Negative (Negative); Urine Clarity Clear (Clear); Urine Urobilinogen Normal (Normal); Urine pH 6.5 (5.0 - 8.0)
[2021-11-19 16:32] LABS: Bacteria RARE /hpf (None Seen); Squamous Epithelial Cells - UA 0-5 SEEN /hpf (5-10); Transitional Epithelial - Ur 0-5 SEEN /hpf (0-5); White Blood Cells 5-10 SEEN /hpf (0-5)
[2021-11-19 16:51] VITALS: BP 142/85; PULSE 61; RESP 15; O2SAT 97
--- NOTE | 2021-11-19 17:27 | ED.RN ---
squad transport cancel per request of . he will transport by private vehicle. elsie pendleton rn [id number]
== END 2021-11-19 17:28 | disposition skilled nursing facility (03) ==
PROVIDERS: Emergency Provider Emergency Medicine; PCP Internal Medicine; Visit Provider Emergency Medicine
DX: S09.90XA Unspecified injury of head, initial encounter (principal); F03.90 Unspecified dementia, unspecified severity, without behavioral disturbance, psychotic disturbance, mood disturbance, and anxiety; E11.9 Type 2 diabetes mellitus without 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; W19.XXXA Unspecified fall, initial encounter; M25.552 Pain in left hip; M79.7 Fibromyalgia; Z79.899 Other long term (current) drug therapy
CPT/HCPCS: 70450; 72170; 73030; 81001; 87086; 87088; 99284

== ENCOUNTER 2021-11-20 17:34 | Emergency (ER) | payer MEDICARE, OTHER, SELFPAY ==
[2021-11-20 17:36] VITALS: BP 110/60; BP 112/47; PULSE 64; RESP 13; RESP 15; TEMP 36.1; O2SAT 100; O2SAT 99; BMI 21.2
--- NOTE | 2021-11-20 17:49 | ED.VIS.FALL ---
HPI HPI - Fall History of Present Illness Chief Complaint: Fall Informant: patient, EMS and SNF Occured/Mechanism Occurred: Today Mechanism/Context: Yes same level fall Pain/Injury Pain Location: none Narrative Narrative: 76-year-old female history of dementia, diabetes, Parkinson's disease and reportedly DNR comfort care. She lives in a local long-term. Reportedly today she was in a wheelchair and it slipped out from under her and she fell. She denies any specific complaints. She has been seen several times in the last couple weeks for falls. I spoke to the staff at the long-term. She had no LOC. No vomiting. She is DNR comfort care. She is on no blood thinners. Patient denies any specific complaints. Prior similar symptoms: Yes Recent Illness/Hospitalization: No PFSH PFSH Medical History Dementia Diabetes Fibromyalgia Interstitial cystitis Overactive bladder Parkinsons Home Medications alendronate 70 mg PO HILL 12/21/18 [History Last Taken 05/07/20] metoprolol succinate 25 mg PO DAILY 12/21/18 [History Last Taken 05/11/20] clonazepam 1 mg PO TID 03/10/19 [History Last Taken 11/19/20 11:00] carbidopa-levodopa [Sinemet] 0.5 tab PO 4X/DAY 04/12/20 [History Last Taken 11/19/20 06:00] ibuprofen 400 mg PO Q6H PRN 05/12/20 [History Last Taken Unknown] mirtazapine 15 mg PO QHS 09/09/20 [History Last Taken Unknown] acetaminophen 500 mg PO Q6H PRN 11/19/20 [History Last Taken Unknown] docusate sodium 100 mg PO DAILY PRN 11/19/20 [History Last Taken Unknown] polyethylene glycol 8000(bulk) 17 g PO DAILY PRN 11/19/20 [History Last Taken Unknown] atorvastatin 20 mg PO QHS 02/06/21 [History Last Taken Unknown] donepezil 5 mg PO DAILY 02/06/21 [History Last Taken Unknown] diphenhydramine HCl 25 mg PO BID PRN 10/31/21 [History Last Taken Unknown] acetaminophen 1,000 mg PO Q4H PRN 11/19/21 [History Last Taken Unknown] ergocalciferol (vitamin D2) [Ergo-D] 1,250 mcg PO QWEEK 11/19/21 [History Last Taken Unknown] ondansetron 4 mg PO Q8H PRN 11/19/21 [History Last Taken Unknown] pentosan polysulfate sodium [Elmiron] 100 mg PO TID 11/19/21 [History Last Taken Unknown] phenazopyridine 200 mg PO TID PRN 11/19/21 [History Last Taken Unknown] phenyleph-shark [id number] [Preparation H] 1 applic TOPICAL 4X/DAY 11/19/21 [History Last Taken Unknown] pimavanserin [Nuplazid] 34 mg PO DAILY 11/19/21 [History Last Taken Unknown] quetiapine 25 mg PO TID 11/19/21 [History Last Taken Unknown] Allergy/AdvReac Type Severity Reaction Status Date / Time rhubarb Allergy Unknown PT UNSURE Verified 11/19/21 13:52 OF REACTION seasonal Allergy NEEDS Uncoded 11/19/21 13:52 FOLLOW-UP Social History Smoking Status: Never smoker substance use type: does not use ROS ROS ED ROS Narrative Denies. Limited due to the patient's dementia. Review of Systems ROS Unobtainable: due to mental status Constitutional Constitutional ED: Denies fever(s) Eyes Eyes: Denies change in vision ENT ENT ED: Denies ear pain Cardiovascular Cardiovascular: Denies chest pain Respiratory/Chest Respiratory/Chest: Denies dyspnea Gastrointestinal Gastrointestinal: Denies abdominal pain, nausea or vomiting Genitourinary Genitourinary ED: Denies dysuria Musculoskeletal Musculoskeletal: Denies myalgias Integumentary Denies rash Neurologic Neurologic: Denies headache(s) Psychiatric Psychiatric: Denies depression Endocrine Endocrinology: Denies polyuria Hematologic/Lymphatic Hematologic/Lymphatic: Denies easy bruising Allergic/Immunologic Allergic/Immunologic ED: Denies urticaria EXAM Physical Exam Narrative Exam Narrative: 76-year-old female no acute distress. Sitting upright in bed. Vital signs are stable and afebrile. Pulse ox 100% on room air no hypoxia. H EENT exam is a small contusion on her forehead. She has a small superficial lack on her nose that has a scab on it. Neither 1 of those are from today. Dentition intact. No acute trauma to her face. No hematomas, tenderness or lacerations to her scalp. C-spine is nontender. Trachea midline. Lungs are clear to auscultation. Heart regular rhythm rate about 65 no murmur. Sternum chest wall and rib cage are nontender. There is no ecchymosis or bruising. No subcu air crepitance. Abdomen soft nontender. Pelvic girdle intact. There is no shortening or rotation to either hip. Back is nontender. She is kyphotic. There is no bruising. Upper extremities are nontender. She can lift both arms. She can flex and extend at the elbows. 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 Lower extremities are nontender. She can flex and extend at both hips and knees. There is no deformity. Neurologically she is awake. She answers questions and follows commands. She is demented. She is moving all 4 extremities. Const Vital Signs: 11/20/21 17:36 Temperature 97.0 F L Temperature Source Temporal Pulse Rate 64 Respiratory Rate 15 Respiratory Effort Normal Respiratory Depth Normal Respiratory Pattern Normal Blood Pressure 112/47 L Blood Pressure Mean 68 Pulse Ox 100 Oxygen Delivery Method Room Air Positive well nourished and well developed; Negative for obese, cachectic, contractures or unkempt General Appearance ED: well developed and NAD; Negative for unkempt, cachectic or contractures Nutritional Appearance: Negative for cachectic or obese HEENT Denies normocephalic trauma; Negative for tenderness Eyes PERRL and EOMs intact bilaterally General Eye ED: Negative for pale conjunctiva or scleral icterus Neck full ROM, no lymphadenopathy and supple General: Negative for tenderness Chest Wall inspection of chest normal and palpation of chest normal Resp normal respiratory effort, no retractions and clear to auscultation bilaterally Auscultation: Negative for rales, rhonchi or wheezes Cardio regular rate, regular rhythm, S1 normal heart sound, S2 normal heart sound and no murmurs Rate: Negative for bradycardia or tachycardic Rhythm: Negative for abnormal rhythm GI non-tender, non-distended and no masses Auscultation: normoactive bowel sounds Palpation: soft; Negative for guarding or rebound tenderness present Back/Spine no CVA tenderness General Back: Negative for CVA tenderness Cervical Spine: Negative for cervical spine tenderness Thoracic Spine / Upper Back: Negative for thoracic spinal tenderness Lumbar Spine / Lower Back: Negative for lumbar spinal tenderness or paraspinal muscle tenderness Extremity normal to inspection, full ROM, no joint enlargement, no calf tenderness and no pedal edema Extremity Narrative: Upper and lower extremities are nontender. No shortening or rotation of the lower extremities. Neuro Neuro Narrative: Elderly female. History of dementia. She is awake. She is alert. She answers questions and follows commands. Sensorium / Orientation: alert and oriented to person Psych mental status grossly normal and thought process normal Appearance: Negative for unkempt Mood & Affect: Negative for depressed or tearful Skin Lesions: no lesions Rashes: no rashes and rashes noted Trauma: Negative for abrasion or laceration MDM MDM MDM Narrative Medical decision making narrative: 76-year-old from a long-term with dementia. There is no acute findings on her. There is no signs of any fractures. She has had recent work-ups including CAT scans. She is not on any blood thinner. There is no acute signs of trauma to her head today. There is no tenderness. Or hematomas. I do not think she needs any imaging today or labs. Her is here I will discuss with him and she will be discharged back to the extended care facility. I have already discussed with them via phone. Discharge Plan Triage Chief Complaint: Fall ED Provider: Pedro Garcia Dx/Rx/DC Orders Clinical Impression: Fall, Head injury Instructions: Preventing Falls How to ... Prescriptions: No Action alendronate 70 MG tablet 70 mg PO HILL RF: 0 metoprolol succinate 25 MG tablet 25 mg PO DAILY RF: 0 clonazepam 0.5 MG tablet 1 mg PO TID RF: 0 carbidopa-levodopa [Sinemet] 1 EACH tablet 0.5 tab PO 4X/DAY RF: 0 ibuprofen 200 MG tablet 400 mg PO Q6H PRN (Reason: Pain Or Fever) RF: 0 mirtazapine 15 MG tablet,disintegrating 15 mg PO QHS RF: 0 polyethylene glycol 8000(bulk) 500 GM powder 17 g PO DAILY PRN (Reason: Constipation) RF: 0 acetaminophen 500 MG tablet 500 mg PO Q6H PRN (Reason: Pain) RF: 0 docusate sodium 100 MG capsule 100 mg PO DAILY PRN (Reason: Constipation) RF: 0 atorvastatin 20 mg Tablet 20 mg PO QHS RF: 0 donepezil 5 mg Tablet 5 mg PO DAILY RF: 0 diphenhydramine HCl 25 mg Capsule 25 mg PO BID PRN (Reason: Anxiety) RF: 0 quetiapine 25 mg Tablet 25 mg PO TID RF: 0 Elmiron 100 mg Capsule 100 mg PO TID RF: 0 acetaminophen 325 mg Tablet 1,000 mg PO Q4H PRN (Reason: pain/fever) RF: 0 phenazopyridine 200 mg Tablet 200 mg PO TID PRN (Reason: Bladder Spasms) RF: 0 ergocalciferol (vitamin D2) [Ergo-D] 1,250 mcg (50,000 unit) Capsule 1,250 mcg PO QWEEK RF: 0 ondansetron 4 mg Tablet,Disintegrating 4 mg PO Q8H PRN (Reason: Nausea) RF: 0 Preparation H Cream 1 applic topical 4X/DAY RF: 0 Nuplazid 34 mg Capsule 34 mg PO DAILY RF: 0 Primary Care Provider: Rain Mccormick Referrals: Rain Mccormick DO [Primary Care Provider] - As Needed Disposition Disposition: Home, Self Care
[2021-11-20 18:44] VITALS: BP 152/74; PULSE 86; RESP 15; O2SAT 98
== END 2021-11-20 18:45 | disposition home or self-care (01) ==
PROVIDERS: Emergency Provider Emergency Medicine; PCP Internal Medicine; Visit Provider Emergency Medicine
DX: S09.90XA Unspecified injury of head, initial encounter (principal); G20 Parkinson's disease; F02.80 Dementia in other diseases classified elsewhere, unspecified severity, without behavioral disturbance, psychotic disturbance, mood disturbance, and anxiety; E11.9 Type 2 diabetes mellitus without 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; W18.30XA Fall on same level, unspecified, initial encounter
CPT/HCPCS: 99283

== ENCOUNTER 2021-11-24 06:00 | Emergency (ER) | payer MEDICARE, OTHER, SELFPAY ==
[2021-11-24 06:01] VITALS: BP 172/86; PULSE 84; RESP 16; TEMP 36.2; O2SAT 100; BMI 19.9
--- NOTE | 2021-11-24 06:12 | CT_ITS ---
STUDY: CT BRAIN WITHOUT CONTRAST REASON FOR EXAM: Female, 76 years old. head injury RADIATION DOSAGE (If Supplied By Facility): CTDIvol = ( 44.99 ) mGy, DLP = ( 812.98 ) mGycm TECHNIQUE: Transaxial CT imaging of the brain was performed without administration of intravenous contrast material. Individualized dose optimization techniques were used for this CT. COMPARISON: No relevant priors. FINDINGS: Normal soft tissue structures. Normal calvarium. There is moderate cerebral atrophy with widening of the extra-axial spaces and ventricular dilatation. There are areas of decreased attenuation within the white matter tracts of the supratentorial brain, consistent with microvascular disease changes. Normal basal ganglia and thalami. Normal brainstem. Normal cerebellum. There is no intracranial hemorrhage. There are no findings of an acute ischemic infarction. Normal visualized paranasal sinuses. CT/Brain/Head without Contrast IMPRESSION: Chronic involutional changes of the brain. Electronically Signed: Bennie Trotter DO at 6:48 EST ,
--- NOTE | 2021-11-24 06:12 | CT_ITS ---
STUDY: CT THORACIC SPINE WITHOUT CONTRAST REASON FOR EXAM: Female, 76 years old. injury RADIATION DOSAGE (If Supplied By Facility): CTDIvol = ( 18.50 ) mGy, DLP = ( 662.12 ) mGycm TECHNIQUE: The patient was scanned in a multi detector CT scanner. High resolution imaging was performed. Images were obtained from C7 to L1. Sagittal and coronal images were reconstructed. Individualized dose optimization techniques were used for this CT. COMPARISON: None. FINDINGS: Normal visualized cervical spine. Normal kyphosis of the thoracic spine. There is no substantial scoliosis. There is multilevel endplate spondylosis of the thoracic spine. Normal disc spaces heights. The soft tissue structures are unremarkable. CT/Spine Thoracic without Contras IMPRESSION: No acute fracture or subluxation. Electronically Signed: Arnaldo Argueta MD at 7:15 EST ,
--- NOTE | 2021-11-24 06:12 | CT_ITS ---
STUDY: CT CERVICAL SPINE WITHOUT CONTRAST REASON FOR EXAM: Female, 76 years old. Injury RADIATION DOSAGE (If Supplied By Facility): CTDIvol = ( 14.42 ) mGy, DLP = ( 265.51 ) mGycm TECHNIQUE: High resolution transaxial imaging was performed without contrast material. Sagittal and coronal images were reconstructed. Individualized dose optimization techniques were used for this CT. COMPARISON: November 13, 2020 CT scan cervical spine FINDINGS: Normal craniovertebral junction. There are degenerative changes of the anterior atlantoaxial articulation. Normal odontoid process. Normal cervical lordosis. There is multilevel degenerative change including a large disc osteophyte protruding into the canal similar to the prior study. C2-3: There is facet arthropathy. There is minimal neural foramina narrowing is significant central stenosis C3-4: There is disc space narrowing and facet arthropathy mild left neural foramina narrowing no significant central stenosis. C4-5: There is a broad disc bulge facet arthropathy moderate to severe left neural foramina narrowing mild right neural foraminal narrowing minimal central stenosis. C5-6: There is a visualized disc osteophyte protrusion with moderate neural foraminal narrowing moderate central stenosis. C6-7: There is disc space narrowing spondylosis minimal neural foramina narrowing no significant central stenosis. C7-T1: Normal endplates. Normal disc height and morphology. Normal central canal and intervertebral neuroforamina. There is visualized and homogeneous enlargement of the right greater than left thyroid lobe. Similar to prior study. CT/Spine Cervical without Contras IMPRESSION: Multilevel degenerative change most significant at C5-C6 with moderate central stenosis. Similar to prior study. No visualized acute loss of height or alignment. Enlarged and homogeneous right greater than left thyroid lobe similar to prior study. Recommend follow-up thyroid ultrasound laboratory values when appropriate on a routine basis. Electronically Signed: Tamia Borges MD at 6:51 EST Reading Location ID and State: [facility] / [place] Tel , Service support ,
--- NOTE | 2021-11-24 06:12 | CT_ITS ---
We are attempting to reach an attending provider to discuss findings. An addendum with communication details will be sent when the communication is complete. STUDY: CT LUMBAR SPINE WITHOUT CONTRAST REASON FOR EXAM: Female, 76 years old. Injury RADIATION DOSAGE (If Supplied By Facility): CTDIvol = ( 15.20 ) mGy, DLP = ( 498.60 ) mGycm TECHNIQUE: The patient was scanned in a multi detector CT scanner. High resolution transaxial imaging was performed. Images were obtained from to . Sagittal and coronal images were reconstructed. Individualized dose optimization techniques were used for this CT. COMPARISON: CT pelvis May 21, 2021 FINDINGS: Normal lumbar lordosis. There is no substantial scoliosis. The bones are severely osteopenic. There is an acute depressed appearing fracture of the anterior aspect of the atrium at the level of S1 with an offset overriding appearance of the fragment anteriorly over the posterior fragment. There is a persistent bridging osteophyte at that level. L1-2: There is visualized vacuum phenomenon. There is a broad disc osteophyte with minimal neural foramina narrowing. L2-3: There is posterior osteophytosis moderate neural foramina narrowing moderate central stenosis facet arthropathy. L3-4: There is disc space narrowing broad left lateral disc osteophyte mild to moderate neural foramina narrowing mild central stenosis L4-5: There is a minimal broad-based disc bulge facet arthropathy mild neural foramina narrowing is significant central stenosis. L5-S1: There is a fracture of the anterior aspect of L5 and the fragmented appearance with inferior displacement. There is degenerative change in the SI joints. There is a small amount of free fluid in the pelvis. Normal visualized paraspinous soft tissue structures. CT/Spine Lumbar without Contrast IMPRESSION: Acute fracture at the level of S1. Slight depression and overriding appearance. Bony osteopenia and advanced degenerative change of the lumbar spine especially L2-L3. Electronically Signed: Tamia Borges MD at 6:57 EST ,
--- NOTE | 2021-11-24 06:16 | EDS_ITS ---
HPI HPI - Fall History of Present Illness Chief Complaint: Fall Informant: patient and spouse/S.O. Narrative Narrative: Patient brought in by picked up from [place] reported fall this evening. Patient states going to the restroom when she fell between the toilet. She is unclear how. Reports back pain upper and lower. States she did not hit her head. However does have history of dementia. Per at her baseline waxing waning whether she falls or not. She does not take anticoagulation medicines. Reports was here a few days ago for a fall. Reports she should not be walking is in a wheelchair if she does walk cannot monitor she will fall. She was able to walk into the car without difficulties for which she states better than a few days ago. Discussion with DNR status, he reports DNR comfort care only. Prior similar symptoms: Yes PFSH PFSH Medical History Bipolar disorder Dementia Depression Diabetes Fibromyalgia Interstitial cystitis Overactive bladder Parkinsons Personality disorder Home Medications alendronate 70 mg PO HILL 12/21/18 [History Last Taken 05/07/20] metoprolol succinate 25 mg PO DAILY 12/21/18 [History Last Taken 05/11/20] clonazepam 1 mg PO TID 03/10/19 [History Last Taken 11/19/20 11:00] carbidopa-levodopa [Sinemet] 0.5 tab PO 4X/DAY 04/12/20 [History Last Taken 11/19/20 06:00] ibuprofen 400 mg PO Q6H PRN 05/12/20 [History Last Taken Unknown] mirtazapine 15 mg PO QHS 09/09/20 [History Last Taken Unknown] acetaminophen 500 mg PO Q6H PRN 11/19/20 [History Last Taken Unknown] docusate sodium 100 mg PO DAILY PRN 11/19/20 [History Last Taken Unknown] polyethylene glycol 8000(bulk) 17 g PO DAILY PRN 11/19/20 [History Last Taken Unknown] atorvastatin 20 mg PO QHS 02/06/21 [History Last Taken Unknown] donepezil 5 mg PO DAILY 02/06/21 [History Last Taken Unknown] diphenhydramine HCl 25 mg PO BID PRN 10/31/21 [History Last Taken Unknown] acetaminophen 1,000 mg PO Q4H PRN 11/19/21 [History Last Taken Unknown] ergocalciferol (vitamin D2) [Ergo-D] 1,250 mcg PO QWEEK 11/19/21 [History Last Taken Unknown] ondansetron 4 mg PO Q8H PRN 11/19/21 [History Last Taken Unknown] pentosan polysulfate sodium [Elmiron] 100 mg PO TID 11/19/21 [History Last Taken Unknown] phenazopyridine 200 mg PO TID PRN 11/19/21 [History Last Taken Unknown] phenyleph-shark [id number] [Preparation H] 1 applic TOPICAL 4X/DAY 11/19/21 [History Last Taken Unknown] pimavanserin [Nuplazid] 34 mg PO DAILY 11/19/21 [History Last Taken Unknown] quetiapine 25 mg PO TID 11/19/21 [History Last Taken Unknown] Allergy/AdvReac Type Severity Reaction Status Date / Time rhubarb Allergy Unknown PT UNSURE Verified 11/24/21 06:06 OF REACTION seasonal Allergy NEEDS Uncoded 11/19/21 13:52 FOLLOW-UP Social History Smoking Status: Never smoker substance use type: does not use ROS ROS ED Review of Systems ROS Unobtainable: other Details: Limited due to dementia history. ENT ENT ED: Denies dysphagia Cardiovascular Cardiovascular: Denies chest pain or leg edema Gastrointestinal Gastrointestinal: Denies abdominal pain, nausea or vomiting Musculoskeletal Musculoskeletal: Reports back pain; Denies extremity pain or neck pain Integumentary Denies wounds Neurologic Neurologic: Denies headache(s) EXAM Physical Exam Const Vital Signs: 11/24/21 06:01 11/24/21 06:07 11/24/21 07:46 Temperature 97.1 F L 98.2 F Temperature Source Temporal Pulse Rate 84 67 Respiratory Rate 16 17 Respiratory Depth Normal Respiratory Pattern Normal Blood Pressure 172/86 H Blood Pressure Mean 114 Pulse Ox 100 99 Oxygen Delivery Method Room Air 11/24/21 07:48 Temperature Temperature Source Pulse Rate Respiratory Rate Respiratory Depth Respiratory Pattern Blood Pressure 163/64 H Blood Pressure Mean 97 Pulse Ox Oxygen Delivery Method Positive cachectic General Appearance ED: cachectic Nutritional Appearance: cachectic HEENT Reports normocephalic HEENT Narrative: Healing bruise left upper forehead currently yellow in color. No hemotympanums. Eyes PERRL and EOMs intact bilaterally Neck supple Neck Narrative: No midline tenderness or step-off. General: Negative for tenderness Chest Wall inspection of chest normal Chest Narrative: No chest wall tenderness Resp normal respiratory effort Resp Narrative: Symmetric breath sounds. Cardio regular rate, regular rhythm and no murmurs GI non-tender and non-distended Palpation: soft Back/Spine Back/Spine Narrative: Tender palpation upper thoracic spine midline without step-offs. Tender palpation mid lumbar spine without step-offs. Extremity normal to inspection and full ROM Extremity Narrative: Negative logroll lower extremities bilaterally. No deformities. Pulses intact x4. Neuro Neuro Narrative: Alert to person, baseline Skin Skin Narrative: See above MDM MDM MDM Narrative Medical decision making narrative: Patient dementia history healing bruise on the forehead. With unwitnessed fall pain down her spine, trauma scans head neck thoracic lumbar obtained. Head neck thoracic all normal. Her lumbar spine x- ray discussion with radiologist concerning for acute fracture level of S1 causing depression. She reported overlap concerns for possible instability and recommended possible MRI if surgery would be needed. I discussed with at bedside, discussed the findings and reported concerns and possible nerve impingement involvement. Discussed possible instability. I discussed with him what he wants surgery for his spouse being her decision maker. He states she should not be walking. She should be in a wheelchair for stability otherwise she would fall. He does not want surgery for her. She is DNR comfort care only. Discussed recommendations will be referred back to facility for close monitoring ambulating only with monitoring however should be wheelchair as her baseline status. She was able to walk into the department. Nursing will call facility for recommendations. Radiography Diagnostic Testing: Clinical Impression(s) from Imaging Studies Brain CT 11/24/21 06:12 IMPRESSION: Chronic involutional changes of the brain. Electronically Signed: Bennie Trotter DO at 6:48 EST , Cervical Spine CT 11/24/21 06:12 IMPRESSION: Multilevel degenerative change most significant at C5-C6 with moderate central stenosis. Similar to prior study. No visualized acute loss of height or alignment. Enlarged and homogeneous right greater than left thyroid lobe similar to prior study. Recommend follow-up thyroid ultrasound laboratory values when appropriate on a routine basis. Electronically Signed: Tamia Borges MD at 6:51 EST , Lumbar Spine CT 11/24/21 06:12 IMPRESSION: Acute fracture at the level of S1. Slight depression and overriding appearance. Bony osteopenia and advanced degenerative change of the lumbar spine especially L2-L3. Electronically Signed: Tamia Borges MD at 6:57 EST , ADDENDUM: 11/24/21 0714 IMPRESSION: Acute fracture at the level of S1. Slight depression and overriding appearance. Bony osteopenia and advanced degenerative change of the lumbar spine especially L2-L3. N.B. : The above Results were Read Back by Tamia Borges MD to Demetris Robledo MD, and understanding confirmed on 11/24/2021 07:07:39 (ET). Electronically Signed: Tamia Borges MD at 6:57 EST , Thoracic Spine CT 11/24/21 06:12 IMPRESSION: No acute fracture or subluxation. Electronically Signed: Arnaldo Argueta MD at 7:15 EST , Discharge Plan Triage Chief Complaint: Fall ED Provider: Demetris Robledo Dx/Rx/DC Orders Clinical Impression: Closed compression fracture of sacrum, Falls, Dementia, DNR (do not resuscitate) Instructions: ED Fracture, Vertebral Compression Prescriptions: No Action alendronate 70 MG tablet 70 mg PO HILL RF: 0 metoprolol succinate 25 MG tablet 25 mg PO DAILY RF: 0 clonazepam 0.5 MG tablet 1 mg PO TID RF: 0 carbidopa-levodopa [Sinemet] 1 EACH tablet 0.5 tab PO 4X/DAY RF: 0 ibuprofen 200 MG tablet 400 mg PO Q6H PRN (Reason: Pain Or Fever) RF: 0 mirtazapine 15 MG tablet,disintegrating 15 mg PO QHS RF: 0 polyethylene glycol 8000(bulk) 500 GM powder 17 g PO DAILY PRN (Reason: Constipation) RF: 0 acetaminophen 500 MG tablet 500 mg PO Q6H PRN (Reason: Pain) RF: 0 docusate sodium 100 MG capsule 100 mg PO DAILY PRN (Reason: Constipation) RF: 0 atorvastatin 20 mg Tablet 20 mg PO QHS RF: 0 donepezil 5 mg Tablet 5 mg PO DAILY RF: 0 diphenhydramine HCl 25 mg Capsule 25 mg PO BID PRN (Reason: Anxiety) RF: 0 quetiapine 25 mg Tablet 25 mg PO TID RF: 0 Elmiron 100 mg Capsule 100 mg PO TID RF: 0 acetaminophen 325 mg Tablet 1,000 mg PO Q4H PRN (Reason: pain/fever) RF: 0 phenazopyridine 200 mg Tablet 200 mg PO TID PRN (Reason: Bladder Spasms) RF: 0 ergocalciferol (vitamin D2) [Ergo-D] 1,250 mcg (50,000 unit) Capsule 1,250 mcg PO QWEEK RF: 0 ondansetron 4 mg Tablet,Disintegrating 4 mg PO Q8H PRN (Reason: Nausea) RF: 0 Preparation H Cream 1 applic topical 4X/DAY RF: 0 Nuplazid 34 mg Capsule 34 mg PO DAILY RF: 0 Primary Care Provider: Rain Mccormick Referrals: Rain Mccormick DO [Primary Care Provider] - Activity Restrictions/Additional Instructions: Fracture of sacrum upper with depression. Will need close monitoring ambulating only with assistance, wheelchair use and transport as stated and discussed current plans by back at facility. Additional falls can cause increased instability of fracture. No surgery per . Disposition Disposition: Long Term Facility Discharge Location: [facility] Discharge Date/Time: 11/24/21 07:53 Capacity Capacity Assessment Tool Can the patient make a choice & communicate that choice?: No Can the patient understand benefits, risks and alternatives?: No Can the patient make a logical, rational choice?: No Is the choice the patient makes consistent w/ their values?: Unable to Determine Is there an impending, emergent risk to the patient?: Unable to Determine Does the patient have an Advance Directive?: Yes Is there a Surrogate Available?: Yes i.e. HCPOA: Yes i.e. close relative (spouse, child, parent, sibling)?: Yes (spouse)
[2021-11-24 07:46] VITALS: PULSE 67; RESP 17; TEMP 36.8; O2SAT 99
[2021-11-24 07:48] VITALS: BP 163/64
--- NOTE | 2021-11-24 07:55 | ED.RN ---
called report to staci and gave instructions and stressed the importancce of her to stay in the wheelchair and prevent further falls that could result in a more drastic injury/outcome
== END 2021-11-24 07:53 | disposition skilled nursing facility (03) ==
PROVIDERS: Emergency Provider Emergency Medicine; PCP Internal Medicine; Visit Provider Emergency Medicine
DX: M48.54XA Collapsed vertebra, not elsewhere classified, thoracic region, initial encounter for fracture (principal); G20 Parkinson's disease; F03.90 Unspecified dementia, unspecified severity, without behavioral disturbance, psychotic disturbance, mood disturbance, and anxiety; F31.9 Bipolar disorder, unspecified; E11.9 Type 2 diabetes mellitus without 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; Z66 Do not resuscitate; M79.7 Fibromyalgia; W18.11XA Fall from or off toilet without subsequent striking against object, initial encounter
CPT/HCPCS: 70450; 72125; 72128; 72131; 99282

== ENCOUNTER 2021-11-28 11:58 | Inpatient (IN) | payer MEDICARE, OTHER, SELFPAY ==
[2021-11-28 12:00] VITALS: BP 148/86; PULSE 80; RESP 18; TEMP 36.2; O2SAT 98; BMI 21.7
--- NOTE | 2021-11-28 12:24 | EKG12_ITS ---
Test Reason : Blood Pressure : / mmHG Vent. Rate : 067 BPM Atrial Rate : 067 BPM P-R Int : 122 ms QRS Dur : 086 ms QT Int : 472 ms P-R-T Axes : 032 022 022 degrees QTc Int : 498 ms Normal sinus rhythm Low voltage QRS Nonspecific ST and T wave abnormality Abnormal ECG Confirmed by WONG KELLEY, EUGENIA ([id number]), art editor ENMA BLACKWOOD ([id number]) on 11/30/2021 7:23:08 AM Referred By: Confirmed By:SHANA BACK MD
--- NOTE | 2021-11-28 12:24 | CT_ITS ---
STUDY: CT BRAIN WITHOUT CONTRAST REASON FOR EXAM: Female, 76 years old. Seizure RADIATION DOSAGE (If Supplied By Facility): CTDIvol = ( 44.99 ) mGy, DLP = ( 829.85 ) mGycm TECHNIQUE: Transaxial CT imaging of the brain was performed without administration of intravenous contrast material. Individualized dose optimization techniques were used for this CT. COMPARISON: 11/24/2021 FINDINGS: Normal soft tissue structures. Normal calvarium. There is mild cerebral atrophy with widening of the extra-axial spaces and ventricular dilatation. There are areas of decreased attenuation within the white matter tracts of the supratentorial brain, consistent with microvascular disease changes. Normal basal ganglia and thalami. Normal brainstem. Normal cerebellum. There is no intracranial hemorrhage. There are no findings of an acute ischemic infarction. Normal visualized paranasal sinuses. CT/Brain/Head without Contrast IMPRESSION: 1. No acute intracranial hemorrhage or mass effect. 2. Central parenchymal volume loss. White matter changes that are nonspecific but most commonly associated with chronic small vessel ischemic disease. Electronically Signed: Quinn Rubi MD (Bro[place]) at 13:11 EDT Reading Location ID and State: [address] [place] [address] , Service support ,
--- NOTE | 2021-11-28 12:27 | EDS_ITS ---
HPI <Sean Boggs MD - Last Filed: 11/29/21 07:18> History of Present Illness Chief Complaint: Seizure Narrative Narrative: Patient presents with her because of new onset seizure. She has history of frequent falls, dementia, and lives in [place] assisted [facility]. states he thinks that she had a seizure for about 10 to 15 minutes 3 days ago while at [place]. It was reported that she was shaking all over. When they went to see her primary care physician, Dr. Mccormick, approximately 1 hour ago she had a seizure. She was sitting in her wheelchair and started shaking. While her eyes rolled in the back of her head, states that she does this frequently. She has had frequent falls and has bruising on her left forehead towards her hairline. He states that the seizure lasted approximately 1 minute where she shook but had no loss of bowel or bladder. It was hard to say whether or not she was postictal with confusion as she has mild baseline confusion with her history of dementia. PFSH <Sean Boggs MD - Last Filed: 11/29/21 07:18> [facility] Medical History Bipolar disorder Dementia Depression Diabetes Fibromyalgia Interstitial cystitis Overactive bladder Parkinsons Personality disorder Home Medications alendronate 70 mg PO HILL 12/21/18 [History Last Taken 05/07/20] metoprolol succinate 25 mg PO DAILY 12/21/18 [History Last Taken 05/11/20] clonazepam 1 mg PO TID 03/10/19 [History Last Taken 11/19/20 11:00] carbidopa-levodopa [Sinemet] 0.5 tab PO 4X/DAY 04/12/20 [History Last Taken 11/19/20 06:00] ibuprofen 400 mg PO Q6H PRN 05/12/20 [History Last Taken Unknown] mirtazapine 15 mg PO QHS 09/09/20 [History Last Taken Unknown] acetaminophen 500 mg PO Q6H PRN 11/19/20 [History Last Taken Unknown] docusate sodium 100 mg PO DAILY PRN 11/19/20 [History Last Taken Unknown] polyethylene glycol 8000(bulk) 17 g PO DAILY PRN 11/19/20 [History Last Taken Unknown] atorvastatin 20 mg PO QHS 02/06/21 [History Last Taken Unknown] donepezil 5 mg PO DAILY 02/06/21 [History Last Taken Unknown] diphenhydramine HCl 25 mg PO BID PRN 10/31/21 [History Last Taken Unknown] acetaminophen 1,000 mg PO Q4H PRN 11/19/21 [History Last Taken Unknown] ergocalciferol (vitamin D2) [Ergo-D] 1,250 mcg PO QWEEK 11/19/21 [History Last Taken Unknown] ondansetron 4 mg PO Q8H PRN 11/19/21 [History Last Taken Unknown] pentosan polysulfate sodium [Elmiron] 100 mg PO TID 11/19/21 [History Last Taken Unknown] phenazopyridine 200 mg PO TID PRN 11/19/21 [History Last Taken Unknown] phenyleph-shark [id number] [Preparation H] 1 applic TOPICAL 4X/DAY 11/19/21 [History Last Taken Unknown] pimavanserin [Nuplazid] 34 mg PO DAILY 11/19/21 [History Last Taken Unknown] carbidopa-levodopa 1 tab PO 4X/DAY 11/28/21 [History Last Taken Unknown] Allergy/AdvReac Type Severity Reaction Status Date / Time rhubarb Allergy Unknown PT UNSURE Verified 11/28/21 12:04 OF REACTION seasonal Allergy NEEDS Uncoded 11/28/21 12:04 FOLLOW-UP Social History Smoking Status: Never smoker substance use type: does not use ROS <Sean Boggs MD - Last Filed: 11/29/21 07:18> ROS ED ROS Narrative Review of systems limited secondary to dementia. Majority of review of systems is from . Constitutional: No fever, no chills. HEENT: No sore throat. No neck pain. No loss of vision. No rhinorrhea. Cardiovascular: No chest pain. No palpitations. No pedal edema. Respiratory: No cough, no shortness of breath. Abdominal: No abdominal pain. No nausea. No vomiting. Genitourinary: No dysuria. No hematuria. Musculoskeletal: No myalgias. No arthralgias. Neurologic: No headaches. No dizziness. No lightheadedness. Positive seizure today, and 3 days ago. Skin: No rash. No change in color. Psychiatric: No depression. No anxiety. Review of Systems ROS Unobtainable: due to mental condition EXAM <Sean Boggs MD - Last Filed: 11/29/21 07:18> Physical Exam Narrative Exam Narrative: Afebrile. Vital signs noted. HEENT: Normocephalic. Positive ecchymosis on hairline more towards left forehead. PERRL, EOMI. Neck soft and supple. No point tenderness or step off. Cardiovascular: Regular rate and rhythm. No murmurs, rubs, or gallops appreciated. Respiratory: No tachypnea. Lungs clear to auscultation bilaterally. Gastrointestinal: Abdomen soft, nontender, with normoactive bowel sounds. No rebound or guarding. Neurological: Awake. Alert. Oriented to place, person, year, and month. Nonfocal, nonlateralizing. Skin: No rash. Normal color. No pallor. Musculoskeletal: No pedal edema. Full range of motion extremities. Const Vital Signs: 11/28/21 12:00 11/28/21 14:38 11/28/21 17:09 Temperature 97.1 F L Temperature Source Temporal Pulse Rate 80 62 70 Respiratory Rate 18 18 16 Blood Pressure 148/86 H 162/73 H 162/65 H Blood Pressure Mean 106 102 97 Pulse Ox 98 97 97 Oxygen Delivery Method Room Air Room Air Room Air 11/28/21 20:50 11/28/21 22:15 11/29/21 00:11 Temperature Temperature Source Pulse Rate 67 67 58 L Respiratory Rate 15 15 17 Blood Pressure 137/58 H 135/84 H 138/60 H Blood Pressure Mean 84 101 86 Pulse Ox 98 97 Oxygen Delivery Method Room Air Room Air Room Air 11/29/21 05:19 Temperature Temperature Source Pulse Rate 58 L Respiratory Rate 15 Blood Pressure 133/66 H Blood Pressure Mean 88 Pulse Ox 97 Oxygen Delivery Method Room Air <Dr. Kartik Sliva MD - Last Filed: 11/28/21 19:14> Physical Exam Const Vital Signs: 11/28/21 12:00 11/28/21 14:38 11/28/21 17:09 Temperature 97.1 F L Temperature Source Temporal Pulse Rate 80 62 70 Respiratory Rate 18 18 16 Blood Pressure 148/86 H 162/73 H 162/65 H Blood Pressure Mean 106 102 97 Pulse Ox 98 97 97 Oxygen Delivery Method Room Air Room Air Room Air 11/28/21 20:50 11/28/21 22:15 11/29/21 00:11 Temperature Temperature Source Pulse Rate 67 67 58 L Respiratory Rate 15 15 17 Blood Pressure 137/58 H 135/84 H 138/60 H Blood Pressure Mean 84 101 86 Pulse Ox 98 97 Oxygen Delivery Method Room Air Room Air Room Air 11/29/21 05:19 Temperature Temperature Source Pulse Rate 58 L Respiratory Rate 15 Blood Pressure 133/66 H Blood Pressure Mean 88 Pulse Ox 97 Oxygen Delivery Method Room Air [facility] <Sean Boggs MD - Last Filed: 11/29/21 07:18> [facility] Narrative Medical decision making narrative: Comprehensive work-up was pursued. I will also obtain prolactin. EKG demonstrates normal sinus rhythm at 67 bpm without ectopy or acute ST changes. I will obtain a CT of her brain given her new onset seizures. Her CT of the brain shows no acute process, WBC count normal at 11.0, hemoglobin stable at 10.6. Her potassium slightly low at 3.3. Creatinine is 1.4 but she has a chronic kidney injury BUN slightly elevated 24. Chloride high at 108. Prolactin is 47.2. My interpretation of her chest x-ray shows no acute process, no infiltrate or pneumothorax. She will not allow straight catheterization for urinalysis. Her urine is currently pending. I discussed patient with Dr. Julien. He will speak with the patient and her . There is no EEG machine available here. Patient will be signed out to Dr. Silva to make final disposition on the patient and check the UA. had informed us that she is now amenable to straight catheterization. Disposition i s pending. Lab Data Labs: Laboratory Results - last 24 hr 11/28/21 11/28/21 11/28/21 12:05 12:05 16:25 WBC 11.0 RBC 3.79 L Hgb 10.6 L Hct 31.7 L MCV 83.6 MCH 28.0 MCHC 33.4 RDW Std Deviation 42.2 RDW Coeff of Jeff 13.9 Plt Count 224 MPV 11.7 Immature Gran % (Auto) 0.800 Neut % (Auto) 89.0 H Lymph % (Auto) 4.9 L [place] % (Auto) 5.1 Eos % (Auto) 0.1 Baso % (Auto) 0.1 Absolute Neuts (auto) 9.8 H Absolute Lymphs (auto) 0.54 L Nucleated RBC % 0 Sodium 144 Potassium 3.3 L Chloride 108 H Carbon Dioxide 23.0 Anion Gap 13 BUN 24 H Creatinine 1.41 H Estim Creat Clear Calc 27.69 Est GFR (MDRD) Af Amer 47 L Est GFR (MDRD) Non-Af 39 L BUN/Creatinine Ratio 17.0 Glucose 102 Calcium 8.3 L Total Bilirubin 0.90 AST 15 ALT 7 L Alkaline Phosphatase 98 Troponin I High Sens 6 Total Protein 5.6 L Albumin 2.9 L Globulin 2.7 Albumin/Globulin Ratio 1.1 Prolactin 47.2 Urine Color Yellow Urine Clarity Clear Urine pH 6.0 Ur Specific [place] 1.015 Urine Protein 30 H Urine Glucose (UA) Normal Urine Ketones 50 H Urine Occult Blood 10 H Urine Nitrite Negative Urine Bilirubin 1 H Urine Urobilinogen 1 H Ur Leukocyte Esterase 25 H Urine RBC 0 SEEN Urine WBC 0-5 SEEN Ur Squamous Epith Cells 0-5 SEEN Urine Bacteria 0 SEEN Urine Mucus 0 SEEN Radiography Diagnostic Testing: Clinical Impression(s) from Imaging Studies Brain CT 11/28/21 12:24 IMPRESSION: 1. No acute intracranial hemorrhage or mass effect. 2. Central parenchymal volume loss. White matter changes that are nonspecific but most commonly associated with chronic small vessel ischemic disease. Electronically Signed: Quinn Rubi MD (Brooks) at 13:11 EDT , Chest X-Ray 11/28/21 12:40 IMPRESSION: Nonacute portable x-ray examination of the chest. Electronically Signed: Quinn Rubi MD (Brooks) at 12:56 EDT , <Dr. Kartik Silva MD - Last Filed: 11/28/21 19:14> [facility] Narrative Medical decision making narrative: Patient remains clinically and hemodynamically stable in the emergency department and I was unable to witness any episodes, states she has not had any of them since she has been here. They wanted to go to [facility] however they do not have the capacity to accept this patient due to volume and the fact that they have boarded patients in the emergency department. He prefers that they stay within the [facility] system him since her neurologist is in their system which I think makes sense. I discussed with [facility] and they were able to connect me with Dr. Reyna who is a neurologist and read the note from the other neurologist, and agrees to have the patient admitted for further evaluation, they will call back with the exact facility whether it is [facility] or [facility] and when we get a bed we will transfer the patient by ambulance. Lab Data Attestation: I reviewed the patient's lab results. Labs: Laboratory Results - last 24 hr 11/28/21 11/28/21 11/28/21 12:05 12:05 16:25 WBC 11.0 RBC 3.79 L Hgb 10.6 L Hct 31.7 L MCV 83.6 MCH 28.0 MCHC 33.4 RDW Std Deviation 42.2 RDW Coeff of Jeff 13.9 Plt Count 224 MPV 11.7 Immature Gran % (Auto) 0.800 Neut % (Auto) 89.0 H Lymph % (Auto) 4.9 L [place] % (Auto) 5.1 Eos % (Auto) 0.1 Baso % (Auto) 0.1 Absolute Neuts (auto) 9.8 H Absolute Lymphs (auto) 0.54 L Nucleated RBC % 0 Sodium 144 Potassium 3.3 L Chloride 108 H Carbon Dioxide 23.0 Anion Gap 13 BUN 24 H Creatinine 1.41 H Estim Creat Clear Calc 27.69 Est GFR (MDRD) Af Amer 47 L Est GFR (MDRD) Non-Af 39 L BUN/Creatinine Ratio 17.0 Glucose 102 Calcium 8.3 L Total Bilirubin 0.90 AST 15 ALT 7 L Alkaline Phosphatase 98 Troponin I High Sens 6 Total Protein 5.6 L Albumin 2.9 L Globulin 2.7 Albumin/Globulin Ratio 1.1 Prolactin 47.2 Urine Color Yellow Urine Clarity Clear Urine pH 6.0 Ur Specific [place] 1.015 Urine Protein 30 H Urine Glucose (UA) Normal Urine Ketones 50 H Urine Occult Blood 10 H Urine Nitrite Negative Urine Bilirubin 1 H Urine Urobilinogen 1 H Ur Leukocyte Esterase 25 H Urine RBC 0 SEEN Urine WBC 0-5 SEEN Ur Squamous Epith Cells 0-5 SEEN Urine Bacteria 0 SEEN Urine Mucus 0 SEEN Radiography Diagnostic Testing: Clinical Impression(s) from Imaging Studies Brain CT 11/28/21 12:24 IMPRESSION: 1. No acute intracranial hemorrhage or mass effect. 2. Central parenchymal volume loss. White matter changes that are nonspecific but most commonly associated with chronic small vessel ischemic disease. Electronically Signed: Quinn Rubi MD (Brooks) at 13:11 EDT , Chest X-Ray 11/28/21 12:40 IMPRESSION: Nonacute portable x-ray examination of the chest. Electronically Signed: Quinn Rubi MD (Brooks) at 12:56 EDT , Discharge Plan Triage Chief Complaint: Seizure ED Provider: Sean Boggs Dx/Rx/DC Orders Clinical Impression: Transient alteration of awareness, Dementia Prescriptions: No Action alendronate 70 MG tablet 70 mg PO HILL RF: 0 metoprolol succinate 25 MG tablet 25 mg PO DAILY RF: 0 clonazepam 0.5 MG tablet 1 mg PO TID RF: 0 carbidopa-levodopa [Sinemet] 1 EACH tablet 0.5 tab PO 4X/DAY RF: 0 ibuprofen 200 MG tablet 400 mg PO Q6H PRN (Reason: Pain Or Fever) RF: 0 mirtazapine 15 MG tablet,disintegrating 15 mg PO QHS RF: 0 polyethylene glycol 8000(bulk) 500 GM powder 17 g PO DAILY PRN (Reason: Constipation) RF: 0 acetaminophen 500 MG tablet 500 mg PO Q6H PRN (Reason: Pain) RF: 0 docusate sodium 100 MG capsule 100 mg PO DAILY PRN (Reason: Constipation) RF: 0 atorvastatin 20 mg Tablet 20 mg PO QHS RF: 0 donepezil 5 mg Tablet 5 mg PO DAILY RF: 0 diphenhydramine HCl 25 mg Capsule 25 mg PO BID PRN (Reason: Anxiety) RF: 0 Elmiron 100 mg Capsule 100 mg PO TID RF: 0 acetaminophen 325 mg Tablet 1,000 mg PO Q4H PRN (Reason: pain/fever) RF: 0 phenazopyridine 200 mg Tablet 200 mg PO TID PRN (Reason: Bladder Spasms) RF: 0 ergocalciferol (vitamin D2) [Ergo-D] 1,250 mcg (50,000 unit) Capsule 1,250 mcg PO QWEEK RF: 0 ondansetron 4 mg Tablet,Disintegrating 4 mg PO Q8H PRN (Reason: Nausea) RF: 0 Preparation H Cream 1 applic topical 4X/DAY RF: 0 Nuplazid 34 mg Capsule 34 mg PO DAILY RF: 0 carbidopa-levodopa 25-100 mg Tablet 1 tab PO 4X/DAY RF: 0 Primary Care Provider: Rain Mccormick Referrals: Rain Mccormick DO [Primary Care Provider] - Disposition Disposition: Acute Care Hospital
--- NOTE | 2021-11-28 12:40 | RAD_ITS ---
STUDY: X-RAY CHEST REASON FOR EXAM: Female, 76 years old. pt had a 1.5 min long seizure at the residential. TECHNIQUE: AP COMPARISON: 11/07/2021 FINDINGS: EKG leads project over the chest. The lungs are clear and expanded. There is no demonstrated pleural abnormality. Normal size heart. Normal mediastinum and caesar. Normal visualized pulmonary arteries. Normal visualized aortic arch and descending thoracic aorta. Normal visualized thoracic spine. Operative changes of the proximal left humerus. There is no demonstrated abnormality of the visualized soft tissue structures of the upper abdomen. RAD/Chest 1 View (Portable) IMPRESSION: Nonacute portable x-ray examination of the chest. Electronically Signed: Quinn Rubi MD (Brooks) at 12:56 EDT ,
[2021-11-28 12:55] LABS: Absolute Lymphocyte Count 0.54 X10^3/uL (0.83-4.51); Absolute Neutrophil Count 9.8 X10^3/uL (2.0-7.7); Basophil# 0.01 X10^3/uL; Basophil% 0.1 % (0-1); Eosinophil# 0.01 X10^3/uL; Eosinophils% 0.1 % (0-5); Hematocrit 31.7 % (37-47); Hemoglobin 10.6 g/dL (12.0-15.0); Lymphocyte # 0.54 X10^3/ul (0.83-4.51); Lymphocyte % 4.9 % (19-41); Mean Corp Hgb Conc 33.4 g/dL (32-36); Mean Corpuscular Volume 83.6 fL (81-99); Mean Platelet Vol. 11.7 fl (6.2-12.0); Monocyte# 0.56 X10^3/uL; Monocyte% 5.1 % (0-10); NRBC Flagged by Analyzer 0 % (0-5); Neutrophil # 9.76 X10^3/uL (2.7-7.7); POSITIVE DIFFERENTIAL YES; Platelet Count 224 K/mm3 (150-450); RBC Distribution Width CV 13.9 % (11.6-14.6); RBC Distribution Width SD 42.2 fl (35.1-43.9); Red Blood Count 3.79 M/mm3 (4.2-5.4)
[2021-11-28 12:58] LABS: Differential Indicated SCAN CRITERIA MET
[2021-11-28 13:15] LABS: ALB/GLOB Ratio 1.1 RATIO (0.9-2.4); AST(SGOT) 15 U/L (15-37); Alanine Aminotransfer ALT/SGPT 7 U/L (13-56); Albumin, Serum 2.9 g/dL (3.2-5.0); Alkaline Phosphatase 98 U/L (45-117); Anion Gap 13 (5-15); BUN 24 mg/dL (7-18); Calcium,Total 8.3 mg/dL (8.5-10.1); Chloride 108 mmol/L (98-107); Creatinine, Serum 1.41 mg/dL (0.55-1.02); EST Glomerular Filtration Rate 39 mL/min (>60); Est Glom Filt Rate - Afr Amer 47 mL/min (>60); Estimated Creatinine Clearance 27.69 ml/min; Globulin 2.7 g/dL (2.2-4.2); Glucose 102 mg/dL (74-106); Potassium 3.3 mmol/L (3.5-5.1); Prolactin 47.2 ng/mL; Protein, Total 5.6 g/dL (6.4-8.2); Sodium Level 144 mmol/L (136-145); Troponin-I HS 6 pg/mL (3.0-54.0)
[2021-11-28 14:38] VITALS: BP 162/73; PULSE 62; RESP 18; O2SAT 97
--- NOTE | 2021-11-28 14:52 | ED.RN ---
pt refused to allow straight catheter. dr informed. elsie pendleton, rn [id number]
[2021-11-28 16:28] LABS: Bacteria 0 SEEN /hpf (None Seen); Mucous, Urine 0 SEEN /hpf (<or=2+); Red Blood Cells-Urine 0 SEEN /hpf (0-5)
[2021-11-28 16:32] LABS: Color, Urine Yellow (Yellow); Glucose, Dipstick Normal (Normal); Ketone-Dipstick 50 mg/dl (Negative); Leukocyte Esterase-Dipstick 25 /ul (Negative); Nitrite-Dipstick Negative (Negative); Occult Blood-Urine 10 /ul (Negative); Protein-Dipstick 30 mg/dl (Negative); Specific Gravity, Urine 1.015 (1.002-1.030); Urine Clarity Clear (Clear); Urine Urobilinogen 1 mg/dl (Normal)
[2021-11-28] MEDS: Carbidopa/Levodopa 25/100 Tablet PO (16:52)
[2021-11-28] MEDS: clonazePAM 1 MG Tablet PO (16:53)
[2021-11-28 17:09] VITALS: BP 162/65; PULSE 70; RESP 16; O2SAT 97
[2021-11-28 17:10] LABS: Urine Bilirubin Dipstick 1 mg/dL (Negative)
[2021-11-28 17:12] LABS: Squamous Epithelial Cells - UA 0-5 SEEN /hpf (5-10); White Blood Cells 0-5 SEEN /hpf (0-5)
--- NOTE | 2021-11-28 18:54 | ED.RN ---
pt arrives with a wound dressing on her buttox. bandage is in place without drainage. elsie pendleton rn [id number]
[2021-11-28] MEDS: Potassium Chloride 10mEq/100mL 10 MEQ/100 ML IV.SOLN. 100 MEQ IV BOLUS (19:38)
[2021-11-28 20:50] VITALS: BP 137/58; PULSE 67; RESP 15; O2SAT 98
--- NOTE | 2021-11-28 21:51 | ED.RN ---
night time meds given from prepackaged selves. dr joseph consulted and he agreed to being medicated in this fashion. copy of medication selves made and placed in medical record. elsie pendleton rn [id number]
[2021-11-28 22:15] VITALS: BP 135/84; PULSE 67; RESP 15
[2021-11-29] VITALS (9 sets, daily range): BP systolic 133–155; BP diastolic 53–67; PULSE 58–67; RESP 14–17; TEMP 36.3–36.8; O2SAT 96–100
[2021-11-29] MEDS: Acetaminophen 325 MG Tablet 650 MG PO ×2 (02:31→13:03)
[2021-11-29] MEDS: clonazePAM 1 MG Tablet PO ×3 (07:29→21:30)
[2021-11-29] MEDS: Metoprolol(XL)Succ 25 MG Tablet PO (07:29)
[2021-11-29] MEDS: Carbidopa/Levodopa 25/100 Tablet PO ×2 (07:29→18:30)
[2021-11-29] MEDS: Donepezil HCl 5 MG Tablet PO (07:29)
--- NOTE | 2021-11-29 09:19 | ED.RN ---
DR HILL PAGED THROUGH DR PERLA
--- NOTE | 2021-11-29 12:05 | HP.PCM.HOS_ITS ---
HPI - General General Date of Admission: 11/29/21 HPI Narrative JAZMINE ZHENG, is a 76 F who presents to the hospital with a new onset seizure. She has a history of Parkinson's with Parkinson's dementia and has been in the [place] assisted living and never had seizures before. Unfortunate no family is at bedside during my exam so history was obtained minimally from the patient and then from also the chart. Apparently she had a seizure for about 10 to 15 minutes 3 days prior to presentation to the ER and then she was at her doctor's office where she had a seizure that was witnessed by the physician who sent her into the ER. He does have a neurologist in the [facility] system who has been managing her dementia and her Parkinson's disease. Unfortunately our EEG machine is broken and therefore she is pending transfer to the [facility] system. Unfortunately the system is full so she will need to be admitted to the hospital for monitoring until a bed can open up so she can have a neurological as well as an EEG evaluation. [facility] Medical History (Updated 11/29/21 @ 12:[address] Claudio Mehta MD) Bipolar disorder Dementia Depression Diabetes Fibromyalgia Interstitial cystitis Overactive bladder Parkinsons Personality disorder Home Medications alendronate 70 mg PO HILL 12/21/18 [History Last Taken 05/07/20] metoprolol succinate 25 mg PO DAILY 12/21/18 [History Last Taken 05/11/20] clonazepam 1 mg PO TID 03/10/19 [History Last Taken 11/19/20 11:00] carbidopa-levodopa [Sinemet] 0.5 tab PO 4X/DAY 04/12/20 [History Last Taken 11/19/20 06:00] ibuprofen 400 mg PO Q6H PRN 05/12/20 [History Last Taken Unknown] mirtazapine 15 mg PO QHS 09/09/20 [History Last Taken Unknown] acetaminophen 500 mg PO Q6H PRN 11/19/20 [History Last Taken Unknown] docusate sodium 100 mg PO DAILY PRN 11/19/20 [History Last Taken Unknown] polyethylene glycol 8000(bulk) 17 g PO DAILY PRN 11/19/20 [History Last Taken Unknown] atorvastatin 20 mg PO QHS 02/06/21 [History Last Taken Unknown] donepezil 5 mg PO DAILY 02/06/21 [History Last Taken Unknown] diphenhydramine HCl 25 mg PO BID PRN 10/31/21 [History Last Taken Unknown] acetaminophen 1,000 mg PO Q4H PRN 11/19/21 [History Last Taken Unknown] ergocalciferol (vitamin D2) [Ergo-D] 1,250 mcg PO QWEEK 11/19/21 [History Last Taken Unknown] ondansetron 4 mg PO Q8H PRN 11/19/21 [History Last Taken Unknown] pentosan polysulfate sodium [Elmiron] 100 mg PO TID 11/19/21 [History Last Taken Unknown] phenazopyridine 200 mg PO TID PRN 11/19/21 [History Last Taken Unknown] phenyleph-shark [id number] [Preparation H] 1 applic TOPICAL 4X/DAY 11/19/21 [History Last Taken Unknown] pimavanserin [Nuplazid] 34 mg PO DAILY 11/19/21 [History Last Taken Unknown] carbidopa-levodopa 1 tab PO 4X/DAY 11/28/21 [History Last Taken Unknown] Allergy/AdvReac Type Severity Reaction Status Date / Time rhubarb Allergy Unknown PT UNSURE Verified 11/28/21 12:04 OF REACTION seasonal Allergy NEEDS Uncoded 11/28/21 12:04 FOLLOW-UP Family History (Updated 11/29/21 @ 12:[address] Claudio Mehta MD) Other Heart disease Surgical History (Updated 11/29/21 @ 12:[address] Claudio Mehta MD) Status post appendectomy Social History Smoking Status: Never smoker substance use type: does not use ROS Constitutional Constitutional: Denies chills, fatigue, fever(s) or malaise Eyes Eyes: Denies blurry vision ENT HEENT: Denies headache(s) or nasal discharge Cardiovascular Cardiovascular: Denies chest pain, dyspnea on exertion or syncope Respiratory/Chest Respiratory/Chest: Denies cough, shortness of breath at rest or shortness of breath with exertion Gastrointestinal Gastrointestinal: Denies constipation, diarrhea, nausea or vomiting Genitourinary Genitourinary: Denies dysuria Neurologic Neurologic: Reports seizures; Denies focal weakness, numbness or tremor(s) Psychiatric Psychiatric: Denies anxiety or depression Vital Signs Vital Signs Vital Signs: 11/28/21 14:38 11/28/21 17:09 11/28/21 20:50 Temperature Temperature Source Pulse Rate 62 70 67 Respiratory Rate 18 16 15 Blood Pressure 162/73 H 162/65 H 137/58 H Blood Pressure Mean 102 97 84 Pulse Ox 97 97 98 Oxygen Delivery Method Room Air Room Air Room Air 11/28/21 22:15 11/29/21 00:11 11/29/21 05:19 Temperature Temperature Source Pulse Rate 67 58 L 58 L Respiratory Rate 15 17 15 Blood Pressure 135/84 H 138/60 H 133/66 H Blood Pressure Mean 101 86 88 Pulse Ox 97 97 Oxygen Delivery Method Room Air Room Air Room Air 11/29/21 07:20 11/29/21 08:55 11/29/21 11:46 Temperature 98.3 F 98.1 F Temperature Source Temporal Temporal Pulse Rate 67 61 63 Respiratory Rate 16 15 16 Blood Pressure 146/53 H 153/66 H Blood Pressure Mean 84 95 Pulse Ox 97 99 96 Oxygen Delivery Method Room Air Room Air Room Air Weight Weight: 118 lb 9.739 oz Body Mass Index (BMI) 21.7 Physical Exam Const alert and no apparent distress Constitutional Narrative: Extremities are thin, she does have tremors secondary to her Parkinson's General Appearance: cooperative Orientation / Consciousness: oriented to person and oriented to time HEENT normocephalic Mouth: dry mucous membranes Eyes PERRL, EOMs intact bilaterally and conjunctivae normal Neck supple and no JVD Resp normal respiratory effort, no retractions, no use of accessory muscles and clear to auscultation bilaterally Auscultation: Negative for crackles, rales, rhonchi or wheezes Cardio regular rate, regular rhythm, S1 normal heart sound, S2 normal heart sound and no murmurs GI soft to palpation, non-tender and non-distended; Negative for hepatosplenomegaly Extremity no clubbing, cyanosis or edema Skin no rashes or lesions noted Neuro Neuro Narrative: Numbness in all of her extremities she does move all of her extremities. She does have rigidity which appears to be chronic Parkinson's Psych affect normal Appearance: appropriate Results Lab / Micro Data Result Diagrams: 11/28/21 12:05 11/28/21 12:05 Labs: Laboratory Results - last 24 hr 11/28/21 12:05: WBC 11.0, RBC 3.79 L, Hgb 10.6 L, Hct 31.7 L, MCV 83.6, MCH 28.0, MCHC 33.4, RDW Std Deviation 42.2, RDW Coeff of Jeff 13.9, Plt Count 224, MPV 11.7, Immature Gran % (Auto) 0.800, Neut % (Auto) 89.0 H, Lymph % (Auto) 4.9 L, Bates % (Auto) 5.1, Eos % (Auto) 0.1, Baso % (Auto) 0.1, Absolute Neuts (auto) 9.8 H, Absolute Lymphs (auto) 0.54 L, Nucleated RBC % 0 11/28/21 12:05: Sodium 144, Potassium 3.3 L, Chloride 108 H, Carbon Dioxide 23.0, Anion Gap 13, BUN 24 H, Creatinine 1.41 H, Estim Creat Clear Calc 27.69, Est GFR (MDRD) Af Amer 47 L, Est GFR (MDRD) Non-Af 39 L, BUN/Creatinine Ratio 17.0, Glucose 102, Calcium 8.3 L, Total Bilirubin 0.90, AST 15, ALT 7 L, Alkaline Phosphatase 98, Troponin I High Sens 6, Total Protein 5.6 L, Albumin 2.9 L, Globulin 2.7, Albumin/Globulin Ratio 1.1, Prolactin 47.2 11/28/21 16:25: Urine Color Yellow, Urine Clarity Clear, Urine pH 6.0, Ur Specific [place] 1.015, Urine Protein 30 H, Urine Glucose (UA) Normal, Urine Ketones 50 H, Urine Occult Blood 10 H, Urine Nitrite Negative, Urine Bilirubin 1 H, Urine Urobilinogen 1 H, Ur Leukocyte Esterase 25 H, Urine RBC 0 SEEN, Urine WBC 0-5 SEEN, Ur Squamous Epith Cells 0-5 SEEN, Urine Bacteria 0 SEEN, Urine Mucus 0 SEEN Micro: Microbiology 11/28/21 18:20 Nasal Secretion SARS-CoV-2 Antigen (Rapid) - Final Radiology Impression Brain CT 11/28/21 12:24 IMPRESSION: 1. No acute intracranial hemorrhage or mass effect. 2. Central parenchymal volume loss. White matter changes that are nonspecific but most commonly associated with chronic small vessel ischemic disease. Electronically Signed: Quinn Rubi MD (Brooks) at 13:11 EDT , Chest X-Ray 11/28/21 12:40 IMPRESSION: Nonacute portable x-ray examination of the chest. Electronically Signed: Quinn Rubi MD (Brooks) at 12:56 EDT , Assessment & Plan Assessment/Plan (1) Seizure: PLAN: 1. Seizures in the setting of Parkinson's and Parkinson's dementia ?We will admit for seizure protocols, in discussion with her neurologist will not start her on any seizure medications unless she has another spell witnessed seizure ?Pending transfer to a tertiary center that has both onsite neurology as well as a functional EEG machine ?We will continue with her home Parkinson meds including Sinemet and Nuplazid, she does have some psychiatric manifestations from her Parkinson's ?Continue with donepezil and clonazepam 2. HTN/HLD ?Blood pressures are stable ?Continue with her home blood pressure medications as well as statin 3. Overactive bladder ?Stable ?Continue with her home medications 4. Osteoporosis ?Stable ?Continue with her alendronate every Friday DVT: Lovenox Charges/Coding Visit Charges Inpatient E&M: 97465 Init Hosp L2
--- NOTE | 2021-11-29 16:32 | RAD_ITS ---
STUDY: X-RAY - PELVIS AND LEFT HIP REASON FOR EXAM: Female, 76 years old. Pain, recent falls -- Portable TECHNIQUE: 3 views of the pelvis and hip. COMPARISON: 11/19/2021 FINDINGS: A comminuted intertrochanteric fracture of the left femur has occurred since the previous study. There is varus angulation at the fracture site. There is associated soft tissue swelling. No left hip dislocation or subluxation noted. There is a 90 degree counterclockwise rotation of the left femoral head within the acetabulum. No acetabular or left pelvic fracture. There is a non-specific bowel gas pattern. Normal visualized soft tissue structures. There is narrowing with cortical sclerosis and osteophyte formation of the sacroiliac joint consistent with degenerative osteoarthritic changes. Normal bilateral superior and inferior pubic rami. Normal pubic symphysis. Normal bilateral ischial tuberosities. RAD/HIP, UNI W/ Pelvis 2-3 Views IMPRESSION: Acute intertrochanteric fracture of the left femur with varus angulation at the fracture site. 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
--- NOTE | 2021-11-29 16:32 | NURSING ---
2527-call placed to [facility] requesting MAR, fax # provided.
[2021-11-29] MEDS: Mirtazapine 15 MG Tablet PO (21:30)
[2021-11-29] MEDS: Atorvastatin Calcium 20 MG Tablet PO (21:30)
[2021-11-30] VITALS (12 sets, daily range): BP systolic 120–158; BP diastolic 59–72; PULSE 58–72; RESP 14–18; TEMP 36.4–37.1; O2SAT 96–100
[2021-11-30 05:34] LABS: Absolute Lymphocyte Count 0.69 X10^3/uL (0.83-4.51); Absolute Neutrophil Count 5.6 X10^3/uL (2.0-7.7); Basophil# 0.02 X10^3/uL; Basophil% 0.3 % (0-1); Eosinophil# 0.04 X10^3/uL; Eosinophils% 0.6 % (0-5); Hematocrit 30.6 % (37-47); Hemoglobin 10.4 g/dL (12.0-15.0); Lymphocyte # 0.69 X10^3/ul (0.83-4.51); Lymphocyte % 9.9 % (19-41); Mean Corpuscular Hgb 27.9 pg (27.0-32.0); Monocyte# 0.48 X10^3/uL; Monocyte% 6.9 % (0-10); NRBC Flagged by Analyzer 0 % (0-5); Neutrophil # 5.63 X10^3/uL (2.7-7.7); Neutrophil % 81.1 % (47-70); Platelet Count 233 K/mm3 (150-450); RBC Distribution Width CV 13.9 % (11.6-14.6); RBC Distribution Width SD 40.7 fl (35.1-43.9); Red Blood Count 3.73 M/mm3 (4.2-5.4); White Blood Count 6.9 K/mm3 (4.4-11.0)
[2021-11-30 05:59] LABS: Anion Gap 4 (5-15); BUN 13 mg/dL (7-18); BUN/Creat Ratio 18.6 RATIO (10-20); Calcium,Total 7.8 mg/dL (8.5-10.1); Chloride 109 mmol/L (98-107); EST Glomerular Filtration Rate 87 mL/min (>60); Est Glom Filt Rate - Afr Amer 105 mL/min (>60); Glucose 91 mg/dL (74-106); Potassium 3.3 mmol/L (3.5-5.1); Sodium Level 140 mmol/L (136-145)
[2021-11-30] MEDS: Enoxaparin 30 MG/0.3 ML Syringe SC (06:07)
[2021-11-30] MEDS: clonazePAM 1 MG Tablet PO ×3 (06:07→21:48)
[2021-11-30] MEDS: Carbidopa/Levodopa 25/100 Tablet PO ×4 (06:07→18:04)
[2021-11-30 09:43] LABS: Magnesium 1.5 mg/dL (1.6-2.6); Phosphorus 2.5 mg/dL (2.5-4.9)
[2021-11-30] MEDS: Metoprolol(XL)Succ 25 MG Tablet PO (10:02)
[2021-11-30] MEDS: Juven (unflavored) Packet 1 PACKET PO ×2 (10:03→16:02)
[2021-11-30] MEDS: Donepezil HCl 5 MG Tablet PO (10:03)
--- NOTE | 2021-11-30 13:13 | CASEMGMT ---
SW met with patient, her Milton, and her daughter Zuly. They asked about different scenarios for patient. For example: [facility], back to [facility], Inpatient Hospice Unit vs. transfer to [facility]. SW answered their questions. They are trying to decide the direction they would like to go. They thanked SW for talking with them. They are aware SW is available should they have more questions. Zuly Melendez REPLENISHMENT ANALYST DIANA
[2021-11-30] MEDS: Potassium Chloride Oral Tablet 20 MEQ 40 MEQ PO (14:15)
[2021-11-30] MEDS: Ergocalciferol 1.25 MG (50, 000 UNIT) Capsule PO (14:16)
[2021-11-30] MEDS: Acetaminophen 500 MG Tablet PO ×2 (14:16→20:08)
[2021-11-30] MEDS: 0.9% Normal Saline 1,000 ML 100 ML IV (14:17)
[2021-11-30] MEDS: 0.9% Saline Lock 10 ML Syringe IV ×2 (14:26→23:58)
--- NOTE | 2021-11-30 15:16 | DS.PCM_ITS ---
Providers Date of Admission: 11/29/21 Primary Care Physician: Dr. Rain Mccormick DO Consultations 11/29/21 16:16 Consult: Onc/Wound/office administrative assistant Routine Comment: Reason for Consult:: Gluteal cleft pressure ulcer 11/29/21 19:24 Consult: Orthopedics Routine Consulting Provider: Kervin Vincent Reason for Consult: femur fx EMERGENT Consult: No MD Notified: Yes Date Notified: 11/29/21 Time Notified: 19:25 Method of Notification: telephone Reason For Visit: SEIZURES Diagnosis Discharge Diagnosis (1) Seizure: Status: Acute Code(s): R56.9 - Unspecified convulsions Medications at Discharge Home Medications alendronate 70 mg PO HILL 12/21/18 metoprolol succinate 25 mg PO DAILY 12/21/18 clonazepam 1 mg PO TID 03/10/19 ibuprofen 400 mg PO Q6H PRN 05/12/20 mirtazapine 15 mg PO QHS 09/09/20 acetaminophen 500 mg PO Q6H PRN 11/19/20 docusate sodium 100 mg PO DAILY PRN 11/19/20 polyethylene glycol 8000(bulk) 17 g PO DAILY PRN 11/19/20 atorvastatin 20 mg PO QHS 02/06/21 donepezil 5 mg PO DAILY 02/06/21 diphenhydramine HCl 25 mg PO BID PRN 10/31/21 acetaminophen 1,000 mg PO Q6H PRN PRN 11/19/21 ergocalciferol (vitamin D2) [Ergo-D] 1,250 mcg PO QWEEK 11/19/21 ondansetron 4 mg PO Q8H PRN 11/19/21 pentosan polysulfate sodium [Elmiron] 100 mg PO TID 11/19/21 phenazopyridine 200 mg PO TID PRN 11/19/21 phenyleph-shark fuj-rwpl-dal [Preparation H] 1 applic TOPICAL 4X/DAY 11/19/21 pimavanserin [Nuplazid] 34 mg PO DAILY 11/19/21 carbidopa-levodopa 1 tab PO 4X/DAY 11/28/21 aspirin [Aspir-81] 81 mg PO DAILY 11/29/21 quetiapine 50 mg PO QHS 11/29/21 Hospital Course Operations None Procedures None Summary of Care Provided Minutes Spent on Discharge: 40 Hospital Course: Per HPI: JAZMINE MARCE, is a 76 F who presents to the hospital with a new onset seizure. She has a history of Parkinson's with Parkinson's dementia and has been in the [facility] assisted [facility] and never had seizures before. Unfortunate no family is at bedside during my exam so history was obtained minimally from the patient and then from also the chart. Apparently she had a seizure for about 10 to 15 minutes 3 days prior to presentation to the ER and then she was at her doctor's office where she had a seizure that was witnessed by the physician who sent her into the ER. He does have a neurologist in the [facility] system who has been managing her dementia and her Parkinson's disease. Unfortunately our EEG machine is broken and therefore she is pending transfer to the [facility] system. Unfortunately the system is full so she will need to be admitted to the hospital for monitoring until a bed can open up so she can have a neurological as well as an EEG evaluation. Hospital Course: 1. Seizures in the setting of Parkinson's and Parkinson's dementia with frequent falls/left intertrochanteric fracture with varus angulation secondary to a fall?56-year-old female presented from home with what was thought to be seizures. One of her seizures was witnessed by her PCP who sent her in. She has not had any further seizures while she was here however she has been transferred to an outside hospital secondary to the fact that her EEG machine is broken. We did discuss the situation with her neurologist Dr. Marroquin, who felt that she still required to be admitted for evaluation but did not recommend any antiepileptic unless further seizures were noted. Of note, during her stay, she was complaining of some left hip pain and the had mentioned multiple falls at home and a recent sacral fracture therefore an x-ray of her left hip was obtained which demonstrated significant fracture. I discussed the situation with our orthopedic surgeons and they did not feel comfortable repairing something this extensive at this institution so they also recommended transfer for more specialized orthopedic evaluation. I had an extensive discussion about 30 minutes with the family about advanced care planning, especially given her chronic illness with Parkinson's and Parkinson's dementia. We discussed specifically the role of repairing this fracture and proceeding to a custodial for rehab versus proceeding with comfort care and hospice. They would like to proceed with an orthopedic opinion and then deciding whether or not surgery is the right option versus comfort care and hospice at a custodial. I discussed the case with [facility] who has accepted patient in transfer. I discussed with the family that the transfer will occur this evening. Given her hip fracture will provide her with some morphine to assist with pain control and and transferring to [facility]. 2. Hypertension, hyperlipidemia, overactive bladder, osteoporosis are chronic medical conditions which complicate her care. Her home medications were continued were appropriate Physical Exam Const alert and no apparent distress Constitutional Narrative: Extremities are thin, slow mentation General Appearance: cooperative Orientation / Consciousness: oriented to person and oriented to time HEENT normocephalic Eyes PERRL, EOMs intact bilaterally and conjunctivae normal Neck supple and no JVD Resp normal respiratory effort, no retractions, no use of accessory muscles and clear to auscultation bilaterally Auscultation: Negative for crackles, rales, rhonchi or wheezes Cardio regular rate, regular rhythm, S1 normal heart sound, S2 normal heart sound and no murmurs GI soft to palpation, non-tender and non-distended; Negative for hepatosplenomegaly Extremity no clubbing, cyanosis or edema Extremity Narrative: Pain to palpation of her left hip Skin no rashes or lesions noted Neuro no sensory deficits noted Neuro Narrative: Moves all of her extremities, has painful movement in her left lower extremity Psych Appearance: appropriate Activity / Motor Behavior: psychomotor slowing Medical Records Data Medical Nutrition Assessment Dietitian: Malnutrition Criteria Met Start: 11/29/21 18:08 Freq: Status: Active Protocol: Document 11/29/21 18:09 RMA (Rec: 11/29/21 18:09 RMA [id number]) Nutrition Malnutrition Evidence of Malnutrition Exists Yes Malnutrition (severe): Chronic Evidenced By Suboptimal Energy Intake ( Severe),Weight Loss (Severe), Physical Changes (Moderate) Clinical Problem Chronic Disease or Condition Related Malnutrition Etiology Severe protein-calorie malnutrition in the context of chronic disease and debility related to inadequate oral intake Signs/Symptoms as evidenced by BMI 20.1, ~5% wt loss x 1 month, ~13% wt loss x 4 months, PO meeting less than 50% estimated nutrition needs and physical signs of muscle/fat wasting in the face/clavicle; +NFPE Status Active Problem Recommendation Dietitian Recommendations/Changes Will continue regular diet as ordered. Will continue 120 ml ensure enlive 4 times per day w/ medpass. Will add Gume BID for wound healing. Will adjust ONS as needed to optimize oral intake and prevent further weight loss. Weight / BMI Weight Weight: 116 lb 13.52 oz Body Mass Index (BMI) 20.0 ABG / Lab / Microbiology Data Result Diagrams: 11/30/21 05:14 11/30/21 05:14 Laboratory: Laboratory Results - last 24 hr 11/30/21 05:14: WBC 6.9, RBC 3.73 L, Hgb 10.4 L, Hct 30.6 L, MCV 82.0, MCH 27.9, MCHC 34.0, RDW Std Deviation 40.7, RDW Coeff of Jeff 13.9, Plt Count 233, MPV 11.0, Immature Gran % (Auto) 1.200 H, Neut % (Auto) 81.1 H, Lymph % (Auto) 9.9 L , Kern % (Auto) 6.9, Eos % (Auto) 0.6, Baso % (Auto) 0.3, Absolute Neuts (auto) 5.6, Absolute Lymphs (auto) 0.69 L, Nucleated RBC % 0 11/30/21 05:14: Sodium 140, Potassium 3.3 L, Chloride 109 H, Carbon Dioxide 27.0, Anion Gap 4 L, BUN 13, Creatinine 0.70, Estim Creat Clear Calc 41.30, Est GFR (MDRD) Af Amer 105, Est GFR (MDRD) Non-Af 87, BUN/Creatinine Ratio 18.6, Glucose 91, Calcium 7.8 L 11/30/21 05:14: Phosphorus 2.5, Magnesium 1.5 L Microbiology: Microbiology 11/28/21 18:20 Nasal Secretion SARS-CoV-2 Antigen (Rapid) - Final Radiography Diagnostic Testing: Radiology Impression Hip/Pelvis X-Ray 11/29/21 16:32 IMPRESSION: Acute intertrochanteric fracture of the left femur with varus angulation at the fracture site. 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 Electronically Signed: Casey Flores MD at 17:05 EDT Reading Location ID and State: [facility] / [place] , Service support , Meaningful Use Info Meaningful Use Diagnoses (Choose all that apply): None applicable Discharge Plan Admission Admit Date/Time: 11/29/21 11:53 Attending Provider: Claudio Mehta Primary Care Provider: Rain Mccormick Consulting Providers: Kervin Vincent Discharge Orders/Prescriptions Prescriptions: No Action alendronate 70 MG tablet 70 mg PO HILL RF: 0 metoprolol succinate 25 MG tablet 25 mg PO DAILY RF: 0 clonazepam 0.5 MG tablet 1 mg PO TID RF: 0 ibuprofen 200 MG tablet 400 mg PO Q6H PRN (Reason: Pain Or Fever) RF: 0 mirtazapine 15 MG tablet,disintegrating 15 mg PO QHS RF: 0 polyethylene glycol 8000(bulk) 500 GM powder 17 g PO DAILY PRN (Reason: Constipation) RF: 0 acetaminophen 500 MG tablet 500 mg PO Q6H PRN (Reason: Pain) RF: 0 docusate sodium 100 MG capsule 100 mg PO DAILY PRN (Reason: Constipation) RF: 0 atorvastatin 20 mg Tablet 20 mg PO QHS RF: 0 donepezil 5 mg Tablet 5 mg PO DAILY RF: 0 diphenhydramine HCl 25 mg Capsule 25 mg PO BID PRN (Reason: Anxiety) RF: 0 Elmiron 100 mg Capsule 100 mg PO TID RF: 0 acetaminophen 325 mg Tablet 1,000 mg PO Q6H PRN PRN (Reason: pain/fever) RF: 0 phenazopyridine 200 mg Tablet 200 mg PO TID PRN (Reason: Bladder Spasms) RF: 0 ergocalciferol (vitamin D2) [Ergo-D] 1,250 mcg (50,000 unit) Capsule 1,250 mcg PO QWEEK RF: 0 ondansetron 4 mg Tablet,Disintegrating 4 mg PO Q8H PRN (Reason: Nausea) RF: 0 Preparation H Cream 1 applic topical 4X/DAY RF: 0 Nuplazid 34 mg Capsule 34 mg PO DAILY RF: 0 carbidopa-levodopa 25-100 mg Tablet 1 tab PO 4X/DAY RF: 0 aspirin [Aspir-81] 81 mg Tablet,Delayed Release (Dr/Ec) 81 mg PO DAILY RF: 0 quetiapine 50 mg Tablet 50 mg PO QHS RF: 0 Referrals / Follow Up: Rain Mccormick DO [Primary Care Provider] - Disposition Discharge Orders: Discharge Patient (Routine); Ordered 11/30/21 Ordered By: Dr. Claudio Mehta Charges/Coding Visit Charges Inpatient E&M: 69485 Disch Hosp
--- NOTE | 2021-11-30 15:48 | NURSING ---
Report called to Jose Sheridan to [facility]
[2021-11-30] MEDS: Atorvastatin Calcium 20 MG Tablet PO (21:48)
[2021-11-30] MEDS: Mirtazapine 15 MG Tablet PO (21:49)
[2021-11-30] MEDS: QUEtiapine 25 MG Tablet 50 MG PO (22:51)
[2021-11-30] MEDS: Morphine 2 MG/ML Syringe 1 MG IV (23:57)
== END 2021-12-01 00:21 | disposition short-term general hospital (02) | DRG 100 ==
LOC: ED 19:14 → PCU 11-29 11:36
PROVIDERS: Admitting Provider Family Medicine; Emergency Provider Emergency Medicine; PCP Internal Medicine; Visit Provider Family Medicine
DX: R56.9 Unspecified convulsions (principal); S72.142A Displaced intertrochanteric fracture of left femur, initial encounter for closed fracture; F02.80 Dementia in other diseases classified elsewhere, unspecified severity, without behavioral disturbance, psychotic disturbance, mood disturbance, and anxiety; G20 Parkinson's disease; E11.9 Type 2 diabetes mellitus without 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; F31.9 Bipolar disorder, unspecified; E78.5 Hyperlipidemia, unspecified; I10 Essential (primary) hypertension; M79.7 Fibromyalgia; W19.XXXA Unspecified fall, initial encounter; R29.6 Repeated falls; Z20.822 Contact with and (suspected) exposure to COVID-19; N32.81 Overactive bladder; M81.0 Age-related osteoporosis without current pathological fracture; Z79.82 Long term (current) use of aspirin; Z79.83 Long term (current) use of bisphosphonates; Z79.899 Other long term (current) drug therapy
CPT/HCPCS: 36415; 70450; 71045; 73502; 80048; 80053; 81001; 83735; 84100; 84146; 84484; 85025; 87811; 93005; 97802; 99285; J7030; P9612; A4216

== ENCOUNTER 2021-12-15 12:36 | Emergency (ER) | payer MEDICARE, OTHER, SELFPAY ==
[2021-12-15 12:37] VITALS: BP 140/65; PULSE 65; RESP 12; TEMP 36.4; O2SAT 100; BMI 20.7
--- NOTE | 2021-12-15 13:11 | RAD_ITS ---
STUDY: X-RAY - PELVIS AND LEFT HIP REASON FOR EXAM: Female, 76 years old. Fall pain. Recent hip surgery. TECHNIQUE: Frontal pelvis, frontal and crosstable lateral views of the left hip. views of the pelvis and hip. COMPARISON: None. FINDINGS: Bony pelvis intact, proximal right femur intact, moderate DJD of the right hip articulation. Left hip arthroplasty. The prosthetic components appear to be normally seated and articulated. Osseous structures are acutely intact. Postsurgical changes in particular soft tissues. RAD/HIP, UNI W/ Pelvis 2-3 Views IMPRESSION: Surgical construct of the left hip arthroplasty appears intact and aligned with no evidence of acute injury. Electronically Signed: Arnaldo Jones MD at 13:46 EDT ,
--- NOTE | 2021-12-15 13:15 | RAD_ITS ---
STUDY: X-RAY - LEFT SHOULDER REASON FOR EXAM: Female, 76 years old. Fall, pain TECHNIQUE: 2 view(s) of the shoulder. COMPARISON: 11/19/2021. FINDINGS: Plate and screw fixation of old healed humeral neck fracture, with chronically partially displaced but partially fused greater tubercle fragment, no dislocation, moderate osteophytosis of the glenohumeral articulation. Cupping of the undersurface of the acromion suggesting subacromial impingement. Moderate chronic acromioclavicular joint arthrosis. No fracture. Hemithoracic structures within the field of view exhibit no acute process. RAD/Shoulder min 2 Views IMPRESSION: No radiographic evidence of acute injury. Electronically Signed: Arnaldo Jones MD at 13:45 EDT ,
[2021-12-15] MEDS: Acetaminophen 325 MG Tablet 650 MG PO (13:31)
--- NOTE | 2021-12-15 13:40 | EDS_ITS ---
HPI <MICHOACANO Florentino - Last Filed: 12/15/21 13:44> History of Present Illness Chief Complaint: Fall Narrative Narrative: Patient lives in a senior living facility, patient 76 years old, is not very ambulatory, has history of bipolar, depression, she has a sacral wound, recent left hip surgery presents the emergency department after being found off the toilet. Patient apparently fell off the toilet, onto her left side. Patient denies any head or neck injury however she states she did hit her head however it was not hard. Patient has more pain to the left shoulder, left hip and is here for evaluation. She is not any blood thinners, patient is acting appropriate per family. Patient does have a long history of falling. Patient is unstable on her feet [facility] <MICHOACANO Florentino - Last Filed: 12/15/21 13:44> [facility] Medical History (Updated 12/15/21 @ 13:43 by MICHOACANO Florentino) Bipolar disorder Dementia Depression Diabetes Encephalopathy Fibromyalgia Hallucination Hip fracture, intertrochanteric HTN (hypertension) Interstitial cystitis Lichen sclerosus et atrophicus Overactive bladder Parkinsons Personality disorder Home Medications alendronate 70 mg PO HILL 12/21/18 [History Last Taken 05/07/20] metoprolol succinate 25 mg PO DAILY 12/21/18 [History Last Taken 05/11/20] clonazepam 0.5 mg PO TID 03/10/19 [History Last Taken 11/19/20 11:00] mirtazapine 15 mg PO QHS 09/09/20 [History Last Taken Unknown] acetaminophen 500 mg PO Q6H PRN 11/19/20 [History Last Taken Unknown] docusate sodium 100 mg PO DAILY PRN 11/19/20 [History Last Taken Unknown] polyethylene glycol 8000(bulk) 17 g PO DAILY PRN 11/19/20 [History Last Taken Unknown] atorvastatin 20 mg PO QHS 02/06/21 [History Last Taken Unknown] donepezil 5 mg PO DAILY 02/06/21 [History Last Taken Unknown] acetaminophen 1,000 mg PO Q6H PRN PRN 11/19/21 [History Last Taken Unknown] ergocalciferol (vitamin D2) [Ergo-D] 1,250 mcg PO QWEEK 11/19/21 [History Last Taken Unknown] pentosan polysulfate sodium [Elmiron] 100 mg PO TID 11/19/21 [History Last Taken Unknown] phenyleph-shark [id number] [Preparation H] 1 applic TOPICAL 4X/DAY 11/19/21 [History Last Taken Unknown] carbidopa-levodopa 1 tab PO 4X/DAY 11/28/21 [History Last Taken Unknown] quetiapine 25 mg PO BID 11/29/21 [History Last Taken Unknown] betamethasone dipropionate TOPICAL QHS 12/15/21 [History Last Taken Unknown] Allergy/AdvReac Type Severity Reaction Status Date / Time rhubarb Allergy Unknown PT UNSURE Verified 12/15/21 13:43 OF REACTION seasonal Allergy NEEDS Uncoded 12/15/21 13:43 FOLLOW-UP Family History Other Heart disease Surgical History Status post appendectomy Social History (Updated 11/29/21 @ 14:45 by Halima Morris) housing: assisted living facility Smoking Status: Never smoker substance use type: does not use ROS <MICHOACANO Florentino - Last Filed: 12/15/21 13:44> [facility] ROS Narrative Constitutional: Negative for fever, chills, weight loss or gain, weakness Eyes: Negative for vision loss, vision change, double vision ENT: Negative for any hearing changes, ringing in the ears, discharge, pain Nose: Negative for any congestion, runny nose, sinus pain, allergies Throat: Negative for any sore throat, swelling, voice changes, Cardiovascular: Negative for any chest pain, tightness, palpitations, racing heartbeat Respiratory: Negative for any cough, sputum production, hemoptysis, shortness of breath, shortness of breath on exertion, Gastrointestinal: Negative for any abdominal pain, nausea, vomiting, diarrhea, constipation, blood in stool, blood in vomit : Negative for any urinary frequency, incontinence, dysuria, retention, blood in urine Muscle skeletal: Negative for any muscle joint pain, stiffness, myalgias, arthralgias, neck pain, back pain. Positive for left hip pain, left shoulder pain Neurological: Negative for any headache, dizziness, syncope, numbness or tingling Skin: Negative for any rashes, lumps, itching, abrasions, lacerations Psychiatric: Negative for any depression, anxiety, stress, suicidal ideation, homicidal ideation Hematologic: Negative for any easy bruising, excessive bruising, easy bleeding Allergies: Negative for any eczema, hives, rash EXAM <MICHOACANO Florentino - Last Filed: 12/15/21 13:44> Physical Exam Const Vital Signs: 12/15/21 12:37 12/15/21 12:45 Temperature 97.5 F L Temperature Source Oral Pulse Rate 65 Respiratory Rate 12 Respiratory Effort Normal Respiratory Depth Normal Respiratory Pattern Normal Blood Pressure 140/65 H Blood Pressure Mean 90 Pulse Ox 100 Oxygen Delivery Method Room Air Room Air Positive well nourished and well developed General Appearance ED: well developed HEENT trauma and tenderness Eyes PERRL and EOMs intact bilaterally Neck no lymphadenopathy and supple Chest Wall inspection of chest normal and palpation of chest normal Resp normal respiratory effort and clear to auscultation bilaterally Cardio regular rate GI normal to inspection, nondistended, normoactive bowel sounds, non-tender and non-distended Auscultation: normoactive bowel sounds Palpation: soft Back/Spine no CVA tenderness Extremity normal to inspection Neuro oriented x3 and CN's II-XII intact bilaterally Neuro Narrative: acting baseline Sensorium / Orientation: alert Motor Exam: strength 5/5 throughout Psych mental status grossly normal Skin no rashes or lesions noted <Dr. Pedro Garcia MD - Last Filed: 12/15/21 13:50> Physical Exam Const Vital Signs: 12/15/21 12:37 12/15/21 12:45 Temperature 97.5 F L Temperature Source Oral Pulse Rate 65 Respiratory Rate 12 Respiratory Effort Normal Respiratory Depth Normal Respiratory Pattern Normal Blood Pressure 140/65 H Blood Pressure Mean 90 Pulse Ox 100 Oxygen Delivery Method Room Air Room Air MDM <MICHOACANO Florentino - Last Filed: 12/15/21 13:44> [facility] Narrative Medical decision making narrative: Patient appears well, patient appears nontoxic, vital signs are stable. Patient presents to the emergency department after falling off the toilet, injuring her left shoulder, left hip. Patient is acting appropriate per the family, patient does have a long history of falling as well as not being really ambulatory. Patient did receive x-rays of the left hip, left shoulder, these were read by the ER physician, these were unremarkable for any acute osseous abnormality. Patient is in a position of comfort, patient was given Tylenol here. Patient will follow up outpatient, at this time, patient be was to be sent back to her facility where she is instructed to not get up by herself and to go to the bathroom attended. Patient and family both happy with the plan of care and is stable for discharge Lab Data Attestation: I reviewed the patient's lab results. Radiography Diagnostic Testing: Clinical Impression(s) from Imaging Studies Shoulder X-Ray 12/15/21 13:15 IMPRESSION: No radiographic evidence of acute injury. Electronically Signed: Arnaldo Jones MD at 13:45 EDT , <Dr. Pedro Garcia MD - Last Filed: 12/15/21 13:50> [facility] MDM Narrative Medical decision making narrative: I have personally performed a face to face assessment of the patient and have reviewed the DEA Note. I performed a substantive portion of the visit including all aspects of the following. My canales findings include: History is [76-year-old female with a recent left hip fracture prosthesis surgery. Lives at a intermediate. Fell from the toilet injuring her left shoulder and her left hip. She also has a prior left shoulder prosthesis. Denies any other injuries. No LOC. She is currently not on any blood thinners. Family is present in her room.] Exam is [Arner female no acute distress. Vital signs stable afebrile. HEENT exam unremarkable atraumatic nontender. C-spine nontender. Lungs are clear. Heart regular rhythm. Abdomen is soft and nontender. Pelvic girdle intact. Mild tenderness to her left hip. No shortening or rotation. Right upper and lower extremities are nontender. Neurologically she is awake and alert.] Medical Decision Making [x-rays obtained the left shoulder and left hip showed chronic changes. And prostheses. But no acute fracture or dislocations. Discussed with family.] Other additions or changes: [Repeat exam patient's doing well. She will be discharged home. Copies of the x-rays will be sent with the family. They have a follow-up with her orthopedic physician in [place] next Friday] Radiography Diagnostic Testing: Clinical Impression(s) from Imaging Studies Shoulder X-Ray 12/15/21 13:15 IMPRESSION: No radiographic evidence of acute injury. Electronically Signed: Arnaldo Jones MD at 13:45 EDT , Left shoulder x-ray 3 view shows no acute fracture. Interpreted by myself. Old prosthesis. Left hip and pelvis x-ray again shows a prosthesis but no acute fracture or dislocation. Interpreted by myself. 3 views. Discharge Plan Triage Chief Complaint: Fall ED Midlevel Provider: Shiv Stern ED Provider: Pedro Garcia Dx/Rx/DC Orders Clinical Impression: Fall, Left shoulder strain, Contusion of hip Instructions: Bruises (Contusions), ED Fall with Uncertain Cause, ED Muscle S train, Extremity Prescriptions: No Action alendronate 70 MG tablet 70 mg PO HILL RF: 0 metoprolol succinate 25 MG tablet 25 mg PO DAILY RF: 0 clonazepam 0.5 MG tablet 0.5 mg PO TID RF: 0 mirtazapine 15 MG tablet,disintegrating 15 mg PO QHS RF: 0 polyethylene glycol 8000(bulk) 500 GM powder 17 g PO DAILY PRN (Reason: Constipation) RF: 0 acetaminophen 500 MG tablet 500 mg PO Q6H PRN (Reason: Pain) RF: 0 docusate sodium 100 MG capsule 100 mg PO DAILY PRN (Reason: Constipation) RF: 0 atorvastatin 20 mg Tablet 20 mg PO QHS RF: 0 donepezil 5 mg Tablet 5 mg PO DAILY RF: 0 Elmiron 100 mg Capsule 100 mg PO TID RF: 0 acetaminophen 325 mg Tablet 1,000 mg PO Q6H PRN PRN (Reason: pain/fever) RF: 0 ergocalciferol (vitamin D2) [Ergo-D] 1,250 mcg (50,000 unit) Capsule 1,250 mcg PO QWEEK RF: 0 Preparation H Cream 1 applic topical 4X/DAY RF: 0 carbidopa-levodopa 25-100 mg Tablet 1 tab PO 4X/DAY RF: 0 quetiapine 50 mg Tablet 25 mg PO BID RF: 0 betamethasone dipropionate 0.05 % Ointment TOPICAL QHS RF: 0 Primary Care Provider: Shiv Ortiz Referrals: Shiv Ortiz MD [Primary Care Provider] - Activity Restrictions/Additional Instructions: Please ensure that you are attended all times while you are ambulatory. Please keep your appointment with your orthopedist. Print Language: Polish Disposition Disposition: Home, Self Care
--- NOTE | 2021-12-15 14:22 | ED.RN ---
Report given to Rhona Nurse at [place].
[2021-12-15 15:37] VITALS: BP 124/47; PULSE 76; RESP 18
== END 2021-12-15 15:45 | disposition home or self-care (01) ==
PROVIDERS: Emergency Provider Emergency Medicine; PCP Family Medicine; Visit Provider Emergency Medicine
DX: S70.00XA Contusion of unspecified hip, initial encounter (principal); G20 Parkinson's disease; F02.80 Dementia in other diseases classified elsewhere, unspecified severity, without behavioral disturbance, psychotic disturbance, mood disturbance, and anxiety; F31.9 Bipolar disorder, unspecified; E11.9 Type 2 diabetes mellitus without 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; S46.912A Strain of unspecified muscle, fascia and tendon at shoulder and upper arm level, left arm, initial encounter; W18.11XA Fall from or off toilet without subsequent striking against object, initial encounter; I10 Essential (primary) hypertension; Z91.81 History of falling
CPT/HCPCS: 73030; 73502; 99284